=== PATIENT | female | born 1950 | race Caucasian/White ===

== ENCOUNTER 2016-05-25 15:17 | Inpatient (IN) | payer OTHER ==
[~2016-05-25] VITALS: Ht 172.7 cm; Wt 149.7 kg
[~2016-05-25 15:17] MED LIST: ACETAMINOPHEN-1 EAC3 PO; ALPRAZOLAM2 MG PO; ANTIVERT 12.512.5 MG PO; ASPIRIN81 M4 PO; ATORVASTATIN CA40 MG PO; BACTRIM DS TAB1 EACH PO; DULOXETINE HCL30 MG PO; FUROSEMIDE40 MG PO; GABAPENTIN TAB600 MG PO; GLIMEPIRIDE4 M1 PO; GLIMEPIRIDE4 MG PO; HYDROCODONE/ACE1 TA2 PO; LISINOPRIL10 MG PO; METFORMIN1000 MG PO; NORCO 5-325 TA1 EACH PO; PROAIR HFA8.5 GM INH; TRADJENTA5 MG PO; VITAMIN B-121000 MC3 PO; ZOFRAN ODT4 MG PO
--- NOTE | 2016-05-25 15:18 | NUR ---
PT'S SON FRANKIE WOULD LIKE TO BE CONTACTED WITH ANY UPDATES OR IF THERE ARE ANY QUESTIONS. FRANKIE'S PHONE # -
--- NOTE | 2016-05-25 15:48 | ED GENERAL ADULT ---
History of Present Illness General Chief Complaint: Altered Mental Status Stated Complaint: BIBA, AMS Source: patient, old records, EMS Exam Limitations: confusion, poor historian Allergies Coded Allergies: cephalexin (Severe, COULDN'T BREATHE 01/11/16) cyclobenzaprine (UNKNOWN 01/11/16) tramadol (UNKNOWN 01/11/16) Reconcile Medications Acetaminophen With Codeine (Acetaminophen-Cod #3 Tablet) 1 EACH TABLET 1 TAB PO Q6P PRN PAIN (Reported) Albuterol Sulfate (Albuterol Sulfate Hfa) 0.09 MG/Actuation SASHA 2 PUFF INH PRN SHORTNESS OF BREATH (Reported) 90 MCG PER PUFF Alprazolam 2 MG TAB 0.25-0.5 TAB PO PRN ANXIETY (Reported) Aspirin (Aspirin*) 81 MG TAB.CHEW 1 TAB PO DAILY HEART HEALTH (Reported) Atorvastatin Calcium (Lipitor) 40 MG TAB 1 TAB PO DAILY CHOLESTEROL (Reported ) Cyanocobalamin (Vitamin B-12) (Unknown Strength) TABLET (Unknown Dose) SUPPLEMENT (Reported) Duloxetine HCl 30 MG CAPSULE.DR 60 MG PO DAILY (Reported) Furosemide 40 MG TAB 1 TAB PO DAILY DIURETIC (Reported) Gabapentin (Gabapentin Tab 600MG) 600 MG TAB 1 TAB PO TID PRN NERVE PAIN ( Reported) Glimepiride 4 MG TABLET 1 TAB PO DAILY DM (Reported) HYDROCODONE/ACETAMINOPHEN (Hydrocodon-Acetaminoph 7.5-325) 1 TAB TAB 1 TAB PO Q4-6 PRN PAIN (Reported) Linagliptin (Tradjenta) 5 MG TAB 1 TAB PO DAILY DIABETES (Reported) Lisinopril 10 MG TAB 1 TAB PO DAILY BP (Reported) METFORMIN HCL (Metformin) 1,000 MG TAB 1 TAB PO BID DIABETES (Reported) Sulfamethoxazole/Trimethoprim (Bactrim Ds Tablet) 1 EACH TABLET 1 TAB PO BID uti Triage Note: 65 YO FEMALE SUBHA FROM HOME. PER EMS PT ?WAS ON THE GROUND FOR APPROX 48 HOURS PER HER SON WHO FOUND HER TODAY. PT ARRIVES ALERT AND ORIENTED AT THIS TIME. PT DOESNT RECALL WHY SHE WAS ON LISA FLOOR OR WHAT HAPPENED. PT C/O R ARM PAIN, NOT OBVSIOUS DEFORMITIES NOTED. PT INCONTINENT OF STOOL AND URINE. JAQUELIN AREA NOTED TO BE RED. PT CLEANED AND BRIEF LAYING UNDER PT. PT ALSO STATES SHE HAS BEEN HAVING BURNING WITH URINATION. Triage Nurses Notes Reviewed? yes HPI: Patient is a 65-year-old female brought in by ambulance for confusion. Patient was found on the floor by family member. Per EMS was reported that the patient was on the floor for approximately 2 days. Patient reports she takes Xanax and that she may have taken too much of her Xanax. Patient does not remember precipitating events or how she ended up on the floor. Patient is unsure how long she was on the floor for. Patient came in covered in stool. Patient with chronic knee pain and chronic right upper extremity pain, denies any new pain. (KEEGAN HERBERT) Vital Signs & Intake/Output Vital Signs & Intake/Output Vital Signs Date Time Temp Pulse Resp B/P Pulse O2 O2 Flow FiO2 Ox Delivery Rate 05/25 2017 100.4 105 18 148/88 96 Room Air 05/25 1751 100.2 98 18 135/92 100 Room Air 05/25 1635 98.2 101 20 137/97 98 Room Air 05/25 1521 98.5 117 18 187/84 98 Room Air Past History Travel History Traveled to [place] past 21 day No Medical History Any Pertinent Medical History? see below for history Neurological: vertigo, DIABETIC NEUROPATHY EENT: NONE Cardiovascular: hypertension, afib? 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 No (KEEGAN HERBERT) Review of Systems Review of Systems Constitutional: Reports: malaise, weakness. Denies: chills, fever. EENTM: Reports: no symptoms. Respiratory: Reports: cough. Denies: short of breath, sputum production, wheezing. Cardiovascular: Denies: chest pain. GI: Denies: abdominal pain. Genitourinary: Reports: dysuria. Musculoskeletal: Reports: joint pain (chronic knee pain bilaterally). Skin: Reports: no symptoms. Neurological/Psychological: Reports: see HPI. Hematologic/Endocrine: Denies: bruising, bleeding. Immunologic/Allergic: Denies: splenectomy. (KEEGAN HERBERT) Physical Exam Physical Exam General Appearance: alert, awake, obese Head: atraumatic, normal appearance Eyes: Bilateral: PERRL, EOMI, other (pupils 2mm bilaterally). Ears, Nose, Throat: dry mucous membranes Neck: normal inspection, supple, full range of motion, no midline tenderness Respiratory: normal breath sounds, no respiratory distress, lungs clear Cardiovascular: tachycardia (regular rhythm) Gastrointestinal: soft, non-tender Extremities: normal inspection, normal capillary refill, normal range of motion Neurologic/Psych: awake, alert, confused, disoriented to time Skin: warm/dry Lymphatic: no anterior cervical juliocesar Core Measures ACS in differential dx? Yes ASA ordered for poss ACS? No-ACS ruled out CVA/TIA Diagnosis: No Severe Sepsis Present: No Septic Shock Present: No (KEEGAN HERBERT) Progress Differential Diagnoses I considered the following diagnoses in my evaluation of the patient: rhabdomyolysis, ACS, overdose, electrolyte abnormality, ICH, pneumonia, UTI, sepsis Diagnostic Imaging: Viewed by Me: Radiology Read, CT Scan. Discussed w/RAD: Radiology Read, CT Scan. Radiology Impression: PATIENT: SHU FARIAS PRESENT AGE: 65 PATIENT ACCOUNT NO: [id number] : 48 LOCATION: [facility] ORDERING PHYSICIAN: KEEGAN LANDERS SERVICE DATE: 05/25/16 EXAM TYPE: CAT - CT HEAD WO IV CONTRAST EXAMINATION: CT HEAD WITHOUT CONTRAST CLINICAL INFORMATION: On the floor for 2 days. Confusion. COMPARISON: February 13, 2016 January 11, 2016 TECHNIQUE: Contiguous axial imaging was performed from the skull base to vertex without intravenous administration of contrast. DLP: 600.71 mGy-cm. FINDINGS: There is no evidence of acute intracranial hemorrhage or territorial infarction. No abnormal mass effect or midline shift is seen. Combs to white matter differentiation is well preserved. No extra-axial fluid collections are identified. The ventricles are normal in size. There is no abnormal attenuation within the brain parenchyma. The osseous structures and soft tissues are normal. The mastoid air cells and visualized portions of the paranasal sinuses are well aerated. IMPRESSION: No acute intracranial pathology. DICTATED BY: SAMEERA BUENROSTRO MD DATE/TIME DICTATED:05/25/161620 OPERATOR GROUND BASED AIR DEFENCE:DAX DATE/TIME TRANSCRIBED:05/25/161620 CONFIDENTIAL, DO NOT COPY WITHOUT APPROPRIATE AUTHORIZATION. <Electronically signed in Other Vendor System> SIGNED BY: SAMEERA BUENROSTRO MD 05/25/16 1631 CXR Impression: PATIENT: SHU FARIAS PRESENT AGE: 65 PATIENT ACCOUNT NO: [id number] : 48 LOCATION: [facility] ORDERING PHYSICIAN: KEEGAN LANDERS SERVICE DATE: 05/25/16 EXAM TYPE: RAD - XRY-PORTABLE CHEST XRAY EXAMINATION: XR PORTABLE CHEST CLINICAL INFORMATION: Assess for pneumonia. Weakness. Confusion. On the floor for 2 days. COMPARISON: Chest radiography 05/25/2016. TECHNIQUE: Portable view of the chest was obtained. FINDINGS: No new significant abnormality is noted involving the heart, lungs, mediastinum, bony thorax or soft tissues. IMPRESSION: No evidence of pneumonia. No significant interval change compared to prior radiography. DICTATED BY: BETHEL HERNANDEZ MD DATE/TIME DICTATED:05/25/161717 OPERATOR GROUND BASED [employer] DEFENCE:DAX DATE/TIME TRANSCRIBED:05/25/161717 CONFIDENTIAL, DO NOT COPY WITHOUT APPROPRIATE AUTHORIZATION. <Electronically signed in Other Vendor System> SIGNED BY: BETHEL HERNANDEZ MD 05/25/16 1723 Initial ED EKG: normal sinus rhythm at 96 bpm right bundle branch block, no acute ischemic ST/T-wave changes compared to previous EKG (PAVAN LANDERS,KEEGAN) Plan of Care: Orders Procedure Date/time Status Regular Diet 05/26 B Active Saline Lock 05/25 1931 Active Misc Message 05/25 193 Active ED Holding Orders 05/25 193 Active Vital Signs 05/25 193 Active Activity/Ambulation 05/25 193 Active Code Status 05/25 193 Active Admit to inpatient 05/25 1918 Active LACTIC ACID 05/25 1854 Complete Patient Data 05/25 1846 Active Add-on Test (ER Only) 05/25 1812 Active BLOOD CULTURE 05/25 1748 Active Intake & Output 05/25 1636 Active ACETOMINOPHEN 05/25 1622 Complete Simmons, Insertion/Removal/Asses 05/25 1606 Active CULTURE,URINE 05/25 1606 Active URINALYSIS 05/25 1605 Complete Straight Cath 05/25 1604 Complete MIXED VENOUS BLOOD GAS (GEN) 05/25 1554 Active Telemetry/Piano Mechanic 05/25 155 Active URINE DRUG SCREEN FOR ER ONLY 05/25 155 Complete TROPONIN LEVEL 05/25 155 Complete PARTIAL THROMBOPLASTIN TIME 05/25 1553 Complete PROTHROMBIN TIME 05/25 155 Complete AMMONIA 05/25 1553 Complete LACTIC ACID 05/25 155 Complete ETHANOL 05/25 155 Complete COMPREHENSIVE METABOLIC PANEL 05/25 155 Complete CREATINE PHOSPHOKINASE 05/25 155 Complete CBC WITHOUT DIFFERENTIAL 05/25 1553 Complete EKG 05/25 155 Active FingerStick- Glucose 05/25 1541 Active Laboratory Tests 05/25/16 1925: Lactic Acid 1.3 05/25/16 1626: Urine Opiates Screen 2370.00 H, Methadone Screen 48, Barbiturate Screen < 60, Ur Phencyclidine Scrn < 6.00, Amphetamines Screen < 100, U Benzodiazepines Scrn > 800 H, Urine Cocaine Screen < 50, Urine Cannabis Screen < 5.00, Urine Color YEL, Urine Clarity CLEAR, Urine pH 6.0, Ur Specific [place] 1.020, Urine Protein TRACE H, Urine Ketones NEG, Urine Nitrite NEG, Urine Bilirubin NEG, Urine Urobilinogen 0.2, Ur Leukocyte Esterase NEG, Ur Microscopic SEDIMENT EXAMINED, Urine RBC FEW H, Urine WBC RARE, Ur Epithelial Cells OCCAS, Hyaline Casts FEW H, Urine Hemoglobin TRACE-LYSED, Urine Glucose 250 H 05/25/16 1622: Bicarbonate Actual 29 H, Mixed VBG pH 7.41, Mixed VBG pCO2 47, Mixed VBG O2 Saturation 33 L, Carboxyhemoglobin 1.4 L, O2 Concentration % R/A, Anion Gap 14 , Estimated GFR 41 L, BUN/Creatinine Ratio 44.6 H, Glucose 237 H, Lactic Acid 1.7, Calcium 10.5 H, Total Bilirubin 1.2, AST 31, ALT 28, Alkaline Phosphatase 131 H, Ammonia < 9 L, Creatine Kinase 509 H, Troponin I 0.02, Total Protein 7.5, Albumin 4.3, Globulin 3.2, Albumin/Globulin Ratio 1.3, PT 11.3, INR 1.08, APTT 32, CBC w Diff NO MAN DIFF REQ, RBC 4.43, MCV 91.9, MCH 30.3, RDW 13.9, MPV 8.6, Gran % 92.6 H, Lymphocytes % 3.7 L, Monocytes % 3.4, Eosinophils % 0.1, Basophils % 0.2, Absolute Granulocytes 12.1 H, Absolute Lymphocytes 0.5 L, Absolute Monocytes 0.4, Absolute Eosinophils 0, Absolute Basophils 0, PUBS MCHC 33.0, Phlebotomy Draw Site VENOUS, Acetaminophen < 10.0 L, Serum Alcohol < 10.0 Microbiology 05/25 1800 BLOOD: Blood Culture - RECD 05/25 1745 BLOOD: Blood Culture - RECD 05/25 1626 URINE ROUT: Urine Culture - RECD Discussed with and seen by Dr. patiño. 174: Narcan 0.4 given without improvement. Patient more lethargic than initial presentation. 0.8mg of Narcan ordered. 175: 0.8mg of Narcan without change. 1809: Patient awake and answering questions. Reports she does not know how long she was on the floor. She is not sure how she ended up on the floor. (KEEGAN HERBERT) Departure Departure Time of Disposition: 1842 Disposition: STILL A PATIENT Condition: Stable Clinical Impression Primary Impression: Polysubstance overdose Qualifiers: Encounter type: initial encounter Injury intent: undetermined intent Qualified Code: T50.904A - Poisoning by unspecified drugs, medicaments and biological substances, undetermined, initial encounter Secondary Impressions: Altered mental status Qualifiers: Altered mental status type: unspecified Qualified Code: R41.82 - Altered mental status, unspecified Chronic renal insufficiency Qualifiers: Chronic kidney disease stage: unspecified stage Qualified Code: N18.9 - Chronic kidney disease, unspecified Hyperglycemia Referrals: BRENNA HORTON MD (PCP/Family) Departure Forms: Customer Survey General Discharge Information Admission Note Spoke With: NATALIIA MORTENSEN MD Documentation of Exam: Documentation of any treatments & extenuating circumstances including Concerns Regarding Discharge (functional status, medication knowledge or non-compliance, living conditions, etc.) that warrant an admission rather than observation: Serial exams, may require further doses of no oxygen. Patient's temperature also increasing given patient's history will need to continue to monitor for signs of developing infection and sepsis. Patient continues to be too lethargic to safely discharge and current condition. (KEEGAN HERBERT) PA/PULVERIZER Co-Sign Statement Statement: ED Attending supervision documentation- [X] I saw and evaluated the patient. I have also reviewed all the pertinent lab results and diagnostic results. I agree with the findings and the plan of care as documented in the PA's/PULVERIZER's documentation. [] I have reviewed the ED Record and agree with the PA's/PULVERIZER's documentation. [] Additions or exceptions (if any) to the PAs/PULVERIZER's note and plan are summarized below: [] (POLY SOLIZ,MICHELLE Kothari) Critical Care Note Critical Care Note Critical Care Time: non-applicable (PAVAN LANDERS,KEEGAN)
--- NOTE | 2016-05-25 16:05 | NUR ---
PT TO CT SCAN VIA STRETCHER AT THIS TIME
--- NOTE | 2016-05-25 16:21 | NUR ---
PT BACK FROM CT SCAN AT THIS TIME. NORMAL SALINE BOLUS INFUSING PER ORDER. BLOOD WORK DRAWN AND SENT TO LAB.
[2016-05-25 16:30] LABS: ABSOLUTE BASOPHIL COUNT 0 /CUMM (0.0-0.2); ABSOLUTE EOSINOPHIL COUNT 0 /CUMM (0.0-0.7); ABSOLUTE GRANULOCYTE CT 12.1 /CUMM (1.4-6.5); ABSOLUTE LYMPH COUNT 0.5 /CUMM (1.2-3.4); ABSOLUTE MONOCYTE COUNT 0.4 /CUMM (0.10-0.60); BASOPHIL % 0.2 % (0.0-2.0); EOSINOPHIL % 0.1 % (0-5); HEMATOCRIT 40.7 % (37-47); MEAN CORPUSCULAR HGB 30.3 PG (27.0-31.0); MEAN CORPUSCULAR VOLUME 91.9 FL (81.0-99.0); MEAN PLATELET VOLUME 8.6 FL (7.4-10.4); PLATELET COUNT 269 /CUMM (130-400); RBC DISTRIBUTION WIDTH 13.9 % (11.5-14.5); RED BLOOD CELL CT 4.43 /CUMM (4.20-5.40); WHITE BLOOD CELL COUNT 13.1 /CUMM (4.8-10.8)
--- NOTE | 2016-05-25 16:31 | CT SCAN REPORT ---
EXAMINATION: CT HEAD WITHOUT CONTRAST CLINICAL INFORMATION: On the floor for 2 days. Confusion. COMPARISON: February 13, 2016 January 11, 2016 TECHNIQUE: Contiguous axial imaging was performed from the skull base to vertex without intravenous administration of contrast. DLP: 600.71 mGy-cm. FINDINGS: There is no evidence of acute intracranial hemorrhage or territorial infarction. No abnormal mass effect or midline shift is seen. Combs to white matter differentiation is well preserved. No extra-axial fluid collections are identified. The ventricles are normal in size. There is no abnormal attenuation within the brain parenchyma. The osseous structures and soft tissues are normal. The mastoid air cells and visualized portions of the paranasal sinuses are well aerated. IMPRESSION: No acute intracranial pathology.
--- NOTE | 2016-05-25 16:36 | NUR ---
WYMAN PLACED PER ORDER AT THIS TIME. OUTPUT 1200CC DARK URINE, SPECIMEN SENT TO LAB. BP 137/97 AT THIS TIME. NORMAL SALINE REMIANS INFUSING.
[2016-05-25 16:40] LABS: GRANULOCYTE % 92.6 % (42.2-75.2)
[2016-05-25 16:41] LABS: PT 11.3 SEC (9.4-12.5); PTT 32 SEC (25-37)
--- NOTE | 2016-05-25 16:46 | NUR ---
PT STATES "I THINK I MIGHT OF TAKEN TO MANY OF MY XANAX, I NORMALLY ONLY TAKE 2 BARS BUT I THINK I ACCIDENTLY TOOK MORE THEN THAT, THAT MUST BE WHY I CANT REMEMBER" PT DENIES TAKING EXTRA MEDICATION IN ATTEMPT TO HARM SELF. PA AWARE
--- NOTE | 2016-05-25 17:07 | NUR ---
XRAY AT BEDSIDE
--- NOTE | 2016-05-25 17:23 | RADIOLOGY REPORT ---
EXAMINATION: XR PORTABLE CHEST CLINICAL INFORMATION: Assess for pneumonia. Weakness. Confusion. On the floor for 2 days. COMPARISON: Chest radiography 05/25/2016. TECHNIQUE: Portable view of the chest was obtained. FINDINGS: No new significant abnormality is noted involving the heart, lungs, mediastinum, bony thorax or soft tissues. IMPRESSION: No evidence of pneumonia. No significant interval change compared to prior radiography.
--- NOTE | 2016-05-25 17:45 | NUR ---
PT MEDICATED WITH 0.4MG IV NARCAN PER ORDER AT THIS TIME. NO RESPONSE NOTED, PT REMAINS DROWSY BUT ALERT. BP 135/92. TEMP 100.2, DR PANG AND ANSHUL RICHMOND AT BEDSIDE.
--- NOTE | 2016-05-25 17:51 | NUR ---
PT MEDICATED WITH ADDITIONAL 0.8MG IV NARCAN PER ORDER. NO RESPONSE. PT OPENS EYES IF SPOKEN TO BUT FALLS BACK TO SLEEP BEFORE SHE ANSWERES QUESTIONS. VSS. WILL CTM
--- NOTE | 2016-05-25 19:28 | NUR ---
REPEAT LACTIC DRAWN AND SENT BY THIS MST.
--- NOTE | 2016-05-25 20:07 | NUR ---
PT HAS BED ASSIGNMENT 234
--- NOTE | 2016-05-25 20:17 | History & Physical ---
JAMES AREVALO MD 05/25/16 2016: General Information and HPI MD Statement: I have seen and personally examined SHU FARIAS and documented this H&P. The patient is a 65 year old F who presented with a patient stated chief complaint of [altered mental status]. Source of Information: patient, family Exam Limitations: poor historian History of Present Illness: 65-year-old female with PMH chronic knees and right upper extremity pain, on tylenol # 3, anxiety on xanax, HTN, HLD, NIDDM, CKD, diabetic nephropathy, MRSA septic toe joint, ?atrial fibrillation, was found on the floor by her son today. She was awake but disoriented. Pt lives by herself. The last time the son spoke to her was thursday evening at 6pm, and at that time she was confused and altered. She filled her xanax on May 17, and has taken 35 pills since then and now. Pt claimed that she usually does not exceed her recommended dose of xanax but she admitted to taking more recently. She cannot quantify how many pills she took. 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 The meds are prescribed by her PCP, Dr. Leah Cordero. As per son, she was also prescribed klonipin, which is not showing on the claim history. On our examination, she was alert and oriented X 3 (s/p total 1.2 mg narcan), however she does tend to go off tangent. She said she was last normal 4 days ago , when she was laying in bed watching TV. She has had many nightmares since then. She woke up thinking she was in [place], visiting her daughter, "it didn't make sense, I was getting my things ready". She also said that she told her son she was in [place]. She does not know how she ended up on the floor, or the exact time she was on the floor, "3-4 days depending on who you ask". She does remember waking up intermittently and dozing back to sleep. She was found in her urine and stool, but pt said this is not the first time she is found in her stool. Denied hx of seizures. She is complaining of right wrist pain. She was having neck pain when she first got to the ED, but has now improved. No neck stiffness. She reports family hx of meningococcal meningitis. She spends most of her time on the bed, and usually ambulates with a walker. She reports falls and easy bruising. Her son confirmed that she lives a sedentary lifestyle, and has had mechanical fall due to knee pain. 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 She has right upper extremities tremors, which she intermittently gets. Her son said the tremors are new. She has lost 100 lbs (from 430 to 330 lbs) intentionally. She reports good PO intake prior to losing consciousness. Denies chest pain, but sometimes she feels like she is drowning. She sometimes feels dizzy and off-balance. Denies neurological deficit at this time. She was prescribed vicodin at some point for her chronic pain, but that has been discontinued. She also claimed to have seen a neurologist at [facility] for face numbness at some point. Allergies/Medications Allergies: Coded Allergies: cephalexin (Severe, COULDN'T BREATHE 01/11/16) cyclobenzaprine (UNKNOWN 01/11/16) tramadol (UNKNOWN 01/11/16) Home Med list Acetaminophen With Codeine (Acetaminophen-Cod #3 Tablet) 1 EACH TABLET 1 TAB PO Q6P PRN PAIN (Reported) Albuterol Sulfate (Albuterol Sulfate Hfa) 0.09 MG/Actuation SASHA 2 PUFF INH PRN SHORTNESS OF BREATH (Reported) 90 MCG PER PUFF Alprazolam 2 MG TAB 0.25-0.5 TAB PO PRN ANXIETY (Reported) Aspirin (Aspirin*) 81 MG TAB.CHEW 1 TAB PO DAILY HEART HEALTH (Reported) Atorvastatin Calcium (Lipitor) 40 MG TAB 1 TAB PO DAILY CHOLESTEROL (Reported ) Cyanocobalamin (Vitamin B-12) (Unknown Strength) TABLET (Unknown Dose) SUPPLEMENT (Reported) Duloxetine HCl 30 MG CAPSULE.DR 60 MG PO DAILY (Reported) Furosemide 40 MG TAB 1 TAB PO DAILY DIURETIC (Reported) Glimepiride 4 MG TABLET 1 TAB PO DAILY DM (Reported) HYDROCODONE/ACETAMINOPHEN (Hydrocodon-Acetaminoph 7.5-325) 1 TAB TAB 1 TAB PO Q4-6 PRN PAIN (Reported) Linagliptin (Tradjenta) 5 MG TAB 1 TAB PO DAILY DIABETES (Reported) Lisinopril 10 MG TAB 1 TAB PO DAILY BP (Reported) METFORMIN HCL (Metformin) 1,000 MG TAB 1 TAB PO BID DIABETES (Reported) Past History Travel History Traveled to [place] past 21 day No Medical History Neurological: vertigo, DIABETIC NEUROPATHY EENT: NONE Cardiovascular: hypertension, afib? 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 Home Who Do You Live With? self Services at Home: None Primary Language: Czech ETOH Use: occasional use Illicit Drug Use: denies illicit drug use Functional Ability Ambulation: walker Review of Systems Review of Systems Constitutional: Reports: chills, fever, weakness. Cardiovascular: Reports: palpitations, syncope. Denies: chest pain, edema. Respiratory: Reports: cough. Denies: orthopnea, short of breath, sputum production. GI: Reports: constipation, bowel incontinence. Denies: abdominal pain, bloating, diarrhea. Exam & Diagnostic Data Last 24 Hrs of Vital Signs/I&O Vital Signs Date Time Temp Pulse Resp B/P Pulse O2 O2 Flow FiO2 Ox Delivery Rate 05/256 101.7 05/257 101.7 117 20 178/77 98 Room Air 05/25 2018 100.4 105 18 148/88 96 Room Air 05/25 1751 100.2 98 18 135/92 100 Room Air 05/25 1635 98.2 101 20 137/97 98 Room Air 05/25 1521 98.5 117 18 187/84 98 Room Air Intake & Output 05/25 1600 05/25 0800 05/25 0000 Intake Total Output Total Balance Patient 163.293 kg Weight Physical Exam General Appearance Alert, Oriented X3, Cooperative, No Acute Distress Skin No Breakdown, laceration of medial right foot , bruise back of left arm HEENT Atraumatic, EOMI, dry mucous membranes, no neck stiffness Neck No JVD, +2 Carotid Pulse wo Bruit Cardiovascular Regular Rate, Normal S1, Normal S2, No Murmurs, Gallops, Rubs, tachycardic Lungs Clear to Auscultation, Normal Air Movement Abdomen Normal Bowel Sounds, Soft, No Tenderness Neurological Normal Speech, tremors both upper extremities Extremities effusion of the left knee, tender over the calves Vascular Normal Pulses Last 24 Hrs of Labs/[place]: Laboratory Tests 05/25/16 1925: Lactic Acid 1.3 05/25/16 1626: Urine Opiates Screen 2370.00 H, Methadone Screen 48, Barbiturate Screen < 60, Ur Phencyclidine Scrn < 6.00, Amphetamines Screen < 100, U Benzodiazepines Scrn > 800 H, Urine Cocaine Screen < 50, Urine Cannabis Screen < 5.00, Urine Color YEL, Urine Clarity CLEAR, Urine pH 6.0, Ur Specific Watson 1.020, Urine Protein TRACE H, Urine Ketones NEG, Urine Nitrite NEG, Urine Bilirubin NEG, Urine Urobilinogen 0.2, Ur Leukocyte Esterase NEG, Ur Microscopic SEDIMENT EXAMINED, Urine RBC FEW H, Urine WBC RARE, Ur Epithelial Cells OCCAS, Hyaline Casts FEW H, Urine Hemoglobin TRACE-LYSED, Urine Glucose 250 H 05/25/16 1622: Hemoglobin A1c Pending 05/25/16 1622: Bicarbonate Actual 29 H, Mixed VBG pH 7.41, Mixed VBG pCO2 47, Mixed VBG O2 Saturation 33 L, Carboxyhemoglobin 1.4 L, O2 Concentration % R/A, Anion Gap 14 , Estimated GFR 41 L, BUN/Creatinine Ratio 44.6 H, Glucose 237 H, Lactic Acid 1.7, Calcium 10.5 H, Total Bilirubin 1.2, AST 31, ALT 28, Alkaline Phosphatase 131 H, Ammonia < 9 L, Creatine Kinase 509 H, Troponin I 0.02, Total Protein 7.5, Albumin 4.3, Globulin 3.2, Albumin/Globulin Ratio 1.3, TSH Pending, Free T4 Pending, PT 11.3, INR 1.08, APTT 32, CBC w Diff NO MAN DIFF REQ, RBC 4.43, MCV 91.9, MCH 30.3, RDW 13.9, MPV 8.6, Gran % 92.6 H, Lymphocytes % 3.7 L, Monocytes % 3.4, Eosinophils % 0.1, Basophils % 0.2, Absolute Granulocytes 12.1 H, Absolute Lymphocytes 0.5 L, Absolute Monocytes 0.4, Absolute Eosinophils 0, Absolute Basophils 0, PUBS MCHC 33.0, Phlebotomy Draw Site VENOUS, Acetaminophen < 10.0 L, Serum Alcohol < 10.0 Microbiology 05/25 1800 BLOOD: Blood Culture - RECD 05/25 1745 BLOOD: Blood Culture - RECD 05/25 1626 URINE ROUT: Urine Culture - RECD Diagnostic Data EKG Results EKG, NSR 96 CXR Results No evidence of pneumonia. No significant interval change compared to prior radiography. Other Results Head CT IMPRESSION: No acute intracranial pathology. Assessment/Plan Assessment: 65-year-old female with PMH chronic knees and right upper extremity pain, on tylenol # 3, anxiety on xanax, HTN, HLD, NIDDM, CKD, diabetic nephropathy, MRSA septic toe joint, ?atrial fibrillation, was found unconscious on the floor by her son today. It is unknown how long she was on the floor, and how she ended up there. We are admitting her to telemetry for unintentional benzo and opiate overdose, possible benzo withdrawal seizure (urine and stool incontinence), syncope (LOC on the floor), possible atrial fibrillation. The LOC is most likely precipitated by unintentional benzodiazepine overdose from her xanax. Given her hx of MRSA septic joint, and low grade fever in ED 100.2, along with tachycardia, septic joint is considered and will do further work-up. # Benzodiazepine and opiate overdose # Possible benzo withdrawal seizure # Upper extremities tremor - Urine opiate 2370. Given 1X0.4, and 1X0.8 Narcan in ED - Urine benzo > 800 - Negative CT head findings * Neuro consult placed for in am (Dr Lim) * Follow EEG * Contact Dr. Leah Cordero to confirm meds and PMH * Neurocheck * CPK 509--> 445 * hold benzo and opiates for now. 0.25 tid xanax ordered for am to avoid benzo withdrawal. * Psych consult placed # Syncopal episode, possible atrial fibrillation * Cardio consult in am (has not seen any visual education director before) * Follow echocardiogram * Follow lipid panel, hba1c, tsh, ft4 * Serial trop and EKG , 0.02 --> 0.04 # Dehydration * Continue maintenance fluid NS 75ml/hr * Simmons placed in ED # Fever up to 101.7 in ED, tachycardia, leukocytosis, unknown origin. Possible septic arthritis of the knee (some effusion and tenderness). Other sources of fever: aspiration pna (unlikely, cxr negative, not hypoxic) vs UTI (UA negative) - left knee looks bigger than the right * Follow left knee xray * Doppler US of both LE to r/o DVT * BC X 2, UC * Consider ID consult if fever persists * Bedside swallow eval passed * Aspiration precautions # Recurrent mechanical falls * PT evaluation # Diabetes mellitus * Follow hba1c * hold home metformin, linagliptin, and glimepiride * Accucheck and novolog ss # HLD * Continue atorvastatin 40 mg daily # HTN * Continue lisinopril * Continue lasix # Other home meds * Continue albuterol, aspirin 81, vit b12, duloxetine 60 daily Diet: CC3 DVT ppx: mech and pharm FULL CODE As Ranked By This Provider Problem List: 1. Polysubstance overdose Qualifiers Encounter type: initial encounter Injury intent: undetermined intent Qualified Code: T50.904A - Poisoning by unspecified drugs, medicaments and biological substances, undetermined, initial encounter Core Measures/Miscellaneous Acute Coronary Syndrome ACS Diagnosis: No Cerebrovascular Accident CVA/TIA Diagnosis: No Congestive Heart Failure CHF Diagnosis: No Venous Thromboembolism VTE Risk Factors: Acute medical illness, Age > 40, Immobility, paresis VTE Prophylaxis Ordered Inpt: Mech & Pharm No Mech VTE prophylaxis d/t: No contraindications No VTE Pharm Prophylaxis d/t: No contraindications VTE Diagnosis: No VTE Type: NONE VTE Confirmed by (Test): NONE Severe Sepsis Severe Sepsis Present: No Septic Shock Septic Shock Present: No Miscellaneous Documentation Attending Case Discussed With: FESTUS SOLIZ,NATALIIA Primary Care Physician: SOL SOLIZ,LEAH Hanson Patient sees these Specialists None Level of Patient Care: Telemetry MELINDA KABA 05/25/16 2342: Resident Review Statement Resident Statement: examined this patient, discussed with inclusion intern, agreed with inclusion intern, discussed with family, reviewed EMR data (avail), discussed with nursing , reviewed images, amended to note Other Findings: This is 65-year-old female with past medical history of chronic knees and right upper extremity pain, on tylenol # 3, anxiety on xanax, hypertension, lipidemia, diabetes mellitus, chronic kidney disease, diabetic nephropathy, history of MRSA septic toe joint, was found on the floor by her son today. Patient did not recall what happened exactly, she stated that the last time she noted that she was in her usual status was 3-4 days ago when she was watching her DVD. We contact her son who explained that the patient was known to be in her usual status on when he was with her, he stated that he contacts over the phone on Thursday around 5 PM and at that time he stated that she was confused and altered. And since then until Thursday afternoon around 1:30 PM when he found her on the floor he did not heard from her or know anything about her. He stated that he found her on the floor covered with her thesis and she was asking for water because she stated that she feels thirsty, also he stated that she was very confused and she was slightly shaking which is new for her. He stated that the first time she had this episode of overdose and he deny any history of seizure. He reports multiple mechanical falls due to the chronic knee pain and he stated that she is most of the time bedbound due to her joint pain and difficulty ambulation. 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 Patient reports seeing a neurologist 2 years back for some facial weakness, she cannot recall exactly what happened. Physical examination, lab and imaging as above. Patient passed bedside swallow evaluation Problem list: -Unwitnessed loss of consciousness/syncope/seizure,that also could be due to medication overdose. -Benzodiazepine, opioids overdose -Altered mental status, dehydration -Fever of unknown origin, Leukocytosis, that could be septic joint versus PE versus DVT -Sinus tachycardia -Elevated creatinine kinase, alkaline phosphatase -Chronic kidney disease Plan: -Admit patient to telemetry floor -Vitas every shift, strict PAULINE's, neuro check, aspiration precaution -The patient on IV fluid hydration of normal saline at 100 mL per hour -Serial troponin and EKG to rule out ACS -Echocardiogram, cardiology consultation am -Check lipid panel, TSH, free T4, hemoglobin A1c -Recheck creatinine kinase -Get x-ray of the left knee, hold off on antibiotic for now, panculture. -Lower extremity Doppler to rule out DVT, consider VQ scan -Accu-Chek, insulin sliding scale, carbohydrate consistent diet -Repeat CBC and basic panel electrolytes in the morning. -Hold off all anti-diabetic agent home medication, hold off opioids and benzodiazepine home medication, continue lisinopril, statin and aspirin home medication. -Neurology consultation a.m. -Physical therapy consultation -Pain pathway -DVT prophylaxis subcutaneous heparin -Full code. FESTUS SOLIZ, [facility] 05/26/16 0238: Attending MD Review Statement Attending Statement Attending MD Statement: examined this patient, discuss w/resident/PA/TAR KETTLE RUNNER, agreed w/resident/PA/TAR KETTLE RUNNER Attending Assessment/Plan: 65 yo morbidly obese F with h/o T2DM, HTN, diabetic neuropathy, CKD stage 3B, bilateral severe OA, previous right foot MRSA septic arthritis, is brought in by son for evaluation of altered mental status. Per ER records, patient was found on the floor by her son. Patient lives alone, walks with a walker and tends to fall frequently. History as obtained from son, who reports that he spoke with patient on Thursday evening when she sounded confused. After that, he went in to check on her today and found her on the floor covered in feces. Unknown downtime ?probably over 24 hours. Patient is on xanax 2 mg for anxiety and Tylenol with codeine for OA pain, previously she was on Vicodin. 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 Cordero. Xanax 60 pills refilled on , tylenol #3 60 pills refilled on 04/27/16 and #4 60 pills refilled on . Son reports patient took almost 35 pills of xanax over past 1 week. In the ER, patient received 2 doses of Narcan with some improvement in mentation. On our evaluation, patient was oriented, alert and reported that the last thing she remembers is that she was watching TV 4 days ago and had a nightmare; when she woke up, she thought she was in [place] at her daughter's house. She cannot recollect if she fell, had a seizure (no prior history) or lost consciousness. Vitals: Tmax 101.7, tachycardic to 110-120's, BP 176/77, sats 97% RA. Exam: Dry mucous membranes, bruise noted to left arm and right foot. B/l LE diffuse calf tenderness, both knees are warm, tender and possible effusion in left knee joint. Labs: WBC 13.1, BUN 58, creat 1.3 (baseline), glucose 237, lactic acid 1.7, Ca 10.5, CK 509, trop neg, TSH/free T4 normal. UA neg. Utox positive for benzos and opiates. Alcohol < 10, tylenol neg. VB.41/47/29. CT head neg, CXR no pneumonia, Left knee Xray: small effusion, degenerative changes. EKG: NSR, RBBB (old). Previous EKG from 2012 reads Afib, however it appears SR. 1. Altered mental status, unwitnessed fall, unknown downtime, unclear if patient had a syncopal episode vs. Seizure. Unintentional benzo and opiate overdose with minimal response to Narcan. Monitor on Telemetry for arrhythmias. TFTs are normal. Trend EKG and troponin, obtain Echo and Cardio consult. CK mildly elevated with chronic kidney disease, gentle hydration, trend CK. Obtain EEG and Neuro consult. Restart low dose benzo (xanax) in AM to avoid withdrawal symptoms. Obtain Psych consult. 2. Fever of unclear etiology. No evidence of UTI or pneumonia. No obvious cellulitic skin changes. Left knee small effusion, b/l knee degenerative changes. Will obtain LE dopplers to rule out DVT. Panculture, monitor off abx. Consider ID consult if fever persists. 3. Frequent falls, physical deconditioning, severe OA. Pain management with tylenol, resume benzos in AM to avoid withdrawal symptoms. PT eval. 4. Hypercalcemia 2/2 dehydration. IV fluids. Passed bedside swallow, encourage PO intake. 5. T2DM. Hold Tradjenta, metformin and glimepiride. Initiate novolog SS. Check A1c. DVT ppx Hep SC. Full code.
--- NOTE | 2016-05-25 20:25 | NUR ---
ATTEMPTED TO CALL REPORT, NURSE STATED SHE WOULD CALL BACK
--- NOTE | 2016-05-25 20:48 | NUR ---
REPORT GIVEN TO ADELAIDA ROSEN, DISTRIBUTION CALLED FOR TRANSPORT
--- NOTE | 2016-05-25 21:00 | NUR ---
HOUSE STAFF AT BEDSIDE FOR PT EVAL
--- NOTE | 2016-05-25 22:47 | NUR ---
PT MEDICATED WITH 650MG OF TYLENOL AND SC HEPARIN
--- NOTE | 2016-05-25 22:48 | NUR ---
PT MEDICATED WITH NS INFUSING @125MLS/HR PER EMAR
--- NOTE | 2016-05-25 23:01 | Admission Certification ---
Admission Certification Certification Statement - As attending physician, I certify that at the time of - admission, based on clinical presentation, severity of - symptoms, need for further diagnostic testing and - therapeutic interventions, and risk of adverse outcomes - without in-hospital treatment, in my clinical assessment, - this patient requires an acute hospital stay for a minimum - of two nights or longer. I have also considered psychsocial - factors such as support system, advanced age, financial - issues, cognitive issues, and failed out-patient treatments, - past re-admission history, safety of patient, and lack of - compliance as applicable. Specific rationale supporting this admission is: Benzo overdose, unwitnessed fall, syncope vs. seizure. Fever of unclear etiology.
--- NOTE | 2016-05-25 23:19 | RADIOLOGY REPORT ---
EXAMINATION: XR KNEE, LEFT CLINICAL INFORMATION: Fever, pain COMPARISON: 02/08/2016 TECHNIQUE: 2 views of the left knee. FINDINGS: Alignment is anatomic. There is marked degenerative change with tricompartmental joint space narrowing and osteophytosis, most severe in the medial compartment. No acute fracture is seen. Possible small effusion, suboptimally assessed due to positioning. IMPRESSION: Possible small effusion, suboptimally assessed due to patient positioning. Marked degenerative changes.
--- NOTE | 2016-05-26 00:22 | NUR ---
PT INCONINENT OF STOOL, PT CLEANED, GIVEN NEW BRIEF. PT PLACED IN HOSPITAL BED.
[2016-05-26 02:00] VITALS: BP 165/72
--- NOTE | 2016-05-26 02:18 | NUR ---
PT IPOC IS UP TO DATE
--- NOTE | 2016-05-26 05:03 | NUR ---
PT SLEEPING. AROUSABLE TO VERBAL STIMULATION. RESP UNLABORED. ST ON THE MONITOR. SKIN WARM AND DRY. WILL CONTINUE TO MONITOR
[2016-05-26 06:19] LABS: ABSOLUTE BASOPHIL COUNT 0 /CUMM (0.0-0.2); ABSOLUTE EOSINOPHIL COUNT 0.1 /CUMM (0.0-0.7); ABSOLUTE GRANULOCYTE CT 8.7 /CUMM (1.4-6.5); ABSOLUTE LYMPH COUNT 0.8 /CUMM (1.2-3.4); ABSOLUTE MONOCYTE COUNT 0.5 /CUMM (0.10-0.60); BASOPHIL % 0.2 % (0.0-2.0); HEMATOCRIT 36.7 % (37-47); MEAN CORPUSCULAR HGB 30.5 PG (27.0-31.0); MEAN CORPUSCULAR HGB CONC 33.3 G/DL (33.0-37.0); MEAN CORPUSCULAR VOLUME 91.5 FL (81.0-99.0); MEAN PLATELET VOLUME 8.5 FL (7.4-10.4); PLATELET COUNT 257 /CUMM (130-400); RBC DISTRIBUTION WIDTH 14.4 % (11.5-14.5); RED BLOOD CELL CT 4.01 /CUMM (4.20-5.40); WHITE BLOOD CELL COUNT 10.1 /CUMM (4.8-10.8)
--- NOTE | 2016-05-26 06:20 | PN- Housestaff ---
Subjective Review of Systems Constitutional: Reports: see HPI. Objective Last 24 Hrs of Vital Signs/I&O Vital Signs Date Time Temp Pulse Resp B/P Pulse O2 O2 Flow FiO2 Ox Delivery Rate 05/26 0556 101.5 110 20 180/81 95 Room Air 05/26 0504 100.1 05/26 0459 100.1 05/26 0200 101.3 103 20 165/72 97 Room Air 05/26 0153 101.7 106 20 176/77 97 Room Air 05/25 2246 101.7 05/25 2217 101.7 117 20 178/77 98 Room Air 05/25 2018 100.4 105 18 148/88 96 Room Air 05/25 1751 100.2 98 18 135/92 100 Room Air 05/25 1635 98.2 101 20 137/97 98 Room Air 05/25 1521 98.5 117 18 187/84 98 Room Air Intake & Output 05/26 0800 05/26 0000 05/25 1600 Intake Total 500 Output Total 3050 1200 Balance -2550 -1200 Intake, IV 500 Output, Urine 3050 1200 Patient 163.293 kg 163.293 kg Weight Current Medications: Current Medications Sig/Gely Start time Last Medication Dose Route Stop Time Status Admin Acetaminophen 0 .STK-MED ONE 05/25 2244 DC PO Acetaminophen 650 MG Q6P PRN 05/25 2230 AC 05/25 PO 2246 Alprazolam 0.25 MG TID 05/26 1000 AC PO 06/02 0959 Aspirin 81 MG DAILY 05/26 1000 AC PO Atorvastatin Calcium 40 MG 1700 05/26 1700 AC PO Heparin Sodium 0 .STK-MED ONE 05/26 0606 DC (Porcine) .ROUTE Heparin Sodium 0 .STK-MED ONE 05/25 224 DC (Porcine) .ROUTE Heparin Sodium 5,000 UNIT Q8 05/25 2214 AC 05/26 (Porcine) SC 0611 Insulin Aspart 0 TIDAC 05/26 0800 AC SC Lisinopril 10 MG DAILY 05/26 1000 AC PO Naloxone HCl 0.8 MG ONCE ONE 05/25 1800 DC 05/25 IV 05/25 1801 1751 Naloxone HCl 0 .STK-MED ONE 05/25 1748 DC .ROUTE Naloxone HCl 0.4 MG ONCE ONE 05/25 1745 DC 05/25 IV 05/25 1746 1744 Naloxone HCl 0 .STK-MED ONE 05/25 1742 DC .ROUTE Sodium Chloride 1,000 ML .[id number] 05/25 2215 AC 05/26 IV 0604 Sodium Chloride 1,000 ML ONCE ONE 05/25 1815 DC 05/25 IV 05/26 0414 1819 Sodium Chloride 1,000 ML BOLUS ONE 05/25 1600 DC 05/25 IV 05/25 1659 1621 Last 24 Hrs of Lab/[place] Results Last 24 Hrs of Labs/Mics: Laboratory Tests 05/26/16 0606: Sodium Pending, Potassium Pending, Chloride Pending, Carbon Dioxide Pending, Anion Gap Pending, BUN Pending, Creatinine Pending, BUN/Creatinine Ratio Pending , Troponin I Pending, Triglycerides Pending, Cholesterol Pending, LDL Cholesterol, Calc Pending, HDL Cholesterol Pending, Cholesterol/HDL Ratio Pending, CBC w Diff MAN DIFF ORDERED, WBC Pending, RBC Pending, Hgb Pending, Hct Pending, MCV Pending, MCH Pending, RDW Pending, Plt Count Pending, MPV Pending, Gran % Pending, Lymphocytes % Pending, Monocytes % Pending, Eosinophils % Pending, Basophils % Pending, Absolute Granulocytes Pending, Segmented Neutrophils Pending, Absolute Lymphocytes Pending, Absolute Monocytes Pending, Absolute Eosinophils Pending, Absolute Basophils Pending, PUBS MCHC Pending 05/25/16 2319: Creatine Kinase 445 H, Troponin I 0.04 05/25/16 2251: Creatine Kinase Cancelled 05/25/16 1925: Lactic Acid 1.3 05/25/16 1626: Urine Opiates Screen 2370.00 H, Methadone Screen 48, Barbiturate Screen < 60, Ur Phencyclidine Scrn < 6.00, Amphetamines Screen < 100, U Benzodiazepines Scrn > 800 H, Urine Cocaine Screen < 50, Urine Cannabis Screen < 5.00, Urine Color YEL, Urine Clarity CLEAR, Urine pH 6.0, Ur Specific [place] 1.020, Urine Protein TRACE H, Urine Ketones NEG, Urine Nitrite NEG, Urine Bilirubin NEG, Urine Urobilinogen 0.2, Ur Leukocyte Esterase NEG, Ur Microscopic SEDIMENT EXAMINED, Urine RBC FEW H, Urine WBC RARE, Ur Epithelial Cells OCCAS, Hyaline Casts FEW H, Urine Hemoglobin TRACE-LYSED, Urine Glucose 250 H 05/25/16 1622: Hemoglobin A1c Pending 05/25/16 1622: Bicarbonate Actual 29 H, Mixed VBG pH 7.41, Mixed VBG pCO2 47, Mixed VBG O2 Saturation 33 L, Carboxyhemoglobin 1.4 L, O2 Concentration % R/A, Anion Gap 14 , Estimated GFR 41 L, BUN/Creatinine Ratio 44.6 H, Glucose 237 H, Lactic Acid 1.7, Calcium 10.5 H, Total Bilirubin 1.2, AST 31, ALT 28, Alkaline Phosphatase 131 H, Ammonia < 9 L, Creatine Kinase 509 H, Troponin I 0.02, Total Protein 7.5, Albumin 4.3, Globulin 3.2, Albumin/Globulin Ratio 1.3, TSH 0.599, Free T4 1.42, PT 11.3, INR 1.08, APTT 32, CBC w Diff NO MAN DIFF REQ, RBC 4.43, MCV 91.9 , MCH 30.3, RDW 13.9, MPV 8.6, Gran % 92.6 H, Lymphocytes % 3.7 L, Monocytes % 3.4, Eosinophils % 0.1, Basophils % 0.2, Absolute Granulocytes 12.1 H, Absolute Lymphocytes 0.5 L, Absolute Monocytes 0.4, Absolute Eosinophils 0, Absolute Basophils 0, PUBS MCHC 33.0, Phlebotomy Draw Site VENOUS, Acetaminophen < 10.0 L, Serum Alcohol < 10.0 Microbiology 05/25 1800 BLOOD: Blood Culture - RECD 05/25 1744 BLOOD: Blood Culture - RECD 05/25 1625 URINE ROUT: Urine Culture - RECD Lines/Diet/Fluids Restraints: none
--- NOTE | 2016-05-26 06:40 | NUR ---
PT CLEANED OF STOOL INCONTINENCE. GOWN CHANGED, PT REPOSITIONED ON BACK
[2016-05-26 06:51] VITALS: BP 160/70
--- NOTE | 2016-05-26 06:59 | NUR ---
PT MORE AWAKE NOW. ORIENTED X3. RESP UNLABORED. DENIES CP AND SOB. NO APPARENT DISTRESS. WILL CONTINUE TO MONITOR.
--- NOTE | 2016-05-26 07:39 | NUR ---
PT SLEEPING AT THIS TIME. RR EVEN AND UNLABORED. PAGED MD RICHMOND #[phone] TO INFORM TEMP OF 101.5
--- NOTE | 2016-05-26 08:01 | NUR ---
NO CALL BACK FROM RESIDENT PAGED 3 TIMES. CALLED MOD TO NOTIFY ABOUT TEMP OF 101.5, STROKE SCALE ORDERED BUT NO SWALLOW EVAL. PO MEDS AND DIET ORDERED. WOULD LIKE CLARIFICATION
--- NOTE | 2016-05-26 08:04 | NUR ---
MD RICHMOND CALLED BACK. STATES TO KEEP PT NPO FOR NOW
--- NOTE | 2016-05-26 08:07 | PN- Housestaff ---
DORIS MCGILL 05/26/16 0806: Subjective Follow-up For: altered Mental status Benzo overdose Stroke Arrhythmia Complaints: complains of pain( B/L knees and lower back) Tele-Events Since Last Visit: Normal sinus rhythm No ST T segment change Subjective: Patient was visited and examined AOX3 In mild distresss due to pain Patient emotionally unstable and sad. She is afraid of dying. Simmons in place.Vs showed T of 101.3. Otherwise normal. Review of Systems Constitutional: Denies: chills, diaphoresis, fever, malaise, weakness, unexplained weight loss. EENTM: Denies: blurred vision, double vision, visual changes, eye pain, eye drainage, eye tearing, icterus, ear discharge, ear pain, ear redness, hearing changes, nasal congestion, epistaxis, nasal pain, throat pain, throat swelling, mouth pain, tooth pain. Cardiovascular: Denies: chest pain, edema, orthopena, palpitations, peripheral edema, syncope. Respiratory: Denies: cough, hemoptysis, orthopnea, short of breath, sputum production, stridor, wheezing. Gastrointestinal: Denies: abdominal pain, bloating, constipation, diarrhea, distention, bowel incontinence, melena, nausea, bloody stool, changes in stool, vomiting, steatorrhea. Genitourinary: Denies: discharge, dysuria, frequency, hematuria, hesitation, nocturia, pain, urgency. Musculoskeletal: Denies: back pain, gout, joint pain, joint swelling, muscle pain, muscle stiffness, neck pain. Objective Last 24 Hrs of Vital Signs/I&O Vital Signs Date Time Temp Pulse Resp B/P Pulse O2 O2 Flow FiO2 Ox Delivery Rate 05/26 0651 101.5 110 20 160/70 95 Room Air 05/26 0647 160/70 05/26 0556 101.5 110 20 180/81 95 Room Air 05/26 0504 100.1 05/26 0459 100.1 05/26 0200 101.3 103 20 165/72 97 Room Air 05/26 0153 101.7 106 20 176/77 97 Room Air 05/25 2246 101.7 05/25 2217 101.7 117 20 178/77 98 Room Air 05/25 2018 100.4 105 18 148/88 96 Room Air 05/25 1751 100.2 98 18 135/92 100 Room Air 05/25 1635 98.2 101 20 137/97 98 Room Air 05/25 1521 98.5 117 18 187/84 98 Room Air Intake & Output 05/26 1600 05/26 0800 05/26 0000 Intake Total 500 Output Total 3050 1200 Balance -2550 -1200 Intake, IV 500 Output, Urine 3050 1200 Patient 360 lb Weight Physical Exam General Appearance: Alert, Oriented X3, Cooperative, Mild Distress Skin: No Rashes, No Breakdown, No Significant Lesion HEENT: Atraumatic, PERRLA, EOMI, MM are dry Neck: No JVD, No thryomegaly Lymphatic: Axillary nl, Cervical nl Cardiovascular: Normal S1, Normal S2, No Murmurs Lungs: Clear to Auscultation, Normal Air Movement Abdomen: Normal Bowel Sounds, Soft, No Tenderness, No Hepatospenomegaly, No Masses Neurological: Normal Speech, Sensation Intact, Cranial Nerves 3-12 NL Extremities: B/L pedal pittin edema Vascular: Normal Pulses, Pulses Symmetrical Current Medications: Current Medications Sig/Gely Start time Last Medication Dose Route Stop Time Status Admin Acetaminophen 0 .STK-MED ONE 05/25 2244 DC PO Acetaminophen 650 MG Q6P PRN 05/25 2230 AC 05/25 PO 2246 Alprazolam 0.25 MG TID 05/26 1000 AC PO 06/02 0959 Aspirin 81 MG DAILY 05/26 1000 AC PO Atorvastatin Calcium 40 MG 1700 05/26 1700 AC PO Heparin Sodium 0 .STK-MED ONE 05/26 0606 DC (Porcine) .ROUTE Heparin Sodium 0 .STK-MED ONE 05/25 2245 DC (Porcine) .ROUTE Heparin Sodium 5,000 UNIT Q8 05/25 2214 AC 05/26 (Porcine) SC 0611 Insulin Aspart 0 TIDAC 05/26 0800 AC 05/26 SC 0815 Lisinopril 10 MG DAILY 05/26 1000 AC PO Naloxone HCl 0.8 MG ONCE ONE 05/25 1800 DC 05/25 IV 05/25 1801 1751 Naloxone HCl 0 .STK-MED ONE 05/25 1748 DC .ROUTE Naloxone HCl 0.4 MG ONCE ONE 05/25 1745 DC 05/25 IV 05/25 1746 1744 Naloxone HCl 0 .STK-MED ONE 05/25 1742 DC .ROUTE Sodium Chloride 1,000 ML .[id number] 05/25 2215 AC 05/26 IV 0604 Sodium Chloride 1,000 ML ONCE ONE 05/25 1815 DC 05/25 IV 05/26 0414 1819 Sodium Chloride 1,000 ML BOLUS ONE 05/25 1600 DC 05/25 IV 05/25 1659 1621 Last 24 Hrs of Lab/[place] Results Last 24 Hrs of Labs/Mics: Laboratory Tests 05/26/16 0606: Anion Gap 10, Estimated GFR 50 L, BUN/Creatinine Ratio 46.4 H, Troponin I 0.03 , Triglycerides 153 H, Cholesterol 195, LDL Cholesterol, Calc 102, HDL Cholesterol 63 H, Cholesterol/HDL Ratio 3, CBC w Diff MAN DIFF ORDERED, RBC 4.01 L, MCV 91.5, MCH 30.5, RDW 14.4, MPV 8.5, Gran % 86.0 H, Lymphocytes % 8.2 L, Monocytes % 4.6, Eosinophils % 1.0, Basophils % 0.2, Absolute Granulocytes 8.7 H, Absolute Lymphocytes 0.8 L, Absolute Monocytes 0.5, Absolute Eosinophils 0.1, Absolute Basophils 0, Platelet Estimate ADEQUATE, Anisocytosis 1+, PUBS MCHC 33.3 05/25/16 2319: Creatine Kinase 445 H, Troponin I 0.04 05/25/16 2251: Creatine Kinase Cancelled 05/25/16 1925: Lactic Acid 1.3 05/25/16 1626: Urine Opiates Screen 2370.00 H, Methadone Screen 48, Barbiturate Screen < 60, Ur Phencyclidine Scrn < 6.00, Amphetamines Screen < 100, U Benzodiazepines Scrn > 800 H, Urine Cocaine Screen < 50, Urine Cannabis Screen < 5.00, Urine Color YEL, Urine Clarity CLEAR, Urine pH 6.0, Ur Specific [place] 1.020, Urine Protein TRACE H, Urine Ketones NEG, Urine Nitrite NEG, Urine Bilirubin NEG, Urine Urobilinogen 0.2, Ur Leukocyte Esterase NEG, Ur Microscopic SEDIMENT EXAMINED, Urine RBC FEW H, Urine WBC RARE, Ur Epithelial Cells OCCAS, Hyaline Casts FEW H, Urine Hemoglobin TRACE-LYSED, Urine Glucose 250 H 05/25/16 1622: Hemoglobin A1c Pending 05/25/16 1622: Bicarbonate Actual 29 H, Mixed VBG pH 7.41, Mixed VBG pCO2 47, Mixed VBG O2 Saturation 33 L, Carboxyhemoglobin 1.4 L, O2 Concentration % R/A, Anion Gap 14 , Estimated GFR 41 L, BUN/Creatinine Ratio 44.6 H, Glucose 237 H, Lactic Acid 1.7, Calcium 10.5 H, Total Bilirubin 1.2, AST 31, ALT 28, Alkaline Phosphatase 131 H, Ammonia < 9 L, Creatine Kinase 509 H, Troponin I 0.02, Total Protein 7.5, Albumin 4.3, Globulin 3.2, Albumin/Globulin Ratio 1.3, TSH 0.599, Free T4 1.42, PT 11.3, INR 1.08, APTT 32, CBC w Diff NO MAN DIFF REQ, RBC 4.43, MCV 91.9 , MCH 30.3, RDW 13.9, MPV 8.6, Gran % 92.6 H, Lymphocytes % 3.7 L, Monocytes % 3.4, Eosinophils % 0.1, Basophils % 0.2, Absolute Granulocytes 12.1 H, Absolute Lymphocytes 0.5 L, Absolute Monocytes 0.4, Absolute Eosinophils 0, Absolute Basophils 0, PUBS MCHC 33.0, Phlebotomy Draw Site VENOUS, Acetaminophen < 10.0 L, Serum Alcohol < 10.0 Microbiology 05/25 1800 BLOOD: Blood Culture - RECD 05/25 1745 BLOOD: Blood Culture - RECD 05/25 1626 URINE ROUT: Urine Culture - RES MYARNDA ENG 05/26/16 0848: Objective Last 24 Hrs of Vital Signs/I&O Vital Signs Date Time Temp Pulse Resp B/P Pulse O2 O2 Flow FiO2 Ox Delivery Rate 05/26 0651 101.5 110 20 160/70 95 Room Air 05/26 0647 160/70 05/26 0556 101.5 110 20 180/81 95 Room Air 05/26 0504 100.1 05/26 0459 100.1 05/26 0200 101.3 103 20 165/72 97 Room Air 05/26 0153 101.7 106 20 176/77 97 Room Air 05/25 2246 101.7 05/25 2217 101.7 117 20 178/77 98 Room Air 05/25 2018 100.4 105 18 148/88 96 Room Air 05/25 1751 100.2 98 18 135/92 100 Room Air 05/25 1635 98.2 101 20 137/97 98 Room Air 05/25 1521 98.5 117 18 187/84 98 Room Air Intake & Output 05/26 1600 05/26 0800 05/26 0000 Intake Total 500 Output Total 3050 1200 Balance -2550 -1200 Intake, IV 500 Output, Urine 3050 1200 Patient 360 lb Weight Assessment/Plan Assessment: 65 yo morbidly obese F with h/o T2DM, HTN, diabetic neuropathy, CKD stage 3B, bilateral severe OA, previous right foot MRSA septic arthritis, is brought in by son for evaluation of altered mental status. TFTs are normal. Trend EKG and troponin CK mildly elevated with chronic kidney disease List of Problems 1. Altered mental status, unwitnessed fall, unknown downtime, unclear if patient had a syncopal episode vs. Seizure. Unintentional benzo and opiate overdose with minimal response to Narcan. * Monitor on Telemetry for arrhythmias. * obtain Echo and Cardio consult, * Obtain EEG and Neuro consult. * Restart low dose benzo (xanax) in AM to avoid withdrawal symptoms. * Obtain Psych consult. 2. Fever of unclear etiology. No evidence of UTI or pneumonia. No obvious cellulitic skin changes. Left knee small effusion, b/l knee degenerative changes. * Will obtain LE dopplers to rule out DVT * Leukocytosis: possibly due to dehydration and stress; monitor off abx. * Panculture * Consider ID consult if fever persists. 3. Frequent falls, physical deconditioning, severe OA. * Pain management with tylenol, * PT eval. 4. Hypercalcemia 2/2 dehydration * IV fluids * Passed bedside swallow, encourage PO intake. 5. T2DM * hold all the OHA and starte her on Aspart SS DVT ppx Hep SC. Full code Problem List: 1. Hyperglycemia 2. Chronic renal insufficiency 3. Altered mental status 4. Polysubstance overdose 5. Fall Pain Ratin Pain Location: lower extremities Pain Goal: Pain 4 or less Pain Plan: Tylenol Tomorrow's Labs & Rationales: CBC BEP
--- NOTE | 2016-05-26 09:07 | NUR ---
RESIDENT YI SOLIZ AT BEDSIDE FOR EVALUATION
--- NOTE | 2016-05-26 09:29 | NUR ---
PER YI SOLIZ, SC FOR PT TO HAVE WATER
--- NOTE | 2016-05-26 09:38 | PN- Housestaff ---
DORIS MCGILL 05/26/16 0934: Subjective Follow-up For: altered Mental status PE Benzo overdose Tele-Events Since Last Visit: Normal sinus rhythm No ST T segment change Subjective: Patient was visited and examined AOX3 In mild distresss due to pain and tingling and numbness on both legs (DM neuropathy) Patient emotionally unstable and sad. She is afraid of dying. Simmons in place.Vs showed T of 101.3. Otherwise normal. Review of Systems Constitutional: Reports: fever, malaise, weakness. Denies: chills, diaphoresis, unexplained weight loss. EENTM: Denies: blurred vision, double vision, visual changes, eye pain, eye drainage, eye tearing, icterus, ear discharge, ear pain, ear redness, hearing changes, nasal congestion, epistaxis, nasal pain, throat pain, throat swelling, mouth pain, tooth pain. Cardiovascular: Denies: chest pain, edema, orthopena, palpitations, peripheral edema, syncope. Respiratory: Denies: cough, hemoptysis, orthopnea, short of breath, sputum production, stridor, wheezing. Gastrointestinal: Denies: abdominal pain, bloating, constipation, diarrhea, distention, bowel incontinence, melena, nausea, bloody stool, changes in stool, vomiting, steatorrhea. Genitourinary: Denies: discharge, dysuria, frequency, hematuria, hesitation, nocturia, pain, urgency. Musculoskeletal: Denies: back pain, gout, joint pain, joint swelling, muscle pain, muscle stiffness, neck pain. Skin: Denies: cysts, change in skin color, change in hair/nails, dryness, erythema, jaundice, lesions, lymphangitis, lumps, moles, rash. Neurological/Psychological: Reports: anxiety, depressed, emotional problems, weakness. Denies: headache, numbness, paresthesia. Objective Last 24 Hrs of Vital Signs/I&O Vital Signs Date Time Temp Pulse Resp B/P Pulse O2 O2 Flow FiO2 Ox Delivery Rate 05/26 0651 101.5 110 20 160/70 95 Room Air 05/26 0647 160/70 05/26 0556 101.5 110 20 180/81 95 Room Air 05/26 0504 100.1 05/26 0459 100.1 05/26 0200 101.3 103 20 165/72 97 Room Air 05/26 0153 101.7 106 20 176/77 97 Room Air 05/25 2246 101.7 05/25 2216 101.7 117 20 178/77 98 Room Air 05/25 2018 100.4 105 18 148/88 96 Room Air 05/25 1751 100.2 98 18 135/92 100 Room Air 05/25 1635 98.2 101 20 137/97 98 Room Air 05/25 1521 98.5 117 18 187/84 98 Room Air Intake & Output 05/26 1600 05/26 0800 05/26 0000 Intake Total 500 Output Total 3050 1200 Balance -2550 -1200 Intake, IV 500 Output, Urine 3050 1200 Patient 360 lb Weight Physical Exam General Appearance: Alert, Oriented X3, Cooperative, Mild Distress Skin: No Rashes, No Breakdown, No Significant Lesion HEENT: Atraumatic, PERRLA, EOMI, Mucous Membr. moist/pink Neck: Supple, No JVD, No thryomegaly, +2 Carotid Pulse wo Bruit, No LAD Lymphatic: Axillary nl, Cervical nl Cardiovascular: Normal S1, Normal S2, No Murmurs, Gallops Lungs: Clear to Auscultation, Normal Air Movement Abdomen: Normal Bowel Sounds, Soft, No Tenderness, No Hepatospenomegaly, No Masses Neurological: Normal Speech, Strength at 5/5 X4 Ext, Normal Tone, decreased sensation of the loer extremities due to neuropathy Extremities: No Clubbing, No Cyanosis, edama Vascular: Normal Pulses Current Medications: Current Medications Sig/Gely Start time Last Medication Dose Route Stop Time Status Admin Acetaminophen 0 .STK-MED ONE 05/25 2244 DC PO Acetaminophen 650 MG Q6P PRN 05/25 223 AC 05/25 PO 2246 Alprazolam 0.25 MG TID 05/26 1000 AC PO 06/02 0959 Aspirin 81 MG DAILY 05/26 1000 AC PO Atorvastatin Calcium 40 MG 1700 05/26 1700 AC PO Heparin Sodium 0 .STK-MED ONE 05/26 0606 DC (Porcine) .ROUTE Heparin Sodium 0 .STK-MED ONE 05/25 2244 DC (Porcine) .ROUTE Heparin Sodium 5,000 UNIT Q8 05/25 2214 AC 05/26 (Porcine) SC 0611 Insulin Aspart 0 TIDAC 05/26 0800 AC 05/26 SC 0815 Lisinopril 10 MG DAILY 05/26 1000 AC PO Naloxone HCl 0.8 MG ONCE ONE 05/25 1800 DC 05/25 IV 05/25 1801 1751 Naloxone HCl 0 .STK-MED ONE 05/25 1748 DC .ROUTE Naloxone HCl 0.4 MG ONCE ONE 05/25 1745 DC 05/25 IV 05/25 1746 1744 Naloxone HCl 0 .STK-MED ONE 05/25 1742 DC .ROUTE Sodium Chloride 1,000 ML .[id number] 05/25 2215 AC 05/26 IV 0604 Sodium Chloride 1,000 ML ONCE ONE 05/25 1815 DC 05/25 IV 05/26 0414 1819 Sodium Chloride 1,000 ML BOLUS ONE 05/25 1600 DC 05/25 IV 05/25 1659 1621 Last 24 Hrs of Lab/[place] Results Last 24 Hrs of Labs/Mics: Laboratory Tests 05/26/16 0606: Anion Gap 10, Estimated GFR 50 L, BUN/Creatinine Ratio 46.4 H, Troponin I 0.03 , Triglycerides 153 H, Cholesterol 195, LDL Cholesterol, Calc 102, HDL Cholesterol 63 H, Cholesterol/HDL Ratio 3, CBC w Diff MAN DIFF ORDERED, RBC 4.01 L, MCV 91.5, MCH 30.5, RDW 14.4, MPV 8.5, Gran % 86.0 H, Lymphocytes % 8.2 L, Monocytes % 4.6, Eosinophils % 1.0, Basophils % 0.2, Absolute Granulocytes 8.7 H, Absolute Lymphocytes 0.8 L, Absolute Monocytes 0.5, Absolute Eosinophils 0.1, Absolute Basophils 0, Platelet Estimate ADEQUATE, Anisocytosis 1+, PUBS MCHC 33.3 05/25/16 2319: Creatine Kinase 445 H, Troponin I 0.04 05/25/16 2251: Creatine Kinase Cancelled 05/25/16 1925: Lactic Acid 1.3 05/25/16 1626: Urine Opiates Screen 2370.00 H, Methadone Screen 48, Barbiturate Screen < 60, Ur Phencyclidine Scrn < 6.00, Amphetamines Screen < 100, U Benzodiazepines Scrn > 800 H, Urine Cocaine Screen < 50, Urine Cannabis Screen < 5.00, Urine Color YEL, Urine Clarity CLEAR, Urine pH 6.0, Ur Specific [place] 1.020, Urine Protein TRACE H, Urine Ketones NEG, Urine Nitrite NEG, Urine Bilirubin NEG, Urine Urobilinogen 0.2, Ur Leukocyte Esterase NEG, Ur Microscopic SEDIMENT EXAMINED, Urine RBC FEW H, Urine WBC RARE, Ur Epithelial Cells OCCAS, Hyaline Casts FEW H, Urine Hemoglobin TRACE-LYSED, Urine Glucose 250 H 05/25/16 1622: Hemoglobin A1c Pending 05/25/16 1622: Bicarbonate Actual 29 H, Mixed VBG pH 7.41, Mixed VBG pCO2 47, Mixed VBG O2 Saturation 33 L, Carboxyhemoglobin 1.4 L, O2 Concentration % R/A, Anion Gap 14 , Estimated GFR 41 L, BUN/Creatinine Ratio 44.6 H, Glucose 237 H, Lactic Acid 1.7, Calcium 10.5 H, Total Bilirubin 1.2, AST 31, ALT 28, Alkaline Phosphatase 131 H, Ammonia < 9 L, Creatine Kinase 509 H, Troponin I 0.02, Total Protein 7.5, Albumin 4.3, Globulin 3.2, Albumin/Globulin Ratio 1.3, TSH 0.599, Free T4 1.42, PT 11.3, INR 1.08, APTT 32, CBC w Diff NO MAN DIFF REQ, RBC 4.43, MCV 91.9 , MCH 30.3, RDW 13.9, MPV 8.6, Gran % 92.6 H, Lymphocytes % 3.7 L, Monocytes % 3.4, Eosinophils % 0.1, Basophils % 0.2, Absolute Granulocytes 12.1 H, Absolute Lymphocytes 0.5 L, Absolute Monocytes 0.4, Absolute Eosinophils 0, Absolute Basophils 0, PUBS MCHC 33.0, Phlebotomy Draw Site VENOUS, Acetaminophen < 10.0 L, Serum Alcohol < 10.0 Microbiology 05/25 1800 BLOOD: Blood Culture - RECD 05/25 1745 BLOOD: Blood Culture - RECD 05/25 1626 URINE ROUT: Urine Culture - RES Assessment/Plan Assessment: 65 yo morbidly obese F with h/o T2DM, HTN, diabetic neuropathy, CKD stage 3B, bilateral severe OA, previous right foot MRSA septic arthritis, is brought in by son for evaluation of altered mental status. TFTs are normal. Trend EKG and troponin CK mildly elevated with chronic kidney disease List of Problems 1. Altered mental status, unwitnessed fall, unknown downtime, unclear if patient had a syncopal episode vs. Seizure. Unintentional benzo and opiate overdose with minimal response to Narcan. * Monitor on Telemetry for arrhythmias. * obtain Echo and Cardio consult, * Obtain EEG and Neuro consult. * Restart low dose benzo (xanax) in AM to avoid withdrawal symptoms. * Obtain Psych consult. 2. Fever of unclear etiology. No evidence of UTI or pneumonia. No obvious cellulitic skin changes. Left knee small effusion, b/l knee degenerative changes. * Will obtain LE dopplers to rule out DVT * Leukocytosis: possibly due to dehydration and stress; monitor off abx. * Panculture * Consider ID consult if fever persists. 3. Frequent falls, physical deconditioning, severe OA. * Pain management with tylenol, * PT eval. 4. Hypercalcemia 2/2 dehydration * IV fluids * Passed bedside swallow, encourage PO intake. 5. T2DM * hold all the OHA and starte her on Aspart SS DVT ppx Hep SC. Full code Problem List: 1. Chronic renal insufficiency 2. Hyperglycemia 3. Altered mental status 4. Polysubstance overdose 5. Fall 6. Pulmonary embolism Pain Ratin Pain Location: low back and legs Pain Goal: Pain 4 or less Pain Plan: tyleonl Tomorrow's Labs & Rationales: CBC and BEP DEVEN SOLIZ,CARMEN 05/26/16 1329: Attending MD Review Statement Attending Statement Attending MD Statement: examined this patient, discuss w/resident/PA/NURSE EXAMINER, agreed w/resident/PA/NURSE EXAMINER, reviewed EMR data (avail), discussed with nursing, discussed with case mgmt Attending Assessment/Plan: 65-year-old female past medical history of hypertension, diabetes and CKD is here after being found on the floor and having spent 48 hours on the floor status post fall. She is here with lethargy and mental status change that we presume is from an unintentional benzo overdose. She has mild rhabdo with an elevated CPK and fever of unclear etiology. Physical exam, Chest x-ray ,blood cultures, and UA are unrevealing. Given the fever and the fact that she's been immobile PE is a consideration, she can get a VQ scan to rule it out. Doppler was negative. If that is not the cause of the fever need to have IDs help. We did call orthopedics who feels that the knee has DJD and is not a septic arthritis at this point. Will have PT evaluate her, gently hydrate her and follow-up.
--- NOTE | 2016-05-26 10:44 | NUR ---
PT MEDICATED DOCUMENTED IN EMAR. PT REFUSED XANAX
--- NOTE | 2016-05-26 11:01 | ULTRASOUND REPORT ---
EXAMINATION: US TRIPLEX LOWER EXTREMITY, BILATERAL CLINICAL INFORMATION: Leg tenderness. COMPARISON: None. TECHNIQUE: Color-flow triplex imaging with spectral analysis and compression Doppler were performed on the bilateral lower extremities. FINDINGS: Respiratory variation, normal compression and augmented flow are noted throughout the bilateral lower extremities. The visualized common femoral vein, femoral vein, popliteal vein show no evidence of deep venous thrombosis. The visualized mid calf veins bilaterally demonstrate normal flow. There is no Staley's cyst. IMPRESSION: No evidence of deep venous thrombosis involving the bilateral lower extremities.
--- NOTE | 2016-05-26 11:11 | NUR ---
PT INCONTINENT OF STOOL. JAQUELIN CARE PROVIDED. REDNESS NOTED TO BUTTOCKS. BARRIER CREAM PLACED
--- NOTE | 2016-05-26 11:47 | NUR ---
PHYSICAL THERAPY: Recieved consult orders, reviewed chart, spoke with RN. Patient currentyly refusing P.T. 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 Winston, prior to ambulating w/ P.T. RN made aware, P.T. will f/u as appropriate.
--- NOTE | 2016-05-26 12:19 | NUR ---
PT TO [facility]IA [facility]OSPITAL BED
--- NOTE | 2016-05-26 13:34 | NUR ---
pt has bed assignment 184-1. rn notified.
--- NOTE | 2016-05-26 13:43 | NUR ---
PT RETURNS FROM [facility]. DIETARY CALLED FOR CHOPPED CONSISTENT CARB TRAY FOR 2ND TIME
--- NOTE | 2016-05-26 13:53 | NUR ---
PSYCHIATRY AT BEDSIDE
--- NOTE | 2016-05-26 14:23 | NUCLEAR MEDICINE REPORT ---
EXAMINATION: PULMONARY VENTILATION PERFUSION STUDY CLINICAL INFORMATION: Tachycardia and desaturation. COMPARISON: No previous lung scan is available for comparison. A chest radiograph dated 05/25/2016 is available for comparison. TECHNIQUE: Serial gamma scintillation camera images were obtained over the posterior chest during the single breath, equilibrium rebreathing and washout of 22.7 mCi Xe 133 gas. The patient then received 4.4 mCi Tc-99m MAA intravenously and a 6-view perfusion study was performed. FINDINGS: Ventilation images: On the single breath and equilibrium images there is homogeneous distribution of gas bilaterally. During the washout phase there is moderate retention diffusely in the left lung and in the right lower lobe. Perfusion images: There is a segmental perfusion defect in the posterior segment of the right upper lobe. Additional small subsegmental perfusion defects are present posteriorly in the left upper lobe and in the left lung apex. An additional equivocal small subsegmental defect is suggested posteriorly in the left lower lobe, best seen on the RPO view. The chest radiograph dated 05/25/2016 does not show corresponding abnormalities 2 the perfusion defects described above, particularly in the right lung. IMPRESSION: Intermediate probability of pulmonary embolism. There is significant segmental perfusion mismatch in the right upper lobe and additional very small subsegmental defects as described above. The total mismatch perfusion deficit is not quite large enough diminutive criteria for high probability of pulmonary embolism. Significant obstructive airway disease is also noted on the ventilation images.
--- NOTE | 2016-05-26 14:43 | Cons- Orthopedic ---
General Information and HPI Consulting Request Date of Consult: 05/26/16 Requested By: CARMEN CARVALHO MD History of Present Illness: 65 yr old female with left knee pain. patient admitted for fever of unknown origin. concern for septic arthritis. patient has long standing oa/djd of left knee. no recent injections into knee or trauma. x-rays show end stage oa/djd of left knee. patient denies any increase in pain of left knee. Allergies/Medications Allergies: Coded Allergies: cephalexin (Severe, COULDN'T BREATHE 01/11/16) cyclobenzaprine (UNKNOWN 01/11/16) tramadol (UNKNOWN 01/11/16) Home Med List: Acetaminophen With Codeine (Acetaminophen-Cod #3 Tablet) 1 EACH TABLET 1 TAB PO Q6P PRN PAIN (Reported) Albuterol Sulfate (Albuterol Sulfate Hfa) 0.09 MG/Actuation SASHA 2 PUFF INH PRN SHORTNESS OF BREATH (Reported) 90 MCG PER PUFF Alprazolam 2 MG TAB 0.25-0.5 TAB PO PRN ANXIETY (Reported) Aspirin (Aspirin*) 81 MG TAB.CHEW 1 TAB PO DAILY HEART HEALTH (Reported) Atorvastatin Calcium (Lipitor) 40 MG TAB 1 TAB PO DAILY CHOLESTEROL (Reported ) Cyanocobalamin (Vitamin B-12) (Unknown Strength) TABLET (Unknown Dose) SUPPLEMENT (Reported) Duloxetine HCl 30 MG CAPSULE.DR 60 MG PO DAILY (Reported) Furosemide 40 MG TAB 1 TAB PO DAILY DIURETIC (Reported) Glimepiride 4 MG TABLET 1 TAB PO DAILY DM (Reported) HYDROCODONE/ACETAMINOPHEN (Hydrocodon-Acetaminoph 7.5-325) 1 TAB TAB 1 TAB PO Q4-6 PRN PAIN (Reported) Linagliptin (Tradjenta) 5 MG TAB 1 TAB PO DAILY DIABETES (Reported) Lisinopril 10 MG TAB 1 TAB PO DAILY BP (Reported) METFORMIN HCL (Metformin) 1,000 MG TAB 1 TAB PO BID DIABETES (Reported) Past History Medical History Neurological: vertigo, DIABETIC NEUROPATHY EENT: NONE Cardiovascular: hypertension, afib? 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 Home Who Do You Live With? self Services at Home: None Primary Language: Slovenian Smoking Status: Unknown If Ever Smoked ETOH Use: occasional use Illicit Drug Use: denies illicit drug use Functional Ability Ambulation: walker Review of Systems Review of Systems: see chart Exam & Diagnostic Data Vital Signs and I&O Vital Signs Date Time Temp Pulse Resp B/P Pulse O2 O2 Flow FiO2 Ox Delivery Rate 05/26 1043 99.5 98 20 159/68 05/26 0651 101.5 110 20 160/70 95 Room Air 05/26 0647 160/70 05/26 0556 101.5 110 20 180/81 95 Room Air 05/26 0504 100.1 05/26 0459 100.1 05/26 0200 101.3 103 20 165/72 97 Room Air 05/26 0153 101.7 106 20 176/77 97 Room Air 05/25 2246 101.7 05/25 2217 101.7 117 20 178/77 98 Room Air 05/25 2018 100.4 105 18 148/88 96 Room Air 05/25 1751 100.2 98 18 135/92 100 Room Air 05/25 1635 98.2 101 20 137/97 98 Room Air 05/25 1521 98.5 117 18 187/84 98 Room Air Intake & Output 05/26 1600 05/26 0800 05/26 0000 05/25 1600 05/25 0800 05/25 0000 Intake Total 1000 500 Output Total 500 3050 1200 Balance 500 -2550 -1200 Intake, IV 1000 500 Output, Urine 500 3050 1200 Patient 360 lb 360 lb Weight Physical Exam: morbidly obese female alert and oriented x 3. globally tender left knee. no effusion, warmth or erythema of left knee. 0-90degrees of rom of left knee. no gross instability with varus/valgus stress of left knee. x-ray show extensive djd/oa of left knee. Assessment/Plan Assessment/Plan left knee osteoarthritis/djd - given the long standing nature of djd in left knee there is a cause for her left knee pain. I do not appreciate any effusion or signs of a septic joint of her left knee during her exam. I would consider other sources of infection for her given low grade temp. I would not entertain a knee aspiration at this time d /t no evidence of effusion. Can f/u as outpatient with orthopedics. Discussed with Dr. Gordillo. Consult Acknowledgment - Thank you for your consult request.
--- NOTE | 2016-05-26 14:52 | NUR ---
[facility] CALLED REGARDING PT BEING SLEEPY. HR 94 O2 SAT 95%
--- NOTE | 2016-05-26 14:56 | NUR ---
PT GIVEN LUNCH TRAY
--- NOTE | 2016-05-26 15:01 | NUR ---
DINNER TRAY ORDERED
--- NOTE | 2016-05-26 15:16 | NUR ---
PT CARE ASSUMED BY THIS RN AT THIS TIME. PHARMACY CALLED FOR [facility].
--- NOTE | 2016-05-26 15:56 | NUR ---
PT MEDICATED PER EMAR. PT TRANSFERRED TO STRETCHER FOR TRANSFER TO NEURO FOR EEG.
--- NOTE | 2016-05-26 15:57 | Cons- Neurology ---
General Information and HPI Consulting Request Date of Consult: 05/26/16 Requested By: CARMEN CARVALHO MD Reason for Consult: Altered mental status Source of Information: patient, old records Exam Limitations: clinical condition History of Present Illness: 65-year-old woman the ER having been found on the floor where she may have been for up to 48 hours. On initial presentation to the ER she was described as alert and oriented but incontinent mental status diminished while in the ER and did not seem to respond to Narcan. At this time she weakens easily to voice and is fully oriented. She cannot give much useful history as she has little memory of events for the last day or 2. Allergies/Medications Allergies: Coded Allergies: cephalexin (Severe, COULDN'T BREATHE 01/11/16) cyclobenzaprine (UNKNOWN 01/11/16) tramadol (UNKNOWN 01/11/16) Home Med List: Acetaminophen With Codeine (Acetaminophen-Cod #3 Tablet) 1 EACH TABLET 1 TAB PO Q6P PRN PAIN (Reported) Albuterol Sulfate (Albuterol Sulfate Hfa) 0.09 MG/Actuation SASHA 2 PUFF INH PRN SHORTNESS OF BREATH (Reported) 90 MCG PER PUFF Alprazolam 2 MG TAB 0.25-0.5 TAB PO PRN ANXIETY (Reported) Aspirin (Aspirin*) 81 MG TAB.CHEW 1 TAB PO DAILY HEART HEALTH (Reported) Atorvastatin Calcium (Lipitor) 40 MG TAB 1 TAB PO DAILY CHOLESTEROL (Reported ) Cyanocobalamin (Vitamin B-12) (Unknown Strength) TABLET (Unknown Dose) SUPPLEMENT (Reported) Duloxetine HCl 30 MG CAPSULE.DR 60 MG PO DAILY (Reported) Furosemide 40 MG TAB 1 TAB PO DAILY DIURETIC (Reported) Glimepiride 4 MG TABLET 1 TAB PO DAILY DM (Reported) HYDROCODONE/ACETAMINOPHEN (Hydrocodon-Acetaminoph 7.5-325) 1 TAB TAB 1 TAB PO Q4-6 PRN PAIN (Reported) Linagliptin (Tradjenta) 5 MG TAB 1 TAB PO DAILY DIABETES (Reported) Lisinopril 10 MG TAB 1 TAB PO DAILY BP (Reported) METFORMIN HCL (Metformin) 1,000 MG TAB 1 TAB PO BID DIABETES (Reported) Current Medications: Current Medications Sig/Gely Start time Last Medication Dose Route Stop Time Status Admin Acetaminophen 0 .STK-MED ONE 05/25 2245 DC PO Acetaminophen 650 MG Q6P PRN 05/25 2230 AC 05/25 PO 2246 Alprazolam 0 .STK-MED ONE 05/26 1036 DC PO Alprazolam 0.25 MG TID 05/26 1000 AC PO 06/02 0959 Aspirin 0 .STK-MED ONE 05/26 1035 DC PO Aspirin 81 MG DAILY 05/26 1000 AC 05/26 PO 1043 Atorvastatin Calcium 40 MG 1700 05/26 1700 AC PO Enoxaparin Sodium 160 MG BID 05/26 1507 AC SC Heparin Sodium 0 .STK-MED ONE 05/26 0606 DC (Porcine) .ROUTE Heparin Sodium 0 .STK-MED ONE 05/25 2245 DC (Porcine) .ROUTE Heparin Sodium 5,000 UNIT Q8 05/25 2214 AC 05/26 (Porcine) SC 1423 Insulin Aspart 0 TIDAC 05/26 0800 AC 05/26 SC 1330 Lisinopril 0 .STK-MED ONE 05/26 1035 DC PO Lisinopril 10 MG DAILY 05/26 1000 AC 05/26 PO 1043 Naloxone HCl 0.8 MG ONCE ONE 05/25 1800 DC 05/25 IV 05/25 1801 1751 Naloxone HCl 0 .STK-MED ONE 05/25 1748 DC .ROUTE Naloxone HCl 0.4 MG ONCE ONE 05/25 1745 DC 05/25 IV 05/25 1746 1744 Naloxone HCl 0 .STK-MED ONE 05/25 1742 DC .ROUTE Sodium Chloride 1,000 ML .Q10H 05/25 2215 AC 05/26 IV 05/26 2146 1211 Sodium Chloride 1,000 ML ONCE ONE 05/25 1815 DC 05/25 IV 05/26 0414 1819 Sodium Chloride 1,000 ML BOLUS ONE 05/25 1600 DC 05/25 IV 05/25 1659 1621 Review of Systems Review of Systems: ROS: A complete medical systems review was obtained. She reports pain "all over " but is uncertain of the nature. Decker headache, visual disturbance chest pain or dyspnea. No focal neurologic complaints or other pertinent complaints were found. Past History Travel History Traveled to [place] past 21 day No Medical History Neurological: vertigo, DIABETIC NEUROPATHY EENT: NONE Cardiovascular: hypertension, afib? 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 Home Who Do You Live With? self Services at Home: None Primary Language: Chilean Smoking Status: Unknown If Ever Smoked ETOH Use: occasional use Illicit Drug Use: denies illicit drug use Functional Ability Ambulation: walker Exam & Diagnostic Data Vital Signs and I&O Vital Signs Date Time Temp Pulse Resp B/P Pulse O2 O2 Flow FiO2 Ox Delivery Rate 05/26 1043 99.5 98 20 159/68 05/26 0651 101.5 110 20 160/70 95 Room Air 05/26 0647 160/70 05/26 0556 101.5 110 20 180/81 95 Room Air 05/26 0504 100.1 05/26 0459 100.1 05/26 0200 101.3 103 20 165/72 97 Room Air 05/26 0153 101.7 106 20 176/77 97 Room Air 05/25 2246 101.7 05/25 2217 101.7 117 20 178/77 98 Room Air 05/25 2018 100.4 105 18 148/88 96 Room Air 05/25 1751 100.2 98 18 135/92 100 Room Air 05/25 1635 98.2 101 20 137/97 98 Room Air Intake & Output 05/26 1600 05/26 0800 05/26 0000 Intake Total 1400 500 Output Total 1000 3050 1200 Balance 400 -2550 -1200 Intake, IV 1400 500 Output, Urine 1000 3050 1200 Patient 360 lb Weight Physical Exam: General: Dosing on the stretcher when I entered the room, morbidly obese, various excoriations and skin lesions on the legs. no cardiac murmur. 1+ peripheral edema, pulses intact Mental status: Lethargic but stayed awake while being interviewed, fully oriented, no language errors, recall and general fund of knowledge seem intact Funduscopic unremarkable Visual benitez full , Eye movements full without nystagmus, pupils midsize equal round and reactive to light. Facial movement normal bilaterally Facial sensation normal bilaterally Hearing intact bilaterally Uvula elevates midline Tongue protrusion is midline Shoulder shrug symmetric Motor power: High Voltage Electrician equal, both arms better than antigravity, neither leg elevates from the bed but power at the ankles seems normal. Tone normal to reduced. Sensation intact to primary modes Tendon reflexes hypoactive but symmetric without pathologic signs Coordination: Mild position and kinetic tremor of the outstretched hands, symmetric, rapid. No past pointing. Gait testing deferred Last 48 Hours of Lab Results: Laboratory Tests 05/26 05/26 05/25 1105 0606 2319 Chemistry Sodium (137 - 145 mmol/L) 144 Potassium (3.5 - 5.1 mmol/L) 4.3 Chloride (98 - 107 mmol/L) 105 Carbon Dioxide (22 - 30 mmol/L) 29 Anion Gap (5 - 16) 10 BUN (7 - 17 mg/dL) 51 H Creatinine (0.5 - 1.0 mg/dL) 1.1 H Estimated GFR (>60 ml/min) 50 L BUN/Creatinine Ratio (7 - 25 %) 46.4 H Creatine Kinase (30 - 135 U/L) 445 H Troponin I (< 0.11 ng/ml) 0.03 0.04 Triglycerides (<150 mg/dL) 153 H Cholesterol (<200 MG/DL) 195 LDL Cholesterol, Calc (65 - 129 mg/dL) 102 HDL Cholesterol (40 - 60 mg/dL) 63 H Cholesterol/HDL Ratio (0.00 - 4.23 %) 3 Coagulation D-Dimer (70 - 232 ng/ml) 2148 H Hematology CBC w Diff MAN DIFF ORDERED WBC (4.8 - 10.8 /CUMM) 10.1 RBC (4.20 - 5.40 /CUMM) 4.01 L Hgb (12.0 - 16.0 G/DL) 12.2 Hct (37 - 47 %) 36.7 L MCV (81.0 - 99.0 FL) 91.5 MCH (27.0 - 31.0 PG) 30.5 RDW (11.5 - 14.5 %) 14.4 Plt Count (130 - 400 /CUMM) 257 MPV (7.4 - 10.4 FL) 8.5 Gran % (42.2 - 75.2 %) 86.0 H Lymphocytes % (20.5 - 51.1 %) 8.2 L Monocytes % (1.7 - 9.3 %) 4.6 Eosinophils % (0 - 5 %) 1.0 Basophils % (0.0 - 2.0 %) 0.2 Absolute Granulocytes (1.4 - 6.5 /CUMM) 8.7 H Absolute Lymphocytes (1.2 - 3.4 /CUMM) 0.8 L Absolute Monocytes (0.10 - 0.60 /CUMM) 0.5 Absolute Eosinophils (0.0 - 0.7 /CUMM) 0.1 Absolute Basophils (0.0 - 0.2 /CUMM) 0 Platelet Estimate (ADEQUATE) ADEQUATE Anisocytosis 1+ PUBS MCHC (33.0 - 37.0 G/DL) 33.3 05/25 05/25 05/25 2251 1925 1626 Chemistry Lactic Acid (0.7 - 2.1 mmol/L) 1.3 Creatine Kinase Cancelled Toxicology Urine Opiates Screen (>2000 NG/ML) 2370.00 H Methadone Screen (>300 NG/ML) 48 Barbiturate Screen (>200 NG/ML) < 60 Ur Phencyclidine Scrn (>25 NG/ML) < 6.00 Amphetamines Screen (>1000 NG/ML) < 100 U Benzodiazepines Scrn (>200 NG/ML) > 800 H Urine Cocaine Screen (>300 NG/ML) < 50 Urine Cannabis Screen (>50 NG/ML) < 5.00 Urines Urine Color (YEL,AMB,STR) YEL Urine Clarity (CLEAR) CLEAR Urine pH (5.0 - 8.0) 6.0 Ur Specific Webb (1.001 - 1.035) 1.020 Urine Protein (NEG,<30 MG/DL) TRACE H Urine Ketones (NEG) NEG Urine Nitrite (NEG) NEG Urine Bilirubin (NEG) NEG Urine Urobilinogen (0.1 - 1.0 EU/dl) 0.2 Ur Leukocyte Esterase (NEG) NEG Ur Microscopic SEDIMENT EXAMINED Urine RBC (0 - 5 /HPF) FEW H Urine WBC (0 - 2 /HPF) RARE Ur Epithelial Cells (NONE,FEW) OCCAS Hyaline Casts (0/LPF) FEW H Urine Hemoglobin (NEG) TRACE-LYSED Urine Glucose (N MG/DL) 250 H 05/25 05/25 1622 1622 Blood Gas Bicarbonate Actual (22 - 26 MEQ/L) 29 H Mixed VBG pH (7.31 - 7.41 PH) 7.41 Mixed VBG pCO2 (41 - 51 TORR) 47 Mixed VBG O2 Saturation (35 - 45 TORR) 33 L Carboxyhemoglobin (1.5 - 5.0 %) 1.4 L O2 Concentration % R/A Chemistry Sodium (137 - 145 mmol/L) 144 Potassium (3.5 - 5.1 mmol/L) 4.7 Chloride (98 - 107 mmol/L) 102 Carbon Dioxide (22 - 30 mmol/L) 28 Anion Gap (5 - 16) 14 BUN (7 - 17 mg/dL) 58 H Creatinine (0.5 - 1.0 mg/dL) 1.3 H Estimated GFR (>60 ml/min) 41 L BUN/Creatinine Ratio (7 - 25 %) 44.6 H Glucose (65 - 99 mg/dL) 237 H Hemoglobin A1c Pending Lactic Acid (0.7 - 2.1 mmol/L) 1.7 Calcium (8.4 - 10.2 mg/dL) 10.5 H Total Bilirubin (0.2 - 1.3 mg/dL) 1.2 AST (14 - 36 U/L) 31 ALT (9 - 52 U/L) 28 Alkaline Phosphatase (<127 U/L) 131 H Ammonia (9 - 30 umol/L) < 9 L Creatine Kinase (30 - 135 U/L) 509 H Troponin I (< 0.11 ng/ml) 0.02 Total Protein (6.3 - 8.2 g/dL) 7.5 Albumin (3.5 - 5.0 g/dL) 4.3 Globulin (1.9 - 4.2 gm/dL) 3.2 Albumin/Globulin Ratio (1.1 - 2.2 %) 1.3 TSH (0.270 - 4.200 uIU/mL) 0.599 Free T4 (0.78 - 2.44 ng/dL) 1.42 Coagulation PT (9.4 - 12.5 SEC) 11.3 INR (0.90 - 1.19) 1.08 APTT (25 - 37 SEC) 32 Hematology CBC w Diff NO MAN DIFF REQ WBC (4.8 - 10.8 /CUMM) 13.1 H RBC (4.20 - 5.40 /CUMM) 4.43 Hgb (12.0 - 16.0 G/DL) 13.4 Hct (37 - 47 %) 40.7 MCV (81.0 - 99.0 FL) 91.9 MCH (27.0 - 31.0 PG) 30.3 RDW (11.5 - 14.5 %) 13.9 Plt Count (130 - 400 /CUMM) 269 MPV (7.4 - 10.4 FL) 8.6 Gran % (42.2 - 75.2 %) 92.6 H Lymphocytes % (20.5 - 51.1 %) 3.7 L Monocytes % (1.7 - 9.3 %) 3.4 Eosinophils % (0 - 5 %) 0.1 Basophils % (0.0 - 2.0 %) 0.2 Absolute Granulocytes (1.4 - 6.5 /CUMM) 12.1 H Absolute Lymphocytes (1.2 - 3.4 /CUMM) 0.5 L Absolute Monocytes (0.10 - 0.60 /CUMM) 0.4 Absolute Eosinophils (0.0 - 0.7 /CUMM) 0 Absolute Basophils (0.0 - 0.2 /CUMM) 0 PUBS MCHC (33.0 - 37.0 G/DL) 33.0 Miscellaneous Phlebotomy Draw Site VENOUS Toxicology Acetaminophen (10.0 - 30.0 ug/mL) < 10.0 L Serum Alcohol (<10 MG/DL) < 10.0 Imaging/Other Studies: CT scan of the head: FINDINGS: There is no evidence of acute intracranial hemorrhage or territorial infarction. No abnormal mass effect or midline shift is seen. Combs to white matter differentiation is well preserved. No extra-axial fluid collections are identified. The ventricles are normal in size. There is no abnormal attenuation within the brain parenchyma. The osseous structures and soft tissues are normal. The mastoid air cells and visualized portions of the paranasal sinuses are well aerated. IMPRESSION: No acute intracranial pathology. Assessment/Plan Assessment: Toxic encephalopathy with elevated opiates, benzodiazepines on the tox screen. Nonfocal neurologic exam and negative head CT. Actually oriented and conversant although sleepy. Recommendations: No additional neurodiagnostic testing at this time it Follow medical protocol for opiate and benzodiazepine prevention. Back if can be of any further assistance. Consult Acknowledgment - Thank you for your consult request.
--- NOTE | 2016-05-26 16:39 | Cons- Pulmonary ---
General Information and HPI Consulting Request Date of Consult: 05/26/16 Requested By: Dr. Gaston Reason for Consult: desaturation, rule out PE Source of Information: patient Exam Limitations: no limitations History of Present Illness: Consultation requested for episode of desaturation in the setting of tachycardia. 65-year-old woman with a significant past medical history of DM, chronic right toe ulcer. Presented to the ED after being found laying on the floor at home for about 2 days. She was found to be incontinent at the time. The history gathering is acceptable but somewhat limited as the patient is lethargic and drowsy although arousable and appropriate. The initial presentation history she cannot recall, however per the chart, she has taken an excess dose of her Xanax. She was also found to have a fever of 101.7 and a wbc of 13. Her creatinine was 1.3 improved to 1.1. CPK was mildly elevated. CXR was without any consolidations. CT head was without any intracranial pathology. Urine toxicology was positive for opiates and benzodiazepines. She denies any dyspnea at this time. No cp, no headaches, no n/v/d/c. She is drows but oriented. Brief desaturation episode along with tachycardia prompted a d-dimer check which was elevated and a V/Q scan with an intermediate probability for PE. Allergies/Medications Allergies: Coded Allergies: cephalexin (Severe, COULDN'T BREATHE 01/11/16) cyclobenzaprine (UNKNOWN 01/11/16) tramadol (UNKNOWN 01/11/16) Home Med List: Acetaminophen With Codeine (Acetaminophen-Cod #3 Tablet) 1 EACH TABLET 1 TAB PO Q6P PRN PAIN (Reported) Albuterol Sulfate (Albuterol Sulfate Hfa) 0.09 MG/Actuation SASHA 2 PUFF INH PRN SHORTNESS OF BREATH (Reported) 90 MCG PER PUFF Alprazolam 2 MG TAB 0.25-0.5 TAB PO PRN ANXIETY (Reported) Aspirin (Aspirin*) 81 MG TAB.CHEW 1 TAB PO DAILY HEART HEALTH (Reported) Atorvastatin Calcium (Lipitor) 40 MG TAB 1 TAB PO DAILY CHOLESTEROL (Reported ) Cyanocobalamin (Vitamin B-12) (Unknown Strength) TABLET (Unknown Dose) SUPPLEMENT (Reported) Duloxetine HCl 30 MG CAPSULE.DR 60 MG PO DAILY (Reported) Furosemide 40 MG TAB 1 TAB PO DAILY DIURETIC (Reported) Glimepiride 4 MG TABLET 1 TAB PO DAILY DM (Reported) HYDROCODONE/ACETAMINOPHEN (Hydrocodon-Acetaminoph 7.5-325) 1 TAB TAB 1 TAB PO Q4-6 PRN PAIN (Reported) Linagliptin (Tradjenta) 5 MG TAB 1 TAB PO DAILY DIABETES (Reported) Lisinopril 10 MG TAB 1 TAB PO DAILY BP (Reported) METFORMIN HCL (Metformin) 1,000 MG TAB 1 TAB PO BID DIABETES (Reported) Current Medications: Current Medications Sig/Gely Start time Last Medication Dose Route Stop Time Status Admin Acetaminophen 0 .STK-MED ONE 05/25 224 DC PO Acetaminophen 650 MG Q6P PRN 05/25 2230 AC 05/25 PO 2246 Alprazolam 0 .STK-MED ONE 05/26 1036 DC PO Alprazolam 0.25 MG TID 05/26 1000 AC PO 06/02 0959 Aspirin 0 .STK-MED ONE 05/26 1035 DC PO Aspirin 81 MG DAILY 05/26 1000 AC 05/26 PO 1043 Atorvastatin Calcium 40 MG 1700 05/26 1700 AC PO Enoxaparin Sodium 160 MG BID 05/26 1507 AC 05/26 SC 1556 Heparin Sodium 0 .STK-MED ONE 05/26 0606 DC (Porcine) .ROUTE Heparin Sodium 0 .STK-MED ONE 05/25 224 DC (Porcine) .ROUTE Heparin Sodium 5,000 UNIT Q8 05/25 2214 AC 05/26 (Porcine) SC 1423 Insulin Aspart 0 TIDAC 05/26 0800 AC 05/26 SC 1330 Lisinopril 0 .STK-MED ONE 05/26 1035 DC PO Lisinopril 10 MG DAILY 05/26 1000 AC 05/26 PO 1043 Naloxone HCl 0.8 MG ONCE ONE 05/25 1800 DC 05/25 IV 05/25 1801 1751 Naloxone HCl 0 .STK-MED ONE 05/25 1748 DC .ROUTE Naloxone HCl 0.4 MG ONCE ONE 05/25 1745 DC 05/25 IV 05/25 1746 1744 Naloxone HCl 0 .STK-MED ONE 05/25 1742 DC .ROUTE Sodium Chloride 1,000 ML .Q10H 05/25 2215 AC 05/26 IV 05/26 2146 1211 Sodium Chloride 1,000 ML ONCE ONE 05/25 1815 DC 05/25 IV 05/26 0414 1819 Sodium Chloride 1,000 ML BOLUS ONE 05/25 1600 DC 05/25 IV 05/25 1659 1621 Review of Systems Comments 18 pt ROS reviewed. Positive and negative pertinent findings in the HPI, otherwise negative. Past History Travel History Traveled to [place] past 21 day No Medical History Neurological: vertigo, DIABETIC NEUROPATHY EENT: NONE Cardiovascular: hypertension, afib? 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 Home Who Do You Live With? self Services at Home: None Primary Language: Afghan Smoking Status: Unknown If Ever Smoked ETOH Use: occasional use Illicit Drug Use: denies illicit drug use Functional Ability Ambulation: walker Exam & Diagnostic Data Last 24 Hrs of Vital Signs/I&O Vital Signs Date Time Temp Pulse Resp B/P Pulse O2 O2 Flow FiO2 Ox Delivery Rate 05/26 1759 98.3 96 20 177/75 96 Room Air 05/26 1557 98.7 95 18 172/76 96 Room Air Room Air 05/26 1043 99.5 98 20 159/68 05/26 0651 101.5 110 20 160/70 95 Room Air 05/26 0647 160/70 05/26 0556 101.5 110 20 180/81 95 Room Air 05/26 0504 100.1 05/26 0459 100.1 05/26 0200 101.3 103 20 165/72 97 Room Air 05/26 0153 101.7 106 20 176/77 97 Room Air 05/25 2246 101.7 05/25 2217 101.7 117 20 178/77 98 Room Air 05/25 2018 100.4 105 18 148/88 96 Room Air Intake & Output 05/26 1600 05/26 0800 05/26 0000 Intake Total 1400 500 Output Total 1000 3050 1200 Balance 400 -2550 -1200 Intake, IV 1400 500 Output, Urine 1000 3050 1200 Patient 360 lb Weight Physical Exam Other Physical Findings: gen lethargic heent ncat, large neck cvs s1, s2 lungs anterior examination clear, slightly diminished due to body habitus abd obese, soft, bs+ ext toe ulceration chronic Last 48 Hrs of Labs/[place]: Laboratory Tests 05/26/16 1105: D-Dimer 2148 H 05/26/16 0606: Anion Gap 10, Estimated GFR 50 L, BUN/Creatinine Ratio 46.4 H, Troponin I 0.03 , Triglycerides 153 H, Cholesterol 195, LDL Cholesterol, Calc 102, HDL Cholesterol 63 H, Cholesterol/HDL Ratio 3, CBC w Diff MAN DIFF ORDERED, RBC 4.01 L, MCV 91.5, MCH 30.5, RDW 14.4, MPV 8.5, Gran % 86.0 H, Lymphocytes % 8.2 L, Monocytes % 4.6, Eosinophils % 1.0, Basophils % 0.2, Absolute Granulocytes 8.7 H, Absolute Lymphocytes 0.8 L, Absolute Monocytes 0.5, Absolute Eosinophils 0.1, Absolute Basophils 0, Platelet Estimate ADEQUATE, Anisocytosis 1+, PUBS MCHC 33.3 05/25/16 2319: Creatine Kinase 445 H, Troponin I 0.04 05/25/16 2251: Creatine Kinase Cancelled 05/25/16 1925: Lactic Acid 1.3 05/25/16 1626: Urine Opiates Screen 2370.00 H, Methadone Screen 48, Barbiturate Screen < 60, Ur Phencyclidine Scrn < 6.00, Amphetamines Screen < 100, U Benzodiazepines Scrn > 800 H, Urine Cocaine Screen < 50, Urine Cannabis Screen < 5.00, Urine Color YEL, Urine Clarity CLEAR, Urine pH 6.0, Ur Specific [place] 1.020, Urine Protein TRACE H, Urine Ketones NEG, Urine Nitrite NEG, Urine Bilirubin NEG, Urine Urobilinogen 0.2, Ur Leukocyte Esterase NEG, Ur Microscopic SEDIMENT EXAMINED, Urine RBC FEW H, Urine WBC RARE, Ur Epithelial Cells OCCAS, Hyaline Casts FEW H, Urine Hemoglobin TRACE-LYSED, Urine Glucose 250 H 05/25/16 1622: Hemoglobin A1c Pending 05/25/16 1622: Bicarbonate Actual 29 H, Mixed VBG pH 7.41, Mixed VBG pCO2 47, Mixed VBG O2 Saturation 33 L, Carboxyhemoglobin 1.4 L, O2 Concentration % R/A, Anion Gap 14 , Estimated GFR 41 L, BUN/Creatinine Ratio 44.6 H, Glucose 237 H, Lactic Acid 1.7, Calcium 10.5 H, Total Bilirubin 1.2, AST 31, ALT 28, Alkaline Phosphatase 131 H, Ammonia < 9 L, Creatine Kinase 509 H, Troponin I 0.02, Total Protein 7.5, Albumin 4.3, Globulin 3.2, Albumin/Globulin Ratio 1.3, TSH 0.599, Free T4 1.42, PT 11.3, INR 1.08, APTT 32, CBC w Diff NO MAN DIFF REQ, RBC 4.43, MCV 91.9 , MCH 30.3, RDW 13.9, MPV 8.6, Gran % 92.6 H, Lymphocytes % 3.7 L, Monocytes % 3.4, Eosinophils % 0.1, Basophils % 0.2, Absolute Granulocytes 12.1 H, Absolute Lymphocytes 0.5 L, Absolute Monocytes 0.4, Absolute Eosinophils 0, Absolute Basophils 0, PUBS MCHC 33.0, Phlebotomy Draw Site VENOUS, Acetaminophen < 10.0 L, Serum Alcohol < 10.0 Assessment/Plan Impression/Plan: Impression 65 year old woman with opiate/benzodiazepine ingestion, resolving PHOEBE, lethargy. Brief desaturation episode along with tachycardia prompted a d-dimer check which was elevated and a V/Q scan with an intermediate probability for PE. Likely underlying MICHELLE/OHS, which can be investigated on an outpatient basis. Plan - check ABG given lethargy - given findings of an intermediate V/Q scan would recommend to puruse a CTA to evaluate pulmonary vasculature and also look at lung parenchyma, the recent PHOEBE has been a concern for IV contrast, even though the creatinine is acceptable at this time, it is reasonable to hydrate the patient prior to CTA - similarly if the creatinine is a concern, can switch to heparin drip vs lovenox for creatinine clearance - Likely underlying MICHELLE/OHS, which can be investigated on an outpatient basis. Thank you for this consultation, will follow with you. Consult Acknowledgment - Thank you for your consult request.
--- NOTE | 2016-05-26 17:22 | ELECTROENCEPHALOGRAM REPORT ---
Electroencephalogram Report ELECTROENCEPHALOGRAM RESULTS Date of service: 05/26/16 Ordering Provider: Kathryn Torres MD PRIMING MIXTURE CARRIER: ELOY Swift EEG NUMBER: [id number] TEST UTILIZES: 10-20 system, 18 channel 21 lead digital recording. PERTINENT HX/PHYSICAL/NEURO FINDINGS/CLINICAL DIAG: Altered mental status. The patient was described as drowsy or asleep during the test. Hyperventilation and photic could not be performed. MEDICATIONS: Xanax INTERPRETATION: The background consists of generalized low to normal amplitude irregular alpha and slower theta frequencies in approximatley equal proportions The degree of slowing varies in degree during the test. no sleep rhythms detected, no focal, lateralized or epileptiform abnormalites seen. IMPRESSION: Moderate generalised slowing consistent with a diffuse toxic or metabolic encephalopathy.
--- NOTE | 2016-05-26 17:36 | Cons- Infect Disease ---
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 On arrival to the emergency room she was unable to provide any details, but she did think she may have taken more than her usual dose of Xanax. She was initially afebrile but after a few hours she developed a fever to 101.7. Laboratory data revealed a white blood cell count of 13,000, BUN/creatinine 58 and 1.3, alk phosphatase 131, CPK 509. Coags normal. Urine tox screen greater than 800 ng per mL of benzos and 2370 ng per mL of opiate/morphine. Chest x-ray was negative. CT of the head was negative. X-ray of the left knee revealed a possible small effusion. She was followed off antibiotics and fevers appear to have resolved today. She has remained lethargic but arousable. At present she denies any specific complaints and is able to provide most of her history. Allergies/Medications Allergies: Coded Allergies: cephalexin (Severe, COULDN'T BREATHE 01/11/16) cyclobenzaprine (UNKNOWN 01/11/16) tramadol (UNKNOWN 01/11/16) Home Med List: Acetaminophen With Codeine (Acetaminophen-Cod #3 Tablet) 1 EACH TABLET 1 TAB PO Q6P PRN PAIN (Reported) Albuterol Sulfate (Albuterol Sulfate Hfa) 0.09 MG/Actuation SASHA 2 PUFF INH PRN SHORTNESS OF BREATH (Reported) 90 MCG PER PUFF Alprazolam 2 MG TAB 0.25-0.5 TAB PO PRN ANXIETY (Reported) Aspirin (Aspirin*) 81 MG TAB.CHEW 1 TAB PO DAILY HEART HEALTH (Reported) Atorvastatin Calcium (Lipitor) 40 MG TAB 1 TAB PO DAILY CHOLESTEROL (Reported ) Cyanocobalamin (Vitamin B-12) (Unknown Strength) TABLET (Unknown Dose) SUPPLEMENT (Reported) Duloxetine HCl 30 MG CAPSULE.DR 60 MG PO DAILY (Reported) Furosemide 40 MG TAB 1 TAB PO DAILY DIURETIC (Reported) Glimepiride 4 MG TABLET 1 TAB PO DAILY DM (Reported) HYDROCODONE/ACETAMINOPHEN (Hydrocodon-Acetaminoph 7.5-325) 1 TAB TAB 1 TAB PO Q4-6 PRN PAIN (Reported) Linagliptin (Tradjenta) 5 MG TAB 1 TAB PO DAILY DIABETES (Reported) Lisinopril 10 MG TAB 1 TAB PO DAILY BP (Reported) METFORMIN HCL (Metformin) 1,000 MG TAB 1 TAB PO BID DIABETES (Reported) Past History Travel History Traveled to [place] past 21 day No Medical History Neurological: peripheral neuropathy, vertigo EENT: NONE Cardiovascular: hypertension, afib? 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 Home Who Do You Live With? self Services at Home: None Primary Language: Yi Smoking Status: Unknown If Ever Smoked ETOH Use: occasional use Illicit Drug Use: denies illicit drug use Functional Ability Ambulation: walker Review of Systems Review of Systems Cardiovascular: Denies: chest pain. Respiratory: Denies: cough, short of breath. GI: Reports: diarrhea. Denies: abdominal pain, vomiting. Genitourinary: Reports: no symptoms. Musculoskeletal: Reports: joint pain (bilateral knees). All Other Systems: Reviewed and Negative Exam & Diagnostic Data Last 24 Hrs of Vital Signs/I&O Vital Signs Date Time Temp Pulse Resp B/P Pulse O2 O2 Flow FiO2 Ox Delivery Rate 05/26 1557 98.7 95 18 172/76 96 Room Air Room Air 05/26 1043 99.5 98 20 159/68 05/26 0651 101.5 110 20 160/70 95 Room Air 05/26 0647 160/70 05/26 0556 101.5 110 20 180/81 95 Room Air 05/26 0504 100.1 05/26 0459 100.1 05/26 0200 101.3 103 20 165/72 97 Room Air 05/26 0153 101.7 106 20 176/77 97 Room Air 05/25 2246 101.7 05/25 2217 101.7 117 20 178/77 98 Room Air 05/25 2018 100.4 105 18 148/88 96 Room Air 05/25 1751 100.2 98 18 135/92 100 Room Air Intake & Output 05/26 1600 05/26 0800 05/26 0000 Intake Total 1400 500 Output Total 1000 3050 1200 Balance 400 -2550 -1200 Intake, IV 1400 500 Output, Urine 1000 3050 1200 Patient 360 lb Weight Physical Exam Other Physical Findings: She is lethargic but arousable, oriented and in no acute distress. MAXIMUM TEMPERATURE 101.7. Skin reveals no rash. HEENT exam is negative. Neck is supple with no adenopathy. Lungs are clear. Heart regular rhythm with no murmur. Abdomen is obese, soft, nontender with positive bowel sounds. Back no CVA tenderness. Extremities chronic plantar ulcer on the right great toe, with no erythema or drainage; scattered hemorrhagic lesions over the dorsum of the right great toe and left foot. Neuro neuropathy both feet. Simmons catheter is in place. Last 24 Hours of Lab Results: Laboratory Tests 05/26 05/26 05/25 1105 0606 2319 Chemistry Sodium (137 - 145 mmol/L) 144 Potassium (3.5 - 5.1 mmol/L) 4.3 Chloride (98 - 107 mmol/L) 105 Carbon Dioxide (22 - 30 mmol/L) 29 Anion Gap (5 - 16) 10 BUN (7 - 17 mg/dL) 51 H Creatinine (0.5 - 1.0 mg/dL) 1.1 H Estimated GFR (>60 ml/min) 50 L BUN/Creatinine Ratio (7 - 25 %) 46.4 H Creatine Kinase (30 - 135 U/L) 445 H Troponin I (< 0.11 ng/ml) 0.03 0.04 Triglycerides (<150 mg/dL) 153 H Cholesterol (<200 MG/DL) 195 LDL Cholesterol, Calc (65 - 129 mg/dL) 102 HDL Cholesterol (40 - 60 mg/dL) 63 H Cholesterol/HDL Ratio (0.00 - 4.23 %) 3 Coagulation D-Dimer (70 - 232 ng/ml) 2148 H Hematology CBC w Diff MAN DIFF ORDERED WBC (4.8 - 10.8 /CUMM) 10.1 RBC (4.20 - 5.40 /CUMM) 4.01 L Hgb (12.0 - 16.0 G/DL) 12.2 Hct (37 - 47 %) 36.7 L MCV (81.0 - 99.0 FL) 91.5 MCH (27.0 - 31.0 PG) 30.5 RDW (11.5 - 14.5 %) 14.4 Plt Count (130 - 400 /CUMM) 257 MPV (7.4 - 10.4 FL) 8.5 Gran % (42.2 - 75.2 %) 86.0 H Lymphocytes % (20.5 - 51.1 %) 8.2 L Monocytes % (1.7 - 9.3 %) 4.6 Eosinophils % (0 - 5 %) 1.0 Basophils % (0.0 - 2.0 %) 0.2 Absolute Granulocytes (1.4 - 6.5 /CUMM) 8.7 H Absolute Lymphocytes (1.2 - 3.4 /CUMM) 0.8 L Absolute Monocytes (0.10 - 0.60 /CUMM) 0.5 Absolute Eosinophils (0.0 - 0.7 /CUMM) 0.1 Absolute Basophils (0.0 - 0.2 /CUMM) 0 Platelet Estimate (ADEQUATE) ADEQUATE Anisocytosis 1+ PUBS MCHC (33.0 - 37.0 G/DL) 33.3 05/25 05/25 5161 1925 Chemistry Lactic Acid (0.7 - 2.1 mmol/L) 1.3 Creatine Kinase Cancelled Last 24 Hours of [place] Results: Blood cultures 2 May 25 negative Urine culture May 25 negative Diagnostic Data Recent Imaging Findings: CT of the head negative Chest x-ray, personally reviewed, negative X-ray of the left knee possible small effusion with marked degenerative change Dopplers of both lower extremities May 26 negative VQ scan May 26 intermediate probability of pulmonary embolism Assessment/Plan Assessment/Plan Impression: This is a 65-year-old woman with diabetes, with a chronic plantar ulcer on the right great toe, admitted on May 25 after she was found on the floor at home , where she had apparently been lying for at least 48 hours, found to be febrile with a mild leukocytosis, which has resolved with hydration, with no obvious focus of infection. Possible sources include her right great toe, with an apparently nonhealing plantar ulcer, though there is no overlying inflammation at this time, and the lungs, for example aspiration, as she was lying on the floor at home, though her respiratory status appears to be stable and chest x- ray on admission was negative. The significance of the findings on the VQ scan is unclear, particularly with her stable respiratory status, but, if she proves to have a pulmonary embolus, this could certainly explain her fever. As she appears relatively stable feel that she can be followed off antibiotics pending further evaluation. Suggestion: 1. X-ray of the right foot, followed by MRI, if negative 2. Further evaluation for possible pulmonary emboli per Pulmonary 3. Would remove Simmons catheter as soon as possible 4. Follow-up recent cultures 5. Continue to follow off antibiotics pending above Consult Acknowledgment - Thank you for your consult request.
--- NOTE | 2016-05-26 17:40 | Event Note ---
Event Note Event Note: I trued mauryy to contact Mrs. Son to give update regarding her mother's status. The number was in patient's contact info. His cell phone was not accepting call. Ill try tomorrow.
[2016-05-26 17:59] VITALS: BP 177/75
--- NOTE | 2016-05-26 18:17 | Cons- Psychiatry ---
Psychiatric Consult Date of Consult: 05/26/16 Reason for Consult: "Pain meds, unintentional benzo and opiate overdose" History of Present Illness: This is a 65-year-old female brought in by ambulance from home on 05/25/2016 at 1547, after her son, Juan Luis, found her on the ground, estimated to have been there for 48 hours. The patient was alert and oriented upon arrival, per the triage note, but cannot recall what happened. She noted that she was having burning with urination. CT of the head on 05/25/2016, shows no acute intracranial pathology. Nuclear lung, V/Q scan on 05/26/2016: Intermediate probability of pulmonary embolism; significant obstructive airway disease noted. Ultrasound triplex lower extremity bilateral on 05/26/2016: No evidence of deep venous thrombosis involving bilateral lower extremities. Electroencephalogram on 05/26/2016: Moderate generalized slowing consistent with a diffuse toxic or metabolic encephalopathy. Urine and blood cultures pending. Medication claim history includes: APAP/codeine #4 300/60 mg #60 tabs for one 5 days dispensed on 05/20/2016 per order of Leah Cordero Alprazolam 2 mg #60 tabs for 30 days dispensed on 05/17/2016 per order of Leah oCrdero Tradjenta the 5 mg daily for diabetes management Duloxetine 30 mg #180 tabs for 90 days dispensed on 04/02/2016, per order of Leah Cordero [Note: Leah Cordero MD is the patient's primary care provider] Allergies: Coded Allergies: cephalexin (Severe, COULDN'T BREATHE 01/11/16) cyclobenzaprine (UNKNOWN 01/11/16) tramadol (UNKNOWN 01/11/16) Current Medications: Current Medications Sig/Gely Start time Last Medication Dose Route Stop Time Status Admin Acetaminophen 0 .STK-MED ONE 05/25 2245 DC PO Acetaminophen 650 MG Q6P PRN 05/25 2230 AC 05/25 PO 2246 Alprazolam 0 .STK-MED ONE 05/26 1036 DC PO Alprazolam 0.25 MG TID 05/26 1000 AC PO 06/02 0959 Aspirin 0 .STK-MED ONE 05/26 1035 DC PO Aspirin 81 MG DAILY 05/26 1000 AC 05/26 PO 1043 Atorvastatin Calcium 40 MG 1700 05/26 1700 AC PO Enoxaparin Sodium 160 MG BID 05/26 1507 AC 05/26 SC 1556 Heparin Sodium 0 .STK-MED ONE 05/26 0606 DC (Porcine) .ROUTE Heparin Sodium 0 .STK-MED ONE 05/25 2245 DC (Porcine) .ROUTE Heparin Sodium 5,000 UNIT Q8 05/25 2214 AC 05/26 (Porcine) SC 1423 Insulin Aspart 0 TIDAC 05/26 0800 AC 05/26 SC 1330 Lisinopril 0 .STK-MED ONE 05/26 1035 DC PO Lisinopril 10 MG DAILY 05/26 1000 AC 05/26 PO 1043 Naloxone HCl 0.8 MG ONCE ONE 05/25 1800 DC 05/25 IV 05/25 1801 1751 Sodium Chloride 1,000 ML .Q10H 05/25 2215 AC 05/26 IV 05/26 2146 1211 Sodium Chloride 1,000 ML ONCE ONE 05/25 1815 DC 05/25 IV 05/26 0414 1819 Past History Past Medical History Neurological: peripheral neuropathy, vertigo, chronic pain EENT: NONE Cardiovascular: hypertension, afib? 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 Physical Limitations (Interventions): The patient has difficulty moving due to diabetic neuropathy, osteoarthritis in both knees, and chronic leg pain. Psychiatric Treatment History Psych Treatment Psychiatric Treatment No (the patient has refused in the) Substance Use/Abuse History Drug Use/Abuse Substances Used/Abused Yes Substance Used/Abused Benzodiazepines (Hx: abuses Rx benzos/opiates.) Substance Abuse Treatment Substance Abuse Treatment Past Substance Abuse [place] No Assessment/Plan Mental Status Mental Status Exam: I visited the patient in ED room 5 today, 05/26/2016, on several occasions. We were unable to have an interview with the patient today, she was very somnolent, and arousable for only a few seconds at a time. She was not able to respond to questions regarding orientation. Lab Results: Laboratory Tests 05/26 05/26 05/25 1105 0606 2319 Chemistry Sodium (137 - 145 mmol/L) 144 Potassium (3.5 - 5.1 mmol/L) 4.3 Chloride (98 - 107 mmol/L) 105 Carbon Dioxide (22 - 30 mmol/L) 29 Anion Gap (5 - 16) 10 BUN (7 - 17 mg/dL) 51 H Creatinine (0.5 - 1.0 mg/dL) 1.1 H Estimated GFR (>60 ml/min) 50 L BUN/Creatinine Ratio (7 - 25 %) 46.4 H Creatine Kinase (30 - 135 U/L) 445 H Troponin I (< 0.11 ng/ml) 0.03 0.04 Triglycerides (<150 mg/dL) 153 H Cholesterol (<200 MG/DL) 195 LDL Cholesterol, Calc (65 - 129 mg/dL) 102 HDL Cholesterol (40 - 60 mg/dL) 63 H Cholesterol/HDL Ratio (0.00 - 4.23 %) 3 Coagulation D-Dimer (70 - 232 ng/ml) 2148 H Hematology CBC w Diff MAN DIFF ORDERED WBC (4.8 - 10.8 /CUMM) 10.1 RBC (4.20 - 5.40 /CUMM) 4.01 L Hgb (12.0 - 16.0 G/DL) 12.2 Hct (37 - 47 %) 36.7 L MCV (81.0 - 99.0 FL) 91.5 MCH (27.0 - 31.0 PG) 30.5 RDW (11.5 - 14.5 %) 14.4 Plt Count (130 - 400 /CUMM) 257 MPV (7.4 - 10.4 FL) 8.5 Gran % (42.2 - 75.2 %) 86.0 H Lymphocytes % (20.5 - 51.1 %) 8.2 L Monocytes % (1.7 - 9.3 %) 4.6 Eosinophils % (0 - 5 %) 1.0 Basophils % (0.0 - 2.0 %) 0.2 Absolute Granulocytes (1.4 - 6.5 /CUMM) 8.7 H Absolute Lymphocytes (1.2 - 3.4 /CUMM) 0.8 L Absolute Monocytes (0.10 - 0.60 /CUMM) 0.5 Absolute Eosinophils (0.0 - 0.7 /CUMM) 0.1 Absolute Basophils (0.0 - 0.2 /CUMM) 0 Platelet Estimate (ADEQUATE) ADEQUATE Anisocytosis 1+ PUBS MCHC (33.0 - 37.0 G/DL) 33.3 05/251 1925 Chemistry Lactic Acid (0.7 - 2.1 mmol/L) 1.3 Creatine Kinase Cancelled 05/25/2016: Creatine kinase 445 Opiates 2370, benzodiazepines greater than 800, EtOH serum less than 10.0. Diffential Diagnosis: Benzodiazepine abuse disorder History of depressive disorder, history of suicidal ideation with plan, history of alcohol abuse Impression: The patient has a history of suicidal ideation with plan, usually involving taking all of her pills, but no attempts as far as we know. We have suggested at an earlier consultation in 2012, that the patient would benefit from outpatient psychiatry, but she has not been willing to engage. We are uncertain of her current home status. We know from before that she had been estranged from her two daughters, but had been living with her son, Juan Luis. Her moved away and some time ago. We hope to have a more complete interview with the patient on the next day or so. Until we can determine otherwise, we will assume that the patient's being found on the floor by her son, was the result of an overdose, possibly intentional. Per the H&P, her son reported that #35 of alprazolam 2 mg were consumed within the last week. She should not be allowed to leave the hospital AMA, or otherwise, until cleared by psychiatry. Provisional Treatment Plan: 1. 1:1 safety monitor, as the patient has presented with suicidal ideation in the past. 2. She is not to leave the hospital AMA, or otherwise, until cleared by psychiatry. 3. As the patient becomes arousable, please restart her alprazolam, to prevent withdrawal seizure. She was most recently prescribed alprazolam 2 mg PO 2 times per day. 4. Please consider restarting the patient's opiate pain medication as she becomes clearer, in order to prevent opiate withdrawal. We will continue to follow along with you. Thank you for asking us to participate in Stephanie's care. Garrett Mahan APRN, pager [phone].
--- NOTE | 2016-05-26 19:22 | Cons- Cardiology ---
General Information and HPI Consulting Request Date of Consult: 05/26/16 Requested By: CARMEN CARVALHO MD Reason for Consult: Syncope History of Present Illness: The patient is a 65-year-old female with history of hypertension, diabetes mellitus, and chronic kidney disease who was brought to the emergency department by her son for altered mental status. The patient was found on the floor by her son, and she was apparently on the floor for one to 2 days. The patient takes Xanax for anxiety and Tylenol with Codeine for her osteoarthritis. The patient recalls watching TV 4 days ago. She had a nightmare when she woke up. She cannot recall falling or whether she lost consciousness. She has a history of frequent falls. She lives alone and walks with a walker. She was noted to have a fever and evidence of rhabdomyolysis with elevated CPK. She denies any chest pain or shortness of breath. No palpitations. No diaphoresis. She is unsure whether she had syncope. Allergies/Medications Allergies: Coded Allergies: cephalexin (Severe, COULDN'T BREATHE 01/11/16) cyclobenzaprine (UNKNOWN 01/11/16) tramadol (UNKNOWN 01/11/16) Home Med List: Acetaminophen With Codeine (Acetaminophen-Cod #3 Tablet) 1 EACH TABLET 1 TAB PO Q6P PRN PAIN (Reported) Albuterol Sulfate (Albuterol Sulfate Hfa) 0.09 MG/Actuation SASHA 2 PUFF INH PRN SHORTNESS OF BREATH (Reported) 90 MCG PER PUFF Alprazolam 2 MG TAB 0.25-0.5 TAB PO PRN ANXIETY (Reported) Aspirin (Aspirin*) 81 MG TAB.CHEW 1 TAB PO DAILY HEART HEALTH (Reported) Atorvastatin Calcium (Lipitor) 40 MG TAB 1 TAB PO DAILY CHOLESTEROL (Reported ) Cyanocobalamin (Vitamin B-12) (Unknown Strength) TABLET (Unknown Dose) SUPPLEMENT (Reported) Duloxetine HCl 30 MG CAPSULE.DR 60 MG PO DAILY (Reported) Furosemide 40 MG TAB 1 TAB PO DAILY DIURETIC (Reported) Glimepiride 4 MG TABLET 1 TAB PO DAILY DM (Reported) HYDROCODONE/ACETAMINOPHEN (Hydrocodon-Acetaminoph 7.5-325) 1 TAB TAB 1 TAB PO Q4-6 PRN PAIN (Reported) Linagliptin (Tradjenta) 5 MG TAB 1 TAB PO DAILY DIABETES (Reported) Lisinopril 10 MG TAB 1 TAB PO DAILY BP (Reported) METFORMIN HCL (Metformin) 1,000 MG TAB 1 TAB PO BID DIABETES (Reported) Current Medications: Current Medications Sig/Gely Start time Last Medication Dose Route Stop Time Status Admin Acetaminophen 0 .STK-MED ONE 05/25 2245 DC PO Acetaminophen 650 MG Q6P PRN 05/25 2230 AC 05/25 PO 2246 Alprazolam 0 .STK-MED ONE 05/26 1036 DC PO Alprazolam 0.25 MG TID 05/26 1000 AC PO 06/02 0959 Aspirin 0 .STK-MED ONE 05/26 1035 DC PO Aspirin 81 MG DAILY 05/26 1000 AC 05/26 PO 1043 Atorvastatin Calcium 40 MG 1700 05/26 1700 AC PO Enoxaparin Sodium 160 MG BID 05/26 1507 AC 05/26 SC 1556 Heparin Sodium 0 .STK-MED ONE 05/26 0606 DC (Porcine) .ROUTE Heparin Sodium 0 .STK-MED ONE 05/25 2245 DC (Porcine) .ROUTE Heparin Sodium 5,000 UNIT Q8 05/25 2214 AC 05/26 (Porcine) SC 1423 Insulin Aspart 0 TIDAC 05/26 0800 AC 05/26 SC 1330 Lisinopril 0 .STK-MED ONE 05/26 1035 DC PO Lisinopril 10 MG DAILY 05/26 1000 AC 05/26 PO 1043 Sodium Chloride 1,000 ML .Q10H 05/25 2215 AC 05/26 IV 05/26 2146 1211 Sodium Chloride 1,000 ML ONCE ONE 05/25 1815 DC 05/25 IV 05/26 0414 1819 Review of Systems Review of Systems: No rash. No tremor. No melena. No hemoptysis. All other systems were reviewed, and were noted to be negative. Past History Travel History Traveled to [place] past 21 day No (`) Medical History Neurological: peripheral neuropathy, vertigo, chronic pain EENT: NONE Cardiovascular: hypertension, afib? 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 Home Who Do You Live With? self Services at Home: None Primary Language: Telugu Smoking Status: Unknown If Ever Smoked ETOH Use: occasional use Illicit Drug Use: denies illicit drug use Functional Ability Ambulation: walker Exam & Diagnostic Data Vital Signs and I&O Vital Signs Date Time Temp Pulse Resp B/P Pulse O2 O2 Flow FiO2 Ox Delivery Rate 05/26 1759 98.3 96 20 177/75 96 Room Air 05/26 1557 98.7 95 18 172/76 96 Room Air Room Air 05/26 1043 99.5 98 20 159/68 05/26 0651 101.5 110 20 160/70 95 Room Air 05/26 0647 160/70 05/26 0556 101.5 110 20 180/81 95 Room Air 05/26 0504 100.1 05/26 0459 100.1 05/26 0200 101.3 103 20 165/72 97 Room Air 05/26 0153 101.7 106 20 176/77 97 Room Air 05/25 2246 101.7 05/25 2217 101.7 117 20 178/77 98 Room Air 05/25 2018 100.4 105 18 148/88 96 Room Air Intake & Output 05/26 1600 05/26 0800 05/26 0000 05/25 1600 05/25 0800 05/25 0000 Intake Total 1400 500 Output Total 1000 3050 1200 Balance 400 -2550 -1200 Intake, IV 1400 500 Output, Urine 1000 3050 1200 Patient 360 lb 360 lb Weight Physical Exam: Gen: The patient is in no acute distress HEENT: Normal nose, ears, and oropharynx. Pupils equal bilaterally. Conjunctiva normal. Neck: Supple with no JVD, no masses, and no thyromegaly Lungs: Clear to auscultation with normal respiratory effort Heart: RRR, S1, S2, no murmurs. No peripheral edema, 2+ pulses in the lower extremities bilaterally Abdomen: Soft, nontender, no masses. No hepatomegaly. No splenomegaly Extremities: No clubbing or cyanosis. Normal muscle strength in the upper and lower extremities Skin: Normal skin turgor with no skin ulcers or lesions noted. Neuro: Cranial nerves intact. Sensation intact Psych: Alert and oriented 3 with appropriate affect Labs/[place] Results: Laboratory Tests 05/26 05/26 05/25 1105 0606 2319 Chemistry Sodium (137 - 145 mmol/L) 144 Potassium (3.5 - 5.1 mmol/L) 4.3 Chloride (98 - 107 mmol/L) 105 Carbon Dioxide (22 - 30 mmol/L) 29 Anion Gap (5 - 16) 10 BUN (7 - 17 mg/dL) 51 H Creatinine (0.5 - 1.0 mg/dL) 1.1 H Estimated GFR (>60 ml/min) 50 L BUN/Creatinine Ratio (7 - 25 %) 46.4 H Creatine Kinase (30 - 135 U/L) 445 H Troponin I (< 0.11 ng/ml) 0.03 0.04 Triglycerides (<150 mg/dL) 153 H Cholesterol (<200 MG/DL) 195 LDL Cholesterol, Calc (65 - 129 mg/dL) 102 HDL Cholesterol (40 - 60 mg/dL) 63 H Cholesterol/HDL Ratio (0.00 - 4.23 %) 3 Coagulation D-Dimer (70 - 232 ng/ml) 2148 H Hematology CBC w Diff MAN DIFF ORDERED WBC (4.8 - 10.8 /CUMM) 10.1 RBC (4.20 - 5.40 /CUMM) 4.01 L Hgb (12.0 - 16.0 G/DL) 12.2 Hct (37 - 47 %) 36.7 L MCV (81.0 - 99.0 FL) 91.5 MCH (27.0 - 31.0 PG) 30.5 RDW (11.5 - 14.5 %) 14.4 Plt Count (130 - 400 /CUMM) 257 MPV (7.4 - 10.4 FL) 8.5 Gran % (42.2 - 75.2 %) 86.0 H Lymphocytes % (20.5 - 51.1 %) 8.2 L Monocytes % (1.7 - 9.3 %) 4.6 Eosinophils % (0 - 5 %) 1.0 Basophils % (0.0 - 2.0 %) 0.2 Absolute Granulocytes (1.4 - 6.5 /CUMM) 8.7 H Absolute Lymphocytes (1.2 - 3.4 /CUMM) 0.8 L Absolute Monocytes (0.10 - 0.60 /CUMM) 0.5 Absolute Eosinophils (0.0 - 0.7 /CUMM) 0.1 Absolute Basophils (0.0 - 0.2 /CUMM) 0 Platelet Estimate (ADEQUATE) ADEQUATE Anisocytosis 1+ PUBS MCHC (33.0 - 37.0 G/DL) 33.3 05/25 05/25 05/25 2251 1925 1626 Chemistry Lactic Acid (0.7 - 2.1 mmol/L) 1.3 Creatine Kinase Cancelled Toxicology Urine Opiates Screen (>2000 NG/ML) 2370.00 H Methadone Screen (>300 NG/ML) 48 Barbiturate Screen (>200 NG/ML) < 60 Ur Phencyclidine Scrn (>25 NG/ML) < 6.00 Amphetamines Screen (>1000 NG/ML) < 100 U Benzodiazepines Scrn (>200 NG/ML) > 800 H Urine Cocaine Screen (>300 NG/ML) < 50 Urine Cannabis Screen (>50 NG/ML) < 5.00 Urines Urine Color (YEL,AMB,STR) YEL Urine Clarity (CLEAR) CLEAR Urine pH (5.0 - 8.0) 6.0 Ur Specific [place] (1.001 - 1.035) 1.020 Urine Protein (NEG,<30 MG/DL) TRACE H Urine Ketones (NEG) NEG Urine Nitrite (NEG) NEG Urine Bilirubin (NEG) NEG Urine Urobilinogen (0.1 - 1.0 EU/dl) 0.2 Ur Leukocyte Esterase (NEG) NEG Ur Microscopic SEDIMENT EXAMINED Urine RBC (0 - 5 /HPF) FEW H Urine WBC (0 - 2 /HPF) RARE Ur Epithelial Cells (NONE,FEW) OCCAS Hyaline Casts (0/LPF) FEW H Urine Hemoglobin (NEG) TRACE-LYSED Urine Glucose (N MG/DL) 250 H 05/25 05/25 1622 1622 Blood Gas Bicarbonate Actual (22 - 26 MEQ/L) 29 H Mixed VBG pH (7.31 - 7.41 PH) 7.41 Mixed VBG pCO2 (41 - 51 TORR) 47 Mixed VBG O2 Saturation (35 - 45 TORR) 33 L Carboxyhemoglobin (1.5 - 5.0 %) 1.4 L O2 Concentration % R/A Chemistry Sodium (137 - 145 mmol/L) 144 Potassium (3.5 - 5.1 mmol/L) 4.7 Chloride (98 - 107 mmol/L) 102 Carbon Dioxide (22 - 30 mmol/L) 28 Anion Gap (5 - 16) 14 BUN (7 - 17 mg/dL) 58 H Creatinine (0.5 - 1.0 mg/dL) 1.3 H Estimated GFR (>60 ml/min) 41 L BUN/Creatinine Ratio (7 - 25 %) 44.6 H Glucose (65 - 99 mg/dL) 237 H Hemoglobin A1c Pending Lactic Acid (0.7 - 2.1 mmol/L) 1.7 Calcium (8.4 - 10.2 mg/dL) 10.5 H Total Bilirubin (0.2 - 1.3 mg/dL) 1.2 AST (14 - 36 U/L) 31 ALT (9 - 52 U/L) 28 Alkaline Phosphatase (<127 U/L) 131 H Ammonia (9 - 30 umol/L) < 9 L Creatine Kinase (30 - 135 U/L) 509 H Troponin I (< 0.11 ng/ml) 0.02 Total Protein (6.3 - 8.2 g/dL) 7.5 Albumin (3.5 - 5.0 g/dL) 4.3 Globulin (1.9 - 4.2 gm/dL) 3.2 Albumin/Globulin Ratio (1.1 - 2.2 %) 1.3 TSH (0.270 - 4.200 uIU/mL) 0.599 Free T4 (0.78 - 2.44 ng/dL) 1.42 Coagulation PT (9.4 - 12.5 SEC) 11.3 INR (0.90 - 1.19) 1.08 APTT (25 - 37 SEC) 32 Hematology CBC w Diff NO MAN DIFF REQ WBC (4.8 - 10.8 /CUMM) 13.1 H RBC (4.20 - 5.40 /CUMM) 4.43 Hgb (12.0 - 16.0 G/DL) 13.4 Hct (37 - 47 %) 40.7 MCV (81.0 - 99.0 FL) 91.9 MCH (27.0 - 31.0 PG) 30.3 RDW (11.5 - 14.5 %) 13.9 Plt Count (130 - 400 /CUMM) 269 MPV (7.4 - 10.4 FL) 8.6 Gran % (42.2 - 75.2 %) 92.6 H Lymphocytes % (20.5 - 51.1 %) 3.7 L Monocytes % (1.7 - 9.3 %) 3.4 Eosinophils % (0 - 5 %) 0.1 Basophils % (0.0 - 2.0 %) 0.2 Absolute Granulocytes (1.4 - 6.5 /CUMM) 12.1 H Absolute Lymphocytes (1.2 - 3.4 /CUMM) 0.5 L Absolute Monocytes (0.10 - 0.60 /CUMM) 0.4 Absolute Eosinophils (0.0 - 0.7 /CUMM) 0 Absolute Basophils (0.0 - 0.2 /CUMM) 0 PUBS MCHC (33.0 - 37.0 G/DL) 33.0 Miscellaneous Phlebotomy Draw Site VENOUS Toxicology Acetaminophen (10.0 - 30.0 ug/mL) < 10.0 L Serum Alcohol (<10 MG/DL) < 10.0 Diagnostic Data EKG Results EKG tracing from May 25 is independently reviewed, and reveals normal sinus rhythm at 96 with right bundle-branch block CXR Results Chest x-ray: No evidence of pneumonia. No significant interval change compared to prior radiography. Other Results Lower extremity Doppler study: No evidence of deep venous thrombosis involving the bilateral lower extremities. VQ scan: Intermediate probability of pulmonary embolism. There is significant segmental perfusion mismatch in the right upper lobe and additional very small subsegmental defects as described above. The total mismatch perfusion deficit is not quite large enough diminutive criteria for high probability of pulmonary embolism. Significant obstructive airway disease is also noted on the ventilation images. Assessment/Plan Assessment/Plan The patient is a 65-year-old female found after prolonged down time and possible syncope. The episode was apparently caused by unintentional benzodiazepine overdose. She is found to have elevated CPK fever. VQ scan is interpreted as intermediate probability for pulmonary embolism. She has chronic renal insufficiency. Troponin is negative, however CPK is noted to be elevated secondary to rhabdomyolysis. Blood pressure is noted to be severely elevated. Recommendations: * Monitor on telemetry for arrhythmias * Echocardiogram * Continue Lovenox until CT angiogram can be performed to rule out pulmonary embolism * If blood pressure continues to be elevated, would consider adding amlodipine 5 mg daily for additional blood pressure control Consult Acknowledgment - Thank you for your consult request.
--- NOTE | 2016-05-26 20:47 | NUR ---
TRANSFER NOTE: PT ARRIVED ON STRETCHER FROM ED ACCOMPANIED BY DISTRIBUTION. PLACED ON TELE MONITOR & BED ALARM IN HOSPITAL BED. ORIENTED TO CALL LIGHT & ROOM. DROWSY/AROUSABLE AT THIS TIME. DOCUMENTED ON PT ASSESSMENT. NO S/S DISTRESS. BRUIDE NOTED TO L SHOULDER. SCABS TO R FOOT. EXCORIATION TO R POSTERIOR THIGH. RASH TO GROIN & UNDER BREASTS. HYPERTENSIVE 177/[address] CONTRERAS. WILL CONTINUE TO MONITOR.
[2016-05-26 23:01] VITALS: BP 130/80
[2016-05-27 06:53] LABS: ABSOLUTE BASOPHIL COUNT 0.1 /CUMM (0.0-0.2); ABSOLUTE EOSINOPHIL COUNT 0.4 /CUMM (0.0-0.7); ABSOLUTE GRANULOCYTE CT 5.6 /CUMM (1.4-6.5); ABSOLUTE LYMPH COUNT 1.7 /CUMM (1.2-3.4); ABSOLUTE MONOCYTE COUNT 0.7 /CUMM (0.10-0.60); BASOPHIL % 1.2 % (0.0-2.0); EOSINOPHIL % 4.2 % (0-5); GRANULOCYTE % 66.3 % (42.2-75.2); HEMATOCRIT 33.3 % (37-47); MEAN CORPUSCULAR HGB 30.6 PG (27.0-31.0); MEAN CORPUSCULAR HGB CONC 33.3 G/DL (33.0-37.0); MEAN PLATELET VOLUME 8.6 FL (7.4-10.4); PLATELET COUNT 213 /CUMM (130-400); RBC DISTRIBUTION WIDTH 14.3 % (11.5-14.5); RED BLOOD CELL CT 3.62 /CUMM (4.20-5.40); WHITE BLOOD CELL COUNT 8.4 /CUMM (4.8-10.8)
--- NOTE | 2016-05-27 07:17 | PN- Housestaff ---
See Addendum Subjective Follow-up For: altered Mental status Pulmonary embolism Benzo overdose Complaints: mild anxiety Tele-Events Since Last Visit: Normal sinus rate and rhythm sinus tachycardia 90-203 overnight several runs of V. tach 150 260 beats per minutes Subjective: Patient was visited and interviewed this morning. She seems alert and oriented, and in acute distress sitting comfortably in her bed and communicating in full and coherent sentences. She was complaining about Xanax order and wants to stop taking Xanax. The necessity of Xanax was explained to the patient and she is agreeable with the plan. She denies any chest pain, palpitation, short of breath, lightheadedness dizziness, nausea, vomiting, diarrhea. She also has a sitter place due to psych recommendation. Simmons is in place. Review of Systems Constitutional: Reports: see HPI. Denies: chills, diaphoresis, fever, malaise, weakness, unexplained weight loss. EENTM: Denies: blurred vision, double vision, visual changes, eye pain, eye drainage, eye tearing, icterus, ear discharge, ear pain, ear redness, hearing changes, nasal congestion, epistaxis, nasal pain, throat pain, throat swelling, mouth pain, tooth pain. Cardiovascular: Reports: see HPI. Denies: chest pain, edema, orthopena, palpitations, peripheral edema, syncope. Respiratory: Denies: cough, hemoptysis, orthopnea, short of breath, sputum production, stridor, wheezing. Gastrointestinal: Denies: abdominal pain, bloating, constipation, diarrhea, distention, bowel incontinence, melena, nausea, bloody stool, changes in stool, vomiting, steatorrhea. Genitourinary: Denies: discharge, dysuria, frequency, hematuria, hesitation, nocturia, pain, urgency. Musculoskeletal: Denies: back pain, gout, joint pain, joint swelling, muscle pain, muscle stiffness, neck pain. Skin: Reports: see HPI. Neurological/Psychological: Reports: anxiety, emotional problems, paresthesia, tingling. Hematologic/Endocrine: Reports: see HPI. Objective Last 24 Hrs of Vital Signs/I&O Vital Signs Date Time Temp Pulse Resp B/P Pulse O2 O2 Flow FiO2 Ox Delivery Rate 05/27 0958 86 161/76 05/27 0819 98.2 86 16 94 Room Air 05/26 2301 98.9 96 20 130/80 94 Room Air 05/26 1759 98.3 96 20 177/75 96 Room Air 05/26 1557 98.7 95 18 172/76 96 Room Air Room Air 05/26 1043 99.5 98 20 159/68 Intake & Output 05/27 1600 05/27 0800 05/27 0000 Intake Total 1200 800 Output Total 625 550 Balance 575 250 Intake, Oral 1200 800 Output, Urine 625 550 Physical Exam General Appearance: Alert, Oriented X3, Cooperative, No Acute Distress Skin: No Significant Lesion HEENT: Atraumatic, PERRLA, Mucous Membr. moist/pink Neck: Supple Cardiovascular: Normal S1, Normal S2, No Murmurs Lungs: decreased air movement Abdomen: Soft Neurological: Normal Speech Extremities: No Cyanosis, b/l lower extremity edema , tenderness of lower extremities due to neuropathy Vascular: Normal Pulses Current Medications: Current Medications Sig/Gely Start time Last Medication Dose Route Stop Time Status Admin Acetaminophen 650 MG .STK-MED ONE 05/26 2312 DC PO 05/26 2313 Acetaminophen 650 MG Q6P PRN 05/25 2230 AC 05/26 PO 2324 Alprazolam 0 .STK-MED ONE 05/26 1036 DC PO Alprazolam 0.25 MG TID 05/26 1000 AC 05/27 PO 06/02 0959 0958 Aspirin 0 .STK-MED ONE 05/26 1035 DC PO Aspirin 81 MG DAILY 05/26 1000 AC 05/27 PO 0958 Atorvastatin Calcium 40 MG 1700 05/26 1700 AC 05/26 PO 1908 Enoxaparin Sodium 160 MG BID 05/26 1507 AC 05/27 SC 0959 Heparin Sodium 5,000 UNIT Q8 05/25 2214 DC 05/26 (Porcine) SC 1423 Insulin Aspart 0 TIDAC 05/26 0800 AC 05/26 SC 1330 Lisinopril 0 .STK-MED ONE 05/26 1035 DC PO Lisinopril 10 MG DAILY 05/26 1000 AC 05/27 PO 0958 Nystatin 1 MONICA BID PRN 05/27 0815 TOP Potassium Chloride 40 MEQ ONCE ONE 05/27 0745 DC 05/27 PO 05/27 0746 0957 Sodium Chloride 1,000 ML .Q10H 05/25 2215 DC 05/26 IV 05/26 2146 1211 Last 24 Hrs of Lab/[place] Results Last 24 Hrs of Labs/Mics: Laboratory Tests 05/27/16 0628: Anion Gap 7, Estimated GFR 55 L, BUN/Creatinine Ratio 37.0 H, CBC w Diff NO MAN DIFF REQ, RBC 3.62 L, MCV 92.0, MCH 30.6, RDW 14.3, MPV 8.6, Gran % 66.3, Lymphocytes % 20.0 L, Monocytes % 8.3, Eosinophils % 4.2, Basophils % 1.2, Absolute Granulocytes 5.6, Absolute Lymphocytes 1.7, Absolute Monocytes 0.7 H, Absolute Eosinophils 0.4, Absolute Basophils 0.1, PUBS MCHC 33.3 05/26/16 1105: D-Dimer 2148 H Assessment/Plan Assessment: 65 yo morbidly obese F with h/o T2DM, HTN, diabetic neuropathy, CKD stage 3B, bilateral severe OA, previous right foot MRSA septic arthritis, is brought in by son for evaluation of altered mental status. Pertinent data: WBC 8.4 improved from 10.1 hemoglobin 11.1, hematocrit is 33.3 platelet count 213 Sodium 140 T potassium 3.7 BUN 37 creatinine 1 improved from 51 and 1.1 respectively CK 445 EEG: Moderate generalized slowing consistent with a diffuse toxic or metabolic encephalopathy Right foot x-ray: No evidence of osteomyelitis List of Problems 1. Altered mental status, unwitnessed fall, unknown downtime, unclear if patient had a syncopal episode vs. Seizure. Unintentional benzo and opiate overdose with minimal response to Narcan. * Monitor on Telemetry for arrhythmias. * Follow EKG this morning * Follicle results * EEG was done. Neurologist commended medical management of benzo and opiates abuse. * Continue low-dose Xanax to prevent benzo withdrawals * Follow psychiatric recommendations- patient has one-on-one sitter for somnolence and agitation 2. Fever with unclear source of infection; possibly due to pulmonary embolism if we could establish the diagnosis. ID consult was requested and pulmonology consult was requested yesterday. * Doppler ultrasound of lower extremity was negative * Considering elevated d-dimer high Vasas score an abnormal VQ scan patient wasn 't started on Lovenox 160 mg subcutaneous twice a day * Obtain CTA of the chest to confirm the positive VQ scan * Leukocytosis: Improved; delusional ( drop in all ranks of CBC platelets hematocrits and WBC) * Follow pulmonology commendation; patient remained asymptomatic and afebrile * Follow ID recommendation 3. Frequent falls, physical deconditioning, severe OA. * Pain management with tylenol, * PT eval. 4. Hypercalcemia 2/2 dehydration * Continue IV hydration * Patient passed exercise swallow eval; on diabetes diets * Official swallow eval is still pending 5. T2DM * hold all the OHA and starte her on Aspart SS DVT ppx Hep SC. Full code Problem List: 1. Pulmonary embolism 2. Polysubstance overdose 3. Fall 4. Depression Pain Ratin Pain Location: Lower extremities Pain Goal: Pain 4 or less Pain Plan: Tylenol Tomorrow's Labs & Rationales: BEP Elevated CK and low potassium
[2016-05-27 08:19] VITALS: BP 161/76
--- NOTE | 2016-05-27 09:59 | RADIOLOGY REPORT ---
EXAMINATION: XR FOOT, RIGHT CLINICAL INFORMATION: 65-year-old female with suspected osteomyelitis. COMPARISON: None TECHNIQUE: 2 views of the right foot. FINDINGS: The bony alignment is intact. The cortices are intact. Mild to moderate diffuse osteopenia is present involving all the visualized bones. Moderate-sized posterior plantar calcaneal spur is noted. Mild osteoarthrosis is noted at the ankle joint. Sub-5 mm subtle calcification is noted along the posterior plantar surface of the soft tissues, consistent with ligamentous or tendinous calcification. There is no radiographic evidence of any osseous destruction, periosteal reaction, soft tissue abscess formation or soft tissue gas identified. IMPRESSION: No definite radiographic evidence of osteomyelitis. Alternative imaging modality including MRI with intravenous contrast may be considered for further clarification, if clinically appropriate.
--- NOTE | 2016-05-27 10:36 | PN- Infect Dx ---
Subjective Subjective: Afebrile. She feels improved though she has several complaints including nausea and diarrhea. She does not report shortness of breath or chest pain. She denies dysuria. Objective Last 24 Hrs of Vital Signs/I&O Vital Signs Date Time Temp Pulse Resp B/P Pulse O2 O2 Flow FiO2 Ox Delivery Rate 05/27 0958 86 161/76 05/27 0819 98.2 86 16 161/76 94 Room Air 05/26 2301 98.9 96 20 130/80 94 Room Air 05/26 1759 98.3 96 20 177/75 96 Room Air 05/26 1557 98.7 95 18 172/76 96 Room Air Room Air 05/26 1043 99.5 98 20 159/68 Intake & Output 05/27 1600 05/27 0800 05/27 0000 Intake Total 1200 800 Output Total 625 550 Balance 575 250 Intake, Oral 1200 800 Output, Urine 625 550 Physical Exam Other Physical Findings: She is much more awake and alert in no acute distress Lungs are clear Heart regular rhythm with no murmur Abdomen is obese, soft, nontender with positive bowel sounds Extremities plantar ulcer on the right great toe with no surrounding inflammation Simmons catheter remains in place Results Last 24 Hours of Lab Results: Laboratory Tests 05/27 05/26 0628 1105 Chemistry Sodium (137 - 145 mmol/L) 140 Potassium (3.5 - 5.1 mmol/L) 3.7 Chloride (98 - 107 mmol/L) 103 Carbon Dioxide (22 - 30 mmol/L) 29 Anion Gap (5 - 16) 7 BUN (7 - 17 mg/dL) 37 H Creatinine (0.5 - 1.0 mg/dL) 1.0 Estimated GFR (>60 ml/min) 55 L BUN/Creatinine Ratio (7 - 25 %) 37.0 H Coagulation D-Dimer (70 - 232 ng/ml) 2148 H Hematology CBC w Diff NO MAN DIFF REQ WBC (4.8 - 10.8 /CUMM) 8.4 RBC (4.20 - 5.40 /CUMM) 3.62 L Hgb (12.0 - 16.0 G/DL) 11.1 L Hct (37 - 47 %) 33.3 L MCV (81.0 - 99.0 FL) 92.0 MCH (27.0 - 31.0 PG) 30.6 RDW (11.5 - 14.5 %) 14.3 Plt Count (130 - 400 /CUMM) 213 MPV (7.4 - 10.4 FL) 8.6 Gran % (42.2 - 75.2 %) 66.3 Lymphocytes % (20.5 - 51.1 %) 20.0 L Monocytes % (1.7 - 9.3 %) 8.3 Eosinophils % (0 - 5 %) 4.2 Basophils % (0.0 - 2.0 %) 1.2 Absolute Granulocytes (1.4 - 6.5 /CUMM) 5.6 Absolute Lymphocytes (1.2 - 3.4 /CUMM) 1.7 Absolute Monocytes (0.10 - 0.60 /CUMM) 0.7 H Absolute Eosinophils (0.0 - 0.7 /CUMM) 0.4 Absolute Basophils (0.0 - 0.2 /CUMM) 0.1 PUBS MCHC (33.0 - 37.0 G/DL) 33.3 Last 24 Hours of [place] Results: Blood cultures 2 May 25 remain negative Urine culture May 25 negative Recent Imaging Studies: X-ray of the right foot May 27 no evidence of osteomyelitis EEG May 26 moderate generalized slowing consistent with a diffuse toxic metabolic encephalopathy Assessment/Plan Impression: Improved with temperatures and white blood cell count normal off antibiotics with no obvious focus of infection. She could have underlying osteomyelitis of the right great toe given the history of a chronic nonhealing ulcer, though there is no surrounding inflammation and her x-ray is negative. She has been followed by Podiatry and would discuss further evaluation with them. The significance of the abnormal VQ scan is unclear and a CTA was recommended by Pulmonary. Suggestion: 1. Remove Simmons catheter 2. Consider MRI of the right foot though would discuss first with Podiatry 3. Further evaluation for possible pulmonary emboli per Pulmonary 4. Continue to follow off antibiotics pending above
--- NOTE | 2016-05-27 11:29 | PN- Pulmonary ---
Subjective HPI/Critical Care Issues: Patient seen and examined. No chest pain, some reported wheezing this morning. More arousable. No nausea, vomiting, diarrhea or constipation. Afebrile and hemodynamically stable. Objective Current Medications: Current Medications Sig/Gely Start time Last Medication Dose Route Stop Time Status Admin Acetaminophen 650 MG .STK-MED ONE 05/26 2312 DC PO 05/26 2313 Acetaminophen 650 MG Q6P PRN 05/25 2230 AC 05/26 PO 2324 Alprazolam 0.25 MG TID 05/26 1000 AC 05/27 PO 06/02 0959 0958 Aspirin 81 MG DAILY 05/26 1000 AC 05/27 PO 0958 Atorvastatin Calcium 40 MG 1700 05/26 1700 AC 05/26 PO 1908 Enoxaparin Sodium 160 MG BID 05/26 1507 AC 05/27 SC 0959 Heparin Sodium 5,000 UNIT Q8 05/25 2214 DC 05/26 (Porcine) SC 1423 Insulin Aspart 0 TIDAC 05/26 0800 AC 05/26 SC 1330 Lisinopril 10 MG DAILY 05/26 1000 AC 05/27 PO 0958 Nystatin 1 MONICA BID PRN 05/27 0815 TOP Potassium Chloride 40 MEQ ONCE ONE 05/27 0745 DC 05/27 PO 05/27 0746 0957 Sodium Chloride 1,000 ML .Q10H 05/25 2215 DC 05/26 IV 05/26 2146 1211 Vital Signs & I&O Last 24 Hrs of Vitals and I&O: Vital Signs Date Time Temp Pulse Resp B/P Pulse O2 O2 Flow FiO2 Ox Delivery Rate 05/27 0958 86 161/76 05/27 0819 98.2 86 16 161/76 94 Room Air 05/26 2301 98.9 96 20 130/80 94 Room Air 05/26 1759 98.3 96 20 177/75 96 Room Air 05/26 1557 98.7 95 18 172/76 96 Room Air Room Air Intake & Output 05/27 1600 05/27 0800 05/27 0000 Intake Total 1200 800 Output Total 625 550 Balance 575 250 Intake, Oral 1200 800 Output, Urine 625 550 Exam Other Physical Findings: gen awake and alert heent ncat, large neck cvs s1, s2 lungs anterior examination clear, slightly diminished due to body habitus abd obese, soft, bs+ ext toe ulceration chronic Results Last 24 Hrs of Lab Results: Laboratory Tests 05/27/16 0628: Anion Gap 7, Estimated GFR 55 L, BUN/Creatinine Ratio 37.0 H, CBC w Diff NO MAN DIFF REQ, RBC 3.62 L, MCV 92.0, MCH 30.6, RDW 14.3, MPV 8.6, Gran % 66.3, Lymphocytes % 20.0 L, Monocytes % 8.3, Eosinophils % 4.2, Basophils % 1.2, Absolute Granulocytes 5.6, Absolute Lymphocytes 1.7, Absolute Monocytes 0.7 H, Absolute Eosinophils 0.4, Absolute Basophils 0.1, PUBS MCHC 33.3 Impression/Plan Impression/Plan Impression/Plan: Impression 65 year old woman with opiate/benzodiazepine ingestion, resolving PHOEBE, lethargy. Brief desaturation episode along with tachycardia prompted a d-dimer check which was elevated and a V/Q scan with an intermediate probability for PE. Likely underlying MICHELLE/OHS, which can be investigated on an outpatient basis. Plan - given findings of an intermediate V/Q scan would recommend to puruse a CTA to evaluate pulmonary vasculature and also look at lung parenchyma, a care resolved and should be safe for contrast - Likely underlying MICHELLE/OHS, which can be investigated on an outpatient basis.
--- NOTE | 2016-05-27 11:35 | NUR ---
PHYSICAL THERAPY. PT ORDER RECIEVED & CHART REVIEWED. PT EVAL DEFERRED PENDING MRI & CHEST CTA TO RULE OUT OSTEOMYELITIS & PE RESPECTIVELY. PT WILL F/U APPROPRIATE.
--- NOTE | 2016-05-27 12:19 | CT SCAN REPORT ---
EXAMINATION: CT ANGIOGRAM OF THE CHEST WITH CONTRAST (CT PULMONARY ANGIOGRAM FOR PE) CLINICAL INFORMATION: Tachycardia and shortness of breath. COMPARISON: CXR from 05/25/2016 and lung scintigraphy, 05/26/2016. TECHNIQUE: Prior to contrast administration, noncontrast localization images were obtained. Subsequently, multidetector volumetric imaging was performed from the thoracic inlet to below the diaphragms following the administration of 75 mL of Optiray 350 intravenous contrast. No contrast reaction reported. Sagittal, coronal, and MIP oblique sagittal reformatted images were obtained on the CT workstation, uploaded to PACS, and reviewed. Total exam dose-length product 610 mGy-cm FINDINGS: QUALITY OF STUDY/CONTRAST BOLUS: Satisfactory. PULMONARY ARTERIES: Pulmonary arteries are large; the pulmonary arterial trunk measures 3.5 cm transverse diameter. This suggests possibility of chronic pulmonary arterial hypertension. There are no embolic filling defects within the main, lobar or segmental vessels. THORACIC AORTA: There is atherosclerotic calcification of the thoracic aorta without aneurysm or dissection. LUNGS AND PLEURA: Trachea and central airways are widely patent and normal in caliber. There is discoid atelectasis or focal scar within the anterior segment of the right upper lobe. Small, calcified granulomas are present within the posterior segment of the right upper lobe. The 0.2 cm noncalcified nodular opacities along the distal right major fissure could represent small lymph nodes or noncalcified granulomas. There is a 1 mm noncalcified nodule in the anterolateral aspect of the left lower lobe (image 247, series 2) and there is a 2 mm calcified granuloma of the lateral segment of the left lower lobe, as well (image 291, series 2). No acute pulmonary consolidation, edema, pneumothorax or pleural effusion. There are a few scattered peripheral linear opacities of atelectasis or scarring in the lower lobes and inferior lingula. MEDIASTINUM: The wall of the left ventricle is hypertrophied. There is three-vessel coronary artery atherosclerotic disease. No pericardial effusion. No evidence of septal bowing or right heart strain. The esophagus is unremarkable. There is a small amount of herniating fat (less likely a 1.6 x 2.4 cm lipoma) at the esophageal hiatus. The visualized portion of the thyroid gland is normal. LYMPHATICS: No axillary, hilar, mediastinal or internal mammary lymphadenopathy. UPPER ABDOMEN: The patient has a large body habitus and the visualized portions of the incompletely evaluated abdomen are unremarkable. The adrenal glands are normal. No reflux of contrast into the hepatic veins to suggest elevated right heart pressures. OSSEOUS STRUCTURES: There is skeletal hyperostosis with extensive flowing anterior ligament ossification of the degenerated thoracic spine. No aggressive or acute osseous lesions. IMPRESSION: 1. No pulmonary embolism. 2. Coronary artery atherosclerotic disease. The wall the left ventricle is hypertrophied. There is no acute pulmonary edema or pleural effusion. 3. Pulmonary arteries are enlarged, as may be seen in chronic pulmonary arterial hypertension. 4. Old granulomatous disease.
--- NOTE | 2016-05-27 14:39 | PN- Cardiology ---
Subjective Subjective: The patient seems to have intermittent shortness of breath. No recent chest pain. No nausea vomiting. No palpitations. No diaphoresis. She completed her CT angiogram of the chest. Short runs of supraventricular tachycardia and ventricular tachycardia were seen on telemetry. Objective Vital Signs and I&Os Vital Signs Date Time Temp Pulse Resp B/P Pulse O2 O2 Flow FiO2 Ox Delivery Rate 05/27 0958 86 161/76 05/27 0819 98.2 86 16 161/76 94 Room Air 05/26 2301 98.9 96 20 130/80 94 Room Air 05/26 1759 98.3 96 20 177/75 96 Room Air 05/26 1557 98.7 95 18 172/76 96 Room Air Room Air Intake & Output 05/27 1600 05/27 0800 05/27 0000 05/26 1600 05/26 0800 05/26 0000 Intake Total 0639 327 9435 500 Output Total 896 714 4981 3050 1200 Balance 575 250 400 -2550 -1200 Intake, IV 1400 500 Intake, Oral 1200 800 Output, Urine 286 656 4584 3050 1200 Patient 360 lb Weight Physical Exam: Gen: The patient is in no acute distress HEENT: Normal nose, ears, and oropharynx. Pupils equal bilaterally. Conjunctiva normal. Neck: Supple with no JVD, no masses, and no thyromegaly Lungs: Clear to auscultation with normal respiratory effort Heart: RRR, S1, S2, no murmurs. No peripheral edema, 2+ pulses in the lower extremities bilaterally Abdomen: Soft, nontender, no masses. No hepatomegaly. No splenomegaly Extremities: No clubbing or cyanosis. Normal muscle strength in the upper and lower extremities Skin: Normal skin turgor with no skin ulcers or lesions noted. Current Medications: Current Medications Sig/Gely Start time Last Medication Dose Route Stop Time Status Admin Acetaminophen 650 MG .STK-MED ONE 05/26 2312 DC PO 05/26 2313 Acetaminophen 650 MG Q6P PRN 05/25 2230 AC 05/26 PO 2324 Alprazolam 0.25 MG TID 05/26 1000 AC 05/27 PO 06/02 0959 0958 Aspirin 81 MG DAILY 05/26 1000 AC 05/27 PO 0958 Atorvastatin Calcium 40 MG 1700 05/26 1700 AC 05/26 PO 1908 Enoxaparin Sodium 40 MG ONCE A WEEK 05/27 1405 UNVr SC Enoxaparin Sodium 160 MG BID 05/26 1507 DC 05/27 SC 0959 Heparin Sodium 5,000 UNIT Q8 05/25 2214 DC 05/26 (Porcine) SC 1423 Insulin Aspart 0 TIDAC 05/26 0800 AC 05/26 SC 1330 Lisinopril 10 MG DAILY 05/26 1000 AC 05/27 PO 0958 Nystatin 1 MONICA BID PRN 05/27 0815 AC TOP Potassium Chloride 40 MEQ ONCE ONE 05/27 0745 DC 05/27 PO 05/27 0746 0957 Sodium Chloride 1,000 ML .Q10H 05/25 2215 DC 05/26 IV 05/26 2146 1211 Results Last 48 Hrs of Labs/Mics: Laboratory Tests 05/27/16 0628: Anion Gap 7, Estimated GFR 55 L, BUN/Creatinine Ratio 37.0 H, CBC w Diff NO MAN DIFF REQ, RBC 3.62 L, MCV 92.0, MCH 30.6, RDW 14.3, MPV 8.6, Gran % 66.3, Lymphocytes % 20.0 L, Monocytes % 8.3, Eosinophils % 4.2, Basophils % 1.2, Absolute Granulocytes 5.6, Absolute Lymphocytes 1.7, Absolute Monocytes 0.7 H, Absolute Eosinophils 0.4, Absolute Basophils 0.1, PUBS MCHC 33.3 05/26/16 1105: D-Dimer 2148 H 05/26/16 0606: Anion Gap 10, Estimated GFR 50 L, BUN/Creatinine Ratio 46.4 H, Troponin I 0.03 , Triglycerides 153 H, Cholesterol 195, LDL Cholesterol, Calc 102, HDL Cholesterol 63 H, Cholesterol/HDL Ratio 3, CBC w Diff MAN DIFF ORDERED, RBC 4.01 L, MCV 91.5, MCH 30.5, RDW 14.4, MPV 8.5, Gran % 86.0 H, Lymphocytes % 8.2 L, Monocytes % 4.6, Eosinophils % 1.0, Basophils % 0.2, Absolute Granulocytes 8.7 H, Absolute Lymphocytes 0.8 L, Absolute Monocytes 0.5, Absolute Eosinophils 0.1, Absolute Basophils 0, Platelet Estimate ADEQUATE, Anisocytosis 1+, PUBS MCHC 33.3 05/25/16 2319: Creatine Kinase 445 H, Troponin I 0.04 05/25/16 2251: Creatine Kinase Cancelled 05/25/16 1925: Lactic Acid 1.3 05/25/16 162: Urine Opiates Screen 2370.00 H, Methadone Screen 48, Barbiturate Screen < 60, Ur Phencyclidine Scrn < 6.00, Amphetamines Screen < 100, U Benzodiazepines Scrn > 800 H, Urine Cocaine Screen < 50, Urine Cannabis Screen < 5.00, Urine Color YEL, Urine Clarity CLEAR, Urine pH 6.0, Ur Specific Burdick 1.020, Urine Protein TRACE H, Urine Ketones NEG, Urine Nitrite NEG, Urine Bilirubin NEG, Urine Urobilinogen 0.2, Ur Leukocyte Esterase NEG, Ur Microscopic SEDIMENT EXAMINED, Urine RBC FEW H, Urine WBC RARE, Ur Epithelial Cells OCCAS, Hyaline Casts FEW H, Urine Hemoglobin TRACE-LYSED, Urine Glucose 250 H 05/25/16 162: Hemoglobin A1c 7.0 H 05/25/16 162: Bicarbonate Actual 29 H, Mixed VBG pH 7.41, Mixed VBG pCO2 47, Mixed VBG O2 Saturation 33 L, Carboxyhemoglobin 1.4 L, O2 Concentration % R/A, Anion Gap 14 , Estimated GFR 41 L, BUN/Creatinine Ratio 44.6 H, Glucose 237 H, Lactic Acid 1.7, Calcium 10.5 H, Total Bilirubin 1.2, AST 31, ALT 28, Alkaline Phosphatase 131 H, Ammonia < 9 L, Creatine Kinase 509 H, Troponin I 0.02, Total Protein 7.5, Albumin 4.3, Globulin 3.2, Albumin/Globulin Ratio 1.3, TSH 0.599, Free T4 1.42, PT 11.3, INR 1.08, APTT 32, CBC w Diff NO MAN DIFF REQ, RBC 4.43, MCV 91.9 , MCH 30.3, RDW 13.9, MPV 8.6, Gran % 92.6 H, Lymphocytes % 3.7 L, Monocytes % 3.4, Eosinophils % 0.1, Basophils % 0.2, Absolute Granulocytes 12.1 H, Absolute Lymphocytes 0.5 L, Absolute Monocytes 0.4, Absolute Eosinophils 0, Absolute Basophils 0, PUBS MCHC 33.0, Phlebotomy Draw Site VENOUS, Acetaminophen < 10.0 L, Serum Alcohol < 10.0 Microbiology 05/25 1625 URINE ROUT: Urine Culture - COMP Recent Imaging Studies: CTA Chest: 1. No pulmonary embolism. 2. Coronary artery atherosclerotic disease. The wall the left ventricle is hypertrophied. There is no acute pulmonary edema or pleural effusion. 3. Pulmonary arteries are enlarged, as may be seen in chronic pulmonary arterial hypertension. 4. Old granulomatous disease. Assessment/Plan Assessment/Plan Assessment: * Benzodiazepine and opiate overdose * Obstructive sleep apnea * No pulmonary embolism seen on CT * Syncope, uncertain etiology * Short runs of ventricular tachycardia, and ventricular tachycardia seen on telemetry. Plan: * Echocardiogram pending. * Increase lisinopril to 20 mg daily for additional blood pressure control. Continue telemetry? Yes
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
--- NOTE | 2016-05-27 16:27 | Event Note ---
Event Note Event Note: I spoke to Camera Tuning Engineer. He recommended MRI and I ordered MRI of the foot.
[2016-05-27 16:56] VITALS: BP 159/60
[2016-05-27 23:36] VITALS: BP 140/72
--- NOTE | 2016-05-28 07:28 | PN- Housestaff ---
FLACO WILDE 05/28/16 0727: Subjective Follow-up For: 1.Altered mental status due to possible unintentional benzos overdose. 2. Possible osteomyelitis involving the right foot 3. History of hypertension hyperlipidemia 4. History of anxiety and depression Tele-Events Since Last Visit: Sinus rhythm heart rate in the range of 78-89 with PACs Subjective: Patient is seen and examined today, seems better slept well overnight. He remained afebrile overnight denies any chest discomfort trouble breathing. No urinary bowel habit complaints. Patient denies any visual or auditory hallucinations at this time. Denies any suicidal or homicidal ideation. We talked to psychiatry over the phone, will DC sitter now. Patient is going for MRI to rule out any possible underlying osteo-myelitis of the right foot. As patient is very weak at baseline requiring Baltazar lift, will plan the patient will be discharged to the [facility] Review of Systems Constitutional: Denies: chills, diaphoresis, fever, malaise. EENTM: Denies: blurred vision, double vision, visual changes. Cardiovascular: Denies: chest pain, edema, orthopena. Respiratory: Denies: cough, hemoptysis, orthopnea. Gastrointestinal: Denies: abdominal pain, bloating, constipation, diarrhea. Genitourinary: Denies: discharge, frequency, hematuria. Objective Last 24 Hrs of Vital Signs/I&O Vital Signs Date Time Temp Pulse Resp B/P Pulse O2 O2 Flow FiO2 Ox Delivery Rate 05/28 0953 98.4 74 20 158/72 05/28 0837 98.4 74 20 158/72 94 Room Air 05/27 2336 98.1 84 20 140/72 95 Room Air 05/27 1656 98.6 80 16 159/60 96 Trach Mask 05/27 1519 Room Air Room Air 05/27 1512 Room Air Room Air Intake & Output 05/28 1600 05/28 0800 05/28 0000 Intake Total 250 250 Output Total Balance 250 250 Intake, IV 10 10 Intake, Oral 240 240 Number 1 2 Bowel Movements Physical Exam General Appearance: Alert, Oriented X3 Skin: No Rashes, No Breakdown HEENT: Atraumatic, PERRLA Neck: Supple, No JVD Cardiovascular: Regular Rate, Normal S1, Normal S2 Lungs: Clear to Auscultation Abdomen: Normal Bowel Sounds, Soft, No Tenderness Neurological: Normal Speech Current Medications: Current Medications Sig/Gely Start time Last Medication Dose Route Stop Time Status Admin Acetaminophen 650 MG Q6P PRN 05/25 2230 AC 05/26 PO 2324 Alprazolam 0.25 MG TID 05/26 1000 AC 05/28 PO 06/02 0959 0953 Aspirin 81 MG DAILY 05/26 1000 AC 05/28 PO 0953 Atorvastatin Calcium 40 MG 1700 05/26 1700 AC 05/27 PO 1755 Duloxetine HCl 60 MG DAILY 05/28 1034 AC PO Enoxaparin Sodium 40 MG DAILY 05/28 1000 AC 05/28 SC 0956 Enoxaparin Sodium 160 MG BID 05/26 1507 DC 05/27 SC 0959 Furosemide 40 MG DAILY 05/28 1033 AC PO Insulin Aspart 0 TIDAC 05/26 0800 DC 05/28 SC 0830 Lisinopril 20 MG DAILY 05/29 1000 CAN PO Lisinopril 10 MG DAILY 05/29 1000 AC PO Lisinopril 10 MG ONCE ONE 05/28 1045 CAN PO 05/28 1046 Lisinopril 10 MG DAILY 05/26 1000 DC 05/28 PO 0953 Metformin HCl 1,000 MG BID 05/28 2200 AC PO Non-Formulary 0 SEE ADMIN CRITERIA.. 05/28 1045 UNVr Medication ANY Nystatin 1 MONICA BID PRN 05/27 0815 AC TOP Last 24 Hrs of Lab/[place] Results Last 24 Hrs of Labs/Mics: Laboratory Tests 05/28/16 0605: Anion Gap 6, Estimated GFR > 60, BUN/Creatinine Ratio 28.9 H Assessment/Plan Assessment: 65 yo morbidly obese F with h/o T2DM, HTN, diabetic neuropathy, CKD stage 3B, bilateral severe OA, previous right foot MRSA septic arthritis, is brought in by son for evaluation of altered mental status. Pertinent data: WBC 8.4 improved from 10.1 hemoglobin 11.1, hematocrit is 33.3 platelet count 213 Sodium 140 T potassium 3.7 BUN 37 creatinine 1 improved from 51 and 1.1 respectively CK 445 EEG: Moderate generalized slowing consistent with a diffuse toxic or metabolic encephalopathy Right foot x-ray: No evidence of osteomyelitis\ List of Problems 1. Altered mental status, unwitnessed fall, unknown downtime, unclear if patient had a syncopal episode vs. Seizure. Unintentional /intentional benzo and opiate overdose with minimal response to Narcan. * No overnight events on the tombstone polisher, will DC the telemetry monitoring and transferred the patient to the [facility] floor. * Currently patient has been stable denies any evidence of any visual or auditory hallucinations at this time. Denies any suicidal or homicidal ideation. * We talked to psychiatry over the phone, will DC sitter now. * Restart her home medications including Cymbalta * Continue Xanax 0. 25 mg as needed for anxiety 2. Fever with unclear source of infection: Pulmonary embolism ruled out, possible source of infection foot ( osteo-myelitis) * CTA chest to rule out any underlying pulmonary embolism * Leukocytosis: Resolved * ID consult has been obtained as per recommendations patient will go for MRI of the right foot to rule out any underlying osteomyelitis 3. Frequent falls, physical deconditioning, severe OA. * Pain management with tylenol, * As patient is very weak at baseline requiring Baltazar lift, will plan the patient will be discharged to the [facility]. 4. Hypercalcemia 2/2 dehydration * Continue IV hydration * Patient passed exercise swallow eval; on diabetes diets * Formal swallow evaluation, continue with regular and liquid diet. 5.history of type 2 diabetes mellitus * Will discontinue insulin and start the patient on home dose of metformin thousand grams twice a day and TRIGENTA 5 mg daily. 6. History of hypertension and hyperlipidemia with evidence Short runs of ventricular tachycardia, and ventricular tachycardia seen on telemetry-resolved now * Restart home dose of Lasix 40 mg daily * continue Lipitor 40 minutes daily * Continue lisinopril 10 mg daily. 7.DVT ppx Hep SC. Full code Problem List: 1. Altered mental status Pain Ratin Pain Location: No pain at this time Pain Goal: Remain pain free Pain Plan: Tylenol Tomorrow's Labs & Rationales: CMP Hyponatremia DEVEN SOLIZ,CARMEN 05/28/16 1042: Attending MD Review Statement Attending Statement Attending MD Statement: examined this patient, discuss w/resident/PA/ROOF SERVICE TECHNICIAN, agreed w/resident/PA/ROOF SERVICE TECHNICIAN, reviewed EMR data (avail), discussed with nursing, discussed with case mgmt, reviewed images Attending Assessment/Plan: Pt is going to have the MRI today to rule out osteomyelitis. She had this 48 hours of fever of unclear etiology and has been afebrile since. Her pressure is on the high side but we haven't restarted all of her home medications which include Lasix, her antidepressant and antidiabetic medications. Will restart all of that. I don't think this was an intentional overdose and I certainly don 't think she has active suicidality, she denies it right now. She is a Baltazar lift at baseline and the plan is to place her. I believe we can safely stop the sitter and follow-up.
[2016-05-28 08:37] VITALS: BP 158/72
--- NOTE | 2016-05-28 09:55 | PN- Pulmonary ---
Subjective HPI/Critical Care Issues: Patient seen and examined. No chest pain, at respiratory baseline. No nausea, vomiting, diarrhea or constipation. Afebrile and hemodynamically stable. Objective Current Medications: Current Medications Sig/Gely Start time Last Medication Dose Route Stop Time Status Admin Acetaminophen 650 MG Q6P PRN 05/25 2230 AC 05/26 PO 2324 Alprazolam 0.25 MG TID 05/26 1000 AC 05/27 PO 06/02 0959 2125 Aspirin 81 MG DAILY 05/26 1000 AC 05/27 PO 0958 Atorvastatin Calcium 40 MG 1700 05/26 1700 AC 05/27 PO 1755 Enoxaparin Sodium 40 MG DAILY 05/28 1000 AC SC Enoxaparin Sodium 160 MG BID 05/26 1507 DC 05/27 SC 0959 Insulin Aspart 0 TIDAC 05/26 0800 AC 05/28 SC 0830 Lisinopril 10 MG DAILY 05/26 1000 AC 05/27 PO 0958 Nystatin 1 MONICA BID PRN 05/27 0815 AC TOP Vital Signs & I&O Last 24 Hrs of Vitals and I&O: Vital Signs Date Time Temp Pulse Resp B/P Pulse O2 O2 Flow FiO2 Ox Delivery Rate 05/28 0837 98.4 74 20 158/72 94 Room Air 05/27 2336 98.1 84 20 140/72 95 Room Air 05/27 1656 98.6 80 16 159/60 96 Trach Mask 05/27 1519 Room Air Room Air 05/27 1512 Room Air Room Air 05/27 0958 86 161/76 Intake & Output 05/28 1600 05/28 0800 05/28 0000 Intake Total 250 250 Output Total Balance 250 250 Intake, IV 10 10 Intake, Oral 240 240 Number 1 2 Bowel Movements Exam Other Physical Findings: gen awake and alert heent ncat, large neck cvs s1, s2 lungs anterior examination clear, slightly diminished due to body habitus abd obese, soft, bs+ ext toe ulceration chronic Results Last 24 Hrs of Lab Results: Laboratory Tests 05/28/16 0605: Anion Gap 6, Estimated GFR > 60, BUN/Creatinine Ratio 28.9 H Impression/Plan Impression/Plan Impression/Plan: Impression 65 year old woman with opiate/benzodiazepine ingestion, likely underlying MICHELLE/ OHS, which can be investigated on an outpatient basis. Plan - No evidence of pulmonary embolism - Likely underlying MICHELLE/OHS, which can be investigated on an outpatient basis - please arrange f/u for this if pt amenable
[2016-05-28] MEDS ORDERED: LISINOPRIL10 M1 PO (10:27)
--- NOTE | 2016-05-28 13:55 | PN- Cardiology ---
Subjective Subjective: No major changes. Dyspnea seems improved. No other new CV symptoms. Objective Vital Signs and I&Os Vital Signs Date Time Temp Pulse Resp B/P Pulse O2 O2 Flow FiO2 Ox Delivery Rate 05/28 1336 Room Air Room Air 05/28 0953 98.4 74 20 158/72 05/28 0837 98.4 74 20 158/72 94 Room Air 05/27 2336 98.1 84 20 140/72 95 Room Air 05/27 1656 98.6 80 16 159/60 96 Trach Mask 05/27 1519 Room Air Room Air 05/27 1512 Room Air Room Air Intake & Output 05/28 1600 05/28 0800 05/28 0000 05/27 1600 05/27 0800 05/27 0000 Intake Total 250 625 628 8020 800 Output Total 600 625 550 Balance 250 250 -200 575 250 Intake, IV 10 10 Intake, Oral 240 838 199 6644 800 Number 1 2 2 Bowel Movements Output, Urine 600 625 550 Patient 330 lb Weight Physical Exam: General Appearance: Alert, Oriented X3 Skin: No Rashes, No Breakdown HEENT: Atraumatic, PERRLA Neck: Supple, No JVD Cardiovascular: Regular Rate, Normal S1, Normal S2 Lungs: Clear to Auscultation Abdomen: Normal Bowel Sounds, Soft, No Tenderness Neurological: Normal Speech Current Medications: Current Medications: Current Medications Sig/Gely Start time Last Medication Dose Route Stop Time Status Admin Acetaminophen 650 MG Q6P PRN 05/25 2230 AC 05/26 PO 2324 Alprazolam 0.25 MG TID 05/26 1000 AC 05/28 PO 06/02 0959 0953 Aspirin 81 MG DAILY 05/26 1000 AC 05/28 PO 0953 Atorvastatin Calcium 40 MG 1700 05/26 1700 AC 05/27 PO 1755 Duloxetine HCl 60 MG DAILY 05/28 1034 AC 05/28 PO 1233 Enoxaparin Sodium 40 MG DAILY 05/28 1000 AC 05/28 SC 0956 Enoxaparin Sodium 160 MG BID 05/26 1507 DC 05/27 SC 0959 Furosemide 40 MG DAILY 05/28 1033 AC 05/28 PO 1233 Insulin Aspart 0 TIDAC 05/26 0800 DC 05/28 SC 0830 Lisinopril 20 MG DAILY 05/29 1000 CAN PO Lisinopril 10 MG DAILY 05/29 1000 AC PO Lisinopril 10 MG ONCE ONE 05/28 1045 CAN PO 05/28 1046 Lisinopril 10 MG DAILY 05/26 1000 DC 05/28 PO 0953 Metformin HCl 1,000 MG BID 05/28 2200 AC PO Nystatin 1 MONICA BID PRN 05/27 0815 AC TOP Results Last 48 Hrs of Labs/Mics: Laboratory Tests 05/28/16 0605: Anion Gap 6, Estimated GFR > 60, BUN/Creatinine Ratio 28.9 H 05/27/16 0628: Anion Gap 7, Estimated GFR 55 L, BUN/Creatinine Ratio 37.0 H, CBC w Diff NO MAN DIFF REQ, RBC 3.62 L, MCV 92.0, MCH 30.6, RDW 14.3, MPV 8.6, Gran % 66.3, Lymphocytes % 20.0 L, Monocytes % 8.3, Eosinophils % 4.2, Basophils % 1.2, Absolute Granulocytes 5.6, Absolute Lymphocytes 1.7, Absolute Monocytes 0.7 H, Absolute Eosinophils 0.4, Absolute Basophils 0.1, PUBS MCHC 33.3 Assessment/Plan Assessment/Plan Assessment: * Benzodiazepine and opiate overdose * Obstructive sleep apnea * No pulmonary embolism seen on CT * Syncope, uncertain etiology * Short runs of ventricular tachycardia, and ventricular tachycardia seen on telemetry. Recommendations: -Overall doing somewhat better. -Rhythm more stable -BP improved today. -MRI pending -Echocardiogram pending Continue telemetry? Yes
--- NOTE | 2016-05-28 13:55 | MRI REPORT ---
EXAMINATION: MR FOOT WITHOUT CONTRAST, RIGHT CLINICAL INFORMATION: Right foot tenderness. Presumptive diagnosis: Osteomyelitis. Patient reports right great toe ulcer. COMPARISON: X-rays of the right foot 05/27/2016. MRI of the right foot 03/28/2013. TECHNIQUE: MRI of the tibia/fibula without contrast was obtained using routine sequences. FINDINGS: MUSCLES/TENDONS: There is diffuse severe fatty atrophy and some patchy areas of minor edema involving the foot muscles, most likely representing denervation injury. LIGAMENTS: Intact. ARTICULAR CARTILAGE/BONE: There is somewhat diffuse patchy bone marrow edema in the tibial hallux sesamoid. This is more extensive than identified on the prior MRI scan. This is deep to the plantar-medial subcutaneous edema. This may be reactive, but osteomyelitis cannot be excluded. JOINT FLUID/BURSA/SOFT TISSUES: There is skin irregularity posterior-medial to the 1st MTP joint region with underlying subcutaneous edema. There are no localized fluid collections. IMPRESSION: Bone marrow edema in the tibial hallux sesamoid deep to subcutaneous edema. The bone marrow edema may be reactive, but osteomyelitis cannot be excluded.
--- NOTE | 2016-05-28 14:00 | NUR ---
PATIENT REMAINS STABLE. VSS. NEUROS WNL. SAFETY MAINTAINED. TO MRI OF RIGHT FOOT TO R/O OSTEO AND BACK. TOLORATING DIET. PT EVAL. PLAN OF CARE CONTINUE.
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
[2016-05-28 15:47] VITALS: BP 140/70
[2016-05-28] MEDS ORDERED: XANAX0.25 M1 PO (15:51)
--- NOTE | 2016-05-28 15:55 | Patient Discharge Instructions ---
Discharge Instructions General Discharge Information You were seen/treated for: 1. Altered mental status due to benzos overdose. Special Instructions: 1. Please follow-up with your PCP within 1-2 weeks after discharge. 2. Please call Lead outpatient psychiatry department for a follow-up appointment. 3. Consider increasing the dose of lisinopril to 20 mg daily if blood pressure continues to remain elevated. Diet Recommended Diet: carbohydrate consistent diet Activity Activity Self Limited: Yes Acute Coronary Syndrome Inclusion Criteria At DC or during hospital stay patient has or had the following: ACS DIAGNOSIS No Discharge Core Measures Meds if any: Prescribed or Continued at Discharge Meds if any: NOT Prescribed or Continued at Discharge Congestive Heart Failure Inclusion Criteria At DC or during hospital stay patient has or had the following: CHF DIAGNOSIS No Discharge Core Measures Meds if any: Prescribed or Continued at Discharge Meds if any: NOT Prescribed or Continued at Discharge Cerebrovascular accident Inclusion Criteria At DC or during hospital stay patient has or had the following: CVA/TIA Diagnosis No Discharge Core Measures Meds if any: Prescribed or Continued at Discharge Meds if any: NOT Prescribed or Continued at Discharge Venous thromboembolism Inclusion Criteria VTE Diagnosis No VTE Type NONE VTE Confirmed by (Test) NONE Discharge Core Measures - Per Current guidelines, there needs to be overlap - treatment for the first 5 days of Warfarin therapy. - If discharged on Warfarin prior to 5 days of - overlap therapy, the patient will need to be - assessed for post discharge needs including - *Post discharge parental anticoagulation - *Warfarin and/or parental anticoagulation education - *Follow up date to check INR post discharge At least 5 days overlap therapy as Inpatient No Meds if any: Prescribed or Continued at Discharge Note: Overlap Therapy is Warfarin and Anticoagulant Meds if any: NOT Prescribed or Continued at Discharge
[2016-05-28] MEDS ORDERED: MELATONIN5 M7 PO (15:56)
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
[2016-05-28 22:30] VITALS: BP 152/80
--- NOTE | 2016-05-29 07:21 | PN- Housestaff ---
FLACO WILDE 05/29/16 0720: Subjective Follow-up For: 1.Altered mental status due to possible unintentional benzos overdose. 2. Possible osteomyelitis involving the right foot 3. History of hypertension hyperlipidemia 4. History of anxiety and depression Tele-Events Since Last Visit: Patient is a [employer] hold Subjective: Patient is seen and examined today, seems a little better than yesterday slept well overnight. Remains afebrile vitals are stable. Still reports dull abdominal discomfort associated with nausea. Appetite remains poor, no more episodes of diarrhea, will do abdominal x-ray to rule out any underlying abdominal pathology or obstruction. Patient is currently refusing to take metformin, she mentioned that her primary care physician Dr. Cordero stopped the medication because of her worsening kidney functions, I counseled the patient that there is no harm of restarting metformin has the kidney numbers are currently stable and told her that I'll talk to her PCP. The patient told me that she never overdose herself with benzodiazepines(Xanax) and opioids(hydrocodone/codeine) intentionally, she was never suicidal. Review of Systems Constitutional: Denies: chills, diaphoresis, fever. EENTM: Denies: blurred vision, double vision, visual changes, eye pain. Cardiovascular: Denies: chest pain, edema, orthopena. Respiratory: Denies: cough, hemoptysis, orthopnea. Gastrointestinal: Reports: abdominal pain. Denies: bloating, constipation. Genitourinary: Denies: discharge, dysuria. Musculoskeletal: Denies: back pain, gout, joint pain. Skin: Denies: cysts. Neurological/Psychological: Denies: anxiety, ataxia, cognitive dysfunction. Objective Last 24 Hrs of Vital Signs/I&O Vital Signs Date Time Temp Pulse Resp B/P Pulse O2 O2 Flow FiO2 Ox Delivery Rate 05/29 0839 97.8 66 141/69 95 Room Air 05/28 2241 98.9 73 18 96 Room Air 05/28 2230 152/80 05/28 1547 98.7 84 20 140/70 96 Room Air 05/28 1336 Room Air Room Air 05/28 0953 98.4 74 20 158/72 Intake & Output 05/29 1600 05/29 0800 05/29 0000 Intake Total 240 480 Output Total Balance 240 480 Intake, Oral 240 480 Number 0 Bowel Movements Physical Exam General Appearance: Alert, Oriented X3 Skin: No Rashes, No Breakdown HEENT: Atraumatic, PERRLA Neck: Supple, No JVD Cardiovascular: Regular Rate, Normal S1, Normal S2 Lungs: Clear to Auscultation, Normal Air Movement Abdomen: Normal Bowel Sounds, Soft, GENERALIZED ABDOMINAL TENDERNESS Neurological: Normal Speech Extremities: No Clubbing Vascular: Normal Pulses Current Medications: Current Medications Sig/Gely Start time Last Medication Dose Route Stop Time Status Admin Acetaminophen 650 MG Q6P PRN 05/25 2230 AC 05/26 PO 2324 Alprazolam 0.25 MG TID 05/26 1000 AC 05/28 PO 06/02 0959 2119 Aspirin 81 MG DAILY 05/26 1000 AC 05/28 PO 0953 Atorvastatin Calcium 40 MG 1700 05/26 1700 AC 05/28 PO 1721 Duloxetine HCl 60 MG DAILY 05/28 1034 AC 05/28 PO 1233 Enoxaparin Sodium 40 MG DAILY 05/28 1000 AC 05/28 SC 0956 Furosemide 40 MG DAILY 05/28 1033 AC 05/28 PO 1233 Insulin Aspart 0 TIDAC 05/26 0800 DC 05/28 SC 0830 Lisinopril 20 MG DAILY 05/29 1000 CAN PO Lisinopril 10 MG DAILY 05/29 1000 AC PO Lisinopril 10 MG ONCE ONE 05/28 1045 CAN PO 05/28 1046 Lisinopril 10 MG DAILY 05/26 1000 DC 05/28 PO 0953 Melatonin 5 MG AT BEDTIME PRN 05/28 1500 AC 05/28 PO 2339 Metformin HCl 1,000 MG BID 05/28 2200 AC PO Nystatin 1 MONICA BID PRN 05/27 0815 TOP Last 24 Hrs of Lab/[place] Results Last 24 Hrs of Labs/Mics: Laboratory Tests 05/29/16 0743: Anion Gap 6, Estimated GFR > 60, BUN/Creatinine Ratio 23.8 Assessment/Plan Assessment: 65 yo morbidly obese F with h/o T2DM, HTN, diabetic neuropathy, CKD stage 3B, bilateral severe OA, previous right foot MRSA septic arthritis, is brought in by son for evaluation of altered mental status. Pertinent data: WBC 8.4 improved from 10.1 hemoglobin 11.1, hematocrit is 33.3 platelet count 213 Sodium 140 T potassium 3.7 BUN 37 creatinine 1 improved from 51 and 1.1 respectively CK 445 EEG: Moderate generalized slowing consistent with a diffuse toxic or metabolic encephalopathy Right foot x-ray: No evidence of osteomyelitis\ List of Problems 1. Altered mental status, unwitnessed fall, unknown downtime, unclear if patient had a syncopal episode vs. Seizure. Unintentional /intentional benzo and opiate overdose with minimal response to Narcan. * No overnight events on the order dispatcher, the telemetry monitoring has been discontinued . * Currently patient has been stable denies any evidence of any visual or auditory hallucinations at this time. Denies any suicidal or homicidal ideation. * Psych is on board, recommended to continue with 0.25 of Xanax 3 times a day for anxiety and depression. * Home dose of Cymbalta has been restarted. * Patient has also been started on melatonin 5 mg at bedtime for insomnia, * If this is ineffective, we will consider Rozerem 8 mg PO at bedtime. If Rozerem failure, we suggest trazodone 50 mg PO at bedtime for insomnia. 2. Fever with unclear source of infection: Pulmonary embolism and ostium mellitus has been ruled out: * Patient remained afebrile overnight. * CTA chest to rule out any underlying pulmonary embolism * MRI of the right foot did not show any evidence of osteo-myelitis. * Continue to monitor patient off antibiotics for now 3. Frequent falls, physical deconditioning, severe OA. * Pain management with tylenol, * As patient is very weak at baseline requiring Baltazar lift, will plan the patient will be discharged to the STR. 4. Hypercalcemia 2/2 dehydration * Continue IV hydration * Patient passed exercise swallow eval; on diabetes diets * Formal swallow evaluation, continue with regular and liquid diet. 5.history of type 2 diabetes mellitus : * I talked to Dr. Cordero over the phone (her primary care physician), she told me that she took her off the metformin because of her deranged kidney functions, creatinine was persistently 1.4. She started the patient on glyburide 4 mg daily for better blood sugar levels control. * Patient's hemoglobin A1C: 7, her blood sugar levels are currently in a reasonable range, will hold off glimipride for now. * If blood sugar levels consistently remained higher(150-200) will consider restarting the patient on glipizide. 6. History of hypertension and hyperlipidemia with evidence Short runs of ventricular tachycardia, and ventricular tachycardia seen on telemetry-resolved now * Restart home dose of Lasix 40 mg daily * continue Lipitor 40 minutes daily * Continue lisinopril 10 mg daily. 7.DVT ppx Hep SC. Full code Problem List: 1. Nausea 2. Altered mental status Pain Ratin Pain Location: dull abdominal discomfort Pain Goal: Remain pain free Pain Plan: When necessary Tylenol Tomorrow's Labs & Rationales: No need of labs tomorrow CARMEN CARVALHO MD 05/29/16 0953: Attending MD Review Statement Attending Statement Attending MD Statement: examined this patient, discuss w/resident/PA/[employer], agreed w/resident/PA/[employer], reviewed EMR data (avail), discussed with nursing, discussed with case mgmt Attending Assessment/Plan: Patient is complaining of some dull abdominal discomfort. On exam there is no significant findings. We'll get an abdominal x-ray just to make sure she's not obstructed. At this point I think we should plan for STR. She has chronic opiate and benzo dependence and is a baltazar lift with minimal mobility. Her MRI is negative for osteo, CT negative for PE and she will need close outpatient follow-up.
[2016-05-29 08:39] VITALS: BP 141/69
--- NOTE | 2016-05-29 09:03 | RADIOLOGY REPORT ---
EXAMINATION: XR PORTABLE ABDOMEN CLINICAL INFORMATION: Abdominal pain with nausea COMPARISON: CT abdomen and pelvis February 2016 TECHNIQUE: Portable supine view of the abdomen FINDINGS: There is a nonobstructive gas pattern. Air noted within a mildly distended stomach probably without clinical significance. No concerning abdominal calcifications. Multilevel spondylosis of the lumbar sacral spine unchanged. IMPRESSION: No definite abnormality to explain the presenting symptoms. Chronic changes as above
--- NOTE | 2016-05-29 10:08 | ECHOCARDIOGRAM REPORT ---
SHU FARIAS Age: 65 : 1950 Gender: F Exam Date: 05/28/2016 16:28 Exam Location: [facility] Ht (in): 63 Wt (lb): 160 BSA: 1.82 BP: 161 / 76 Ordering Physician: MELINDA KABA MD Referring Physician: Garrett Bennett MD Technologist: Liliana Harding MIQUEL Room Number: [id number] Indications: PRESYNCOPE/SYNCOPE Rhythm: Sinus Technical Quality: Very technically difficult study FINDINGS Left Ventricle Normal size left ventricle. Normal left ventricular ejection fraction visually estimated at >60%. No obvious regional wall motion abnormalities. Right Ventricle Normal right ventricular size and function. Right Atrium Normal right atrial size. Left Atrium Normal left atrial size. Mitral Valve Mitral valve thickened. Trace mitral regurgitation. Aortic Valve Diffuse thickening of the aortic valve cusps with reduced excursion. Mild aortic stenosis. No aortic regurgitation. Tricuspid Valve Tricuspid valve not well visualized, grossly normal. Trace tricuspid regurgitation. No evidence of pulmonary hypertension. Pulmonic Valve Pulmonic valve not well visualized, grossly normal. Pericardium No pericardial effusion. Great Vessels Normal size aortic root. CONCLUSIONS No obvious regional wall motion abnormalities. Normal left ventricular ejection fraction visually estimated at > 60%. Mild aortic stenosis. Trace tricuspid regurgitation. Mitral valve thickened. Garrett Bennett M.D. (Electronically Signed) Final Date: 29 May 2016 10:08 MEASUREMENTS (Male / Female) Normal Values 2D ECHO LV Diastolic Diameter PLAX 4.5 cm 4.2 - 5.9 / 3.9 - 5.3 cm LV Systolic Diameter PLAX 2.7 cm 2.1 - 4.0 cm LV Fractional Shortening PLAX 40.0 % 25 - 46 % LV Ejection Fraction 2D Teich 70.8 % IVS Diastolic Thickness 0.9 cm LVPW Diastolic Thickness 1.1 cm LV Relative Wall Thickness 0.4 RV Internal Dim ED PLAX 3.1 cm 1.9 - 3.8 cm LVOT Diameter 2.0 cm Aortic Root Diameter 2.6 cm LA Systolic Diameter LX 2.5 cm 3.0 - 4.0 / 2.7 - 3.8 cm LA Volume 41.0 cm 18 - 58 / 22 - 52 cm Ascending Aorta Diameter 3.2 cm DOPPLER AV Peak Velocity 256.0 cm/s AV Peak Gradient 26.2 mmHg AV Mean Velocity 171.0 cm/s AV Mean Gradient 14.0 mmHg AV Velocity Time Integral 54.9 cm LVOT Peak Velocity 134.0 cm/s LVOT Peak Gradient 7.2 mmHg LVOT Mean Velocity 92.7 cm/s LVOT Mean Gradient 4.0 mmHg LVOT Velocity Time Integral 27.7 cm LVOT Stroke Volume 87.0 cm AV Area Cont Eq vti 1.6 cm AV Area Cont Eq pk 1.6 cm MV Peak Velocity 122.0 cm/s MV Peak Gradient 6.0 mmHg MV Mean Velocity 72.3 cm/s MV Mean Gradient 2.0 mmHg Mitral E Point Velocity 103.0 cm/s Mitral A Point Velocity 116.0 cm/s Mitral E to A Ratio 0.9 MV PHT Velocity 93.1 cm/s MV Deceleration [place] 374.0 cm/s MV Pressure Half Time 74.7 ms MV Area PHT 2.9 cm MV Deceleration Time 174.0 ms TR Peak Velocity 219.0 cm/s TR Peak Gradient 19.2 mmHg Right Atrial Pressure 5.0 mmHg Pulmonary Artery Systolic Pressu 24.2 mmHg Right Ventricular Systolic Press 24.2 mmHg PV Peak Velocity 148.0 cm/s PV Peak Gradient 8.8 mmHg PV Mean Velocity 96.5 cm/s PV Mean Gradient 4.0 mmHg PV Velocity Time Integral 24.4 cm LV E' Lateral Velocity 11.0 cm/s Mitral E to LV E' Lateral Ratio 9.4 LV E' Septal Velocity 4.9 cm/s Mitral E to LV E' Septal Ratio 21.1
--- NOTE | 2016-05-29 10:52 | PN- Cardiology ---
Subjective Subjective: The patient is sitting in a chair. She reports that she is comfortable. She had some heartburn symptoms which have resolved. No other chest pain. No current shortness of breath. No lightheadedness or dizziness. No palpitations. Objective Vital Signs and I&Os Vital Signs Date Time Temp Pulse Resp B/P Pulse O2 O2 Flow FiO2 Ox Delivery Rate 05/29 0950 66 141/69 05/29 0839 97.8 66 141/69 95 Room Air 05/28 2241 98.9 73 18 96 Room Air 05/28 2230 152/80 05/28 1547 98.7 84 20 140/70 96 Room Air 05/28 1336 Room Air Room Air Intake & Output 05/29 1600 05/29 0800 05/29 0000 05/28 1600 05/28 0800 05/28 0000 Intake Total 240 480 480 250 250 Output Total Balance 240 480 480 250 250 Intake, IV 10 10 Intake, Oral 240 480 480 240 240 Number 0 2 1 2 Bowel Movements Physical Exam: Gen: The patient is in no acute distress HEENT: Normal nose, ears, and oropharynx. Pupils equal bilaterally. Conjunctiva normal. Neck: Supple with no JVD, no masses, and no thyromegaly Lungs: Clear to auscultation with normal respiratory effort Heart: RRR, S1, S2, no murmurs. No peripheral edema, 2+ pulses in the lower extremities bilaterally Abdomen: Soft, nontender, no masses. No hepatomegaly. No splenomegaly Extremities: No clubbing or cyanosis. Normal muscle strength in the upper and lower extremities Skin: Normal skin turgor with no skin ulcers or lesions noted. Current Medications: Current Medications Sig/Gely Start time Last Medication Dose Route Stop Time Status Admin Acetaminophen 650 MG Q6P PRN 05/25 2230 AC 05/26 PO 2324 Alprazolam 0.25 MG TID 05/26 1000 AC 05/29 PO 06/02 0959 0950 Aspirin 81 MG DAILY 05/26 1000 AC 05/29 PO 0947 Atorvastatin Calcium 40 MG 1700 05/26 1700 AC 05/28 PO 1721 Duloxetine HCl 60 MG DAILY 05/28 1034 AC 05/29 PO 0948 Enoxaparin Sodium 40 MG DAILY 05/28 1000 AC 05/29 SC 0950 Furosemide 40 MG DAILY 05/28 1033 AC 05/29 PO 0948 Lisinopril 10 MG DAILY 05/29 1000 AC 05/29 PO 0950 Melatonin 5 MG AT BEDTIME PRN 05/28 1500 AC 05/28 PO 2339 Metformin HCl 1,000 MG BID 05/28 2200 DC PO Nystatin 1 MONICA BID PRN 05/27 0815 AC TOP Results Last 48 Hrs of Labs/Mics: Laboratory Tests 05/29/16 0743: Anion Gap 6, Estimated GFR > 60, BUN/Creatinine Ratio 23.8 05/28/16 0605: Anion Gap 6, Estimated GFR > 60, BUN/Creatinine Ratio 28.9 H Recent Imaging Studies: Echocardiogram: No obvious regional wall motion abnormalities. Normal left ventricular ejection fraction visually estimated at > 60%. Mild aortic stenosis. Trace tricuspid regurgitation. Mitral valve thickened. Assessment/Plan Assessment/Plan Assessment: * Benzodiazepine and opiate overdose * Obstructive sleep apnea * No pulmonary embolism seen on CT * Syncope, uncertain etiology * Short runs of ventricular tachycardia, and ventricular tachycardia seen on telemetry. * Normal left ventricular function on echocardiogram Plan: * Continue oral Lasix * Would increase lisinopril to 20 mg daily for additional blood pressure control. * No further cardiac workup is needed. Continue telemetry? Not applicable
--- NOTE | 2016-05-29 11:01 | PN- Infect Dx ---
Subjective Subjective: Afebrile. She reports indigestion with no abdominal pain or diarrhea. Objective Last 24 Hrs of Vital Signs/I&O Vital Signs Date Time Temp Pulse Resp B/P Pulse O2 O2 Flow FiO2 Ox Delivery Rate 05/29 0950 66 141/69 05/29 0839 97.8 66 141/69 95 Room Air 05/28 2241 98.9 73 18 96 Room Air 05/28 2230 152/80 05/28 1547 98.7 84 20 140/70 96 Room Air 05/28 1336 Room Air Room Air Intake & Output 05/29 1600 05/29 0800 05/29 0000 Intake Total 240 480 Output Total Balance 240 480 Intake, Oral 240 480 Number 0 Bowel Movements Physical Exam Other Physical Findings: She appears comfortable in no acute distress Lungs are clear Heart regular rhythm with no murmur Abdomen is obese, soft, nontender with positive bowel sounds Extremities plantar ulcer on the right great toe with no surrounding inflammation Results Last 24 Hours of Lab Results: Laboratory Tests 05/29 0743 Chemistry Sodium (137 - 145 mmol/L) 134 L Potassium (3.5 - 5.1 mmol/L) 3.9 Chloride (98 - 107 mmol/L) 99 Carbon Dioxide (22 - 30 mmol/L) 29 Anion Gap (5 - 16) 6 BUN (7 - 17 mg/dL) 19 H Creatinine (0.5 - 1.0 mg/dL) 0.8 Estimated GFR (>60 ml/min) > 60 BUN/Creatinine Ratio (7 - 25 %) 23.8 Last 24 Hours of [place] Results: Blood cultures May 25 remain negative Recent Imaging Studies: MRI of the right foot May 28 bone marrow edema in the tibial hallux sesamoid deep to the subcutaneous tissue Assessment/Plan Impression: Overall stable with temperatures and white blood cell count remaining normal off antibiotics with no obvious focus of infection. The MRI of her right foot is equivocal for osteomyelitis. Have discussed with Podiatry, who will follow-up as an outpatient. Suggestion: 1. Further evaluation of her right great toe per Podiatry as an outpatient 2. Continue to follow off antibiotics
[2016-05-29 16:38] VITALS: BP 138/58
[2016-05-29 23:40] VITALS: BP 143/69
--- NOTE | 2016-05-29 23:44 | NUR ---
NURSE NOTE: PT ARRIVED TO FLOOR AROUND 1999 VIA TRANSPORT FROM TELEMETRY. PT AAOX3. VITALS ARE STABLE. ORIENTED TO FLOOR, CALL PANG IN REACH, BED ALARM PLUGGED IN, BED LOWESTEST POSITION. ASSESSMENT COMPLETED.
--- NOTE | 2016-05-30 07:25 | PN- Housestaff ---
FLACO WILDE 05/30/16 0725: Subjective Follow-up For: 1.Altered mental status due to possible unintentional benzos overdose. 2. Possible osteomyelitis involving the right foot 3. History of hypertension hyperlipidemia 4. History of anxiety and depression Subjective: Patient seen and examined today, still cannot able to sleep well overnight getting 5 mg of melatonin at bedtime, reports fatigue due to lack of sleep we'll start the patient on Rozerem today. Blood sugar levels in the morning 185, blood sugar levels continues to remain elevated above 150 will restart the patient on glipizide 4 mg daily. New 2 pressure ulcers are present on the buttocks, we will get the work consult today. Review of Systems Constitutional: Denies: chills, diaphoresis, fever. EENTM: Denies: blurred vision, visual changes, eye pain. Objective Last 24 Hrs of Vital Signs/I&O Vital Signs Date Time Temp Pulse Resp B/P Pulse O2 O2 Flow FiO2 Ox Delivery Rate 05/30 0945 68 158/79 05/30 0823 98.1 68 20 158/79 96 Room Air 05/29 2340 98.5 70 20 143/69 95 Room Air 05/29 1638 98.1 74 16 138/58 94 Room Air Intake & Output 05/30 1600 05/30 0800 05/30 0000 Intake Total 800 240 480 Output Total 100 Balance 800 240 380 Intake, Oral 800 240 480 Number 2 Bowel Movements Output, Urine 100 Physical Exam General Appearance: Alert, Oriented X3, Cooperative, No Acute Distress Skin: No Rashes, No Breakdown HEENT: Atraumatic, PERRLA Cardiovascular: Regular Rate, Normal S1, Normal S2 Lungs: Clear to Auscultation, Normal Air Movement Neurological: Normal Speech Assessment/Plan Assessment: 65 yo morbidly obese F with h/o T2DM, HTN, diabetic neuropathy, CKD stage 3B, bilateral severe OA, previous right foot MRSA septic arthritis, is brought in by son for evaluation of altered mental status. Pertinent data: WBC 8.4 improved from 10.1 hemoglobin 11.1, hematocrit is 33.3 platelet count 213 Sodium 140 T potassium 3.7 BUN 37 creatinine 1 improved from 51 and 1.1 respectively CK 445 EEG: Moderate generalized slowing consistent with a diffuse toxic or metabolic encephalopathy Right foot x-ray: No evidence of osteomyelitis\ List of Problems 1. Altered mental status, unwitnessed fall, unknown downtime, unclear if patient had a syncopal episode vs. Seizure. Unintentional /intentional benzo and opiate overdose with minimal response to Narcan. * No overnight events on the cardiac monitor, the telemetry monitoring has been discontinued . * Currently patient has been stable denies any evidence of any visual or auditory hallucinations at this time. Denies any suicidal or homicidal ideation. * Psych is on board, recommended to continue with 0.25 of Xanax 3 times a day for anxiety and depression. * Home dose of Cymbalta has been restarted. * Patient has also been started on melatonin 5 mg at bedtime for insomnia, * If this is ineffective, we will consider Rozerem 8 mg PO at bedtime. If Rozerem failure, we suggest trazodone 50 mg PO at bedtime for insomnia. 2. Fever with unclear source of infection: Pulmonary embolism and ostium mellitus has been ruled out: * Patient remained afebrile overnight. * CTA chest to rule out any underlying pulmonary embolism * MRI of the right foot did not show any evidence of osteo-myelitis. * Continue to monitor patient off antibiotics for now 3. Frequent falls, physical deconditioning, severe OA. * Pain management with tylenol, * As patient is very weak at baseline requiring Baltazar lift, will plan the patient will be discharged to the STR. 4. Hypercalcemia 2/2 dehydration * Continue IV hydration * Patient passed exercise swallow eval; on diabetes diets * Formal swallow evaluation, continue with regular and liquid diet. 5.history of type 2 diabetes mellitus : * I talked to Dr. Cordero over the phone (her primary care physician), she told me that she took her off the metformin because of her deranged kidney functions, creatinine was persistently 1.4. She started the patient on glyburide 4 mg daily for better blood sugar levels control. * Patient's hemoglobin A1C: 7. * blood sugar levels consistently remained higher(150-200), will start the patient on low-dose of glimpiride2 mg daily. 6. History of hypertension and hyperlipidemia with evidence Short runs of ventricular tachycardia, and ventricular tachycardia seen on telemetry-resolved now * Restart home dose of Lasix 40 mg daily * continue Lipitor 40 minutes daily * Continue lisinopril 10 mg daily. 7.DVT ppx Hep SC. Full code Problem List: 1. Altered mental status Pain Ratin Pain Location: no pain at this time Pain Goal: Remain pain free Pain Plan: tylenol Tomorrow's Labs & Rationales: no need of labs tomorrow Consulting Request: Consulting Specialty: Infectious Disease CARMEN CARVALHO MD 05/30/16 1116: Attending MD Review Statement Attending Statement Attending MD Statement: examined this patient, discuss w/resident/PA/COLD WORKING SUPERVISOR, agreed w/resident/PA/COLD WORKING SUPERVISOR, reviewed EMR data (avail), discussed with nursing, discussed with case mgmt Attending Assessment/Plan: Sugars reviewed and she is consistently above 150s we are going to start glimepiride as was her plan with her PCP. She is a 65-year-old female multiple medical problems including diabetes, hypertension, questionable equivocal MRI of the right foot for osteo-. Right now we are awaiting placement in an STR bed. Begin aggressive physical therapy ,she's a Baltazar lift at baseline.
[2016-05-30 08:23] VITALS: BP 158/79
[2016-05-30] MEDS ORDERED: ROZEREM8 M1 PO (08:51)
--- NOTE | 2016-05-30 09:47 | Cons- Wound Care ---
General Information and HPI Consulting Request Date of Consult: 05/30/16 Requested By: CARMEN CARVALHO MD Reason for Consult: Left lateral ankle ulcer and left posterior thigh ulcer History of Present Illness: Patient is morbidly obese 65-year-old with multiple medical problems including hypertension diabetes and chronic right great toe ulcer was admitted with altered mental status. Consultation was requested for ulcers of the left lateral malleolus and left posterior thigh. Nursing reports she does not believe these were present on admission as they were not documented. Patient has not been on a low air loss mattress Allergies/Medications Allergies: Coded Allergies: cephalexin (Severe, COULDN'T BREATHE 01/11/16) cyclobenzaprine (UNKNOWN 01/11/16) tramadol (UNKNOWN 01/11/16) Home Med List: Acetaminophen With Codeine (Acetaminophen-Cod #3 Tablet) 1 EACH TABLET 1 TAB PO Q6P PRN PAIN (Reported) Albuterol Sulfate (Proair Hfa) 90 MCG HFA.AER.AD 2 PUF INH Q4-6 PRN PRN SOB ( Reported) Alprazolam 2 MG TAB 0.25-0.5 TAB PO PRN ANXIETY (Reported) Alprazolam (Xanax) 0.25 MG TABLET 1 MG PO TID anxiety /depression Aspirin (Aspirin*) 81 MG TAB.CHEW 1 TAB PO DAILY HEART HEALTH (Reported) Atorvastatin Calcium (Lipitor) 40 MG TAB 1 TAB PO DAILY CHOLESTEROL (Reported ) Cyanocobalamin (Vitamin B-12) (Unknown Strength) TABLET 1,000 MCG PO DAILY supplement (Reported) Duloxetine HCl 30 MG CAPSULE.DR 60 MG PO DAILY anxiety /depression (Reported ) Furosemide 40 MG TAB 1 TAB PO DAILY DIURETIC (Reported) HYDROCODONE/ACETAMINOPHEN (Hydrocodon-Acetaminoph 7.5-325) 1 TAB TAB 1 TAB PO Q4-6 PRN PAIN (Reported) Linagliptin (Tradjenta) 5 MG TAB 1 TAB PO DAILY DIABETES (Reported) Lisinopril 10 MG TAB 1 TAB PO DAILY BP (Reported) Melatonin 5 MG TABLET 1 TAB PO QPM PRN INSOMNIA METFORMIN HCL (Metformin) 1,000 MG TAB 1 TAB PO BID DIABETES (Reported) Ramelteon (Rozerem) 8 MG TABLET 1 TAB PO QPM PRN INSOMNIA Review of Systems Review of Systems: Patient has difficulty mobilizing because of her obesity Past History Travel History Traveled to [place] past 21 day No (`) Medical History Neurological: peripheral neuropathy, vertigo, chronic pain EENT: NONE Cardiovascular: hypertension, afib? Respiratory: NONE Gastrointestinal: NONE Hepatic: NONE Renal: NONE Musculoskeletal: OBESITY "NO CARTILAGE IN KNEES" R GREAT TOE ULCER Psychiatric: anxiety, depression Endocrine: diabetes Blood Disorders: NONE Cancer(s): NONE MODEL MAKER PLASTER/Reproductive: NONE Surgical History Surgical History: status post I&D of a right great toe abscess/septic arthritis Family History Relations & Conditions If Any: FATHER Coronary artery disease Relation not specified for: Meningococcal meningitis Psychosocial History Where Do You Live? Home Who Do You Live With? self Services at Home: None Primary Language: Mohawk Smoking Status: Unknown If Ever Smoked ETOH Use: occasional use Illicit Drug Use: denies illicit drug use Functional Ability Ambulation: walker Exam & Diagnostic Data Vital Signs and I&O Vital Signs Result Date Time Pulse Ox 96 05/30 08 B/P 158/79 05/30 0823 O2 Delivery Room Air 05/30 08 Temp 98.1 05/30 0823 Pulse 68 05/30 0823 Resp 20 05/30 0823 O2 Flow Rate Room Air 05/28 1336 Intake & Output 05/30 0000 05/29 1600 05/29 0800 Intake Total 480 140 240 Output Total 100 Balance 380 140 240 Intake, Oral 480 140 240 Number 2 Bowel Movements Output, Urine 100 Physical Exam: Exam of the left lateral malleolus shows there to be a 3 x 3.5 cm partial thickness ulcer. Over the left lateral heel is an area of deep tissue injury measuring approximately 3 x 2 cm. Over the posterior left thigh is a partial thickness ulcer measuring approximately 6.5 x 2.5 cm. These ulcers have red fill there is no undermining sinus tracking. Exam for right great toe shows there to be a healed callus without drainage distal pulses are unable to palpated Assessment/Plan Impression/Plan: 65-year-old woman with morbid obesity multiple medical problems as to partial- thickness ulcers due to pressure injury along the left lateral malleolus and heel and left posterior thigh. Recommendation is made for offloading and use of a lower loss mattress. Patient should be moved carefully to avoid friction and shear. Wound Care can be barrier cream applied as necessary. Portal the patient is to be discharged today and she can be followed up in the wound care center as an outpatient Consult Acknowledgment - Thank you for your consult request.
[2016-05-30] MEDS ORDERED: GLIMEPIRIDE2 MG PO (10:17)
[2016-05-30 16:09] VITALS: BP 142/86
[2016-05-31 00:13] VITALS: BP 160/72
--- NOTE | 2016-05-31 01:02 | NUR ---
PT C/O PAIN AT IV SITE. SITE INTACT UPON ASSESSMENT. PT REQUESTED IV TO BE PULLED AND REFUSED ANY IV PLACEMENT. # [phone] NOTIFIED.
--- NOTE | 2016-05-31 08:00 | NUR ---
NOTIFIED HEALTH CARE ATTORNEY DR OVIEDO #[id number] OF PATIENT REPORTS ABDOMEN PAIN, PASSING FLATUS WITH SOME BURPING. WILL CONTINUE TO MONITOR.
[2016-05-31 08:07] VITALS: BP 127/56
--- NOTE | 2016-05-31 08:27 | PN- Housestaff ---
ARON OVIEDO 05/31/16 0826: Subjective Follow-up For: 1. benzo overdose Subjective: The patient was comfortable this morning. Alert oriented 3. Did not have any headache or altered mentation. Stated that she worked with the physical therapy this morning, and was confident that she would be able to walk. No suicidal or homicidal ideation. Still complains of abdominal discomfort, occasional. No nausea or vomiting. Review of Systems Constitutional: Reports: see HPI. Objective Last 24 Hrs of Vital Signs/I&O Vital Signs Date Time Temp Pulse Resp B/P Pulse O2 O2 Flow FiO2 Ox Delivery Rate 05/31 0807 98.3 75 20 127/56 94 Room Air 05/31 0013 98.8 70 20 160/72 94 05/30 1609 97.2 74 21 142/86 96 Room Air 05/30 0945 68 158/79 Intake & Output 05/31 1600 05/31 0800 05/31 0000 Intake Total 240 1080 Output Total Balance 240 1080 Intake, Oral 240 1080 Physical Exam General Appearance: No Acute Distress Other Physical Findings: General Exam: AAOx3, No acute distress, Skin: No rashes, no breakdown HEENT: PERRLA, EOMI Neck: Supple, No JVD No cervical lymphadenopathy CVS: Reg Rate, Normal S1,S2, No MGR Resp: Normal air entry, no ronchi/rales Abdomen: Soft, No tenderness, Normal Bowel Sounds Neuro: Normal Speech, Strength 5/5 b/l x 4 extremities, Sensation intact, CN III -XII NL, Reflexes 2+ Extremities: No cyanosis, pedal edema, ulcer on the maleolus Current Medications: Current Medications Sig/Gely Start time Last Medication Dose Route Stop Time Status Admin Acetaminophen 650 MG Q6P PRN 05/25 2230 AC 05/26 PO 2324 Alprazolam 0.25 MG TID 05/26 1000 AC 05/30 PO 06/02 0959 2120 Aspirin 81 MG DAILY 05/26 1000 AC 05/30 PO 0945 Atorvastatin Calcium 40 MG 1700 05/26 1700 AC 05/30 PO 1641 Duloxetine HCl 60 MG DAILY 05/28 1034 AC 05/30 PO 0945 Enoxaparin Sodium 40 MG DAILY 05/28 1000 AC 05/30 SC 0946 Furosemide 40 MG DAILY 05/28 1033 AC 05/30 PO 0945 Glimepiride 2 MG DAILY AC 05/31 0700 AC 05/31 PO 0622 Glimepiride 4 MG DAILY AC 05/30 0807 DC PO Lisinopril 10 MG DAILY 05/29 1000 AC 05/30 PO 0945 Melatonin 5 MG AT BEDTIME PRN 05/28 1500 DC 05/29 PO 2155 Nystatin 1 MONICA BID PRN 05/27 0815 DC TOP Patient Medication 1 ED .STK-MED ONE 05/30 1300 DC Teaching ED 05/30 1301 Ramelteon 8 MG QSAT 05/31 0700 DC PO Ramelteon 8 MG QPM 05/30 2200 AC 05/30 PO 2120 Ramelteon 8 MG QPM 05/30 1500 DC PO Vitamin A/Vitamin D 1 MONICA BID 05/30 1000 AC 05/30 TOP 2119 Zinc Oxide 1 MONICA BID 05/30 1000 AC 05/30 TOP 2119 Assessment/Plan Assessment: 65 yo morbidly obese F with h/o T2DM, HTN, diabetic neuropathy, CKD stage 3B, bilateral severe OA, previous right foot MRSA septic arthritis, is brought in by son for evaluation of altered mental status. Pertinent data: WBC 8.4 improved from 10.1 hemoglobin 11.1, hematocrit is 33.3 platelet count 213 Sodium 140 T potassium 3.7 BUN 37 creatinine 1 improved from 51 and 1.1 respectively CK 445 EEG: Moderate generalized slowing consistent with a diffuse toxic or metabolic encephalopathy Right foot x-ray: No evidence of osteomyelitis\ List of Problems 1. Altered mental status, unwitnessed fall, unknown downtime, unclear if patient had a syncopal episode vs. Seizure. Unintentional /intentional benzo and opiate overdose with minimal response to Narcan. * Currently patient has been stable denies any evidence of any visual or auditory hallucinations at this time. Denies any suicidal or homicidal ideation. * Psych is on board, recommended to continue with 0.25 of Xanax 3 times a day for anxiety and depression. * Home dose of Cymbalta has been restarted. * Patient has also been started on melatonin 5 mg at bedtime for insomnia, * If this is ineffective, we will consider Rozerem 8 mg PO at bedtime. If Rozerem failure, we suggest trazodone 50 mg PO at bedtime for insomnia. 2. Fever with unclear source of infection: Pulmonary embolism and ostium mellitus has been ruled out: * Patient remained afebrile overnight. * CTA chest to rule out any underlying pulmonary embolism * MRI of the right foot did not show any evidence of osteo-myelitis. * Continue to monitor patient off antibiotics for now 3. Frequent falls, physical deconditioning, severe OA. * Pain management with tylenol, * As patient is very weak at baseline requiring Baltazar lift, will plan the patient will be discharged to the [facility]. 4. Hypercalcemia 2/2 dehydration * Continue IV hydration * Patient passed exercise swallow eval; on diabetes diets * Formal swallow evaluation, continue with regular and liquid diet. 5.history of type 2 diabetes mellitus : * Not on metformin which was confirmed by here PCP. She started the patient on glyburide 4 mg daily for better blood sugar levels control. * Patient's hemoglobin A1C: 7. * blood sugar levels consistently remained higher(150-200), will continue the patient on low-dose of glimpiride2 mg. 6. History of hypertension and hyperlipidemia with evidence Short runs of ventricular tachycardia, and ventricular tachycardia seen on telemetry-resolved now * Restart home dose of Lasix 40 mg daily * continue Lipitor 40 minutes daily * Continue lisinopril 10 mg daily. 7.DVT ppx Hep SC. Full code Problem List: 1. Depression 2. Hyperglycemia 3. Altered mental status Pain Ratin Pain Location: none Pain Goal: Pain 4 or less Pain Plan: tylenol prn Tomorrow's Labs & Rationales: cbc bep Consulting Request: Consulting Specialty: Infectious Disease [facility] 05/31[facility]16 1147: Attending MD Review Statement Attending Statement Attending MD Statement: examined this patient, discuss w/resident/PA/EMPLOYEE RELATIONS REPRESENTATIVE, agreed w/resident/PA/EMPLOYEE RELATIONS REPRESENTATIVE, reviewed EMR data (avail) Attending Assessment/Plan: Agree with resident assessment and plan. Extensive fever workup negative. Awaiting outpatient bed. Will continue current management.
[2016-05-31 16:01] VITALS: BP 124/72
[2016-06-01 00:18] VITALS: BP 124/66
[2016-06-01 08:09] VITALS: BP 135/58
--- NOTE | 2016-06-01 08:55 | PN- Housestaff ---
ERIN SOLIZ,SUKHJINDER 06/01/16 0854: Subjective Follow-up For: 1. Altered mental status due to possible unintentional benzos overdose. 2. Possible osteomyelitis involving the right foot 3. History of hypertension hyperlipidemia 4. History of anxiety and depression Subjective: Patient seen and examined at bedside. She is alert awake and oriented 3. She reports feeling frustrated about the whole situation in which she has to be hospitalized. She had a good night of sleep without interruptions. Patient is wondering if she can have regular diet without any chopped food. Patient also endorses some new onset of neck soreness for which she refuses to take analgesics for now. She is otherwise resting comfortably with no chest pain dyspnea repetition abdominal pain nausea vomiting. She endorses constipation since Thursday and agrees to increase her bowel regimen. Review of Systems Constitutional: Reports: see HPI. Objective Last 24 Hrs of Vital Signs/I&O Vital Signs Date Time Temp Pulse Resp B/P Pulse O2 O2 Flow FiO2 Ox Delivery Rate 06/01 0925 76 135/58 06/01 0809 98.5 76 20 135/58 97 Room Air 06/01 0018 98.5 62 20 124/66 93 05/31 1601 97.5 64 18 124/72 96 Room Air Intake & Output 06/01 1600 06/01 0800 06/01 0000 Intake Total 550 Output Total Balance 550 Intake, Oral 550 Physical Exam General Appearance: Alert, Oriented X3, Cooperative, No Acute Distress Other Physical Findings: Skin: No Rashes, No Breakdown HEENT: Atraumatic, PERRLA Cardiovascular: Regular Rate, Normal S1, Normal S2 Lungs: Clear to Auscultation, Normal Air Movement Neurological: Normal Speech Current Medications: Current Medications Sig/Gely Start time Last Medication Dose Route Stop Time Status Admin Acetaminophen 650 MG Q6P PRN 05/25 2230 AC 05/26 PO 2324 Alprazolam 0.25 MG TID 05/26 1000 AC 06/01 PO 06/09 0958 0932 Aspirin 81 MG DAILY 05/26 1000 AC 06/01 PO 0924 Atorvastatin Calcium 40 MG 1700 05/26 1700 AC 05/31 PO 1603 Duloxetine HCl 60 MG DAILY 05/28 1034 AC 06/01 PO 0925 Enoxaparin Sodium 40 MG DAILY 05/28 1000 AC 06/01 SC 0925 Furosemide 40 MG DAILY 05/28 1033 AC 06/01 PO 0925 Glimepiride 2 MG DAILY AC 05/31 0700 AC 06/01 PO 0547 Lisinopril 10 MG DAILY 05/29 1000 AC 06/01 PO 0925 Ramelteon 8 MG QPM 05/30 2200 AC 05/31 PO 2101 Senna/Docusate Sodium 2 TAB DAILY PRN 05/31 1530 AC 06/01 PO 0925 Vitamin A/Vitamin D 1 MONICA BID 05/30 1000 AC 06/01 TOP 0932 Zinc Oxide 1 MONICA BID 05/30 1000 AC 06/01 TOP 0932 Last 24 Hrs of Lab/[place] Results Last 24 Hrs of Labs/Mics: Laboratory Tests 06/01/16 0755: Anion Gap 7, Estimated GFR > 60, BUN/Creatinine Ratio 22.2 Assessment/Plan Assessment: 65 yo morbidly obese F with h/o T2DM, HTN, diabetic neuropathy, CKD stage 3B, bilateral severe OA, previous right foot MRSA septic arthritis, is brought in by son for evaluation of altered mental status. 1. Altered mental status, unwitnessed fall, unknown downtime, unclear if patient had a syncopal episode vs. Seizure. Unintentional /intentional benzo and opiate overdose with minimal response to Narcan. * Currently patient has been stable denies any evidence of any visual or auditory hallucinations at this time. Denies any suicidal or homicidal ideation. * Cont to appreciate psych recs * Continue with 0.25mg of Xanax TID for anxiety and depression. * Cont home dose of Cymbalta * Cont melatonin 5 mg at bedtime for insomnia, may consider Rozerem 8 mg PO at bedtime. If Rozerem fails, we suggest trazodone 50 mg PO at bedtime for insomnia. 2. Hyponatremia Patient has a sodium level of 133 this morning. Sodium level has been trending down since the admission. Dehydration this less likely given that she has eating and drinking adequately. Nor does she appear hypovolemic clinically. * Check serum osmolality * Give her a couple of sodium tablets today * Recheck BEP tomorrow, trend sodium 3. Frequent falls, physical deconditioning, severe OA. * Pain management with tylenol, * As patient is very weak at baseline requiring Baltazar lift, will plan the patient will be discharged to the [facility]. 4. Hypercalcemia 2/2 dehydration * Continue IV hydration * Patient passed exercise swallow eval; on diabetes diets * Formal swallow evaluation, continue with regular and liquid diet. 5.history of type 2 diabetes mellitus : Not on metformin which was confirmed by here PCP. Patient's hemoglobin A1C: 7. Blood sugar levels consistently remains higher(150-200). * Continue low-dose of glimpiride2 mg * Cont to monitor for now as glimpride was recently started on this admission 6. History of hypertension and hyperlipidemia with evidence Short runs of ventricular tachycardia, and ventricular tachycardia seen on telemetry-resolved now * Restart home dose of Lasix 40 mg daily * continue Lipitor 40 minutes daily * Continue lisinopril 10 mg daily. 7.DVT ppx Hep SC. Full code Problem List: 1. Altered mental status Pain Ratin Pain Location: Neck muscle Pain Goal: Remain pain free Pain Plan: Mild pain Tomorrow's Labs & Rationales: CBC BEP Consulting Request: Consulting Specialty: Infectious Disease ANA SOLIZ,[facility] 06/01/16 1609: Attending MD Review Statement Attending Statement Attending MD Statement: examined this patient, discuss w/resident/PA/BARREL LINE OPERATOR, agreed w/resident/PA/BARREL LINE OPERATOR, reviewed EMR data (avail) Attending Assessment/Plan: Agree with resident assessment and plan. Extensive fever workup negative. Awaiting outpatient bed. Will continue current management.
[2016-06-01 15:49] VITALS: BP 130/60
[2016-06-01 23:54] VITALS: BP 136/72
--- NOTE | 2016-06-02 07:44 | PN- Housestaff ---
FLACO WILDE 06/02/16 0744: Subjective Follow-up For: 1.Altered mental status due to possible unintentional benzos overdose. 2. Possible osteomyelitis involving the right foot 3. History of hypertension hyperlipidemia 4. History of anxiety and depression Subjective: Patient is seen and examined today, lying comfortably in the bed. Denies any chest discomfort or breathing. Wants to be evaluated by speech therapist has she does not like her Review of Systems Constitutional: Denies: chills, diaphoresis, fever, malaise. EENTM: Denies: blurred vision, double vision, visual changes, eye pain, eye drainage. Cardiovascular: Denies: chest pain, edema, orthopena. Respiratory: Denies: cough, hemoptysis, orthopnea. Gastrointestinal: Denies: abdominal pain, bloating, constipation, diarrhea, distention. Genitourinary: Denies: discharge, dysuria, frequency. Musculoskeletal: Denies: back pain, gout, joint pain. Skin: Denies: cysts, change in skin color, dryness. Objective Last 24 Hrs of Vital Signs/I&O Vital Signs Date Time Temp Pulse Resp B/P Pulse O2 O2 Flow FiO2 Ox Delivery Rate 06/02 0913 Room Air Room Air 06/02 0810 98.0 80 20 132/70 94 Room Air 06/01 2354 97.9 81 19 136/72 94 Room Air 06/01 1549 97.4 78 21 130/60 93 06/01 0925 76 135/58 Intake & Output 06/02 1600 06/02 0800 06/02 0000 Intake Total 240 1090 Output Total Balance 240 1090 Intake, IV 10 Intake, Oral 240 1080 Physical Exam General Appearance: Alert, Oriented X3 Skin: No Rashes, No Breakdown HEENT: Atraumatic, PERRLA Cardiovascular: Regular Rate, Normal S1, Normal S2 Lungs: Clear to Auscultation Abdomen: Normal Bowel Sounds, Soft Neurological: Normal Gait, Normal Speech, Strength at 5/5 X4 Ext Current Medications: Current Medications Sig/Gely Start time Last Medication Dose Route Stop Time Status Admin Acetaminophen 650 MG Q6P PRN 05/25 2230 AC 05/26 PO 2324 Alprazolam 0.25 MG TID 05/26 1000 AC 06/01 PO 06/09 0958 2210 Aspirin 81 MG DAILY 05/26 1000 AC 06/01 PO 0924 Atorvastatin Calcium 40 MG 1700 05/26 1700 AC 06/01 PO 1640 Duloxetine HCl 60 MG DAILY 05/28 1034 AC 06/01 PO 0925 Enoxaparin Sodium 40 MG DAILY 05/28 1000 AC 06/01 SC 0925 Furosemide 40 MG DAILY 05/28 1033 AC 06/01 PO 0925 Glimepiride 2 MG DAILY AC 05/31 0700 AC 06/02 PO 0621 Lisinopril 10 MG DAILY 05/29 1000 AC 06/01 PO 0925 Ramelteon 8 MG QPM 05/30 2200 AC 06/01 PO 2210 Senna/Docusate Sodium 2 TAB DAILY PRN 05/31 1530 AC 06/01 PO 0925 Sodium Chloride 1,000 MG BID 06/01 1232 DC 06/01 PO 1640 Vitamin A/Vitamin D 1 MONICA BID 05/30 1000 AC 06/01 TOP 2210 Zinc Oxide 1 MONICA BID 05/30 1000 AC 06/01 TOP 2210 Assessment/Plan Assessment: 65 yo morbidly obese F with h/o T2DM, HTN, diabetic neuropathy, CKD stage 3B, bilateral severe OA, previous right foot MRSA septic arthritis, is brought in by son for evaluation of altered mental status. 1. Altered mental status, unwitnessed fall, unknown downtime, unclear if patient had a syncopal episode vs. Seizure. Unintentional /intentional benzo and opiate overdose with minimal response to Narcan. * Currently patient has been stable denies any evidence of any visual or auditory hallucinations at this time. Denies any suicidal or homicidal ideation. * Cont to appreciate psych recs * Continue with 0.25mg of Xanax TID for anxiety and depression. * Cont home dose of Cymbalta * Cont melatonin 5 mg at bedtime for insomnia, may consider Rozerem 8 mg PO at bedtime. If Rozerem fails, we suggest trazodone 50 mg PO at bedtime for insomnia. 2. Euvolemic Hyponatremia:( history of hypothyroidism) * serum osmolality:285 * Sodium 133 yesterday, will repeat labs tomorrow * Recheck BEP tomorrow, trend sodium 3. Frequent falls, physical deconditioning, severe OA. * Pain management with tylenol, * As patient is very weak at baseline requiring Baltazar lift, will plan the patient will be discharged to the [facility]. 4. Difficulty swallowing * Patient is evaluated by speech therapist started the patient on chopped diet * Patient wants to be reevaluated by speech therapist, does not like her current diet 5.history of type 2 diabetes mellitus : Not on metformin which was confirmed by here PCP. Patient's hemoglobin A1C: 7. Blood sugar levels consistently remains higher(150-200). * Continue low-dose of glimpiride2 mg * Cont to monitor for now as glimpride was recently started on this admission 6. History of hypertension and hyperlipidemia with evidence Short runs of ventricular tachycardia, and ventricular tachycardia seen on telemetry-resolved now * Restart home dose of Lasix 40 mg daily * continue Lipitor 40 minutes daily * Continue lisinopril 10 mg daily. 7. New pressure ulcers on the back(non-stage able) * Wound consult with Dr. Hayes has been obtained will follow the recommendations. 8.DVT ppx Hep SC. Full code Problem List: 1. Altered mental status Pain Ratin Pain Location: back pain Pain Goal: Remain pain free Pain Plan: prn tylenol Tomorrow's Labs & Rationales: bep HYPONA Consulting Request: Consulting Specialty: Infectious Disease JAY SOLIZ,[facility] 06/02/16 1123: Attending MD Review Statement Attending Statement Attending MD Statement: examined this patient, discuss w/resident/PA/EMPLOYMENT ATTORNEY, agreed w/resident/PA/EMPLOYMENT ATTORNEY, reviewed EMR data (avail), discussed with nursing, discussed with case mgmt, reviewed images, amended to note Attending Assessment/Plan: Patient seen and examined, claims that she's feeling tired and exhausted. She denies currently any pain. Said that she did not have a good night sleep last night. Vital Signs Date Time Temp Pulse Resp B/P Pulse O2 O2 Flow FiO2 Ox Delivery Rate 06/02 1046 80 132/70 06/02 0924 Room Air Room Air 06/02 0913 Room Air Room Air 06/02 0810 98.0 80 20 132/70 94 Room Air 06/01 2354 97.9 81 19 136/72 94 Room Air 06/01 1549 97.4 78 21 130/60 93 on exam; aox3, nad. cv; s1,s2, rrr. resp; clear abd; soft, nt, bs+ ext; trace edema. no labs. A/P; 65 yo morbidly obese F with h/o T2DM, HTN, diabetic neuropathy, CKD stage 3B, bilateral severe OA, previous right foot MRSA septic arthritis, admitted with altered mental state likely related to toxic encephalopathy from a drug overdose. U tox was positive for opiates as well as benzos. It was unclear if this was an intentional or unintentional overdose. Patient has been seen by psychiatry and cleared to have no current suicidal ideation or delirium. Continue current dose of benzodiazepines, it seems to be helping. Continue other current medications. Patient is awaiting placement to [facility]. DVT Px; Lovenox.
[2016-06-02 08:10] VITALS: BP 132/70
--- NOTE | 2016-06-02 13:38 | NUR ---
NURSING NOTE: PT CONTINUES TO REFUSE TO GET OOB W/NURSING OR PT. PT ON SIZE WIZE BED. TURN AND REPOSITIONED Q2 AND PRN. WILL CONTINUE ATTEMPTS TO GET PT OOB.
--- NOTE | 2016-06-02 15:59 | PN- Psychiatry ---
Assessment/Plan Impression: The patient cannot account for her altered mental status when found by her son at home, but believes that it may be due to several factors, including the recent change to Tylenol #4 from a lower strength codeine compound. Also, she reports that she has been having some problems with memory, and agrees that she could have forgotten she had taken a dose, and repeated it accidently. She reports that her mother had dementia. She is not sleeping as well as she did at home, but was taking alprazolam, including an extra tab at home. The patient denies anxiety, and reports that she took alprazolam as a sleep aid. She states that she overdoes everything, "When I ate a ate a lot. When I drank [ alcohol], I drank a lot," carrying that analogy to her use of cannabis in her early adulthood. She is in agreement to come to Outpatient psychiatry when ready for discharge from the [facility]. Suggestion: 1. Continue Rozerem 8 mg PO at bedtime. 2. Start trazodone 50 mg PO at bedtime, as needed for insomnia. May repeat 1X one hour later, if insomnia persists. 3. Continue duloxetine 60 mg PO daily. 4. Consider stopping alprazolam 0.25 mg PO TID and starting alprazolam 0.5 mg PO at bedtime, as needed for insomnia. This should not be done on the same evening that trazodone is initiated. 5. Request that the recieving facility call OPS to make an admission appointment when her D/C date is known: [phone]. The patient is in agreement to come to [place] outpatient psychiatry. We will continue to follow. Complete note to follow. Kathryn Mahan APRN, Pager [phone] Subjective Subjective: A+OX3. Denies AVH; presents no kostas delusions. Denies SI/HI. Insight and judgment intact.
[2016-06-02 16:05] VITALS: BP 136/70
[2016-06-02] MEDS ORDERED: XANAX0.5 M1 PO (16:09)
[2016-06-02] MEDS ORDERED: TRAZODONE HCL50 M1 PO (16:09)
[2016-06-02] MEDS ORDERED: ROZEREM8 M1 PO (16:10)
--- NOTE | 2016-06-02 19:06 | NUR ---
Met with patient along with payroll manager today to discuss bed offers for short term rehabilitation. Additonally, call received from patients daughter Slade, who resides on the [facility]. Slade was requesting that I speak with patient about possibly giving her Power of Cigarette Machine Operator. Discussed POA with patient in the presence of case management rn. Patient verbalized understanding and in agreement with naming Slade her POA, for all things other than medical. POA executed with 2 witnesses and notary. Anticipate discharge to [facility] tomorrow. Please call if other social work needs arise.
[2016-06-02 22:31] VITALS: BP 130/70
[2016-06-03 06:54] VITALS: BP 122/62
--- NOTE | 2016-06-03 07:31 | PN- Housestaff ---
FLACO WILDE 06/03/16 0731: Subjective Follow-up For: 1.Altered mental status due to possible unintentional benzos overdose. 2. Possible osteomyelitis involving the right foot 3. History of hypertension hyperlipidemia 4. History of anxiety and depression Subjective: Patient seen and examined today, lying completely in the bed. Slept for about 4 -5 hours after getting trazodone at bedtime. She has been switched to regular food. Remained afebrile overnight denies any chest discomfort or double breathing. Patient has been reevaluated by psychiatry we'll continue with 50 mg of trazodone at bedtime, and change Xanax to 0.5 mg as needed for anxiety and depression at bedtime Review of Systems Constitutional: Denies: chills, diaphoresis, fever, malaise. EENTM: Denies: blurred vision, double vision, visual changes, eye pain. Cardiovascular: Denies: chest pain, edema. Respiratory: Denies: cough, hemoptysis, orthopnea, short of breath. Gastrointestinal: Denies: abdominal pain, bloating, constipation, diarrhea, distention. Genitourinary: Denies: discharge, dysuria, frequency, hematuria. Musculoskeletal: Denies: gout, joint pain, joint swelling. Objective Last 24 Hrs of Vital Signs/I&O Vital Signs Date Time Temp Pulse Resp B/P Pulse O2 O2 Flow FiO2 Ox Delivery Rate 06/03 0654 98.2 98 22 122/62 95 06/02 2231 97.4 94 20 130/70 95 Room Air 06/02 1605 97.5 95 20 136/70 95 06/02 1046 80 132/70 06/02 0924 Room Air Room Air 06/02 0913 Room Air Room Air Intake & Output 06/03 1600 06/03 0800 06/03 0000 Intake Total 120 600 Output Total Balance 120 600 Intake, Oral 120 600 Physical Exam General Appearance: Alert, Oriented X3 Skin: No Rashes, No Breakdown HEENT: Atraumatic Cardiovascular: Regular Rate, Normal S1 Lungs: Clear to Auscultation, Normal Air Movement Abdomen: Normal Bowel Sounds, Soft, No Tenderness Neurological: Normal Speech, Strength at 5/5 X4 Ext Extremities: No Clubbing, No Cyanosis, No Edema Current Medications: Current Medications Sig/Gely Start time Last Medication Dose Route Stop Time Status Admin Acetaminophen 650 MG Q6P PRN 05/25 2230 AC 05/26 PO 2324 Alprazolam 0.25 MG TID 05/26 1000 AC 06/02 PO 06/09 0958 2143 Aspirin 81 MG DAILY 05/26 1000 AC 06/02 PO 1045 Atorvastatin Calcium 40 MG 1700 05/26 1700 AC 06/02 PO 1609 Bisacodyl 10 MG ONCE PRN 06/03 0745 AC UT Bisacodyl 5 MG DAILY 06/02 1330 AC 06/02 PO 1605 Duloxetine HCl 60 MG DAILY 05/28 1034 AC 06/02 PO 1045 Enoxaparin Sodium 40 MG DAILY 05/28 1000 AC 06/02 SC 1046 Furosemide 40 MG DAILY 05/28 1033 AC 06/02 PO 1045 Glimepiride 2 MG DAILY AC 05/31 0700 AC 06/03 PO 0649 Lisinopril 10 MG DAILY 05/29 1000 AC 06/02 PO 1046 Magnesium Hydroxide 30 ML ONE PRN 06/02 1330 AC PO Polyethylene Glycol 17 GM DAILY 06/02 1326 AC 06/02 PO 1605 Ramelteon 8 MG QPM 05/30 2200 AC 06/02 PO 2143 Senna/Docusate Sodium 2 TAB DAILY 06/02 1330 AC PO Senna/Docusate Sodium 2 TAB DAILY PRN 05/31 1530 AC 06/02 PO 1047 Trazodone HCl 50 MG AT BEDTIME 06/02 2200 AC 06/02 PO 2143 Vitamin A/Vitamin D 1 MONICA BID 05/30 1000 AC 06/02 TOP 2146 Zinc Oxide 1 MONICA BID 05/30 1000 AC 06/02 TOP 2152 Assessment/Plan Assessment: 65 yo morbidly obese F with h/o T2DM, HTN, diabetic neuropathy, CKD stage 3B, bilateral severe OA, previous right foot MRSA septic arthritis, is brought in by son for evaluation of altered mental status. 1. Altered mental status, unwitnessed fall, unknown downtime, unclear if patient had a syncopal episode vs. Seizure. Unintentional /intentional benzo and opiate overdose with minimal response to Narcan. * Currently patient has been stable denies any evidence of any visual or auditory hallucinations at this time. Denies any suicidal or homicidal ideation. * Cont to appreciate psych recs * Patient has been reevaluated by psychiatry we'll continue with 50 mg of trazodone at bedtime, and change Xanax to 0.5 mg as needed for anxiety and depression at bedtime * Cont home dose of Cymbalta * Continue Rozerem at bedtime 2. Euvolemic Hyponatremia:( history of hypothyroidism) * serum osmolality:285 * Sodium 133 yesterday, will repeat labs tomorrow * Recheck BEP tomorrow, trend sodium 3. Frequent falls, physical deconditioning, severe OA. * Pain management with tylenol, * As patient is very weak at baseline requiring Baltazar lift, will plan the patient will be discharged to the STR. 4. Difficulty swallowing * Patient has been evaluated by speech therapist and started on regular diet 5.history of type 2 diabetes mellitus : Not on metformin which was confirmed by here PCP. Patient's hemoglobin A1C: 7. Blood sugar levels consistently remains higher(150-200). * Continue low-dose of glimpiride2 mg * Cont to monitor for now as glimpride was recently started on this admission 6. History of hypertension and hyperlipidemia with evidence Short runs of ventricular tachycardia, and ventricular tachycardia seen on telemetry-resolved now * Restart home dose of Lasix 40 mg daily * continue Lipitor 40 minutes daily * Continue lisinopril 10 mg daily. 7. New pressure ulcers on the back(non-stage able) * Wound consult with Dr. Hayes has been obtained will follow the recommendations. 8.DVT ppx Hep SC. Full code Problem List: 1. Altered mental status Pain Ratin Pain Location: No pain at this time Pain Goal: Remain pain free Pain Plan: When necessary Tylenol Tomorrow's Labs & Rationales: No need of labs tomorrow as patient will be discharged today Consulting Request: Consulting Specialty: Infectious Disease JAY SOLIZABELARDO 06/03/16 1417: Attending MD Review Statement Attending Statement Attending MD Statement: examined this patient, discuss w/resident/PA/CLERICAL ORDER FILLER, agreed w/resident/PA/CLERICAL ORDER FILLER, reviewed EMR data (avail), discussed with case mgmt, amended to note Attending Assessment/Plan: Patient seen and examined, Doing well. Much more awake today and talking. She had a BM today. She has a bed avaialble today at rehab and is medically stable for discharge. Medication changes made as per psych recommendations.
--- NOTE | 2016-06-03 09:13 | PN- Wound Care ---
Subjective Subjective: Patient remains in the low air loss mattress but is minimally mobile Objective Vital Signs and I&Os Vital Signs Result Date Time Pulse Ox 95 06/03 0654 B/P 122/62 06/03 0654 Temp 98.2 06/03 0654 Pulse 98 06/03 0654 Resp 22 06/03 0654 O2 Delivery Room Air 06/02 2231 O2 Flow Rate Room Air 06/02 0924 Intake & Output 06/03 0000 06/02 1600 06/02 0800 Intake Total 600 800 240 Output Total Balance 600 800 240 Intake, Oral 600 800 240 Exam of the left lateral malleolus ulcer and left posterior thigh ulcer show clean bases wounds are essentially unchanged there is no periwound erythema Impression/Plan Impression/Plan Impression/Plan: 65-year-old woman with morbid obesity multiple medical problems as to partial- thickness ulcers due to pressure injury along the left lateral malleolus and heel and left posterior thigh. Recommendation is made for offloading and use of a lower loss mattress. Patient should be moved carefully to avoid friction and shear. Wound Care can be barrier cream applied as necessary or if moisture from incontinence is an issue Aquacel silver can be used on the posterior thigh wound. Xeroform can be used to the left ankle wound changed daily
[2016-06-03 10:48] VITALS: BP 122/62
[2016-06-03] MEDS ORDERED: SENNA8.6 M3 PO (11:11)
[2016-06-03] MEDS ORDERED: MIRALAX17 G1 PO (11:11)
[2016-06-03 12:15] VITALS: BP 122/62
[2016-06-03 15:45] VITALS: BP 126/70
== END 2016-06-03 16:15 | DRG 917 ==
LOC: CANRESERV → ENRESERVTM → ENRESERVDT → ERH 15:17 → ENPENDDIS 19:18 → ERHI 19:18 → 2NB 19:18 → 1NO 19:18 → EDBEDREQ 21:29 → ERHI 05-26 09:21 → 1NO 05-26 15:56 → 2NB 05-29 20:27
PROVIDERS: Internal Medicine Hematology & Oncology; Physician Assistant; Student in an Organized Health Care Education/Training Program; ADMIT Student in an Organized Health Care Education/Training Program
DX: T40.601A Poisoning by unspecified narcotics, accidental (unintentional), initial encounter (principal); G92 Toxic encephalopathy; I47.2 Ventricular tachycardia; N17.9 Acute kidney failure, unspecified; Z68.44 Body mass index [BMI] 60.0-69.9, adult; M62.82 Rhabdomyolysis; E11.21 Type 2 diabetes mellitus with diabetic nephropathy; N18.3 Chronic kidney disease, stage 3 (moderate); E87.1 Hypo-osmolality and hyponatremia; E11.40 Type 2 diabetes mellitus with diabetic neuropathy, unspecified; E11.65 Type 2 diabetes mellitus with hyperglycemia; E83.52 Hypercalcemia; E66.01 Morbid (severe) obesity due to excess calories; L97.511 Non-pressure chronic ulcer of other part of right foot limited to breakdown of skin; L89.522 Pressure ulcer of left ankle, stage 2; L89.622 Pressure ulcer of left heel, stage 2; L89.892 Pressure ulcer of other site, stage 2; E78.5 Hyperlipidemia, unspecified; F41.8 Other specified anxiety disorders; I12.9 Hypertensive chronic kidney disease with stage 1 through stage 4 chronic kidney disease, or unspecified chronic kidney disease; E11.22 Type 2 diabetes mellitus with diabetic chronic kidney disease; M17.12 Unilateral primary osteoarthritis, left knee; Z79.84 Long term (current) use of oral hypoglycemic drugs
CPT/HCPCS: 1NP; 2NBP; 75657; ERO; 36415; 73560-LT; 73620-RT; 74000; 78582; 80307; 81001; 82436; 87040; 87086; 93005; 93010; 93306; 93970; 95816; 96361; 96374; 97110-GO; 97112-GO; 97116-GO; 97163-GP; 97530-GO; 99232; 99291; A9540; A9558; G0480; J1644; J1650; J2310; J3490

== ENCOUNTER 2016-06-06 23:24 | Emergency (ER) | payer OTHER ==
[~2016-06-06] VITALS: Ht 167.6 cm; Wt 142.9 kg
[~2016-06-06 23:24] MED LIST changes: +GLIMEPIRIDE2 MG PO; +LISINOPRIL10 M1 PO; +MELATONIN5 M7 PO; +MIRALAX17 G1 PO; +ROZEREM8 M1 PO; +SENNA8.6 M3 PO; +TRAZODONE HCL50 M1 PO; +XANAX0.25 M1 PO; +XANAX0.5 M1 PO
--- NOTE | 2016-06-06 23:29 | ED PSYCHIATRIC COMPLAINT ---
History of Present Illness General Chief Complaint: Psychiatric Related Complaint Stated Complaint: "BIBA PER EMS +SI" Source: patient, EMS, W10 Exam Limitations: no limitations Vital Signs & Intake/Output Vital Signs & Intake/Output Vital Signs Date Time Temp Pulse Resp B/P Pulse O2 O2 Flow FiO2 Ox Delivery Rate 06/07 1112 99.0 88 19 133/58 99 Room Air 06/07 0043 97.9 84 18 124/78 94 Room Air 06/06 2335 97 Room Air Allergies Coded Allergies: cephalexin (Severe, COULDN'T BREATHE 01/11/16) cyclobenzaprine (UNKNOWN 01/11/16) tramadol (UNKNOWN 01/11/16) Reconcile Medications Acetaminophen With Codeine (Acetaminophen-Cod #3 Tablet) 1 EACH TABLET 1 TAB PO Q6P PRN PAIN (Reported) Albuterol Sulfate (Proair Hfa) 90 MCG HFA.AER.AD 2 PUF INH Q4-6 PRN PRN SOB ( Reported) Alprazolam (Xanax) 0.5 MG TABLET 1 TAB PO QPM PRN anxiety/depression Aspirin (Aspirin*) 81 MG TAB.CHEW 1 TAB PO DAILY HEART HEALTH (Reported) Atorvastatin Calcium (Lipitor) 40 MG TAB 1 TAB PO DAILY CHOLESTEROL (Reported ) Cyanocobalamin (Vitamin B-12) (Unknown Strength) TABLET 1,000 MCG PO DAILY supplement (Reported) Duloxetine HCl 30 MG CAPSULE.DR 60 MG PO DAILY anxiety /depression (Reported ) Furosemide 40 MG TAB 1 TAB PO DAILY DIURETIC (Reported) Glimepiride 2 MG TABLET 1 TAB PO DAILY DM (Reported) Linagliptin (Tradjenta) 5 MG TAB 1 TAB PO DAILY DIABETES (Reported) Lisinopril 10 MG TAB 1 TAB PO DAILY BP (Reported) Polyethylene Glycol 3350 (Miralax) 17 GRAM POWD.PACK 1 PAC PO DAILY constipation dissolve in water Ramelteon (Rozerem) 8 MG TABLET 1 TAB PO QPM PRN INSOMNIA Sennosides (Senna) 8.6 MG TABLET 2 TAB PO BID constipation Trazodone HCl 50 MG TABLET 1 TAB PO QPM PRN insomnia Triage Nurses Notes Reviewed? yes Onset: Gradual Duration: week(s):, waxing and waning Timing: recent history Severity: moderate Associated Symptoms: anxiety, suicidal ideation HPI: 65 yo woman from [facility], presents with increased depression. "My son said I wanted to kill myself... I am really depressed... but I don't think I'd do that... I do need some help though." (HUMBERTO ANDREW MD) Past History Travel History Traveled to [place] past 21 day No Medical History Any Pertinent Medical History? see below for history Neurological: peripheral neuropathy, vertigo, chronic pain EENT: NONE Cardiovascular: hypertension, afib? Respiratory: NONE Gastrointestinal: NONE Hepatic: NONE Renal: NONE Musculoskeletal: OBESITY "NO CARTILAGE IN KNEES" R GREAT TOE ULCER Psychiatric: anxiety, depression Endocrine: diabetes Blood Disorders: NONE Cancer(s): NONE PHOTOTYPESETTER OPERATOR/Reproductive: NONE History of MRSA: Yes History of VRE: No History of CDIFF: No Surgical History Surgical History: status post I&D of a right great toe abscess/septic arthritis Psychosocial History Who do you live with Family Services at Home None What is your primary language Ecuadorean Family History Family History, If Any: FATHER Coronary artery disease Relation not specified for: Meningococcal meningitis Hx Contributory? No (HUMBERTO ANDREW MD) Review of Systems Review of Systems Constitutional: Reports: no symptoms. EENTM: Reports: no symptoms. Respiratory: Reports: no symptoms. Cardiovascular: Reports: no symptoms. GI: Reports: no symptoms. Genitourinary: Reports: no symptoms. Musculoskeletal: Reports: no symptoms. Skin: Reports: no symptoms. Neurological/Psychological: Reports: no symptoms. Hematologic/Endocrine: Reports: no symptoms. Immunologic/Allergic: Reports: no symptoms. All Other Systems: Reviewed and Negative (HUMBERTO ANDREW MD) Physical Exam Physical Exam General Appearance: well developed/nourished, mild distress Head: atraumatic Eyes: Bilateral: normal appearance. Ears, Nose, Throat: normal ENT inspection Neck: normal inspection, supple Respiratory: normal breath sounds Cardiovascular: regular rate/rhythm Gastrointestinal: soft, non-tender Extremities: normal range of motion Neurological/Psychiatric: no motor/sensory deficits, awake, anxious, oriented x 3 Appearance/Memory/Insight: appropriate appearance Behavoir/Eye Contact/Speech: cooperative Thoughts/Hallucinations: normal thought pattern Skin: intact, normal color, warm/dry SAD PERSONS SAD PERSONS Response Value Age <19 or >45 years? yes 1 Depression/Hopelessness? yes 2 Single//? yes 1 Social Support? has support 0 Total 4 SAD PERSONS Done? yes (LORRIE SOLIZ,HUMBERTO Jarrett) Progress Differential Diagnosis: depression, suicidality vs other. Plan of Care: Orders Procedure Date/time Status Regular Diet 06/07 B Active Continuous Observation Monitor 06/07 1900 Active Continuous Observation Monitor 06/07 1500 Active Continuous Observation Monitor 06/07 1100 Active Continuous Observation Monitor 06/07 0700 Active Continuous Observation Monitor 06/06 2328 Active URINE DRUG SCREEN FOR ER ONLY 06/06 2328 Active ETHANOL 06/06 2328 Complete COMPREHENSIVE METABOLIC PANEL 06/06 2328 Complete CBC WITHOUT DIFFERENTIAL 06/06 2328 Complete ED CRISIS PSYCH CONSULT 06/06 2328 Active Current Medications Sig/Gely Start time Last Medication Dose Stop Time Status Admin Sodium Chloride 1,000 ML BOLUS ONE 06/07 0545 CAN (Normal Saline 0.9%) 06/07 0644 Laboratory Tests 06/07/16 0033: Anion Gap 7, Estimated GFR 55 L, BUN/Creatinine Ratio 25.0, Glucose 93, Calcium 8.6, Total Bilirubin 0.4, AST 23, ALT 32, Alkaline Phosphatase 89, Total Protein 5.6 L, Albumin 3.0 L, Globulin 2.6, Albumin/Globulin Ratio 1.2, CBC w Diff NO MAN DIFF REQ, RBC 3.70 L, MCV 89.0, MCH 30.2, RDW 13.6, MPV 7.9, Gran % 65.4, Lymphocytes % 23.3, Monocytes % 9.6 H, Eosinophils % 1.3, Basophils % 0.4, Absolute Granulocytes 3.1, Absolute Lymphocytes 1.1 L, Absolute Monocytes 0.4, Absolute Eosinophils 0.1, Absolute Basophils 0, PUBS MCHC 33.9, Serum Alcohol < 10.0 Hand-Off Endorsed To: ANA LUISA SILVA MD Endorsed Time: 0700 Pending: consult, labs (HUMBERTO ANDREW MD) Comments: Cleared by psychiatry for discharge (ANA LUISA SILVA MD) Departure Departure Disposition: HOME OR SELF CARE Condition: Stable Clinical Impression Primary Impression: Depression Referrals: JORDY GOODMAN MD (PCP/Family) Departure Forms: Customer Survey General Discharge Information (HUMBERTO ANDREW MD) Departure Time of Disposition: 1151 Additional Instructions: The patient is not a danger to herself or others. She is appropriate and stable for return to assisted living. (SHIRA SOLIZ,ANA LUISA)
[2016-06-07 00:42] LABS: ABSOLUTE BASOPHIL COUNT 0 /CUMM (0.0-0.2); ABSOLUTE EOSINOPHIL COUNT 0.1 /CUMM (0.0-0.7); ABSOLUTE GRANULOCYTE CT 3.1 /CUMM (1.4-6.5); ABSOLUTE LYMPH COUNT 1.1 /CUMM (1.2-3.4); ABSOLUTE MONOCYTE COUNT 0.4 /CUMM (0.10-0.60); BASOPHIL % 0.4 % (0.0-2.0); EOSINOPHIL % 1.3 % (0-5); GRANULOCYTE % 65.4 % (42.2-75.2); MEAN CORPUSCULAR HGB 30.2 PG (27.0-31.0); MEAN CORPUSCULAR HGB CONC 33.9 G/DL (33.0-37.0); MEAN PLATELET VOLUME 7.9 FL (7.4-10.4); PLATELET COUNT 215 /CUMM (130-400); RBC DISTRIBUTION WIDTH 13.6 % (11.5-14.5); WHITE BLOOD CELL COUNT 4.7 /CUMM (4.8-10.8)
[2016-06-07 11:12] VITALS: BP 133/58
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
== END 2016-06-07 12:17 ==
LOC: ERH 23:24
PROVIDERS: Pediatrics
DX: F32.9 Major depressive disorder, single episode, unspecified (principal)
CPT/HCPCS: 80307; G0463; G0480

== ENCOUNTER 2018-01-17 08:33 | Inpatient (IN) | payer OTHER ==
[~2018-01-17] VITALS: Ht 172.7 cm; Wt 179.2 kg
[~2018-01-17 08:33] MED LIST changes: +ACETAMINOPHEN-1 EAC2 PO; +ATORVASTATIN CA40 M1 PO; +BUPROPION XL150 MG PO; +CHLORPROMAZINE50 M2 PO; +DIAZEPAM5 M1 PO; +DOXYCYCLINE HY100 M4 PO; +FUROSEMIDE40 M1 PO; +GABAPENTIN300 M2 PO; +HYDROCODON-ACE1 EAC1 PO; +METFORMIN HCL500 M3 PO; +NYSTATIN15 G1 TOP; +TRADJENTA5 M1 PO; -TRADJENTA5 MG PO
--- NOTE | 2018-01-17 09:11 | ED GI/GU/ABDOMINAL COMPLAINT ---
History of Present Illness General Chief Complaint: Abdominal Pain/Flank Pain Stated Complaint: ABD PAIN Source: patient, old records, EMS Exam Limitations: no limitations Vital Signs & Intake/Output Vital Signs & Intake/Output Vital Signs Date Time Temp Pulse Resp B/P B/P Pulse O2 O2 Flow FiO2 Mean Ox Delivery Rate 01/17 1324 99.3 112 18 156/69 95 Room Air 01/17 1053 99.0 100 18 148/63 95 Room Air 01/17 0844 99.0 120 20 141/92 96 Room Air Allergies Coded Allergies: cephalexin (Severe, COULDN'T BREATHE 01/11/16) cyclobenzaprine (UNKNOWN PER PT CANT REMEMBER 01/08/17) tramadol (UNKNOWN PER PT CANT REMEMBER 01/08/17) trazodone (NIGHTMARES 01/08/17) Reconcile Medications Acetaminophen With Codeine (Acetaminophen-Cod #4 Tablet) 300 MG-60 MG TABLET 1 TAB PO Q4H PRN PAIN (Reported) Albuterol Sulfate (Proair Hfa) 90 MCG HFA.AER.AD 2 PUF INH Q4-6 PRN PRN SOB ( Reported) Aspirin (Aspirin*) 81 MG TAB.CHEW 1 TAB PO DAILY HEART HEALTH (Reported) Atorvastatin Calcium 40 MG TABLET 1 TAB PO DAILY CHOLESTEROL (Reported) Bupropion HCl (Bupropion XL) 150 MG TAB.ER.24H 1 TAB PO DAILY MENTAL HEALTH ( Reported) Chlorpromazine HCl (Unknown Strength) TABLET (Unknown Dose) PO AD MENTAL HEALTH (Reported) Cyanocobalamin (Vitamin B-12) (Unknown Strength) TABLET 1,000 MCG PO DAILY supplement (Reported) Diazepam 5 MG TABLET 1 TAB PO AD PRN UNKNOWN (Reported) Doxycycline Hyclate 100 MG TABLET 1 TAB PO BID laceration Duloxetine HCl 30 MG CAPSULE.DR 60 MG PO DAILY anxiety /depression (Reported ) Furosemide (Unknown Strength) TABLET (Unknown Dose) PO DAILY DIURETIC ( Reported) Gabapentin (Unknown Strength) CAPSULE (Unknown Dose) PO AD UNKNOWN (Reported) Glimepiride 4 MG TABLET 1 TAB PO DAILY DM (Reported) Hydrocodone/Acetaminophen (Hydrocodon-Acetaminophn 10-325) 10 MG-325 MG TABLET 1 TAB PO TIDPRN PRN PAIN (Reported) Linagliptin (Tradjenta) 5 MG TABLET 1 TAB PO DAILY DM (Reported) Lisinopril 10 MG TABLET 1 TAB PO DAILY BP (Reported) Metformin HCl (Unknown Strength) TABLET (Unknown Dose) PO BID DM (Reported) Nystatin 100,000 UNIT/GRAM CREAM..G. 1 MONICA TOP AD PRN UNDER BREASTS AND ARMS (Reported) apply to affected area(s) Ramelteon (Rozerem) 8 MG TABLET 1 TAB PO QPM PRN INSOMNIA Sennosides (Senna) 8.6 MG TABLET 2 TAB PO PRN CONSTIPATION (Reported) Triage Note: PT C/O CONSTANT 12/18 RUQ AND LLQ PAIN SINCE 01/16/18. PT UNABLE TO DESCRIBE PAIN. +N/V. PT LNBM YESTERDAY. HARD "ROCKS" PER NORMAL R/T OPIATE RX. PT VOMITED X2. Triage Nurses Notes Reviewed? yes LMP (ages 10-50): post menopausal ? n Is pt currently ? No Onset: Evening Duration: hour(s):, constant, continues in ED Timing: recent history Quality/Severity: aching, sharpness, severe, vomiting Location: right upper quadrant Radiation: epigastric Activities at Onset: eating Prior Abdominal Problems: similar symptoms Past Sexual History: Unobtainable at this time Modifying Factors: Worsens With: palpation. Associated Symptoms: abdominal pain, fever/chills, loss of appetite, nausea/ vomiting HPI: 1 day prior to admission after eating grilled cheese sandwich patient complains of nausea vomiting anorexia right upper quadrant pain described as sharp pain to epigastric similar to previous gallstone pain with chills. She denies fever diarrhea chest pain cough shortness of breath headache dysuria rash bleeding. Past History Travel History Traveled to [place] past 21 day No Medical History Any Pertinent Medical History? see below for history Neurological: peripheral neuropathy, vertigo, chronic pain EENT: NONE Cardiovascular: hypertension, afib? 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 No Review of Systems Review of Systems Constitutional: Reports: see HPI, chills. EENTM: Reports: no symptoms. Respiratory: Reports: no symptoms. Cardiovascular: Reports: no symptoms. GI: Reports: see HPI, abdominal pain, bloody stool, vomiting. Genitourinary: Reports: no symptoms. Musculoskeletal: Reports: no symptoms. Skin: Reports: no symptoms. Neurological/Psychological: Reports: no symptoms. Hematologic/Endocrine: Reports: no symptoms. Immunologic/Allergic: Reports: no symptoms. All Other Systems: Reviewed and Negative Physical Exam Physical Exam General Appearance: well developed/nourished, alert, awake, anxious, severe distress, obese Head: atraumatic, normal appearance Eyes: Bilateral: normal appearance, PERRL, EOMI, normal inspection. Ears, Nose, Throat, Mouth: hearing grossly normal, dry mucous membranes Neck: normal inspection, supple, full range of motion, normal alignment Respiratory: normal breath sounds, chest non-tender, no respiratory distress, quiet respiration, lungs clear Cardiovascular: regular rate/rhythm, normal peripheral pulses, norml femoral pulses equa Peripheral Pulses: 4+ carotid (R), 4+ carotid (L) Gastrointestinal: normal bowel sounds, soft, guarding, tenderness (Pyle's) Back: normal inspection, normal range of motion, no vertebral tenderness Extremities: normal range of motion, pedal edema, no ligament instability Neurologic/Psych: no motor/sensory deficits, awake, alert, oriented x 3, normal mood/affect, sliver lap tender II-XII nml as tested Skin: normal color Core Measures ACS in differential dx? No Sepsis Present: No Sepsis Focused Exam Completed? No Progress Differential Diagnosis: biliary colic, gastritis, pancreatitis, PUD/GERD Plan of Care: Orders Procedure Date/time Status Nothing by Mouth 01/18 B Active PROTHROMBIN TIME 01/18 600 Active HEPATIC FUNCTION PANEL 01/18 600 Active CBC WITHOUT DIFFERENTIAL 01/18 600 Active BASIC ELECTROLYTES PLUS BUN&CR 01/18 600 Active EKG 01/18 600 Active TYPE & SCREEN (NOT X-MATCH) 01/18 600 Active Clear Liquid Diet 01/17 D Active Admit to inpatient 01/17 1547 Active Patient Data 01/17 1542 Active Lab Add-on Test 01/17 1501 Active TROPONIN LEVEL 01/18 912 Complete LIPASE 01/18 908 Complete COMPREHENSIVE METABOLIC PANEL 01/18 908 Complete CBC WITHOUT DIFFERENTIAL 01/18 908 Complete EKG 01/17 837 Active Admit to inpatient 01/17 UNK Active VTE Mechanical Prophylaxis 01/17 UNK Active Vital Signs 01/17 UNK Active Intake & Output 01/17 UNK Active FingerStick- Glucose 01/17 UNK Active Current Medications Sig/Gely Start time Last Medication Dose Stop Time Status Admin Ampicillin Sodium/ 3,000 MG ONCE ONE 01/17 1545 CANr Sulbactam Sodium 01/17 1614 (Unasyn) Sodium Chloride 100 ML (Normal Saline 0.9%) Sodium Chloride 1,000 ML Q13H 01/17 1545 UNVr (Normal Saline 0.9%) Laboratory Tests 01/17/18911: Anion Gap 13, Estimated GFR > 60, BUN/Creatinine Ratio 37.8 H, Glucose 265 H, Calcium 10.0, Total Bilirubin 0.8, AST 17, ALT 30, Alkaline Phosphatase 112, Troponin I < 0.01, Total Protein 7.3, Albumin 4.2, Globulin 3.1, Albumin/ Globulin Ratio 1.4, Lipase 53, CBC w Diff MAN DIFF ORDERED, RBC 4.12 L, MCV 93.4, MCH 30.6, MCHC 32.7 L, RDW 14.1, MPV 8.5, Gran % 91.9 H, Lymphocytes % 3.7 L, Monocytes % 4.3, Eosinophils % 0, Basophils % 0.1, Absolute Granulocytes 15.6 H, Segmented Neutrophils 88 H, Band Neutrophils 5, Absolute Lymphocytes 0.6 L, Lymphocytes 2 L, Monocytes 5, Absolute Monocytes 0.7 H, Absolute Eosinophils 0, Absolute Basophils 0, Platelet Estimate ADEQUATE, Normocytic RBCs VERIFIED, Normochromic RBCs VERIFIED Initial ED EKG: none Departure Departure Disposition: STILL A PATIENT Condition: Stable Clinical Impression Primary Impression: Cholelithiasis and cholecystitis without obstruction Secondary Impressions: Leukocytosis Referrals: Consuelo SOLIZ,Leah Hanson (PCP/Family) Departure Forms: Customer Survey General Discharge Information Admission Note Spoke With: Chris SOLIZ,Jett Aldana Documentation of Exam: Documentation of any treatments & extenuating circumstances including Concerns Regarding Discharge (functional status, medication knowledge or non-compliance, living conditions, etc.) that warrant an admission rather than observation: IV fluids IV analgesia and nothing by mouth cardiology clearance surgery management advance diet physical therapy continuing care discharge planning
[2018-01-17 09:29] LABS: ABSOLUTE BASOPHIL COUNT 0 /CUMM (0.0-0.2); ABSOLUTE EOSINOPHIL COUNT 0 /CUMM (0.0-0.7); ABSOLUTE GRANULOCYTE CT 15.6 /CUMM (1.4-6.5); ABSOLUTE LYMPH COUNT 0.6 /CUMM (1.2-3.4); ABSOLUTE MONOCYTE COUNT 0.7 /CUMM (0.10-0.60); BASOPHIL % 0.1 % (0.0-2.0); EOSINOPHIL % 0 % (0-5); GRANULOCYTE % 91.9 % (42.2-75.2); HEMATOCRIT 38.5 % (37-47); MEAN CORPUSCULAR HGB 30.6 PG (27.0-31.0); MEAN CORPUSCULAR HGB CONC 32.7 G/DL (33.0-37.0); MEAN CORPUSCULAR VOLUME 93.4 FL (81.0-99.0); MEAN PLATELET VOLUME 8.5 FL (7.4-10.4); PLATELET COUNT 267 /CUMM (130-400); RBC DISTRIBUTION WIDTH 14.1 % (11.5-14.5); RED BLOOD CELL CT 4.12 /CUMM (4.20-5.40)
--- NOTE | 2018-01-17 12:12 | ULTRASOUND REPORT ---
EXAMINATION: US ABDOMEN LIMITED CLINICAL INFORMATION: 67-year-old female with right upper quadrant tenderness, nausea and vomiting and positive Pyle's sign. Suspected cholelithiasis/cholecystitis. COMPARISON: Right upper quadrant abdominal ultrasound done on 09/24/2017. TECHNIQUE: Real-time imaging of the right upper quadrant abdominal viscera. FINDINGS: Technically limited due to patient's body habitus. PANCREAS: Normal. LIVER: Suboptimal visualization of the right lobe. Grossly appear unremarkable. GALLBLADDER: The gallbladder is distended with evidence of multiple tiny calculi in the region of the neck of the gallbladder. The degree of gallbladder distention appears similar to prior study dated 09/24/2017. There is no gallbladder wall thickening or pericholecystic fluid present. No sonographic Pyle's sign was present at the time of the examination. COMMON BILE DUCT: Mildly dilated measures 1.1 cm, previously measured 1.9 cm. No definite choledocholithiasis. RIGHT KIDNEY: No hydronephrosis. No renal calculi or focal parenchymal lesions. The kidney measures 10.8 cm in maximum dimension. FREE FLUID: None. IMPRESSION: 1. Technically limited study due to patient's body habitus. 2. The gallbladder remains distended without evidence of any wall thickening or pericholecystic fluid, similar to prior study dated 09/24/2017. Note is made of presence of gallstones and dilated common bile duct. The degree of common bile duct dilatation however, has decreased from prior measurement of 1.9 to currently 1.1 cm. The etiology for CBD dilatation is not evident. Follow-up nonemergent MRCP/MRI may be considered for further clarification, if clinically appropriate. 3. No sonographic evidence of any pancreatic mass. 4. Suboptimal visualization of the liver, and right kidney, grossly appear unremarkable.
--- NOTE | 2018-01-17 15:04 | History & Physical Pre-Op ---
Herve LANDERSYvette 01/17/18 1503: General Information and HPI MD Statement: I have seen and personally examined SHU FARIAS and documented this H&P. The patient is a 67 year old F who presented with a patient stated chief complaint of [abdominal pain]. History of Present Illness: This 67 year old female with past medical history significant for morbid obesity , hypertension, sleep apnea, insomnia, diabetes, peripheral neuropathy, anxiety and depression, history of mrsa, who was brought in by ambulance from home with abdominal pain that started last night. She reports history of gallbladder related issues. Associated symptoms include nausea and vomiting, headache, and recent sudden increase in her hemoglobin A1C over the last month. She is known to , who apparently wanted to increase her metformin, which she is reluctant to do. She reports chronic issues related to requiring 2-3 pillows at night due to shortness of breath, with occasional paroxysmal nocturnal dyspnea. No acute changes currently such shortness of breath or chest pain reported. Currently she states her abdominal pain is isolated to her right upper quadrant. She also reports chronic constipation. No dysuria. No hematuria. No back pain. Chronic knee pain and chronic lower leg neuropathy. She reports having a "bad memory", which she associates with chronic use of benzodiazepines, which she is currently not taking. Allergies/Medications Allergies: Coded Allergies: cephalexin (Severe, COULDN'T BREATHE 01/11/16) cyclobenzaprine (UNKNOWN PER PT CANT REMEMBER 01/08/17) tramadol (UNKNOWN PER PT CANT REMEMBER 01/08/17) trazodone (NIGHTMARES 01/08/17) Home Med list Acetaminophen With Codeine (Acetaminophen-Cod #4 Tablet) 300 MG-60 MG TABLET 1 TAB PO Q4H PRN PAIN (Reported) Albuterol Sulfate (Proair Hfa) 90 MCG HFA.AER.AD 2 PUF INH Q4-6 PRN PRN SOB ( Reported) Aspirin (Aspirin*) 81 MG TAB.CHEW 1 TAB PO DAILY HEART HEALTH (Reported) Atorvastatin Calcium 40 MG TABLET 1 TAB PO DAILY CHOLESTEROL (Reported) Bupropion HCl (Bupropion XL) 150 MG TAB.ER.24H 1 TAB PO DAILY MENTAL HEALTH ( Reported) Chlorpromazine HCl (Unknown Strength) TABLET (Unknown Dose) PO AD MENTAL HEALTH (Reported) Cyanocobalamin (Vitamin B-12) (Unknown Strength) TABLET 1,000 MCG PO DAILY supplement (Reported) Diazepam 5 MG TABLET 1 TAB PO AD PRN UNKNOWN (Reported) Doxycycline Hyclate 100 MG TABLET 1 TAB PO BID laceration Duloxetine HCl 30 MG CAPSULE.DR 60 MG PO DAILY anxiety /depression (Reported ) Furosemide (Unknown Strength) TABLET (Unknown Dose) PO DAILY DIURETIC ( Reported) Gabapentin (Unknown Strength) CAPSULE (Unknown Dose) PO AD UNKNOWN (Reported) Glimepiride 4 MG TABLET 1 TAB PO DAILY DM (Reported) Hydrocodone/Acetaminophen (Hydrocodon-Acetaminophn 10-325) 10 MG-325 MG TABLET 1 TAB PO TIDPRN PRN PAIN (Reported) Linagliptin (Tradjenta) 5 MG TABLET 1 TAB PO DAILY DM (Reported) Lisinopril 10 MG TABLET 1 TAB PO DAILY BP (Reported) Metformin HCl (Unknown Strength) TABLET (Unknown Dose) PO BID DM (Reported) Nystatin 100,000 UNIT/GRAM CREAM..G. 1 MONICA TOP AD PRN UNDER BREASTS AND ARMS (Reported) apply to affected area(s) Ramelteon (Rozerem) 8 MG TABLET 1 TAB PO QPM PRN INSOMNIA Sennosides (Senna) 8.6 MG TABLET 2 TAB PO PRN CONSTIPATION (Reported) Past History Medical History Neurological: peripheral neuropathy, vertigo, chronic pain EENT: NONE Cardiovascular: hypertension Respiratory: NONE Gastrointestinal: NONE Hepatic: NONE Renal: RENAL DISEASE Musculoskeletal: OBESITY "NO CARTILAGE IN KNEES" R GREAT TOE ULCER Psychiatric: anxiety, depression Endocrine: diabetes Blood Disorders: NONE Cancer(s): NONE KNIFE CUTTER/Reproductive: NONE History of MRSA: Yes History of VRE: No History of CDIFF: No Tetanus Vaccine: 03/19/17 Surgical History Pertinent Surgical History: status post I&D of a right great toe abscess/septic arthritis Past Family/Social History Family History Relations & Conditions if any FATHER Coronary artery disease MOTHER, . FH: diabetes mellitus FHx: gallbladder disease FHx: pneumonia Relation not specified for: Meningococcal meningitis Psychosocial History Where Do You Live? Home Who Do You Live With? self Services at Home None Primary Language: Kuwaiti Smoking Status: Never Smoked ETOH Use: occasional use (previous "heavy" use) Illicit Drug Use: marijuana, benzodiazepines, "edibles" (2017), lsd Other Social History: , with 3 children (her son a year ago d/t drug overdose) Functional Ability Ambulation: walker, wheelchair Employment History Employment: Disability Review of Systems Review of Systems: admits: abdominal pain, nausea/vomiting (resolved), headaches, chronic neuropathy, chronic constipation, 2-3 pillow orthopnea, PND, chronic leg swelling, chronic knee pain denies: acute shortness of breath, acute chest pains, dizziness, dysuria, back pain Exam & Diagnostic Data Last 24 Hrs of Vital Signs/I&O Vital Signs Date Time Temp Pulse Resp B/P B/P Pulse O2 O2 Flow FiO2 Mean Ox Delivery Rate 01/17 1324 99.3 112 18 156/69 95 Room Air 01/17 1053 99.0 100 18 148/63 95 Room Air 01/17 0844 99.0 120 20 141/92 96 Room Air Intake & Output 01/17 1600 01/17 0800 01/17 0000 Intake Total 750 Output Total Balance 750 Intake, IV 750 Patient 365 lb Weight Weight Reported by Patient Measurement Method Physical Exam: General - alert & oriented x 3. comfortable appearing. no acute distress. Skin - warm, dry, and smooth. no rashes observed. Lungs - clear. decreased breath sounds b/l bases. Cardiac - s1s2. reg. Abdomen - morbidly obese. protuberant. rectus diastasis with questionable hernia. tenderness in right upper quadrant and positive murphys sign. not diffusely tender. no peritonitis. Extremities - warm bilaterally. palpable pulses distally, 1+ b/l DPs. Neuro - speech smooth and coordinated. no gross deficits appreciated. Psych - depressed. no active SI Last 24 Hrs of Labs/[place]: Laboratory Tests 01/17/18 0912: Anion Gap 13, Estimated GFR > 60, BUN/Creatinine Ratio 37.8 H, Glucose 265 H, Calcium 10.0, Total Bilirubin 0.8, AST 17, ALT 30, Alkaline Phosphatase 112, Troponin I Pending, Total Protein 7.3, Albumin 4.2, Globulin 3.1, Albumin/ Globulin Ratio 1.4, Lipase 53, CBC w Diff MAN DIFF ORDERED, RBC 4.12 L, MCV 93.4, MCH 30.6, MCHC 32.7 L, RDW 14.1, MPV 8.5, Gran % 91.9 H, Lymphocytes % 3.7 L, Monocytes % 4.3, Eosinophils % 0, Basophils % 0.1, Absolute Granulocytes 15.6 H, Segmented Neutrophils 88 H, Band Neutrophils 5, Absolute Lymphocytes 0.6 L, Lymphocytes 2 L, Monocytes 5, Absolute Monocytes 0.7 H, Absolute Eosinophils 0, Absolute Basophils 0, Platelet Estimate ADEQUATE, Normocytic RBCs VERIFIED, Normochromic RBCs VERIFIED Diagnostic Data Other Results EXAM TYPE: US - US-LIMITED ABDOMEN EXAMINATION: US ABDOMEN LIMITED CLINICAL INFORMATION: 67-year-old female with right upper quadrant tenderness, nausea and vomiting and positive Pyle's sign. Suspected cholelithiasis/cholecystitis. COMPARISON: Right upper quadrant abdominal ultrasound done on 09/24/2017. TECHNIQUE: Real-time imaging of the right upper quadrant abdominal viscera. FINDINGS: Technically limited due to patient's body habitus. PANCREAS: Normal. LIVER: Suboptimal visualization of the right lobe. Grossly appear unremarkable. GALLBLADDER: The gallbladder is distended with evidence of multiple tiny calculi in the region of the neck of the gallbladder. The degree of gallbladder distention appears similar to prior study dated 09/24/2017. There is no gallbladder wall thickening or pericholecystic fluid present. No sonographic Pyle's sign was present at the time of the examination. COMMON BILE DUCT: Mildly dilated measures 1.1 cm, previously measured 1.9 cm. No definite choledocholithiasis. RIGHT KIDNEY: No hydronephrosis. No renal calculi or focal parenchymal lesions. The kidney measures 10.8 cm in maximum dimension. FREE FLUID: None. IMPRESSION: 1. Technically limited study due to patient's body habitus. 2. The gallbladder remains distended without evidence of any wall thickening or pericholecystic fluid, similar to prior study dated 09/24/2017. Note is made of presence of gallstones and dilated common bile duct. The degree of common bile duct dilatation however, has decreased from prior measurement of 1.9 to currently 1.1 cm. The etiology for CBD dilatation is not evident. Follow-up nonemergent MRCP/MRI may be considered for further clarification, if clinically appropriate. 3. No sonographic evidence of any pancreatic mass. 4. Suboptimal visualization of the liver, and right kidney, grossly appear unremarkable. DICTATED BY: Bharti Rae MD DATE/TIME DICTATED:01/17/181136 OIL RIG DRILLER:DAX DATE/TIME TRANSCRIBED:01/17/181136 Assessment/Plan Assessment/Plan: This 67 year old female with past medical history significant for morbid obesity , hypertension, sleep apnea, insomnia, diabetes, peripheral neuropathy, anxiety and depression, history of mrsa, who presents with acute calculous cholecystitis ok to take clears until midnight npo after midnight cardiology called for pre-operative risk assessment start iv unasyn accuchecks / ss coverage repeat ekg and add troponin home meds reviewed, some to be held intentionally hep sc - dvt ppx to be admitted d/w As Ranked By This Provider Problem List: 1. Acute calculous cholecystitis 2. Morbid obesity 3. Hypertension 4. Peripheral neuropathy 5. Diabetes 6. History of orthopnea 7. Sleep apnea Copies To: Consuelo SOLIZ,Leah Perez MD,Jett J 01/18/18 3922: Attending MD Review Statement Attending Statement Attending MD Statement: examined this patient, discuss w/resident/PA/CENTERLESS GRINDER SET UP OPERATOR, reviewed images Attending Assessment/Plan: as above. Patient with multiple comorbidities including morbid obesity and DM. Apparent h/o CHF, although last echo appeared to have good cardiac function. patient has severe acute cholecystitis. will need laparoscopic cholecystectomy unless there is cardiac contraindication. presuming she does not, plan lap fariba today.
[2018-01-17 17:41] VITALS: BP 151/70
--- NOTE | 2018-01-17 20:08 | RADIOLOGY REPORT ---
EXAMINATION: XR CHEST PORTABLE CLINICAL INFORMATION: Preop evaluation, shortness of breath. COMPARISON: 11/17/2016 and multiple prior chest x-rays. TECHNIQUE: Portable AP view of the chest was obtained. FINDINGS: Evaluation is limited due to lordotic projection and patient's body habitus. The lower lung benitez cannot be fully evaluated. The cardiomediastinal silhouette is within normal limits. The pulmonary vascularity is unremarkable. The visualized lung benitez are clear. The lung bases and left costophrenic angles cannot be evaluated. IMPRESSION: No acute pulmonary findings considering limitations of the exam.
[2018-01-17 22:09] VITALS: BP 111/48
[2018-01-18 06:29] VITALS: BP 120/70
[2018-01-18 08:12] LABS: PT 14.2 SEC (9.4-12.5)
[2018-01-18 08:22] LABS: ABSOLUTE BASOPHIL COUNT 0 /CUMM (0.0-0.2); ABSOLUTE EOSINOPHIL COUNT 0 /CUMM (0.0-0.7); ABSOLUTE GRANULOCYTE CT 16.6 /CUMM (1.4-6.5); ABSOLUTE LYMPH COUNT 0.5 /CUMM (1.2-3.4); ABSOLUTE MONOCYTE COUNT 0.6 /CUMM (0.10-0.60); BASOPHIL % 0 % (0.0-2.0); EOSINOPHIL % 0 % (0-5); GRANULOCYTE % 93.7 % (42.2-75.2); MEAN CORPUSCULAR HGB 31.3 PG (27.0-31.0); MEAN CORPUSCULAR HGB CONC 33.7 G/DL (33.0-37.0); MEAN CORPUSCULAR VOLUME 92.8 FL (81.0-99.0); MEAN PLATELET VOLUME 8.7 FL (7.4-10.4); PLATELET COUNT 222 /CUMM (130-400); RBC DISTRIBUTION WIDTH 14.5 % (11.5-14.5); RED BLOOD CELL CT 3.58 /CUMM (4.20-5.40); WHITE BLOOD CELL COUNT 17.8 /CUMM (4.8-10.8)
[2018-01-18 08:38] LABS: HEMATOCRIT 33.3 % (37-47)
--- NOTE | 2018-01-18 08:38 | PN- General Surgery ---
See Addendum Subjective Subjective: Pt in bed, complains of pain in her abdomen and knees. Pt is NPO today for possible surgery later today if cleared by cardiology. Has nausea this morning but no vomiting. Deneis CP/SOB. No fevers. Objective Vital Signs and I&Os Vital Signs Date Time Temp Pulse Resp B/P B/P Pulse O2 O2 Flow FiO2 Mean Ox Delivery Rate 01/18 818 98.4 98 01/18 0810 98.4 01/18 0810 95 120/70 01/18 0629 100.0 116 20 120/70 92 Room Air 01/18 0607 100.0 01/17 2209 98.8 77 18 111/48 97 Room Air 01/17 2025 Room Air 01/17 1741 98.9 104 18 151/70 99 Room Air 01/17 1621 98.3 114 20 129/59 93 Room Air 01/17 1324 99.3 112 18 156/69 95 Room Air 01/17 1053 99.0 100 18 148/63 95 Room Air 01/17 0844 99.0 120 20 141/92 96 Room Air Intake & Output 01/18 1600 01/18 0801/18 0000 01/17 1600 01/17 0801/17 0000 Intake Total 600 300 750 Output Total 350 200 400 Balance -350 400 -100 750 Intake, IV 600 300 750 Output, Urine 350 200 400 Patient 373 lb 372 lb 365 lb Weight Weight Bed scale Bed scale Reported by Patient Measurement Method Physical Exam: gen-NAD resp- very distant breath sounds cardiac- distal heart sounds, RRR abd- obese, +BS, mildly tender throughout, tender in RUQ with + Pyle sign. No rebound tenderness Current Medications: Current Medications Sig/Gely Start time Last Medication Dose Route Stop Time Status Admin Acetaminophen 0 .STK-MED ONE 01/17 1702 DC IV Acetaminophen 1,000 MG Q6P PRN 01/17 1700 AC 01/18 N/A 1 UNIT IV 0607 Albuterol Sulfate 2 PUF Q4-6 PRN PRN 01/18 0815 AC INH Albuterol Sulfate 2 PUF Q4 PRN 01/17 1600 DC INH Ampicillin Sodium/ 3,000 MG Q6 01/17 1800 AC 01/18 Sulbactam Sodium IV 0612 Sodium Chloride 100 ML Ampicillin Sodium/ 3,000 MG ONCE ONE 01/17 1545 CAN Sulbactam Sodium IV 01/17 1614 Sodium Chloride 100 ML Bupropion HCl 150 MG DAILY 01/18 900 AC PO Diphenhydramine HCl 25 MG AT BEDTIME PRN 01/17 2000 AC 01/17 PO 2122 Diphenhydramine HCl 50 MG Q4-6 PRN PRN 01/17 1645 AC IV Duloxetine HCl 60 MG DAILY 01/18 900 AC PO Gabapentin 300 MG BID 01/17 2100 AC 01/18 PO 0810 Heparin Sodium 5,000 UNIT Q8 01/17 2200 AC 01/18 (Porcine) SC 0602 Hydrocodone Bitart/ 2 TAB Q6P PRN 01/18 0845 AC Acetaminophen PO Hydrocodone Bitart/ 2 TAB Q4P PRN 01/19 0815 DC Acetaminophen PO Influenza Virus 0.5 ML ONCE ONE 01/17 1915 DC Vaccine IM 01/18 1916 Insulin Human Regular 0 Q6 01/17 1800 AC 01/18 SC 0609 Ketorolac 15 MG Q8H PRN 01/18 2000 AC 01/18 Tromethamine IV 0313 Ketorolac 0 .STK-MED ONE 01/18 916 DC Tromethamine .ROUTE Ketorolac 30 MG ONCE ONE 01/17 915 DC 01/17 Tromethamine IV 01/17 Lisinopril 10 MG DAILY 01/18 900 AC 01/18 PO 0810 Melatonin 5 MG AT BEDTIME 01/17 2100 AC 01/17 PO 212 Morphine Sulfate 2 MG Q4P PRN 01/17 1700 AC 01/18 IV 0602 Nystatin 1 MONICA TID 01/17 2100 AC 01/18 TOP 0811 Ondansetron HCl 0 .STK-MED ONE 01/17 1703 DC .ROUTE Ondansetron HCl 4 MG Q6P PRN 01/17 1700 AC 01/18 IV 0313 Ondansetron HCl 0 .STK-MED ONE 01/18 916 DC .ROUTE Ondansetron HCl 4 MG ONCE ONE 01/17 915 DC 01/17 IV 01/17 Pantoprazole Sodium 40 MG DAILY 01/18 900 AC IV Ramelteon 8 MG AT BEDTIME NEED.. 01/17 1600 AC 01/17 PO 2122 Senna/Docusate Sodium 2 TAB DAILY 01/18 900 AC 01/18 PO 0804 Sodium Chloride 1,000 ML Q13H 01/17 1545 AC 01/18 IV 0012 Sodium Chloride 1,000 ML BOLUS ONE 01/17 0915 DC 01/17 IV 01/17 1014 0917 Results Last 48 Hours of Labs: Laboratory Tests 01/18 01/17 0726 0912 Chemistry Sodium (137 - 145 mmol/L) Pending 137 Potassium (3.5 - 5.1 mmol/L) Pending 4.5 Chloride (98 - 107 mmol/L) Pending 98 Carbon Dioxide (22 - 30 mmol/L) Pending 26 Anion Gap (5 - 16) Pending 13 BUN (7 - 17 mg/dL) Pending 34 H Creatinine (0.5 - 1.0 mg/dL) Pending 0.9 Estimated GFR (>60 ml/min) > 60 BUN/Creatinine Ratio (7 - 25 %) Pending 37.8 H Glucose (65 - 99 mg/dL) 265 H Calcium (8.4 - 10.2 mg/dL) 10.0 Total Bilirubin (0.2 - 1.3 mg/dL) Pending 0.8 Direct Bilirubin Pending AST (14 - 36 U/L) Pending 17 ALT (9 - 52 U/L) Pending 30 Alkaline Phosphatase (<127 U/L) Pending 112 Troponin I (< 0.11 ng/ml) < 0.01 Total Protein (6.3 - 8.2 g/dL) Pending 7.3 Albumin (3.5 - 5.0 g/dL) Pending 4.2 Globulin (1.9 - 4.2 gm/dL) 3.1 Albumin/Globulin Ratio (1.1 - 2.2 %) 1.4 Lipase (23 - 300 U/L) 53 Coagulation PT (9.4 - 12.5 SEC) 14.2 H INR (0.90 - 1.19) 1.30 H Hematology CBC w Diff Pending MAN DIFF ORDERED WBC (4.8 - 10.8 /CUMM) Pending 17.0 H RBC (4.20 - 5.40 /CUMM) Pending 4.12 L Hgb (12.0 - 16.0 G/DL) Pending 12.6 Hct (37 - 47 %) Pending 38.5 MCV (81.0 - 99.0 FL) Pending 93.4 MCH (27.0 - 31.0 PG) Pending 30.6 MCHC (33.0 - 37.0 G/DL) Pending 32.7 L RDW (11.5 - 14.5 %) Pending 14.1 Plt Count (130 - 400 /CUMM) Pending 267 MPV (7.4 - 10.4 FL) Pending 8.5 Gran % (42.2 - 75.2 %) 91.9 H Lymphocytes % (20.5 - 51.1 %) 3.7 L Monocytes % (1.7 - 9.3 %) 4.3 Eosinophils % (0 - 5 %) 0 Basophils % (0.0 - 2.0 %) 0.1 Absolute Granulocytes (1.4 - 6.5 /CUMM) 15.6 H Segmented Neutrophils (42.2 - 75.2 %) 88 H Band Neutrophils (0.0 - 5.0 %) 5 Absolute Lymphocytes (1.2 - 3.4 /CUMM) 0.6 L Lymphocytes (20.5 - 51.1 %) 2 L Monocytes (1.7 - 9.3 %) 5 Absolute Monocytes (0.10 - 0.60 /CUMM) 0.7 H Absolute Eosinophils (0.0 - 0.7 /CUMM) 0 Absolute Basophils (0.0 - 0.2 /CUMM) 0 Platelet Estimate (ADEQUATE) ADEQUATE Normocytic RBCs VERIFIED Normochromic RBCs VERIFIED Assessment/Plan Assessment/Plan This 67 year old female with past medical history significant for morbid obesity , hypertension, sleep apnea, insomnia, diabetes, peripheral neuropathy, anxiety and depression, history of mrsa, who is now here with acute calculous cholecystitis. NPO for possibly lap fariba later today Awaiting cardiology pre-operative risk assessment Cont iv unasyn accuchecks / ss coverage FU AM labs home meds - restarted home Vicodin dose 10mg 4xdaily for chronic knee pain hep sc and ALPS- dvt ppx Encourage IS and ambulation, walks with a walker at home d/w Core Measures Venous Thromboembolism VTE Risk Factors Acute Medical Illness No Mechanical VTE Prophylaxis d/t N/A MechProphylax Ordered No VTE Pharm Prophylaxis d/t NA PharmProphylax ordered
--- NOTE | 2018-01-18 09:32 | Cons- Cardiology ---
General Information and HPI Consulting Request Date of Consult: 01/18/18 Requested By: Chris SOLIZ,Jett Aldana Reason for Consult: Preop History of Present Illness: The patient is a 67-year-old female with history of hypertension, diabetes mellitus, chronic kidney disease, likely diastolic heart failure, and likely obstructive sleep apnea who is admitted with acute cholecystitis. She is planned for laparoscopic cholecystectomy, and preoperative evaluation is recommended. She was previously evaluated in the hospital in 2017, and at that time an echocardiogram was performed which revealed normal left ventricular ejection fraction. She has had no chest pain. She describes the pain which limits her activity level. She is able to walk 200 feet without significant cardiac symptoms. She has a history of likely obstructive sleep apnea which has not been fully evaluated. She takes Lasix for possible diastolic heart failure. She notes that she suddenly awakens suddenly during the night which she attributes to her sleep apnea. She sleeps on 2 pillows at night. No nausea or vomiting. No palpitations. No diaphoresis. No lightheadedness or dizziness. Allergies/Medications Allergies: Coded Allergies: cephalexin (Severe, COULDN'T BREATHE 01/11/16) cyclobenzaprine (UNKNOWN PER PT CANT REMEMBER 01/08/17) tramadol (UNKNOWN PER PT CANT REMEMBER 01/08/17) trazodone (NIGHTMARES 01/08/17) Home Med List: Acetaminophen With Codeine (Acetaminophen-Cod #4 Tablet) 300 MG-60 MG TABLET 1 TAB PO Q4H PRN PAIN (Reported) Albuterol Sulfate (Proair Hfa) 90 MCG HFA.AER.AD 2 PUF INH Q4-6 PRN PRN SOB ( Reported) Aspirin (Aspirin*) 81 MG TAB.CHEW 1 TAB PO DAILY HEART HEALTH (Reported) Atorvastatin Calcium 40 MG TABLET 1 TAB PO DAILY CHOLESTEROL (Reported) Bupropion HCl (Bupropion XL) 150 MG TAB.ER.24H 1 TAB PO DAILY MENTAL HEALTH ( Reported) Chlorpromazine HCl (Unknown Strength) TABLET (Unknown Dose) PO AD MENTAL HEALTH (Reported) Cyanocobalamin (Vitamin B-12) (Unknown Strength) TABLET 1,000 MCG PO DAILY supplement (Reported) Diazepam 5 MG TABLET 1 TAB PO AD PRN UNKNOWN (Reported) Doxycycline Hyclate 100 MG TABLET 1 TAB PO BID laceration Duloxetine HCl 30 MG CAPSULE.DR 60 MG PO DAILY anxiety /depression (Reported ) Furosemide (Unknown Strength) TABLET (Unknown Dose) PO DAILY DIURETIC ( Reported) Gabapentin (Unknown Strength) CAPSULE (Unknown Dose) PO AD UNKNOWN (Reported) Glimepiride 4 MG TABLET 1 TAB PO DAILY DM (Reported) Hydrocodone/Acetaminophen (Hydrocodon-Acetaminophn 10-325) 10 MG-325 MG TABLET 1 TAB PO TIDPRN PRN PAIN (Reported) Linagliptin (Tradjenta) 5 MG TABLET 1 TAB PO DAILY DM (Reported) Lisinopril 10 MG TABLET 1 TAB PO DAILY BP (Reported) Metformin HCl (Unknown Strength) TABLET (Unknown Dose) PO BID DM (Reported) Nystatin 100,000 UNIT/GRAM CREAM..G. 1 MONICA TOP AD PRN UNDER BREASTS AND ARMS (Reported) apply to affected area(s) Ramelteon (Rozerem) 8 MG TABLET 1 TAB PO QPM PRN INSOMNIA Sennosides (Senna) 8.6 MG TABLET 2 TAB PO PRN CONSTIPATION (Reported) Current Medications: Current Medications Sig/Gely Start time Last Medication Dose Route Stop Time Status Admin Acetaminophen 0 .STK-MED ONE 01/17 1702 DC IV Acetaminophen 1,000 MG Q6P PRN 01/17 1700 AC 01/18 N/A 1 UNIT IV 0607 Albuterol Sulfate 2 PUF Q4-6 PRN PRN 01/18 0815 AC 01/18 INH 0905 Albuterol Sulfate 2 PUF Q4 PRN 01/17 1600 DC INH Ampicillin Sodium/ 3,000 MG Q6 01/17 1800 AC 01/18 Sulbactam Sodium IV 0612 Sodium Chloride 100 ML Ampicillin Sodium/ 3,000 MG ONCE ONE 01/17 1545 CAN Sulbactam Sodium IV 01/17 1614 Sodium Chloride 100 ML Bupropion HCl 150 MG DAILY 01/18 900 AC PO Diphenhydramine HCl 25 MG AT BEDTIME PRN 01/17 2000 AC 01/17 PO 2122 Diphenhydramine HCl 50 MG Q4-6 PRN PRN 01/17 1645 AC IV Duloxetine HCl 60 MG DAILY 01/18 900 AC PO Gabapentin 300 MG BID 01/17 2100 AC 01/18 PO 0810 Heparin Sodium 5,000 UNIT Q8 01/17 2200 AC 01/18 (Porcine) SC 0602 Hydrocodone Bitart/ 2 TAB Q6P PRN 01/18 0845 AC 01/18 Acetaminophen PO 0848 Hydrocodone Bitart/ 2 TAB Q4P PRN 01/18 0815 DC Acetaminophen PO Influenza Virus 0.5 ML ONCE ONE 01/17 1915 DC Vaccine IM 01/18 1916 Insulin Human Regular 0 Q6 01/17 1800 AC 01/18 SC 0609 Ketorolac 15 MG Q8H PRN 01/17 2000 AC 01/18 Tromethamine IV 0313 Lisinopril 10 MG DAILY 01/18 0900 AC 01/18 PO 0810 Melatonin 5 MG AT BEDTIME 01/17 2100 AC 01/17 PO 2122 Morphine Sulfate 2 MG Q4P PRN 01/17 1700 AC 01/18 IV 0602 Nystatin 1 MONICA TID 01/17 2100 AC 01/18 TOP 0811 Ondansetron HCl 0 .STK-MED ONE 01/17 1703 DC .ROUTE Ondansetron HCl 4 MG Q6P PRN 01/17 1700 AC 01/18 IV 0849 Pantoprazole Sodium 40 MG DAILY 01/18 0900 AC 01/18 IV 0849 Ramelteon 8 MG AT BEDTIME NEED.. 01/17 1600 AC 01/17 PO 2122 Senna/Docusate Sodium 2 TAB DAILY 01/18 0900 AC 01/18 PO 0804 Sodium Chloride 500 ML BOLUS ONE 01/18 0930 AC 01/18 IV 01/18 1029 0930 Sodium Chloride 1,000 ML Q13H 01/17 1545 AC 01/18 IV 0012 Sodium Chloride 1,000 ML BOLUS ONE 01/17 0915 DC 01/17 IV 01/17 1014 0917 Review of Systems Review of Systems: No rash. No tremor. No melena. All other systems were reviewed, and were noted to be negative. Past History Travel History Traveled to [place] past 21 day No Medical History Blood Transfusion Hx: No Neurological: peripheral neuropathy, vertigo, chronic pain EENT: NONE Cardiovascular: hypertension Respiratory: NONE Gastrointestinal: NONE Hepatic: NONE Renal: RENAL DISEASE Musculoskeletal: OBESITY "NO CARTILAGE IN KNEES" R GREAT TOE ULCER Psychiatric: anxiety, depression Endocrine: diabetes Blood Disorders: NONE Cancer(s): NONE SHIP FITTER/Reproductive: NONE Surgical History Surgical History: status post I&D of a right great toe abscess/septic arthritis Family History Relations & Conditions If Any: FATHER Coronary artery disease MOTHER, . FH: diabetes mellitus FHx: gallbladder disease FHx: pneumonia Relation not specified for: Meningococcal meningitis Psychosocial History Where Do You Live? Home Who Do You Live With? self Services at Home: Home Health Aide Primary Language: Gambian Smoking Status: Never Smoked ETOH Use: occasional use (previous "heavy" use) Illicit Drug Use: marijuana, benzodiazepines, "edibles" (2017), lsd Other Social History: , with 3 children (her son a year ago d/t drug overdose) Functional Ability Ambulation: walker, wheelchair Employment History Employment: Disability Exam & Diagnostic Data Vital Signs and I&O Vital Signs Date Time Temp Pulse Resp B/P B/P Pulse O2 O2 Flow FiO2 Mean Ox Delivery Rate 01/18 818 98.4 98 01/18 08 98.4 01/18 08 95 120/70 01/18 0800 92 Room Air 01/18 0629 100.0 116 20 120/70 92 Room Air 01/18 0607 100.0 01/17 2209 98.8 77 18 111/48 97 Room Air 01/17 2025 Room Air 01/17 1741 98.9 104 18 151/70 99 Room Air 01/17 1621 98.3 114 20 129/59 93 Room Air 01/17 1324 99.3 112 18 156/69 95 Room Air 01/17 1053 99.0 100 18 148/63 95 Room Air Intake & Output 01/18 1600 01/18 0800 01/18 0000 01/17 1600 01/17 0800 01/17 0000 Intake Total 600 300 750 Output Total 350 200 400 Balance -350 400 -100 750 Intake, IV 600 300 750 Output, Urine 350 200 400 Patient 373 lb 372 lb 365 lb Weight Weight Bed scale Bed scale Reported by Patient Measurement Method Physical Exam: Gen: The patient is in no acute distress HEENT: Normal nose, ears, and oropharynx. Pupils equal bilaterally. Conjunctiva normal. Neck: Supple with no JVD, no masses, and no thyromegaly Lungs: Clear to auscultation with normal respiratory effort Heart: RRR, S1, S2, no murmurs. No peripheral edema, 2+ pulses in the lower extremities bilaterally Abdomen: Soft, nontender, no masses. No hepatomegaly. No splenomegaly Extremities: No clubbing or cyanosis. Normal muscle strength in the upper and lower extremities Skin: Normal skin turgor with no skin ulcers or lesions noted. Neuro: Cranial nerves intact. Sensation intact Psych: Alert and oriented x 3 with appropriate affect Labs/[place] Results: Laboratory Tests 01/18 01/17 0726 0912 Chemistry Sodium (137 - 145 mmol/L) 138 137 Potassium (3.5 - 5.1 mmol/L) 4.4 4.5 Chloride (98 - 107 mmol/L) 101 98 Carbon Dioxide (22 - 30 mmol/L) 27 26 Anion Gap (5 - 16) 9 13 BUN (7 - 17 mg/dL) 43 H 34 H Creatinine (0.5 - 1.0 mg/dL) 1.4 H 0.9 Estimated GFR (>60 ml/min) 37 L > 60 BUN/Creatinine Ratio (7 - 25 %) 30.7 H 37.8 H Glucose (65 - 99 mg/dL) 265 H Calcium (8.4 - 10.2 mg/dL) 10.0 Total Bilirubin (0.2 - 1.3 mg/dL) 0.7 0.8 Direct Bilirubin (< 0.4 mg/dL) 0.3 AST (14 - 36 U/L) 26 17 ALT (9 - 52 U/L) 32 30 Alkaline Phosphatase (<127 U/L) 70 112 Troponin I (< 0.11 ng/ml) < 0.01 Total Protein (6.3 - 8.2 g/dL) 5.4 L 7.3 Albumin (3.5 - 5.0 g/dL) 3.0 L 4.2 Globulin (1.9 - 4.2 gm/dL) 3.1 Albumin/Globulin Ratio (1.1 - 2.2 %) 1.4 Lipase (23 - 300 U/L) 53 Coagulation PT (9.4 - 12.5 SEC) 14.2 H INR (0.90 - 1.19) 1.30 H Hematology CBC w Diff MAN DIFF ORDERED MAN DIFF ORDERED WBC (4.8 - 10.8 /CUMM) 17.8 H 17.0 H RBC (4.20 - 5.40 /CUMM) 3.58 L 4.12 L Hgb (12.0 - 16.0 G/DL) 11.2 L 12.6 Hct (37 - 47 %) 33.3 L 38.5 MCV (81.0 - 99.0 FL) 92.8 93.4 MCH (27.0 - 31.0 PG) 31.3 H 30.6 MCHC (33.0 - 37.0 G/DL) 33.7 32.7 L RDW (11.5 - 14.5 %) 14.5 14.1 Plt Count (130 - 400 /CUMM) 222 267 MPV (7.4 - 10.4 FL) 8.7 8.5 Gran % (42.2 - 75.2 %) 93.7 H 91.9 H Lymphocytes % (20.5 - 51.1 %) 2.7 L 3.7 L Monocytes % (1.7 - 9.3 %) 3.6 4.3 Eosinophils % (0 - 5 %) 0 0 Basophils % (0.0 - 2.0 %) 0 0.1 Absolute Granulocytes (1.4 - 6.5 /CUMM) 16.6 H 15.6 H Segmented Neutrophils (42.2 - 75.2 %) 81 H 88 H Band Neutrophils (0.0 - 5.0 %) 12 H 5 Absolute Lymphocytes (1.2 - 3.4 /CUMM) 0.5 L 0.6 L Lymphocytes (20.5 - 51.1 %) 4 L 2 L Monocytes (1.7 - 9.3 %) 3 5 Absolute Monocytes (0.10 - 0.60 /CUMM) 0.6 0.7 H Absolute Eosinophils (0.0 - 0.7 /CUMM) 0 0 Absolute Basophils (0.0 - 0.2 /CUMM) 0 0 Platelet Estimate (ADEQUATE) VERIFIED BY SMEAR ADEQUATE Normocytic RBCs VERIFIED VERIFIED Normochromic RBCs VERIFIED VERIFIED Diagnostic Data EKG Results EKG tracing is independently reviewed, and reveals sinus tachycardia at 121 with right bundle branch block and possible septal infarct age undetermined CXR Results No acute pulmonary findings considering limitations of the exam. Other Results Echocardiogram 05/29/16: No obvious regional wall motion abnormalities. Normal left ventricular ejection fraction visually estimated at > 60%. Mild aortic stenosis. Trace tricuspid regurgitation. Mitral valve thickened. Abdominal ultrasound 01/17/18: 1. Technically limited study due to patient's body habitus. 2. The gallbladder remains distended without evidence of any wall thickening or pericholecystic fluid, similar to prior study dated 09/24/2017. Note is made of presence of gallstones and dilated common bile duct. The degree of common bile duct dilatation however, has decreased from prior measurement of 1.9 to currently 1.1 cm. The etiology for CBD dilatation is not evident. Follow-up nonemergent MRCP/MRI may be considered for further clarification, if clinically appropriate. 3. No sonographic evidence of any pancreatic mass. 4. Suboptimal visualization of the liver, and right kidney, grossly appear unremarkable. Assessment/Plan Assessment/Plan The patient is a 67-year-old female with history of hypertension, diabetes mellitus, likely obstructive sleep apnea, and possible diastolic heart failure who was admitted with acute cholecystitis and is planned for surgery. She has had no chest pain or other definite cardiac symptoms. Her functional status is limited secondary to knee pain, however she is able to walk 200 feet EKG reveals sinus tachycardia with possible old septal infarct but no acute ischemic changes. Echocardiogram last year revealed normal ejection fraction. Recommendations: * Cardiac risk for surgery is mildly elevated given the significant obstructive sleep apnea and likely diastolic heart failure, however given the stable cardiac status with no recent acute symptoms, and reasonably good functional status the cardiac risk for surgery is acceptable. * The patient is cleared from a cardiac standpoint to proceed with planned laparoscopic cholecystectomy. * Continue current cardiac medications Consult Acknowledgment - Thank you for your consult request.
[2018-01-18 14:42] VITALS: BP 128/74
--- NOTE | 2018-01-18 18:56 | Operative Report ---
Operative/Inv Procedure Report Surgery Date: 01/18/18 Name of Procedure: Laparoscopic cholecystectomy Pre-Operative Diagnosis: Acute cholecystitis Post-Operative Diagnosis: Same Estimated Blood Loss: less than 50ml Surgeon/Chemical Handler: Chris SOLIZ,Jett Aldana/Lorena LANDERS Anesthesia: general endotracheal tube Drains: 15 [place] Citizen LATHA Specimens: Gallbladder Operative Indication: 67-year-old woman with morbid obesity and severe acute cholecystitis presents for emergent resection Operative/Procedure Note Note: After informed consent patient is brought to the operating room and laid supine. General anesthesia was obtained and her abdomen was prepped and draped. The skin above the umbilicus infiltrated with local anesthesia and a curvilinear incision made sharply. We came down through the subcutaneous tissues bluntly and grasped the fascia with [place]'s. A fasciotomy was created sharply and stay sutures placed. The peritoneum was entered sharply and a blunt Cooper port was placed. Pneumoperitoneum was achieved. 3, 5 mm ports were placed in the epigastrium and right upper quadrant after local anesthesia was instilled and under direct vision the camera. She's placed in reverse Trendelenburg and rotated towards the left. The gallbladder is identified. It was encased in omentum and there was a lot of purulent material and fibrin on the medial aspect of it. The gallbladder was unroofed and exposed. The wall was severely edematous, thickened and erythematous. It was grasped at the dome and retracted towards the head. Infundibulum was then grasped. Adhesions to the undersurface were taken down with blunt and cautery dissection. We dissected both sides the triangle Calot peritoneal tissue with cautery. The dissection was quite difficult due to the severe inflammatory reaction around it. There was a callosum node and the triangle which helped identification of the artery. The node was dissected free with cautery and reflected inferiorly. The artery was medial and its normal anatomic position. It was cauterized medially to allow it to be mobilized away from the duct. [place] was cleared of areolar tissue with cautery. The arteries and duct were doubly ligated with clips. The duct was thickened and one of the clips fell off during our transection. The remaining was intact and was felt to be adequate. Grasping it would cause the other clip to fall off I didn't want to mess with it. Gallbladder is removed from the fossa electrocautery. It was severely inflamed and purulent on the medial aspect of it. It was placed in Endo Catch bag and cinched up. Right upper quadrant was and suction irrigated normal saline. Hemostasis achieved with cautery. There was bleeding from crossing vein in the liver bed. Hemostasis controlled with FloSeal and Surgicel. A 15 [place] Citizen Hay-Garcia drain was then placed into the liver bed through the lateral port. It was anchored to the skin with 3-0 nylon suture. The ports were then removed and the gallbladder delivered and passed off the field. The fascia was closed with 0 Vicryl suture. Skin incisions closed with 4-0 Vicryl. Steri-Strips and sterile dressing applied. Sponge and needle counts are correct. CC: Consuelo SOLIZ,Leah Hanson; Sabrina SOLIZ,Garrett
[2018-01-18 20:30] VITALS: BP 120/60
--- NOTE | 2018-01-18 21:33 | PN- General Surgery ---
Subjective Subjective: POC feeling much better, some pain at incisions. no nausea. mckenna sips of water. no oob. no postop void Objective Vital Signs and I&Os Vital Signs Date Time Temp Pulse Resp B/P B/P Pulse O2 O2 Flow FiO2 Mean Ox Delivery Rate 01/18 1544 92 Room Air 01/18 1442 98.6 72 18 128/74 92 Room Air 01/18 0818 98.4 98 01/18 0810 98.4 01/18 0810 95 120/70 01/18 0800 92 Room Air 01/18 0629 100.0 116 20 120/70 92 Room Air 01/18 0607 100.0 01/17 2209 98.8 77 18 111/48 97 Room Air Intake & Output 01/18 1600 01/18 0800 01/18 0000 01/17 1600 01/17 0800 01/17 0000 Intake Total 1120 600 300 750 Output Total 410 200 400 Balance 710 400 -100 750 Intake, IV 1060 600 300 750 Intake, Oral 60 Output, 60 Emesis Output, Urine 350 200 400 Patient 373 lb 372 lb 365 lb Weight Weight Bed scale Bed scale Reported by Patient Measurement Method Physical Exam: gen- nad, morbidly obese card-rrr pulm- no audible wheeze abd- incisions cdi, aditi w serosang, nt, soft ext- calves soft nt alps on Assessment/Plan Assessment/Plan A- POD0 sp lap fariba for acute purulent cholecystitis, with multiple medical problems, currently stable with elevated fs postop. P- i&os ist clear liquids, aat watch fs, riss cont iv unasyn prn pain meds home meds appreciate cards input Core Measures Venous Thromboembolism VTE Risk Factors Acute Medical Illness No Mechanical VTE Prophylaxis d/t N/A MechProphylax Ordered No VTE Pharm Prophylaxis d/t NA PharmProphylax ordered
[2018-01-19 03:07] VITALS: BP 110/60
[2018-01-19 06:43] VITALS: BP 100/60
--- NOTE | 2018-01-19 07:05 | PN- Student ---
See Addendum Laquita Tello 01/19/18 0650: Subjective Subjective: Pt is feeling less nauseous and in less pain than yesterday. Only feels discomfort in her abdomen but denies localized pain. Has been tolerating clear diet without n/v. Has voided pos-operatively without issue and has passed gas. Has yet to have a bowel movement. Has only been out of bed to walk to the commode and reports being dizzy when walking. Has not walked farther than that. Reports being mildly short of breath at rest but this is not far off from her baseline. Also reports seeing dark almost black drainage in her drain this morning. Denies any CP or LOTT. Objective Objective: Vitals: Temp: 98.9 F P: 100 bpm RR: 20 breaths/min BP: 100/60 O2: 97% on room air Drain output: 40 cc 01/18/18 50 cc 01/19/18 General: Eld[place], obese woman, lying in bed, NC in place, NAD. Exam limited due to body habitus. Cardio: Regular rate and rhythm. S1 and S2. No murmurs, rubs or gallops. Pulm: Audible breath sounds in anterior lung benitez with no wheezes, rhonchi or rales that were appreciated. Abdomen: Soft, obese, non-distended. All dressings were clean dry and intact. Drain secured in place in LUQ. Small amount of blood noted in the drain with no evidence of bile in the drain. Faint bowel founds auscultated. Mildly tender to deep palpation throughout with increased tenderness around the incisions. Ext: ALPs in place. Calves are soft. Tender to palpation but this is reported as the patients baseline. Gross sensation and motor function intact and equal bilaterally in upper and lower extremities. Results Results: Laboratory Tests 01/18/18 0726: Anion Gap 9, Estimated GFR 37 L, BUN/Creatinine Ratio 30.7 H, Total Bilirubin 0.7, Direct Bilirubin 0.3, AST 26, ALT 32, Alkaline Phosphatase 70, Total Protein 5.4 L, Albumin 3.0 L, PT 14.2 H, INR 1.30 H, CBC w Diff MAN DIFF ORDERED, RBC 3.58 L, MCV 92.8, MCH 31.3 H, MCHC 33.7, RDW 14.5, MPV 8.7, Gran % 93.7 H, Lymphocytes % 2.7 L, Monocytes % 3.6, Eosinophils % 0, Basophils % 0 , Absolute Granulocytes 16.6 H, Segmented Neutrophils 81 H, Band Neutrophils 12 H, Absolute Lymphocytes 0.5 L, Lymphocytes 4 L, Monocytes 3, Absolute Monocytes 0.6, Absolute Eosinophils 0, Absolute Basophils 0, Platelet Estimate VERIFIED BY SMEAR, Normocytic RBCs VERIFIED, Normochromic RBCs VERIFIED 01/17/18 0912: Anion Gap 13, Estimated GFR > 60, BUN/Creatinine Ratio 37.8 H, Glucose 265 H, Calcium 10.0, Total Bilirubin 0.8, AST 17, ALT 30, Alkaline Phosphatase 112, Troponin I < 0.01, Total Protein 7.3, Albumin 4.2, Globulin 3.1, Albumin/ Globulin Ratio 1.4, Lipase 53, CBC w Diff MAN DIFF ORDERED, RBC 4.12 L, MCV 93.4, MCH 30.6, MCHC 32.7 L, RDW 14.1, MPV 8.5, Gran % 91.9 H, Lymphocytes % 3.7 L, Monocytes % 4.3, Eosinophils % 0, Basophils % 0.1, Absolute Granulocytes 15.6 H, Segmented Neutrophils 88 H, Band Neutrophils 5, Absolute Lymphocytes 0.6 L, Lymphocytes 2 L, Monocytes 5, Absolute Monocytes 0.7 H, Absolute Eosinophils 0, Absolute Basophils 0, Platelet Estimate ADEQUATE, Normocytic RBCs VERIFIED, Normochromic RBCs VERIFIED Assessment/Plan Assessment: Pt is a 67 year old F POD#1 s/p acute cholecystectomy with aditi drain in place. Pt tolerated the procedure well and post-operative pain is well controlled. Plan: Continue with clear liquid diet and advance as tolerated. Continue with IV Unasyn. Continue with IVF. Zofran as needed for nausea. Pain control as needed. Measure and monitor drain output. Encourage ambulation and incentive spirometry use. Monitor for bowel movement. Continue with home medications. Alps and ambulation for DVT ppx. Will discuss with Dr Perez and surgical PAs. Yvette Smith 01/19/18 1291: Assessment/Plan Plan: agree with above PA-S note advance to diabetic diet. d/c iv fluids continue IV unasyn f/u labs and cxr PT eval / case management eval anticipate discharge tomorrow d/w
[2018-01-19 08:28] LABS: ABSOLUTE BASOPHIL COUNT 0 /CUMM (0.0-0.2); ABSOLUTE EOSINOPHIL COUNT 0.1 /CUMM (0.0-0.7); ABSOLUTE GRANULOCYTE CT 10.8 /CUMM (1.4-6.5); ABSOLUTE LYMPH COUNT 0.5 /CUMM (1.2-3.4); ABSOLUTE MONOCYTE COUNT 0.4 /CUMM (0.10-0.60); BASOPHIL % 0.1 % (0.0-2.0); EOSINOPHIL % 0.7 % (0-5); GRANULOCYTE % 91.2 % (42.2-75.2); HEMATOCRIT 29.6 % (37-47); MEAN CORPUSCULAR HGB 31.2 PG (27.0-31.0); MEAN CORPUSCULAR HGB CONC 33.2 G/DL (33.0-37.0); MEAN PLATELET VOLUME 8.6 FL (7.4-10.4); PLATELET COUNT 219 /CUMM (130-400); RBC DISTRIBUTION WIDTH 14.8 % (11.5-14.5); RED BLOOD CELL CT 3.15 /CUMM (4.20-5.40); WHITE BLOOD CELL COUNT 11.8 /CUMM (4.8-10.8)
--- NOTE | 2018-01-19 08:30 | PN- General Surgery ---
See Addendum Subjective Subjective: Reports some shortness of breath. Tolerating clears. Not yet out of bed. Ambulates with rolling walker at baseline. Denies chest pains. Objective Vital Signs and I&Os Vital Signs Date Time Temp Pulse Resp B/P B/P Pulse O2 O2 Flow FiO2 Mean Ox Delivery Rate 01/19 0805 20 95 Room Air 01/19 0800 22 97 Nasal 2.0L Cannula 01/19 0643 98.9 100 20 100/60 97 Room Air 01/19 0307 98.7 90 20 110/60 96 Nasal 2.0L Cannula 01/19 0000 95 Nasal 2.0L Cannula 01/18 2030 98.2 77 20 120/60 95 Nasal 2.0L Cannula 01/18 1544 92 Room Air 01/18 1442 98.6 72 18 128/74 92 Room Air Intake & Output 01/19 1600 01/19 0800 01/19 0000 01/18 1600 01/18 0800 01/18 0000 Intake Total 2950 788 3442 600 300 Output Total 700 240 410 200 400 Balance 340 300 710 400 -100 Intake, IV 810 532 7519 600 300 Intake, Oral 240 240 60 Output, 50 40 Drainage Output, 60 Emesis Output, Urine 650 200 350 200 400 Patient 373 lb 372 lb Weight Weight Bed scale Bed scale Measurement Method Physical Exam: see PA-S note, addended by myself Assessment/Plan Assessment/Plan see PA-S note, addended by myself Core Measures Venous Thromboembolism VTE Risk Factors Acute Medical Illness No Mechanical VTE Prophylaxis d/t N/A MechProphylax Ordered No VTE Pharm Prophylaxis d/t NA PharmProphylax ordered
[2018-01-19 09:35] VITALS: BP 118/78
--- NOTE | 2018-01-19 12:53 | PN- Cardiology ---
Subjective Subjective: Doing well status post surgery. No chest pain. No palpitations. No shortness of breath. Objective Vital Signs and I&Os Vital Signs Date Time Temp Pulse Resp B/P B/P Pulse O2 O2 Flow FiO2 Mean Ox Delivery Rate 01/19 0935 90 20 118/78 96 Room Air 01/19 0925 90 118/78 01/19 0805 95 Room Air 01/19 0805 20 95 Room Air 01/19 0800 22 97 Nasal 2.0L Cannula 01/19 0643 98.9 100 20 100/60 97 Room Air 01/19 0307 98.7 90 20 110/60 96 Nasal 2.0L Cannula 01/19 0000 95 Nasal 2.0L Cannula 01/18 2030 98.2 77 20 120/60 95 Nasal 2.0L Cannula 01/18 1544 92 Room Air 01/18 1442 98.6 72 18 128/74 92 Room Air Intake & Output 01/19 1600 01/19 0800 / 0000 01/18 1600 01/18 0800 01/18 0000 Intake Total 3415 877 3351 600 300 Output Total 700 240 410 200 400 Balance 340 300 710 400 -100 Intake, IV 569 923 6816 600 300 Intake, Oral 240 240 60 Output, 50 40 Drainage Output, 60 Emesis Output, Urine 650 200 350 200 400 Patient 373 lb 372 lb Weight Weight Bed scale Bed scale Measurement Method Physical Exam: Gen: The patient is in no acute distress HEENT: Normal nose, ears, and oropharynx. Pupils equal bilaterally. Conjunctiva normal. Neck: Supple with no JVD, no masses, and no thyromegaly Lungs: Clear to auscultation with normal respiratory effort Heart: RRR, S1, S2, no murmurs. No peripheral edema, 2+ pulses in the lower extremities bilaterally Abdomen: Soft, nontender, no masses. No hepatomegaly. No splenomegaly Extremities: No clubbing or cyanosis. Normal muscle strength in the upper and lower extremities Skin: Normal skin turgor with no skin ulcers or les Current Medications: Current Medications Sig/Gely Start time Last Medication Dose Route Stop Time Status Admin Acetaminophen 1,000 MG Q6P PRN 01/17 1700 DC 01/18 N/A 1 UNIT IV 0607 Albuterol Sulfate 2 PUF Q4-6 PRN PRN 01/18 0815 AC 01/18 INH 0905 Ampicillin Sodium/ 3,000 MG Q6 01/17 1800 AC 01/19 Sulbactam Sodium IV 1242 Sodium Chloride 100 ML Bupropion HCl 150 MG DAILY 01/18 900 DC PO Dextrose/Sodium 1,000 ML Q10H 01/18 1930 DC 01/19 Chloride IV 0523 Diphenhydramine HCl 25 MG AT BEDTIME PRN 01/18 2000 AC 01/18 PO 2145 Diphenhydramine HCl 50 MG Q4-6 PRN PRN 01/17 164 DC IV Duloxetine HCl 60 MG DAILY 01/18 900 DC PO Fentanyl Citrate 0 .STK-MED ONE 01/18 1642 DC .ROUTE Furosemide 40 MG DAILY 01/20 900 CAN PO Furosemide 40 MG ONCE ONE 01/19 945 CAN IV 01/19 946 Gabapentin 300 MG BID 01/17 2100 AC 01/19 PO 0925 Heparin Sodium 5,000 UNIT Q8 01/170 AC 01/19 (Porcine) SC 0523 Hydrocodone Bitart/ 15 ML Q4-6 PRN PRN 01/19 1115 AC Acetaminophen PO Hydrocodone Bitart/ 30 ML Q4-6 PRN PRN 01/19 1115 AC Acetaminophen PO Hydrocodone Bitart/ 1 TAB Q4-6 PRN PRN 01/19 1100 DC Acetaminophen PO Hydrocodone Bitart/ 2 TAB Q4-6 PRN PRN 01/19 1100 DC Acetaminophen PO Hydrocodone Bitart/ 2 TAB Q6P PRN 01/18 08 DC 01/18 [place]amin[place] PO 0848 Hydromorphone HCl 0 .STK-MED ONE 01/18 1641 DC .ROUTE Insulin Aspart 0 TIDAC 01/19 08 AC 01/19 SC 1243 Insulin Aspart 0 AT BEDTIME 01/18 2100 AC SC Insulin Human Regular 0 .STK-MED ONE 01/19 1928 DC .ROUTE Insulin Human Regular 0 Q6 01/17 1800 DC 01/18 SC 1234 Ketorolac 15 MG Q8H PRN 01/18 2000 DC 01/18 Tromethamine IV 1237 Lisinopril 10 MG DAILY 01/18 900 DC 01/19 PO 0925 Melatonin 5 MG AT BEDTIME PRN 01/18 1921 AC PO Melatonin 5 MG AT BEDTIME 01/17 2100 DC 01/17 PO 2122 Midazolam HCl 0 .STK-MED ONE 01/18 164 DC .ROUTE Morphine Sulfate 2 MG Q3P PRN 01/18 1921 AC 01/18 IV 2232 Morphine Sulfate 2 MG Q4P PRN 01/17 1700 DC 01/18 IV 0602 Nystatin 1 MONICA TID 01/17 2100 DC 01/18 TOP 2203 Ondansetron HCl 4 MG Q6P PRN 01/17 1700 AC 01/18 IV 0849 Oxycodone HCl 5 MG Q4 HRS NEEDED PRN 01/18 1930 DC PO Oxycodone HCl 10 MG Q4P PRN 01/18 1930 DC 01/19 PO 1024 Pantoprazole Sodium 40 MG DAILY 01/18 900 DC 01/18 IV 0849 Ramelteon 8 MG AT BEDTIME NEED.. 01/17 1600 AC 01/18 PO 2203 Senna/Docusate Sodium 2 TAB DAILY 01/18 900 AC 01/19 PO 0925 Sodium Chloride 1,000 ML Q20H 01/19 1000 AC 01/19 IV 1024 Sodium Chloride 1,000 ML Q13H 01/17 1545 DC 01/18 IV 1140 Results Last 48 Hrs of Labs/Mics: Laboratory Tests 01/19/18 0752: Anion Gap 5, Estimated GFR 26 L, BUN/Creatinine Ratio 31.1 H, Serum Osmolality 308 H, Total Bilirubin 0.2, Direct Bilirubin 0.1, AST 34, ALT 45, Alkaline Phosphatase 66, Total Protein 4.7 L, Albumin 2.6 L, CBC w Diff MAN DIFF ORDERED, RBC 3.15 L, MCV 94.0, MCH 31.2 H, MCHC 33.2, RDW 14.8 H, MPV 8.6, Gran % 91.2 H, Lymphocytes % 4.3 L, Monocytes % 3.7, Eosinophils % 0.7, Basophils % 0.1, Absolute Granulocytes 10.8 H, Segmented Neutrophils 75, Band Neutrophils 15 H, Absolute Lymphocytes 0.5 L, Lymphocytes 3 L, Monocytes 6, Absolute Monocytes 0.4, Absolute Eosinophils 0.1, Basophils 1, Absolute Basophils 0, Platelet Estimate VERIFIED BY SMEAR, Polychromasia 1+, Basophilic Stippling 1+, Anisocytosis 1+ 01/18/18 0726: Anion Gap 9, Estimated GFR 37 L, BUN/Creatinine Ratio 30.7 H, Total Bilirubin 0.7, Direct Bilirubin 0.3, AST 26, ALT 32, Alkaline Phosphatase 70, Total Protein 5.4 L, Albumin 3.0 L, PT 14.2 H, INR 1.30 H, CBC w Diff MAN DIFF ORDERED, RBC 3.58 L, MCV 92.8, MCH 31.3 H, MCHC 33.7, RDW 14.5, MPV 8.7, Gran % 93.7 H, Lymphocytes % 2.7 L, Monocytes % 3.6, Eosinophils % 0, Basophils % 0 , Absolute Granulocytes 16.6 H, Segmented Neutrophils 81 H, Band Neutrophils 12 H, Absolute Lymphocytes 0.5 L, Lymphocytes 4 L, Monocytes 3, Absolute Monocytes 0.6, Absolute Eosinophils 0, Absolute Basophils 0, Platelet Estimate VERIFIED BY SMEAR, Normocytic RBCs VERIFIED, Normochromic RBCs VERIFIED Assessment/Plan Assessment/Plan Assessment: 1. Hypertension 2. Likely obstructive sleep apnea 3. Possible diastolic heart failure 4. Acute kidney injury 5. Acute cholecystitis, status post cholecystectomy Plan: * Stable postoperative cardiac status * Given evidence of acute kidney injury, would hold Lasix for now * Repeat basic metabolic profile in the morning Continue telemetry? Not applicable
[2018-01-19 14:11] VITALS: BP 95/54
[2018-01-19 14:19] VITALS: BP 106/80
--- NOTE | 2018-01-19 14:57 | RADIOLOGY REPORT ---
EXAMINATION: XR PORTABLE CHEST CLINICAL INFORMATION: Shortness of breath. Presumptive diagnosis of atelectasis. Rule out CHF. COMPARISON: Chest x-ray dated 01/17/2018. TECHNIQUE: Portable AP semierect view of the chest was obtained. FINDINGS: The cardiomediastinal silhouette is within normal limits in size. Calcification of the aortic arch is seen. Low lung volumes are seen with bibasilar patchy parenchymal opacities, unchanged compared to the prior exam. Central vascular congestion is seen without overt pulmonary edema. No significant pleural effusion is seen. Evaluation is limited by patient's body habitus. Multilevel degenerative changes are seen in the spine. IMPRESSION: 1. Limited exam. No significant change in bibasilar opacities, possibly due to atelectasis or pneumonia. Clinical correlation requested. 2. Central vascular congestion. No overt pulmonary edema.
--- NOTE | 2018-01-19 17:58 | Cons- Nephrology ---
General Information and HPI Consulting Request Date of Consult: 01/19/18 Requested By: Chris SOLIZ,Jett Aldana Reason for Consult: PHOEBE Source of Information: patient, old records Exam Limitations: no limitations History of Present Illness: The patient is a 67-year-old woman with a background of diabetes mellitus, hypertension, morbid obesity and sleep apnea with a baseline creatinine of 0.9- 1.2 over the past year and a half, admitted 01/17/18 with acute cholecystitis for which she underwent a laparoscopic cholecystectomy on 01/18. Serum creatinine at time of admission was 0.9, rising to 1.4 on 01/18 and then 1.9 today prompting this consultation request. She has had only episodic vomiting but admits to poor intake for at least several days prior to admission. Maximum temperature was 100.0 yesterday, 98.7 today. Systolic blood pressure was initially in the 130s-150s range but over the past 24 hours has generally range 100-128 with her most recent blood pressure recorded as 106/80 earlier this afternoon. There are no cultures from this admission on record. She has had a toe infection in the past (2012) with MRSA. WBC was 17.0 on admission, diogo to 17.8 and is down to 11.8 today. Her medication regimen includes hydrocodone for pain (she is on chronic pain management with opioids for arthritis), insulin, Unasyn, gabapentin , and Zofran. She had previously been on lisinopril, Lasix and metformin all of which were discontinued. She is currently receiving IV isotonic saline at 50 cc /h. There is been no exposure to parenteral contrast or NSAIDs. Abdominal ultrasound showed a 10.8 cm right kidney with no hydronephrosis. The left kidney was not imaged. Past medical history is positive for diabetes mellitus, hypertension, morbid obesity, sleep apnea, peripheral neuropathy, chronic pain primarily in her knees , anxiety and depression, MRSA toe infection. Outpatient medications: See below Allergies: Multiple including cephalosporins (respiratory) tramadol, trazodone ( nightmares), cyclobenzaprine. Family history: Strongly positive for diabetes mellitus, negative for any known kidney disease Social history: , has been living alone for many years, had one son who from a drug overdose, has 2 other children, non-smoker, no alcohol abuse, no IV drug abuse. Allergies/Medications Allergies: Coded Allergies: cephalexin (Severe, COULDN'T BREATHE 01/11/16) cyclobenzaprine (UNKNOWN PER PT CANT REMEMBER 01/08/17) tramadol (UNKNOWN PER PT CANT REMEMBER 01/08/17) trazodone (NIGHTMARES 01/08/17) Home Med List: Acetaminophen With Codeine (Acetaminophen-Cod #4 Tablet) 300 MG-60 MG TABLET 1 TAB PO Q4H PRN PAIN (Reported) Albuterol Sulfate (Proair Hfa) 90 MCG HFA.AER.AD 2 PUF INH Q4-6 PRN PRN SOB ( Reported) Aspirin (Aspirin*) 81 MG TAB.CHEW 1 TAB PO DAILY HEART HEALTH (Reported) Atorvastatin Calcium 40 MG TABLET 1 TAB PO DAILY CHOLESTEROL (Reported) Chlorpromazine HCl (Unknown Strength) TABLET (Unknown Dose) PO AD MENTAL HEALTH (Reported) Cyanocobalamin (Vitamin B-12) (Unknown Strength) TABLET 1,000 MCG PO DAILY supplement (Reported) Diazepam 5 MG TABLET 1 TAB PO AD PRN UNKNOWN (Reported) Doxycycline Hyclate 100 MG TABLET 1 TAB PO BID laceration Furosemide (Unknown Strength) TABLET (Unknown Dose) PO DAILY DIURETIC ( Reported) Gabapentin (Unknown Strength) CAPSULE (Unknown Dose) PO AD UNKNOWN (Reported) Glimepiride 4 MG TABLET 1 TAB PO DAILY DM (Reported) Hydrocodone/Acetaminophen (Hydrocodon-Acetaminophn 10-325) 10 MG-325 MG TABLET 1 TAB PO TIDPRN PRN PAIN (Reported) Linagliptin (Tradjenta) 5 MG TABLET 1 TAB PO DAILY DM (Reported) Lisinopril 10 MG TABLET 1 TAB PO DAILY BP (Reported) Metformin HCl (Unknown Strength) TABLET (Unknown Dose) PO BID DM (Reported) Nystatin 100,000 UNIT/GRAM CREAM..G. 1 MONICA TOP AD PRN UNDER BREASTS AND ARMS (Reported) apply to affected area(s) Ramelteon (Rozerem) 8 MG TABLET 1 TAB PO QPM PRN INSOMNIA Sennosides (Senna) 8.6 MG TABLET 2 TAB PO PRN CONSTIPATION (Reported) Review of Systems Review of Systems: Gen.: Appetite getting better, no unexplained weight loss or weight gain Skin: No rash or jaundice HEENT: No visual or hearing disturbances, no discharge Cardiopulmonary: No shortness of breath, cough, chest pain, orthopnea GI: See HPI, no diarrhea : No dysuria, hematuria or other symptoms referable to the urinary tract Musculoskeletal: Positive for arthralgias, arthritis, myalgias, weakness Neuro: No altered mental status, speech impairment, focal weakness, paresthesias Past History Travel History Traveled to [place] past 21 day No Medical History Blood Transfusion Hx: No Neurological: peripheral neuropathy, vertigo, chronic pain EENT: NONE Cardiovascular: hypertension Respiratory: NONE Gastrointestinal: NONE Hepatic: NONE Renal: RENAL DISEASE Musculoskeletal: OBESITY "NO CARTILAGE IN KNEES" R GREAT TOE ULCER Psychiatric: anxiety, depression Endocrine: diabetes Blood Disorders: NONE Cancer(s): NONE PUTTY MAKER/Reproductive: NONE Surgical History Surgical History: status post I&D of a right great toe abscess/septic arthritis Family History Relations & Conditions If Any: FATHER Coronary artery disease MOTHER, . FH: diabetes mellitus FHx: gallbladder disease FHx: pneumonia Relation not specified for: Meningococcal meningitis Psychosocial History Where Do You Live? Home Who Do You Live With? self Services at Home: Home Health Aide Primary Language: Romanian Smoking Status: Never Smoked ETOH Use: occasional use (previous "heavy" use) Illicit Drug Use: marijuana, benzodiazepines, "edibles" (2017), lsd Other Social History: , with 3 children (her son a year ago d/t drug overdose) Functional Ability Ambulation: walker, wheelchair Employment History Employment: Disability Exam & Diagnostic Data Vital Signs and I&O Vital Signs Date Time Temp Pulse Resp B/P B/P Pulse O2 O2 Flow FiO2 Mean Ox Delivery Rate 01/19 1735 117 94 Nasal 2.0L Cannula 01/19 1733 120 90 Room Air 01/19 1419 98.1 96 22 106/80 96 Room Air 01/19 0935 90 20 118/78 96 Room Air 01/19 0925 90 118/78 01/19 0805 95 Room Air 01/19 0805 20 95 Room Air 01/19 0800 22 97 Nasal 2.0L Cannula 01/19 0643 98.9 100 20 100/60 97 Room Air 01/19 0307 98.7 90 20 110/60 96 Nasal 2.0L Cannula 01/19 0000 95 Nasal 2.0L Cannula 01/18 2030 98.2 77 20 120/60 95 Nasal 2.0L Cannula Intake & Output 01/19 1600 01/19 0400 01/18 1600 01/18 0400 01/17 1600 01/17 0400 Intake Total 2140 540 1720 300 750 Output Total 1200 240 610 400 Balance 201 516 3429 -100 750 Intake, IV 3042 033 5108 300 750 Intake, Oral 1040 240 60 Number 0 Bowel Movements Output, 100 40 Drainage Output, 60 Emesis Output, Urine 1100 200 550 400 Patient 373 lb 372 lb 365 lb Weight Weight Bed scale Bed scale Reported by Patient Measurement Method Physical Exam: General: Well-developed, morbidly obese white female in NAD Skin: No rash or jaundice HEENT: Conjunctivae pink, sclerae anicteric, mucous membranes dry Neck: Without masses or thyromegaly, no supraclavicular or cervical adenopathy Chest: Clear to P&A Heart: Regular rate and rhythm without S3 or rub Abdomen: Markedly obese, soft and nontender without palpable masses or organomegaly, dressing intact, drain in place. Extremities: Without cyanosis or edema Neuro: Cognitively intact, no focal findings, no asterixis or myoclonus Assessment/Plan Assessment/Recommendations Assessment: 67-year-old woman with multiple comorbidities including diabetes mellitus, hypertension, morbid obesity and sleep apnea now admitted with acute cholecystitis for which she underwent a successful laparoscopic cholecystectomy yesterday. Her baseline renal function was not particularly remarkable with a creatinine level that was generally under 1.2. In fact, on admission her creatinine was 0.9 but has risen to 1.9 today. I do not believe that there was any exposure to potential nephrotoxins but her blood pressures have been relatively low for her. My suspicion is that this is primarily prerenal in nature with diminished renal perfusion in the postoperative state. I cannot as yet rule out a bout of acute tubular necrosis secondary to either hypotension or sepsis for which there is no clinical evidence at this time. Recommendations: 1. Urinalysis and spot urine for FENa and protein to creatinine ratio 2. Check CK level, phosphorus, magnesium 3. Increase IV fluids 125 cc/h and reassess tomorrow 4. Continue to monitor intake and output, chemistries, CBC daily Thank you. We will follow along with you.
--- NOTE | 2018-01-19 19:23 | Event Note ---
Event Note Event Note: Patient evaluated due to shortness of breath and tachycardia. She was placed on nasal cannula 2 L and her symptoms have improved. EKG shows atrial tachycardia, no significant change from preop EKG or from the EKG that was performed in the ER upon initial presentation, Approximately [address] or T-wave changes. Patient denies any chest pain. She does feel that she is coughing and wheezing a bit. On exam her heart rate is tachycardic, regular, lung sounds are diminished, slight crackles throughout most notably on the right base and expiratory wheezing is noted. Chest x-ray from earlier today shows possible atelectasis versus consolidation right lower lung as well as mild central vascular congestion. Nephrology recommendation is that patient is dry and increase her IV fluids to 125 mL an hour. Clinically, patient does appear dry and we will increase her fluids, do not feel as though she is in overt CHF. Stat labs were drawn, urine lytes including FENa, total respiratory care was ordered. Patient likely dehydrated and there is possible early right lower lobe pneumonia/pneumonitis from aspiration as she was vomiting. We will continue her on Unasyn. Patient clinically appears comfortable and not in any distress. We will continue to monitor her.
[2018-01-19 19:47] LABS: ABSOLUTE BASOPHIL COUNT 0 /CUMM (0.0-0.2); ABSOLUTE EOSINOPHIL COUNT 0.2 /CUMM (0.0-0.7); ABSOLUTE GRANULOCYTE CT 9.8 /CUMM (1.4-6.5); ABSOLUTE MONOCYTE COUNT 0.6 /CUMM (0.10-0.60); BASOPHIL % 0 % (0.0-2.0); EOSINOPHIL % 2.2 % (0-5); GRANULOCYTE % 84.5 % (42.2-75.2); HEMATOCRIT 29.3 % (37-47); MEAN CORPUSCULAR HGB 31.1 PG (27.0-31.0); MEAN CORPUSCULAR HGB CONC 33.5 G/DL (33.0-37.0); MEAN CORPUSCULAR VOLUME 93.1 FL (81.0-99.0); MEAN PLATELET VOLUME 8.8 FL (7.4-10.4); PLATELET COUNT 225 /CUMM (130-400); RBC DISTRIBUTION WIDTH 14.5 % (11.5-14.5); RED BLOOD CELL CT 3.15 /CUMM (4.20-5.40); WHITE BLOOD CELL COUNT 11.5 /CUMM (4.8-10.8)
[2018-01-19 21:06] VITALS: BP 110/80
[2018-01-20 06:13] VITALS: BP 121/62
--- NOTE | 2018-01-20 07:18 | Patient Discharge Instructions ---
Discharge Instructions General Discharge Information You were seen/treated for: Acute cholecystitis You had these procedures: Surgery Date: 01/18/18 Name of Procedure: Laparoscopic cholecystectomy Watch for these problems: FEVER>101.3, INCREASED PAIN, REDNESS/SWELLING/DRAINAGE, INCREASED SHORTNESS OF BREATH, CHEST PAINS, DIZZINESS No bath, but you may shower: Yes Other wound care: OK TO REMOVE OUTER DRESSINGS. LEAVE WHITE STERI STRIPS IN PLACE. KEEP INCISIONS CLEAN & DRY. Diet Continue normal diet: Yes Recommended Diet: Diabetic, Low Fat Activity Full Activity/No Limits: No Activity Self Limited: Yes Pounds, do NOT lift more than: 10 Other activity limits: NO HEAVY LIFTING. NO STRENUOUS ACTIVITY. Acute Coronary Syndrome Inclusion Criteria At DC or during hospital stay patient has or had the following: ACS DIAGNOSIS No Discharge Core Measures Meds if any: Prescribed or Continued at Discharge Meds if any: NOT Prescribed or Continued at Discharge Congestive Heart Failure Inclusion Criteria At DC or during hospital stay patient has or had the following: CHF DIAGNOSIS No Discharge Core Measures Meds if any: Prescribed or Continued at Discharge Meds if any: NOT Prescribed or Continued at Discharge Cerebrovascular accident Inclusion Criteria At DC or during hospital stay patient has or had the following: CVA/TIA Diagnosis No Discharge Core Measures Meds if any: Prescribed or Continued at Discharge Meds if any: NOT Prescribed or Continued at Discharge Venous thromboembolism Inclusion Criteria VTE Diagnosis No VTE Type NONE VTE Confirmed by (Test) NONE Discharge Core Measures - Per Current guidelines, there needs to be overlap - treatment for the first 5 days of Warfarin therapy. - If discharged on Warfarin prior to 5 days of - overlap therapy, the patient will need to be - assessed for post discharge needs including - *Post discharge parental anticoagulation - *Warfarin and/or parental anticoagulation education - *Follow up date to check INR post discharge At least 5 days overlap therapy as Inpatient No Meds if any: Prescribed or Continued at Discharge Note: Overlap Therapy is Warfarin and Anticoagulant Meds if any: NOT Prescribed or Continued at Discharge
[2018-01-20 07:26] VITALS: BP 124/70
--- NOTE | 2018-01-20 07:28 | PN- General Surgery ---
See Addendum Subjective Subjective: Patient doing fair this am. Reports nausea, dry heaves and eructations overnight and this am. She has not been oob or ambulating since surgery. She is able to ambulate at home. Continues with a productive cough. Denies any f/c, c/d, leg swelling, rashes, difficulty urinating, or chest pain. Objective Vital Signs and I&Os Vital Signs Date Time Temp Pulse Resp B/P B/P Pulse O2 O2 Flow FiO2 Mean Ox Delivery Rate 01/20 613 98.2 118 20 121/62 98 01/20 0000 94 Nasal 2.0L Cannula 01/19 2106 98.1 106 20 110/80 98 Nasal Cannula 01/19 2102 98 Nasal 2.0L Cannula 01/19 1735 117 94 Nasal 2.0L Cannula 01/19 1733 120 90 Room Air 01/19 1419 98.1 96 22 106/80 96 Room Air 01/19 0935 90 20 118/78 96 Room Air 01/19 0925 90 118/78 01/19 0805 95 Room Air 01/19 0805 20 95 Room Air 01/19 0800 22 97 Nasal 2.0L Cannula Intake & Output 01/20 0800 01/20 0000 01/19 1600 01/19 0800 01/19 0000 01/18 1600 Intake Total 6042 960 2684 2892 118 9063 Output Total 280 380 500 700 240 410 Balance 840 -140 600 340 300 710 Intake, IV 1000 300 074 615 0855 Intake, Oral 120 240 800 240 240 60 Number 0 Bowel Movements Output, 30 30 50 50 40 Drainage Output, 60 Emesis Output, Urine 250 350 450 650 200 350 Physical Exam: General: A, A, NAD Abdomen: Obese, soft, appropriately ttp, dressings taken down, steri strips in place with some old dried blood, aditi in place with scant ss output, no noted edema, erythema, or ecchymosis noted over any of the sites Extremities: No clubbing, cyanosis or edema Current Medications: Current Medications Sig/Gely Start time Last Medication Dose Route Stop Time Status Admin Acetaminophen 1,000 MG Q6P PRN 01/17 1700 DC 01/18 N/A 1 UNIT IV 0607 Albuterol Sulfate 3 ML BIDPRN 01/19 2045 AC 01/19 INH 2044 Albuterol Sulfate 2 PUF Q4-6 PRN PRN 01/18 0815 AC 01/18 INH 0905 Ampicillin Sodium/ 3,000 MG Q6 01/17 1800 AC 01/20 Sulbactam Sodium IV 0527 Sodium Chloride 100 ML Bupropion HCl 150 MG DAILY 01/18 900 DC PO Dextrose/Sodium 1,000 ML Q10H 01/18 193 DC 01/19 Chloride IV 0523 Diphenhydramine HCl 25 MG AT BEDTIME PRN 01/18 2000 AC 01/19 PO 2157 Duloxetine HCl 60 MG DAILY 01/18 900 DC PO Furosemide 40 MG DAILY 01/20 900 CAN PO Furosemide 40 MG ONCE ONE 01/19 945 CAN IV 01/19 946 Gabapentin 300 MG BID 01/17 2100 AC 01/19 PO 211 Heparin Sodium 5,000 UNIT Q8 01/17 2200 AC 01/20 (Porcine) SC 0530 Hydrocodone Bitart/ 15 ML Q4-6 PRN PRN 01/19 111 AC 01/19 Acetaminophen PO 2115 Hydrocodone Bitart/ 30 ML Q4-6 PRN PRN 01/19 111 AC 01/20 Acetaminophen PO 0102 Hydrocodone Bitart/ 1 TAB Q4-6 PRN PRN 01/19 1100 DC Acetaminophen PO Hydrocodone Bitart/ 2 TAB Q4-6 PRN PRN 01/19 1100 DC Acetaminophen PO Insulin Aspart 0 TIDAC 01/20 800 AC 01/19 SC 1727 Insulin Aspart 0 AT BEDTIME 01/18 2100 AC SC Lisinopril 10 MG DAILY 01/18 900 DC 01/19 PO 0925 Melatonin 5 MG AT BEDTIME PRN 01/18 1921 AC PO Morphine Sulfate 2 MG Q3P PRN 01/18 1921 AC 01/18 IV 2232 Nystatin 1 MONICA TID 01/17 2100 DC 01/18 TOP 2203 Ondansetron HCl 4 MG Q6P PRN 01/17 1700 AC 01/18 IV 0849 Oxycodone HCl 5 MG Q4 HRS NEEDED PRN 01/18 1930 DC PO Oxycodone HCl 10 MG Q4P PRN 01/18 1930 DC 01/19 PO 1024 Patient Medication 1 ED ONE ONE 01/19 1930 DC 01/19 Teaching ED 01/19 1931 2115 Ramelteon 8 MG AT BEDTIME NEED.. 01/17 1600 AC 01/19 PO 2231 Senna/Docusate Sodium 2 TAB DAILY 01/18 0900 AC 01/19 PO 0925 Sodium Chloride 1,000 ML Q8H 01/19 1915 AC 01/20 IV 0109 Sodium Chloride 1,000 ML Q20H 01/19 1000 DC 01/19 IV 1024 Results Last 48 Hours of Labs: Laboratory Tests 01/20 01/19 01/19 0606 2030 2030 Chemistry Sodium Pending Potassium Pending Chloride Pending Carbon Dioxide Pending Anion Gap Pending BUN Pending Creatinine Pending BUN/Creatinine Ratio Pending Hematology CBC w Diff Pending WBC Pending RBC Pending Hgb Pending Hct Pending MCV Pending MCH Pending MCHC Pending RDW Pending Plt Count Pending MPV Pending Urines Urine Color (YEL,AMB,STR) YEL Urine Clarity (CLEAR) CLEAR Urine pH (5.0 - 8.0) 5.5 Ur Specific [place] (1.001 - 1.035) 1.025 Urine Protein (NEG,<30 MG/DL) NEG Urine Ketones (NEG) TRACE H Urine Nitrite (NEG) NEG Urine Bilirubin (NEG) NEG Urine Urobilinogen (0.1 - 1.0 EU/dl) 0.2 Ur Leukocyte Esterase (NEG) NEG Ur Microscopic SEDIMENT EXAMINED Urine RBC (0 - 5 /HPF) RARE Urine WBC (0 - 2 /HPF) RARE Ur Epithelial Cells (NONE,FEW) FEW Urine Bacteria (NEG/NONE) RARE H Urine Hemoglobin (NEG) NEG Ur Random Creatinine (mg/dL) 159.6 Ur Random Sodium (30 - 90 mmol/L) < 5 L Ur Random Potassium (mmol/L) 58.5 Fraction Sodium Excret (<1% %) Urine Glucose (N MG/DL) NEG 01/19 01/19 1841 1825 Chemistry Sodium (137 - 145 mmol/L) 135 L Potassium (3.5 - 5.1 mmol/L) 4.8 Chloride (98 - 107 mmol/L) 99 Carbon Dioxide (22 - 30 mmol/L) 27 Anion Gap (5 - 16) 10 BUN (7 - 17 mg/dL) 62 H Creatinine (0.5 - 1.0 mg/dL) 2.5 H Estimated GFR (>60 ml/min) 19 L BUN/Creatinine Ratio (7 - 25 %) 24.8 Phosphorus (2.5 - 4.5 mg/dL) 3.5 Magnesium (1.6 - 2.3 mg/dL) 1.6 Creatine Kinase (30 - 135 U/L) Cancelled 138 H [id number]-Ebywwovfxeq Pept (<125 pg/mL) 6820 H Hematology CBC w Diff NO MAN DIFF REQ WBC (4.8 - 10.8 /CUMM) 11.5 H RBC (4.20 - 5.40 /CUMM) 3.15 L Hgb (12.0 - 16.0 G/DL) 9.8 L Hct (37 - 47 %) 29.3 L MCV (81.0 - 99.0 FL) 93.1 MCH (27.0 - 31.0 PG) 31.1 H MCHC (33.0 - 37.0 G/DL) 33.5 RDW (11.5 - 14.5 %) 14.5 Plt Count (130 - 400 /CUMM) 225 MPV (7.4 - 10.4 FL) 8.8 Gran % (42.2 - 75.2 %) 84.5 H Lymphocytes % (20.5 - 51.1 %) 8.5 L Monocytes % (1.7 - 9.3 %) 4.8 Eosinophils % (0 - 5 %) 2.2 Basophils % (0.0 - 2.0 %) 0 Absolute Granulocytes (1.4 - 6.5 /CUMM) 9.8 H Absolute Lymphocytes (1.2 - 3.4 /CUMM) 1.0 L Absolute Monocytes (0.10 - 0.60 /CUMM) 0.6 Absolute Eosinophils (0.0 - 0.7 /CUMM) 0.2 Absolute Basophils (0.0 - 0.2 /CUMM) 0 01/19 0752 Chemistry Sodium (137 - 145 mmol/L) 136 L Potassium (3.5 - 5.1 mmol/L) 4.7 Chloride (98 - 107 mmol/L) 105 Carbon Dioxide (22 - 30 mmol/L) 26 Anion Gap (5 - 16) 5 BUN (7 - 17 mg/dL) 59 H Creatinine (0.5 - 1.0 mg/dL) 1.9 H Estimated GFR (>60 ml/min) 26 L BUN/Creatinine Ratio (7 - 25 %) 31.1 H Serum Osmolality (285 - 295 MOSM/KG) 308 H Total Bilirubin (0.2 - 1.3 mg/dL) 0.2 Direct Bilirubin (< 0.4 mg/dL) 0.1 AST (14 - 36 U/L) 34 ALT (9 - 52 U/L) 45 Alkaline Phosphatase (<127 U/L) 66 Total Protein (6.3 - 8.2 g/dL) 4.7 L Albumin (3.5 - 5.0 g/dL) 2.6 L Hematology CBC w Diff MAN DIFF ORDERED WBC (4.8 - 10.8 /CUMM) 11.8 H RBC (4.20 - 5.40 /CUMM) 3.15 L Hgb (12.0 - 16.0 G/DL) 9.8 L Hct (37 - 47 %) 29.6 L MCV (81.0 - 99.0 FL) 94.0 MCH (27.0 - 31.0 PG) 31.2 H MCHC (33.0 - 37.0 G/DL) 33.2 RDW (11.5 - 14.5 %) 14.8 H Plt Count (130 - 400 /CUMM) 219 MPV (7.4 - 10.4 FL) 8.6 Gran % (42.2 - 75.2 %) 91.2 H Lymphocytes % (20.5 - 51.1 %) 4.3 L Monocytes % (1.7 - 9.3 %) 3.7 Eosinophils % (0 - 5 %) 0.7 Basophils % (0.0 - 2.0 %) 0.1 Absolute Granulocytes (1.4 - 6.5 /CUMM) 10.8 H Segmented Neutrophils (42.2 - 75.2 %) 75 Band Neutrophils (0.0 - 5.0 %) 15 H Absolute Lymphocytes (1.2 - 3.4 /CUMM) 0.5 L Lymphocytes (20.5 - 51.1 %) 3 L Monocytes (1.7 - 9.3 %) 6 Absolute Monocytes (0.10 - 0.60 /CUMM) 0.4 Absolute Eosinophils (0.0 - 0.7 /CUMM) 0.1 Basophils (0.0 - 2.0 %) 1 Absolute Basophils (0.0 - 0.2 /CUMM) 0 Platelet Estimate (ADEQUATE) VERIFIED BY SMEAR Polychromasia 1+ Basophilic Stippling 1+ Anisocytosis 1+ 01/18 0726 Chemistry Sodium (137 - 145 mmol/L) 138 Potassium (3.5 - 5.1 mmol/L) 4.4 Chloride (98 - 107 mmol/L) 101 Carbon Dioxide (22 - 30 mmol/L) 27 Anion Gap (5 - 16) 9 BUN (7 - 17 mg/dL) 43 H Creatinine (0.5 - 1.0 mg/dL) 1.4 H Estimated GFR (>60 ml/min) 37 L BUN/Creatinine Ratio (7 - 25 %) 30.7 H Total Bilirubin (0.2 - 1.3 mg/dL) 0.7 Direct Bilirubin (< 0.4 mg/dL) 0.3 AST (14 - 36 U/L) 26 ALT (9 - 52 U/L) 32 Alkaline Phosphatase (<127 U/L) 70 Total Protein (6.3 - 8.2 g/dL) 5.4 L Albumin (3.5 - 5.0 g/dL) 3.0 L Coagulation PT (9.4 - 12.5 SEC) 14.2 H INR (0.90 - 1.19) 1.30 H Hematology CBC w Diff MAN DIFF ORDERED WBC (4.8 - 10.8 /CUMM) 17.8 H RBC (4.20 - 5.40 /CUMM) 3.58 L Hgb (12.0 - 16.0 G/DL) 11.2 L Hct (37 - 47 %) 33.3 L MCV (81.0 - 99.0 FL) 92.8 MCH (27.0 - 31.0 PG) 31.3 H MCHC (33.0 - 37.0 G/DL) 33.7 RDW (11.5 - 14.5 %) 14.5 Plt Count (130 - 400 /CUMM) 222 MPV (7.4 - 10.4 FL) 8.7 Gran % (42.2 - 75.2 %) 93.7 H Lymphocytes % (20.5 - 51.1 %) 2.7 L Monocytes % (1.7 - 9.3 %) 3.6 Eosinophils % (0 - 5 %) 0 Basophils % (0.0 - 2.0 %) 0 Absolute Granulocytes (1.4 - 6.5 /CUMM) 16.6 H Segmented Neutrophils (42.2 - 75.2 %) 81 H Band Neutrophils (0.0 - 5.0 %) 12 H Absolute Lymphocytes (1.2 - 3.4 /CUMM) 0.5 L Lymphocytes (20.5 - 51.1 %) 4 L Monocytes (1.7 - 9.3 %) 3 Absolute Monocytes (0.10 - 0.60 /CUMM) 0.6 Absolute Eosinophils (0.0 - 0.7 /CUMM) 0 Absolute Basophils (0.0 - 0.2 /CUMM) 0 Platelet Estimate (ADEQUATE) VERIFIED BY SMEAR Normocytic RBCs VERIFIED Normochromic RBCs VERIFIED Assessment/Plan Assessment/Plan A- POD#2 s/p lap fariba for acute purulent cholecystitis, with multiple medical problems postoperative course complicated by phoebe and likely aspiration pna P- I&O Back down to clear liquids IVF for PHOEBE POC, ISS Cont IV unasyn Will start mucinex PRN pain meds/antiemetics Follow up labs Home meds Appreciate cards and renal input Will d/w attending Core Measures Venous Thromboembolism VTE Risk Factors Acute Medical Illness No Mechanical VTE Prophylaxis d/t N/A MechProphylax Ordered No VTE Pharm Prophylaxis d/t NA PharmProphylax ordered
[2018-01-20 07:49] LABS: ABSOLUTE BASOPHIL COUNT 0 /CUMM (0.0-0.2); ABSOLUTE EOSINOPHIL COUNT 0.3 /CUMM (0.0-0.7); ABSOLUTE GRANULOCYTE CT 8.9 /CUMM (1.4-6.5); ABSOLUTE MONOCYTE COUNT 0.6 /CUMM (0.10-0.60); BASOPHIL % 0.1 % (0.0-2.0); EOSINOPHIL % 3.2 % (0-5); GRANULOCYTE % 82.1 % (42.2-75.2); HEMATOCRIT 28.2 % (37-47); MEAN CORPUSCULAR HGB CONC 32.9 G/DL (33.0-37.0); MEAN CORPUSCULAR VOLUME 94.3 FL (81.0-99.0); MEAN PLATELET VOLUME 8.9 FL (7.4-10.4); PLATELET COUNT 202 /CUMM (130-400); RBC DISTRIBUTION WIDTH 14.8 % (11.5-14.5); RED BLOOD CELL CT 2.99 /CUMM (4.20-5.40); WHITE BLOOD CELL COUNT 10.8 /CUMM (4.8-10.8)
--- NOTE | 2018-01-20 11:14 | PN- Cardiology ---
Subjective Subjective: Patient sitting in the bedside chair. She denies any cardiac symptoms. She has not eaten anything significant since yesterday. Hungry at the moment. Diet pending. Objective Vital Signs and I&Os Vital Signs Date Time Temp Pulse Resp B/P B/P Pulse O2 O2 Flow FiO2 Mean Ox Delivery Rate 01/20 0832 96 Nasal 2.0L Cannula 01/20 0733 96 Nasal 2.0L Cannula 01/20 0726 98.7 96 20 124/70 96 Nasal 2.0L Cannula 01/20 0613 98.2 118 20 121/62 98 01/20 0000 94 Nasal 2.0L Cannula 01/19 2106 98.1 106 20 110/80 98 Nasal Cannula 01/19 2102 98 Nasal 2.0L Cannula 01/19 1735 117 94 Nasal 2.0L Cannula 01/19 1733 120 90 Room Air 01/19 1419 98.1 96 22 106/80 96 Room Air Intake & Output 01/20 1600 01/20 0800 01/20 0000 01/19 1600 01/19 0800 01/19 0000 Intake Total 6757 106 1553 1040 540 Output Total 280 380 500 700 240 Balance 840 -140 600 340 300 Intake, IV 1000 300 800 300 Intake, Oral 120 240 800 240 240 Number 0 Bowel Movements Output, 30 30 50 50 40 Drainage Output, Urine 250 350 450 650 200 Patient 381 lb Weight Weight Bed scale Measurement Method Physical Exam: Gen: The patient is in no acute distress HEENT: Normal Neck: Supple with no JVD, no masses, and no thyromegaly Lungs: Clear to auscultation with normal respiratory effort Heart: RRR, S1, S2, no murmurs. Abdomen: Soft, nontender, no masses. No hepatomegaly. No splenomegaly Extremities: No clubbing or cyanosis. Trace to 1+ lower extremity edema. Skin: Normal Current Medications: Current Medications Sig/Gely Start time Last Medication Dose Route Stop Time Status Admin Albuterol Sulfate 3 ML BIDPRN 01/19 2045 AC 01/20 INH 0832 Albuterol Sulfate 2 PUF Q4-6 PRN PRN 01/18 0815 AC 01/18 INH 0905 Ampicillin Sodium/ 3,000 MG Q6 01/17 1800 AC 01/20 Sulbactam Sodium IV 0527 Sodium Chloride 100 ML Diphenhydramine HCl 25 MG AT BEDTIME PRN 01/18 2000 AC 01/19 PO 2157 Furosemide 40 MG DAILY 01/20 900 CAN PO Gabapentin 300 MG BID 01/17 2100 AC 01/20 PO 927 Guaifenesin 1,200 MG BID 01/20 900 AC 01/20 PO 28 Heparin Sodium 5,000 UNIT Q8 01/17 2200 AC 01/20 (Porcine) SC 0530 Hydrocodone Bitart/ 15 ML Q4-6 PRN PRN 01/19 111 AC 01/19 Acetaminophen PO 211 Hydrocodone Bitart/ 30 ML Q4-6 PRN PRN 01/19 1115 AC 01/20 Acetaminophen PO 0731 Insulin Aspart 0 TIDAC 01/19 08 AC 01/19 SC 1727 Insulin Aspart 0 AT BEDTIME 01/18 2100 AC SC Melatonin 5 MG AT BEDTIME PRN 01/18 1921 AC PO Morphine Sulfate 2 MG Q3P PRN 01/18 1921 AC 01/18 IV 2232 Ondansetron HCl 4 MG Q6P PRN 01/17 1700 AC 01/20 IV 0728 Patient Medication 1 ED ONE ONE 01/19 1930 WI 01/19 Teaching ED 01/19 Polyethylene Glycol 17 GM DAILY 01/20 900 AC 01/20 PO 28 Ramelteon 8 MG AT BEDTIME NEED.. 01/17 1600 AC 01/19 PO 2231 Senna/Docusate Sodium 2 TAB DAILY 01/18 09 AC 01/20 PO 0928 Simethicone 40 MG Q6P PRN 01/20 0945 AC 01/20 PO 1013 Sodium Chloride 1,000 ML Q8H 01/19 1915 AC 01/20 IV 1013 Sodium Chloride 1,000 ML Q20H 01/19 1000 DC 01/19 IV 1024 Results Last 48 Hrs of Labs/Mics: Laboratory Tests 01/20/18 0606: Anion Gap 9, Estimated GFR 22 L, BUN/Creatinine Ratio 30.0 H, CBC w Diff NO MAN DIFF REQ, RBC 2.99 L, MCV 94.3, MCH 31.0, MCHC 32.9 L, RDW 14.8 H, MPV 8.9, Gran % 82.1 H, Lymphocytes % 9.0 L, Monocytes % 5.6, Eosinophils % 3.2, Basophils % 0.1, Absolute Granulocytes 8.9 H, Absolute Lymphocytes 1.0 L, Absolute Monocytes 0.6, Absolute Eosinophils 0.3, Absolute Basophils 0 01/19/182029: Urine Color YEL, Urine Clarity CLEAR, Urine pH 5.5, Ur Specific [place] 1.025, Urine Protein NEG, Urine Ketones TRACE H, Urine Nitrite NEG, Urine Bilirubin NEG, Urine Urobilinogen 0.2, Ur Leukocyte Esterase NEG, Ur Microscopic SEDIMENT EXAMINED, Urine RBC RARE, Urine WBC RARE, Ur Epithelial Cells FEW, Urine Bacteria RARE H, Urine Hemoglobin NEG, Urine Glucose NEG 01/19/182029: Ur Random Creatinine 159.6, Ur Random Sodium < 5 L, Ur Random Potassium 58.5, Fraction Sodium Excret 01/19/18 184: Creatine Kinase Cancelled 01/19/18 1825: Anion Gap 10, Estimated GFR 19 L, BUN/Creatinine Ratio 24.8, Phosphorus 3.5, Magnesium 1.6, Creatine Kinase 138 H, Zge-L-Pebqopslbhu Pept 6820 H, CBC w Diff NO MAN DIFF REQ, RBC 3.15 L, MCV 93.1, MCH 31.1 H, MCHC 33.5, RDW 14.5, MPV 8.8, Gran % 84.5 H, Lymphocytes % 8.5 L, Monocytes % 4.8, Eosinophils % 2.2, Basophils % 0, Absolute Granulocytes 9.8 H, Absolute Lymphocytes 1.0 L, Absolute Monocytes 0.6, Absolute Eosinophils 0.2, Absolute Basophils 0 01/19/18 0752: Anion Gap 5, Estimated GFR 26 L, BUN/Creatinine Ratio 31.1 H, Serum Osmolality 308 H, Total Bilirubin 0.2, Direct Bilirubin 0.1, AST 34, ALT 45, Alkaline Phosphatase 66, Total Protein 4.7 L, Albumin 2.6 L, CBC w Diff MAN DIFF ORDERED, RBC 3.15 L, MCV 94.0, MCH 31.2 H, MCHC 33.2, RDW 14.8 H, MPV 8.6, Gran % 91.2 H, Lymphocytes % 4.3 L, Monocytes % 3.7, Eosinophils % 0.7, Basophils % 0.1, Absolute Granulocytes 10.8 H, Segmented Neutrophils 75, Band Neutrophils 15 H, Absolute Lymphocytes 0.5 L, Lymphocytes 3 L, Monocytes 6, Absolute Monocytes 0.4, Absolute Eosinophils 0.1, Basophils 1, Absolute Basophils 0, Platelet Estimate VERIFIED BY SMEAR, Polychromasia 1+, Basophilic Stippling 1+, Anisocytosis 1+ Assessment/Plan Assessment/Plan Assessment: 1. Hypertension 2. Likely obstructive sleep apnea 3. Possible diastolic heart failure 4. Acute kidney injury 5. Acute cholecystitis, status post cholecystectomy Plan: -The patient appears stable from a cardiac standpoint at the present time. -Lasix on hold, follow-up labs pending -Reassess in 24 hours. Continue telemetry? Not applicable
--- NOTE | 2018-01-20 11:34 | PN- Nephrology ---
Assessment/Plan Nephrology Assessment: 1. Acute kidney injury secondary to volume contraction -improving with IV fluids 2. Status post laparoscopic cholecystectomy 01/18/18 3. Diabetes mellitus, hypertension, morbid obesity, obstructive sleep apnea Suggestion: 1. Continue IV isotonic saline at 125 cc/h 2. Continue to hold Lasix and MICHAEL inhibitor 3. Monitor intake and output, chemistries daily Subjective Subjective: Patient had a difficult night. She apparently had some episodic abdominal pain with nausea. She is better this morning. Vital signs stable and she is afebrile. WBC down to 10.8. Urine output 1450cc yesterday. Urinalysis showed no dipstick proteinuria and fractional excretion of sodium less than 1% consistent with prerenal azotemia. Objective Vital Signs and I&Os Vital Signs Date Time Temp Pulse Resp B/P B/P Pulse O2 O2 Flow FiO2 Mean Ox Delivery Rate 01/20 0832 96 Nasal 2.0L Cannula 01/20 0733 96 Nasal 2.0L Cannula 01/20 0726 98.7 96 20 124/70 96 Nasal 2.0L Cannula 01/20 0613 98.2 118 20 121/62 98 01/20 0000 94 Nasal 2.0L Cannula 01/19 2106 98.1 106 20 110/80 98 Nasal Cannula 01/19 2102 98 Nasal 2.0L Cannula 01/19 1735 117 94 Nasal 2.0L Cannula 01/19 1733 120 90 Room Air 01/19 1419 98.1 96 22 106/80 96 Room Air Intake & Output 01/20 1600 01/20 0400 01/19 1600 01/19 0400 01/18 1600 01/18 0400 Intake Total 1732 778 2818 540 1720 300 Output Total 30 630 1200 240 610 400 Balance 1090 -390 185 154 7272 -100 Intake, IV 1000 8251 981 5226 300 Intake, Oral 804 814 5953 240 60 Number 0 Bowel Movements Output, 30 30 100 40 Drainage Output, 60 Emesis Output, Urine 600 1100 200 550 400 Patient 381 lb 373 lb 372 lb Weight Weight Bed scale Bed scale Bed scale Measurement Method Physical Exam: General: Well-developed, morbidly obese white female in NAD Skin: No rash or jaundice HEENT: Conjunctivae pink, sclerae anicteric, mucous membranes dry Neck: Without masses or thyromegaly, no supraclavicular or cervical adenopathy Chest: Clear to P&A Heart: Regular rate and rhythm without S3 or rub Abdomen: Markedly obese, soft and nontender without palpable masses or organomegaly, dressing intact, drain in place. Extremities: Without cyanosis or edema Neuro: Cognitively intact, no focal findings, no asterixis or myoclonus Current Medications: Current Medications Sig/Gely Start time Last Medication Dose Route Stop Time Status Admin Albuterol Sulfate 3 ML BIDPRN 01/19 2045 AC 01/20 INH 0832 Albuterol Sulfate 2 PUF Q4-6 PRN PRN 01/18 0815 AC 01/18 INH 0905 Ampicillin Sodium/ 3,000 MG Q6 01/17 1800 AC 01/20 Sulbactam Sodium IV 0527 Sodium Chloride 100 ML Diphenhydramine HCl 25 MG AT BEDTIME PRN 01/18 2000 AC 01/19 PO 2157 Gabapentin 300 MG BID 01/17 2100 AC 01/20 PO 0928 Guaifenesin 1,200 MG BID 01/20 09 AC 01/20 PO 0928 Heparin Sodium 5,000 UNIT Q8 01/17 2200 AC 01/20 (Porcine) SC 0530 Hydrocodone Bitart/ 15 ML Q4-6 PRN PRN 01/19 111 AC 01/19 Acetaminophen PO 2115 Hydrocodone Bitart/ 30 ML Q4-6 PRN PRN 01/19 1115 AC 01/20 Acetaminophen PO 0731 Insulin Aspart 0 TIDAC 01/19 08 AC 01/19 SC 1727 Insulin Aspart 0 AT BEDTIME 01/18 2100 AC SC Melatonin 5 MG AT BEDTIME PRN 01/18 1921 AC PO Morphine Sulfate 2 MG Q3P PRN 01/18 192 AC 01/18 IV 2232 Ondansetron HCl 4 MG Q6P PRN 01/17 1700 AC 01/20 IV 0728 Patient Medication 1 ED ONE ONE 01/19 1930 DC 01/19 Teaching ED 01/19 Polyethylene Glycol 17 GM DAILY 01/20 900 AC 01/20 PO 0928 Ramelteon 8 MG AT BEDTIME NEED.. 01/17 1600 AC 01/19 PO 2231 Senna/Docusate Sodium 2 TAB DAILY 01/18 900 AC 01/20 PO 0928 Simethicone 40 MG Q6P PRN 01/20 0945 AC 01/20 PO 1013 Sodium Chloride 1,000 ML Q8H 01/19 1915 AC 01/20 IV 1013 Sodium Chloride 1,000 ML Q20H 01/19 1000 DC 01/19 IV 1024 Results Pertinent Lab Results: Laboratory Tests 01/20 01/19 06 2030 Chemistry Sodium (137 - 145 mmol/L) 133 L Potassium (3.5 - 5.1 mmol/L) 4.6 Chloride (98 - 107 mmol/L) 100 Carbon Dioxide (22 - 30 mmol/L) 24 Anion Gap (5 - 16) 9 BUN (7 - 17 mg/dL) 66 H Creatinine (0.5 - 1.0 mg/dL) 2.2 H Estimated GFR (>60 ml/min) 22 L BUN/Creatinine Ratio (7 - 25 %) 30.0 H Hematology CBC w Diff NO MAN DIFF REQ WBC (4.8 - 10.8 /CUMM) 10.8 RBC (4.20 - 5.40 /CUMM) 2.99 L Hgb (12.0 - 16.0 G/DL) 9.3 L Hct (37 - 47 %) 28.2 L MCV (81.0 - 99.0 FL) 94.3 MCH (27.0 - 31.0 PG) 31.0 MCHC (33.0 - 37.0 G/DL) 32.9 L RDW (11.5 - 14.5 %) 14.8 H Plt Count (130 - 400 /CUMM) 202 MPV (7.4 - 10.4 FL) 8.9 Gran % (42.2 - 75.2 %) 82.1 H Lymphocytes % (20.5 - 51.1 %) 9.0 L Monocytes % (1.7 - 9.3 %) 5.6 Eosinophils % (0 - 5 %) 3.2 Basophils % (0.0 - 2.0 %) 0.1 Absolute Granulocytes (1.4 - 6.5 /CUMM) 8.9 H Absolute Lymphocytes (1.2 - 3.4 /CUMM) 1.0 L Absolute Monocytes (0.10 - 0.60 /CUMM) 0.6 Absolute Eosinophils (0.0 - 0.7 /CUMM) 0.3 Absolute Basophils (0.0 - 0.2 /CUMM) 0 Urines Urine Color (YEL,AMB,STR) YEL Urine Clarity (CLEAR) CLEAR Urine pH (5.0 - 8.0) 5.5 Ur Specific [place] (1.001 - 1.035) 1.025 Urine Protein (NEG,<30 MG/DL) NEG Urine Ketones (NEG) TRACE H Urine Nitrite (NEG) NEG Urine Bilirubin (NEG) NEG Urine Urobilinogen (0.1 - 1.0 EU/dl) 0.2 Ur Leukocyte Esterase (NEG) NEG Ur Microscopic SEDIMENT EXAMINED Urine RBC (0 - 5 /HPF) RARE Urine WBC (0 - 2 /HPF) RARE Ur Epithelial Cells (NONE,FEW) FEW Urine Bacteria (NEG/NONE) RARE H Urine Hemoglobin (NEG) NEG Urine Glucose (N MG/DL) NEG 01/19 01/19 01/19 2030 1841 1825 Chemistry Sodium (137 - 145 mmol/L) 135 L Potassium (3.5 - 5.1 mmol/L) 4.8 Chloride (98 - 107 mmol/L) 99 Carbon Dioxide (22 - 30 mmol/L) 27 Anion Gap (5 - 16) 10 BUN (7 - 17 mg/dL) 62 H Creatinine (0.5 - 1.0 mg/dL) 2.5 H Estimated GFR (>60 ml/min) 19 L BUN/Creatinine Ratio (7 - 25 %) 24.8 Phosphorus (2.5 - 4.5 mg/dL) 3.5 Magnesium (1.6 - 2.3 mg/dL) 1.6 Creatine Kinase (30 - 135 U/L) Cancelled 138 H Ezx-L-Suntqinjjyi Pept (<125 pg/mL) 6820 H Hematology CBC w Diff NO MAN DIFF REQ WBC (4.8 - 10.8 /CUMM) 11.5 H RBC (4.20 - 5.40 /CUMM) 3.15 L Hgb (12.0 - 16.0 G/DL) 9.8 L Hct (37 - 47 %) 29.3 L MCV (81.0 - 99.0 FL) 93.1 MCH (27.0 - 31.0 PG) 31.1 H MCHC (33.0 - 37.0 G/DL) 33.5 RDW (11.5 - 14.5 %) 14.5 Plt Count (130 - 400 /CUMM) 225 MPV (7.4 - 10.4 FL) 8.8 Gran % (42.2 - 75.2 %) 84.5 H Lymphocytes % (20.5 - 51.1 %) 8.5 L Monocytes % (1.7 - 9.3 %) 4.8 Eosinophils % (0 - 5 %) 2.2 Basophils % (0.0 - 2.0 %) 0 Absolute Granulocytes (1.4 - 6.5 /CUMM) 9.8 H Absolute Lymphocytes (1.2 - 3.4 /CUMM) 1.0 L Absolute Monocytes (0.10 - 0.60 /CUMM) 0.6 Absolute Eosinophils (0.0 - 0.7 /CUMM) 0.2 Absolute Basophils (0.0 - 0.2 /CUMM) 0 Urines Ur Random Creatinine (mg/dL) 159.6 Ur Random Sodium (30 - 90 mmol/L) < 5 L Ur Random Potassium (mmol/L) 58.5 Fraction Sodium Excret (<1% %) 01/19 0752 Chemistry Sodium (137 - 145 mmol/L) 136 L Potassium (3.5 - 5.1 mmol/L) 4.7 Chloride (98 - 107 mmol/L) 105 Carbon Dioxide (22 - 30 mmol/L) 26 Anion Gap (5 - 16) 5 BUN (7 - 17 mg/dL) 59 H Creatinine (0.5 - 1.0 mg/dL) 1.9 H Estimated GFR (>60 ml/min) 26 L BUN/Creatinine Ratio (7 - 25 %) 31.1 H Serum Osmolality (285 - 295 MOSM/KG) 308 H Total Bilirubin (0.2 - 1.3 mg/dL) 0.2 Direct Bilirubin (< 0.4 mg/dL) 0.1 AST (14 - 36 U/L) 34 ALT (9 - 52 U/L) 45 Alkaline Phosphatase (<127 U/L) 66 Total Protein (6.3 - 8.2 g/dL) 4.7 L Albumin (3.5 - 5.0 g/dL) 2.6 L Hematology CBC w Diff MAN DIFF ORDERED WBC (4.8 - 10.8 /CUMM) 11.8 H RBC (4.20 - 5.40 /CUMM) 3.15 L Hgb (12.0 - 16.0 G/DL) 9.8 L Hct (37 - 47 %) 29.6 L MCV (81.0 - 99.0 FL) 94.0 MCH (27.0 - 31.0 PG) 31.2 H MCHC (33.0 - 37.0 G/DL) 33.2 RDW (11.5 - 14.5 %) 14.8 H Plt Count (130 - 400 /CUMM) 219 MPV (7.4 - 10.4 FL) 8.6 Gran % (42.2 - 75.2 %) 91.2 H Lymphocytes % (20.5 - 51.1 %) 4.3 L Monocytes % (1.7 - 9.3 %) 3.7 Eosinophils % (0 - 5 %) 0.7 Basophils % (0.0 - 2.0 %) 0.1 Absolute Granulocytes (1.4 - 6.5 /CUMM) 10.8 H Segmented Neutrophils (42.2 - 75.2 %) 75 Band Neutrophils (0.0 - 5.0 %) 15 H Absolute Lymphocytes (1.2 - 3.4 /CUMM) 0.5 L Lymphocytes (20.5 - 51.1 %) 3 L Monocytes (1.7 - 9.3 %) 6 Absolute Monocytes (0.10 - 0.60 /CUMM) 0.4 Absolute Eosinophils (0.0 - 0.7 /CUMM) 0.1 Basophils (0.0 - 2.0 %) 1 Absolute Basophils (0.0 - 0.2 /CUMM) 0 Platelet Estimate (ADEQUATE) VERIFIED BY SMEAR Polychromasia 1+ Basophilic Stippling 1+ Anisocytosis 1+ 01/18 0726 Chemistry Sodium (137 - 145 mmol/L) 138 Potassium (3.5 - 5.1 mmol/L) 4.4 Chloride (98 - 107 mmol/L) 101 Carbon Dioxide (22 - 30 mmol/L) 27 Anion Gap (5 - 16) 9 BUN (7 - 17 mg/dL) 43 H Creatinine (0.5 - 1.0 mg/dL) 1.4 H Estimated GFR (>60 ml/min) 37 L BUN/Creatinine Ratio (7 - 25 %) 30.7 H Total Bilirubin (0.2 - 1.3 mg/dL) 0.7 Direct Bilirubin (< 0.4 mg/dL) 0.3 AST (14 - 36 U/L) 26 ALT (9 - 52 U/L) 32 Alkaline Phosphatase (<127 U/L) 70 Total Protein (6.3 - 8.2 g/dL) 5.4 L Albumin (3.5 - 5.0 g/dL) 3.0 L Coagulation PT (9.4 - 12.5 SEC) 14.2 H INR (0.90 - 1.19) 1.30 H Hematology CBC w Diff MAN DIFF ORDERED WBC (4.8 - 10.8 /CUMM) 17.8 H RBC (4.20 - 5.40 /CUMM) 3.58 L Hgb (12.0 - 16.0 G/DL) 11.2 L Hct (37 - 47 %) 33.3 L MCV (81.0 - 99.0 FL) 92.8 MCH (27.0 - 31.0 PG) 31.3 H MCHC (33.0 - 37.0 G/DL) 33.7 RDW (11.5 - 14.5 %) 14.5 Plt Count (130 - 400 /CUMM) 222 MPV (7.4 - 10.4 FL) 8.7 Gran % (42.2 - 75.2 %) 93.7 H Lymphocytes % (20.5 - 51.1 %) 2.7 L Monocytes % (1.7 - 9.3 %) 3.6 Eosinophils % (0 - 5 %) 0 Basophils % (0.0 - 2.0 %) 0 Absolute Granulocytes (1.4 - 6.5 /CUMM) 16.6 H Segmented Neutrophils (42.2 - 75.2 %) 81 H Band Neutrophils (0.0 - 5.0 %) 12 H Absolute Lymphocytes (1.2 - 3.4 /CUMM) 0.5 L Lymphocytes (20.5 - 51.1 %) 4 L Monocytes (1.7 - 9.3 %) 3 Absolute Monocytes (0.10 - 0.60 /CUMM) 0.6 Absolute Eosinophils (0.0 - 0.7 /CUMM) 0 Absolute Basophils (0.0 - 0.2 /CUMM) 0 Platelet Estimate (ADEQUATE) VERIFIED BY SMEAR Normocytic RBCs VERIFIED Normochromic RBCs VERIFIED
[2018-01-20 14:06] VITALS: BP 107/51
[2018-01-20 21:04] VITALS: BP 110/50
[2018-01-21 06:24] VITALS: BP 100/52
--- NOTE | 2018-01-21 08:07 | PN- General Surgery ---
See Addendum Subjective Subjective: Pt wants to sleep.She has not ambulated in hills, only to bathroom. She c/o everybody is waking her up. Objective Vital Signs and I&Os Vital Signs Date Time Temp Pulse Resp B/P B/P Pulse O2 O2 Flow FiO2 Mean Ox Delivery Rate 01/21 0624 98.3 88 20 100/52 95 01/21 0000 Nasal 2.0L Cannula 01/20 2104 98.3 88 20 110/50 99 Nasal 2.0L Cannula 01/20 1700 99 Nasal 2.0L Cannula 01/20 1632 Nasal 2.0L Cannula 01/20 1617 Nasal 2.0L Cannula 01/20 1600 Nasal 2.0L Cannula 01/20 1406 98.4 68 18 107/51 96 Nasal 2.0L Cannula 01/20 0832 96 Nasal 2.0L Cannula Intake & Output 01/21 1600 01/21 0800 01/21 0000 01/20 1600 01/20 0800 01/20 0000 Intake Total 1355 1550 1120 240 Output Total 300 1400 280 380 Balance -300 1355 150 840 -140 Intake, IV 875 1000 1000 Intake, Oral 480 550 120 240 Number 0 Bowel Movements Output, 30 30 Drainage Output, Urine 300 1400 250 350 Patient 381 lb 381 lb Weight Weight Bed scale Measurement Method Alert when awake, answers appropriately Abdomen is obese. There is no significant tenderness to palpation or percussion. Port sites are clean, dry, intact without erythrema. Assessment/Plan Assessment/Plan 67 y o female , morbidly obese who underwent lap. fariba 01/18 for acalcoulus choleystitis. She has multiple medical issues and post op PHOEBE, ? aspiration PNA Cardiology note appreciated. Electrolytes/ creatinine pending for this morning. Still has cough.No leukocytosis. Abdominal exam as expected. No active surgical issues. Tolerating diet. Will need rehab once medical issues stabilized Core Measures Venous Thromboembolism VTE Risk Factors Acute Medical Illness No Mechanical VTE Prophylaxis d/t N/A MechProphylax Ordered No VTE Pharm Prophylaxis d/t NA PharmProphylax ordered
--- NOTE | 2018-01-21 11:18 | PN- Cardiology ---
Subjective Subjective: Feeling well. No shortness of breath. No palpitations. No chest pain. No diaphoresis. No nausea or vomiting. Objective Vital Signs and I&Os Vital Signs Date Time Temp Pulse Resp B/P B/P Pulse O2 O2 Flow FiO2 Mean Ox Delivery Rate 01/21 0800 95 Nasal 2.0L Cannula 01/21 0624 98.3 88 20 100/52 95 01/21 0000 Nasal 2.0L Cannula 01/20 2104 98.3 88 20 110/50 99 Nasal 2.0L Cannula 01/20 1700 99 Nasal 2.0L Cannula 01/20 1632 Nasal 2.0L Cannula 01/20 1617 Nasal 2.0L Cannula 01/20 1600 Nasal 2.0L Cannula 01/20 1406 98.4 68 18 107/51 96 Nasal 2.0L Cannula Intake & Output 01/21 1600 01/21 0800 01/21 0000 01/20 1600 01/20 0800 01/20 0000 Intake Total 1100 1355 1550 1120 240 Output Total 722 489 1896 280 380 Balance -804 336 0456 150 840 -140 Intake, IV 7168 186 4045 1000 Intake, Oral 100 480 550 120 240 Number 0 Bowel Movements Output, 30 30 Drainage Output, Urine 471 649 7362 250 350 Patient 400 lb 381 lb 381 lb Weight Weight Bed scale Measurement Method Physical Exam: Gen: The patient is in no acute distress HEENT: Normal nose, ears, and oropharynx. Pupils equal bilaterally. Conjunctiva normal. Neck: Supple with no JVD, no masses, and no thyromegaly Lungs: Clear to auscultation with normal respiratory effort Heart: RRR, S1, S2, no murmurs. No peripheral edema, 2+ pulses in the lower extremities bilaterally Abdomen: Soft, nontender, no masses. No hepatomegaly. No splenomegaly Extremities: No clubbing or cyanosis. Normal muscle strength in the upper and lower extremities Skin: Normal skin turgor with no skin ulcers or les Current Medications: Current Medications Sig/Gely Start time Last Medication Dose Route Stop Time Status Admin Albuterol Sulfate 3 ML BIDPRN 01/19 2045 AC 01/20 INH 0832 Albuterol Sulfate 2 PUF Q4-6 PRN PRN 01/18 0815 AC 01/18 INH 0905 Ampicillin Sodium/ 3,000 MG Q6 01/17 1800 AC 01/21 Sulbactam Sodium IV 0511 Sodium Chloride 100 ML Diphenhydramine HCl 25 MG AT BEDTIME PRN 01/17 2000 AC 01/20 PO 2114 Gabapentin 300 MG BID 01/17 2100 AC 01/21 PO 912 Guaifenesin 1,200 MG BID 01/20 09 AC 01/21 PO 912 Heparin Sodium 5,000 UNIT Q8 01/17 2200 AC 01/21 (Porcine) SC 0512 Hydrocodone Bitart/ 15 ML Q4-6 PRN PRN 01/19 111 AC 01/20 Acetaminophen PO 2113 Hydrocodone Bitart/ 30 ML Q4-6 PRN PRN 01/19 1115 AC 01/21 Acetaminophen PO 0628 Insulin Aspart 0 TIDAC 01/19 08 AC 01/20 SC 1749 Insulin Aspart 0 AT BEDTIME 01/18 2100 AC SC Melatonin 5 MG AT BEDTIME PRN 01/18 192 AC 01/21 PO 0037 Morphine Sulfate 2 MG Q3P PRN 01/18 192 AC 01/21 IV 0041 Ondansetron HCl 4 MG Q6P PRN 01/17 1700 AC 01/20 IV 0728 Polyethylene Glycol 17 GM DAILY 01/20 900 AC 01/21 PO 14 Ramelteon 8 MG AT BEDTIME NEED.. 01/17 1600 AC 01/20 PO 2114 Senna/Docusate Sodium 2 TAB DAILY 01/18 900 AC 01/21 PO 912 Simethicone 40 MG Q6P PRN 01/20 0945 AC 01/21 PO 0918 Sodium Chloride 1,000 ML Q8H 01/19 191 AC 01/21 IV 0511 Results Last 48 Hrs of Labs/Mics: Laboratory Tests 01/21/18 0620: Anion Gap 8, Estimated GFR 23 L, BUN/Creatinine Ratio 31.0 H 01/20/18 0606: Anion Gap 9, Estimated GFR 22 L, BUN/Creatinine Ratio 30.0 H, CBC w Diff NO MAN DIFF REQ, RBC 2.99 L, MCV 94.3, MCH 31.0, MCHC 32.9 L, RDW 14.8 H, MPV 8.9, Gran % 82.1 H, Lymphocytes % 9.0 L, Monocytes % 5.6, Eosinophils % 3.2, Basophils % 0.1, Absolute Granulocytes 8.9 H, Absolute Lymphocytes 1.0 L, Absolute Monocytes 0.6, Absolute Eosinophils 0.3, Absolute Basophils 0 01/19/182029: Urine Color YEL, Urine Clarity CLEAR, Urine pH 5.5, Ur Specific [place] 1.025, Urine Protein NEG, Urine Ketones TRACE H, Urine Nitrite NEG, Urine Bilirubin NEG, Urine Urobilinogen 0.2, Ur Leukocyte Esterase NEG, Ur Microscopic SEDIMENT EXAMINED, Urine RBC RARE, Urine WBC RARE, Ur Epithelial Cells FEW, Urine Bacteria RARE H, Urine Hemoglobin NEG, Urine Glucose NEG 01/19/182029: Ur Random Creatinine 159.6, Ur Random Sodium < 5 L, Ur Random Potassium 58.5, Fraction Sodium Excret 01/19/18 184: Creatine Kinase Cancelled 01/19/18 182: Anion Gap 10, Estimated GFR 19 L, BUN/Creatinine Ratio 24.8, Phosphorus 3.5, Magnesium 1.6, Creatine Kinase 138 H, Haa-C-Ixujrbfyout Pept 6820 H, CBC w Diff NO MAN DIFF REQ, RBC 3.15 L, MCV 93.1, MCH 31.1 H, MCHC 33.5, RDW 14.5, MPV 8.8, Gran % 84.5 H, Lymphocytes % 8.5 L, Monocytes % 4.8, Eosinophils % 2.2, Basophils % 0, Absolute Granulocytes 9.8 H, Absolute Lymphocytes 1.0 L, Absolute Monocytes 0.6, Absolute Eosinophils 0.2, Absolute Basophils 0 Assessment/Plan Assessment/Plan Assessment: 1. Hypertension 2. Likely obstructive sleep apnea 3. Possible diastolic heart failure 4. Acute kidney injury 5. Acute cholecystitis, status post cholecystectomy Plan: * Lasix and MICHAEL inhibitor are on hold for acute kidney injury. Would consider restarting Lasix at a reduced dose on discharge * The patient is currently stable from cardiac standpoint * Agree with cautious hydration as per nephrology. Recheck BMP tomorrow Continue telemetry? Not applicable
[2018-01-21 14:07] VITALS: BP 153/100
[2018-01-21 15:27] VITALS: BP 130/90
--- NOTE | 2018-01-21 17:45 | PN- Nephrology ---
Assessment/Plan Nephrology Assessment: 1. Acute kidney injury secondary to volume contraction -had been improving with IV fluids but serum creatinine now appears to have plateaued despite significantly positive fluid balance suggesting that there may be an element of acute tubular necrosis despite low fractional excretion of sodium 2. Status post laparoscopic cholecystectomy 01/18/18 3. Diabetes mellitus, hypertension, morbid obesity, obstructive sleep apnea Suggestion: 1. Decrease IV fluids to 75 cc/h today and consider discontinuing IV fluids tomorrow if she is taking p.o. well 2. Continue to hold Lasix and MICHAEL inhibitor 3. Monitor intake and output, chemistries daily Subjective Subjective: Denies any nausea or vomiting this morning. Seems to be taking p.o. reasonably well. Serum creatinine down only slightly despite very positive fluid balance. Objective Vital Signs and I&Os Vital Signs Date Time Temp Pulse Resp B/P B/P Pulse O2 O2 Flow FiO2 Mean Ox Delivery Rate 01/21 1527 130/90 01/21 1523 96 Room Air 01/21 1407 98.5 100 20 153/100 96 Room Air 01/21 1341 118 96 Room Air 01/21 1113 93 Nasal 2.0L Cannula 01/21 0800 95 Nasal 2.0L Cannula 01/21 0624 98.3 88 20 100/52 95 01/21 0000 Nasal 2.0L Cannula 01/20 2104 98.3 88 20 110/50 99 Nasal 2.0L Cannula Intake & Output 01/21 1600 01/21 0400 01/20 1600 01/20 0400 01/19 1600 01/19 0400 Intake Total 2830 1355 2670 240 2140 540 Output Total 1999 0269 392 2725 240 Balance 830 1355 1240 -390 940 300 Int[place] [address] 1999 1100 300 Intake, Oral 820 480 771 097 0970 240 Number 0 0 Bowel Movements Output, 30 30 100 40 Drainage Output, Urine 1999 5676 751 6752 200 Patient 400 lb 381 lb Weight Weight Bed scale Measurement Method Physical Exam: General: Well-developed, morbidly obese white female in NAD Skin: No rash or jaundice HEENT: Conjunctivae pink, sclerae anicteric, mucous membranes moist Neck: Without masses or thyromegaly, no supraclavicular or cervical adenopathy Chest: Clear to P&A Heart: Regular rate and rhythm without S3 or rub Abdomen: Markedly obese, soft and nontender without palpable masses or organomegaly, dressing intact, drain in place. Extremities: Without cyanosis or edema Neuro: Cognitively intact, no focal findings, no asterixis or myoclonus Results Pertinent Lab Results: Laboratory Tests 01/21 01/20 0620 0606 Chemistry Sodium (137 - 145 mmol/L) 136 L 133 L Potassium (3.5 - 5.1 mmol/L) 4.9 4.6 Chloride (98 - 107 mmol/L) 101 100 Carbon Dioxide (22 - 30 mmol/L) 27 24 Anion Gap (5 - 16) 8 9 BUN (7 - 17 mg/dL) 65 H 66 H Creatinine (0.5 - 1.0 mg/dL) 2.1 H 2.2 H Estimated GFR (>60 ml/min) 23 L 22 L BUN/Creatinine Ratio (7 - 25 %) 31.0 H 30.0 H Hematology CBC w Diff NO MAN DIFF REQ WBC (4.8 - 10.8 /CUMM) 10.8 RBC (4.20 - 5.40 /CUMM) 2.99 L Hgb (12.0 - 16.0 G/DL) 9.3 L Hct (37 - 47 %) 28.2 L MCV (81.0 - 99.0 FL) 94.3 MCH (27.0 - 31.0 PG) 31.0 MCHC (33.0 - 37.0 G/DL) 32.9 L RDW (11.5 - 14.5 %) 14.8 H Plt Count (130 - 400 /CUMM) 202 MPV (7.4 - 10.4 FL) 8.9 Gran % (42.2 - 75.2 %) 82.1 H Lymphocytes % (20.5 - 51.1 %) 9.0 L Monocytes % (1.7 - 9.3 %) 5.6 Eosinophils % (0 - 5 %) 3.2 Basophils % (0.0 - 2.0 %) 0.1 Absolute Granulocytes (1.4 - 6.5 /CUMM) 8.9 H Absolute Lymphocytes (1.2 - 3.4 /CUMM) 1.0 L Absolute Monocytes (0.10 - 0.60 /CUMM) 0.6 Absolute Eosinophils (0.0 - 0.7 /CUMM) 0.3 Absolute Basophils (0.0 - 0.2 /CUMM) 0 01/19 184 Chemistry Creatine Kinase Cancelled Urines Urine Color (YEL,AMB,STR) YEL Urine Clarity (CLEAR) CLEAR Urine pH (5.0 - 8.0) 5.5 Ur Specific [place] (1.001 - 1.035) 1.025 Urine Protein (NEG,<30 MG/DL) NEG Urine Ketones (NEG) TRACE H Urine Nitrite (NEG) NEG Urine Bilirubin (NEG) NEG Urine Urobilinogen (0.1 - 1.0 EU/dl) 0.2 Ur Leukocyte Esterase (NEG) NEG Ur Microscopic SEDIMENT EXAMINED Urine RBC (0 - 5 /HPF) RARE Urine WBC (0 - 2 /HPF) RARE Ur Epithelial Cells (NONE,FEW) FEW Urine Bacteria (NEG/NONE) RARE H Urine Hemoglobin (NEG) NEG Ur Random Creatinine (mg/dL) 159.6 Ur Random Sodium (30 - 90 mmol/L) < 5 L Ur Random Potassium (mmol/L) 58.5 Fraction Sodium Excret (<1% %) Urine Glucose (N MG/DL) NEG 01/19 01/19 1825 1322 Chemistry Sodium (137 - 145 mmol/L) 135 L 136 L Potassium (3.5 - 5.1 mmol/L) 4.8 4.7 Chloride (98 - 107 mmol/L) 99 105 Carbon Dioxide (22 - 30 mmol/L) 27 26 Anion Gap (5 - 16) 10 5 BUN (7 - 17 mg/dL) 62 H 59 H Creatinine (0.5 - 1.0 mg/dL) 2.5 H 1.9 H Estimated GFR (>60 ml/min) 19 L 26 L BUN/Creatinine Ratio (7 - 25 %) 24.8 31.1 H Serum Osmolality (285 - 295 MOSM/KG) 308 H Phosphorus (2.5 - 4.5 mg/dL) 3.5 Magnesium (1.6 - 2.3 mg/dL) 1.6 Total Bilirubin (0.2 - 1.3 mg/dL) 0.2 Direct Bilirubin (< 0.4 mg/dL) 0.1 AST (14 - 36 U/L) 34 ALT (9 - 52 U/L) 45 Alkaline Phosphatase (<127 U/L) 66 Creatine Kinase (30 - 135 U/L) 138 H [id number]-Lhcohpxbgdn Pept (<125 pg/mL) 6820 H Total Protein (6.3 - 8.2 g/dL) 4.7 L Albumin (3.5 - 5.0 g/dL) 2.6 L Hematology CBC w Diff NO MAN DIFF REQ MAN DIFF ORDERED WBC (4.8 - 10.8 /CUMM) 11.5 H 11.8 H RBC (4.20 - 5.40 /CUMM) 3.15 L 3.15 L Hgb (12.0 - 16.0 G/DL) 9.8 L 9.8 L Hct (37 - 47 %) 29.3 L 29.6 L MCV (81.0 - 99.0 FL) 93.1 94.0 MCH (27.0 - 31.0 PG) 31.1 H 31.2 H MCHC (33.0 - 37.0 G/DL) 33.5 33.2 RDW (11.5 - 14.5 %) 14.5 14.8 H Plt Count (130 - 400 /CUMM) 225 219 MPV (7.4 - 10.4 FL) 8.8 8.6 Gran % (42.2 - 75.2 %) 84.5 H 91.2 H Lymphocytes % (20.5 - 51.1 %) 8.5 L 4.3 L Monocytes % (1.7 - 9.3 %) 4.8 3.7 Eosinophils % (0 - 5 %) 2.2 0.7 Basophils % (0.0 - 2.0 %) 0 0.1 Absolute Granulocytes (1.4 - 6.5 /CUMM) 9.8 H 10.8 H Segmented Neutrophils (42.2 - 75.2 %) 75 Band Neutrophils (0.0 - 5.0 %) 15 H Absolute Lymphocytes (1.2 - 3.4 /CUMM) 1.0 L 0.5 L Lymphocytes (20.5 - 51.1 %) 3 L Monocytes (1.7 - 9.3 %) 6 Absolute Monocytes (0.10 - 0.60 /CUMM) 0.6 0.4 Absolute Eosinophils (0.0 - 0.7 /CUMM) 0.2 0.1 Basophils (0.0 - 2.0 %) 1 Absolute Basophils (0.0 - 0.2 /CUMM) 0 0 Platelet Estimate (ADEQUATE) VERIFIED BY SMEAR Polychromasia 1+ Basophilic Stippling 1+ Anisocytosis 1+
[2018-01-21 22:17] VITALS: BP 162/81
[2018-01-22 06:45] VITALS: BP 110/60
--- NOTE | 2018-01-22 07:16 | PN- Student ---
Candice Holbrook 01/22/18 0651: Subjective Subjective: Pt has no acute complaints. Pt has intermittent abdominal pain, says is managed well, denies to characterize pain. Pt tolerating normal diet, no nausea or vomiting. Pt had BM yesterday after suppository, denies blood in stool. Voiding on own. Pt ambulating independently. Pt also states SOB has worsened since admission, but denies any exacerbating factors. Denies all other ROS. Objective Objective: Vitals: normal and stable I/O: normal Exam: Gen: Pt sleeping comfortably when entering room. Pt gives brief answers, does not give consent to exam. Labs: Glucose: 238 Chemistry pending. No other new labs. Imaging: No new imaging. Assessment/Plan Assessment: Pt is a 67 y/o F w/ PMH of morbid obesity, T2DM, HTN, obstructive sleep apnea, orthopnea, depression, and CKD currently on POD#4 s/p lap fariba secondary to acute calculous cholecystitis. Pt is stable. Neuro: pain well controlled w/ Hycet 15mL PO Q4-6 PRN Cardiac: NS 1L IV Q20H 50mL/hr Respiratory: on room air, encourage incentive spirometry GI: normal diet : urinating on own Heme: could not determine if AICDs in place; assess at later timepoint Endocrine: elevated glucose; implement sliding scale in addition to novolog TIDAC Wound: assess at later timepoint Dispo/other: -Continue routine post-op care -Encourage ambulation -F/u on BMP (consider renal US if Cr is still elevated >2) Bria Andino 01/22/18 1010: Resident Review Statement Other Findings: PATIENT SEE, COMPLAINS OF MILD SOB CHEST WITH FINE CRACKLES AT BASES BILATERALY -HAS HAD 20LB WEIGHT GAIN SINCE BEING ADMITTED [facility] AFEBRILE ABDOMEN SORT, NT PLAN - CREAT DOWN -2.5 TO 1.3, ALMOST BACK TO BASELINE PER NEPHRO -START 1/2 DOSE LASIX PLAN -OOB AMBULATION AND DISCHARGE TO REHAB TODAY Jett Perez MD 01/22/18 1237: Attending MD Review Statement Attending Sign Off Other Findings: as above. restart lasix half dose. d/c to rehab. close cards f/u re: lasix management.
[2018-01-22] MEDS ORDERED: HYCET 7.5 MG-3473 ML PO (09:53)
[2018-01-22] MEDS ORDERED: SENNA8.6 M3 PO (09:53)
[2018-01-22] MEDS ORDERED: COLACE100 M1 PO (09:54)
[2018-01-22 14:05] VITALS: BP 132/80
--- NOTE | 2018-01-22 15:35 | PN- Nephrology ---
Assessment/Plan Nephrology Assessment: 1. Acute kidney injury secondary to volume contraction -resolved 2. Status post laparoscopic cholecystectomy 01/18/18 3. Diabetes mellitus, hypertension, morbid obesity, obstructive sleep apnea Suggestion: 1. Can discontinue IV fluids 2. Mobilize We will sign off. Please call if needed again. Thank you for asking me to see this patient. Subjective Subjective: No new or specific complaints. Renal function markedly improved with creatinine down to 1.3. Her recent baseline level range from 0.9-1.2. Electrolytes acceptable. Objective Vital Signs and I&Os Vital Signs Date Time Temp Pulse Resp B/P B/P Pulse O2 O2 Flow FiO2 Mean Ox Delivery Rate 01/22 1405 98.1 70 19 132/80 95 Room Air 01/22 1154 96 Room Air 01/22 0800 93 Room Air 01/22 0645 98.2 100 20 110/60 93 Room Air 01/22 0000 Room Air 01/21 2217 98.3 78 20 162/81 97 Room Air 01/21 1949 92 Room Air 01/21 1809 68 Intake & Output 01/22 1600 01/22 0400 01/21 1600 01/21 0400 01/20 1600 01/20 0400 Intake Total 1398 095 6360 1355 2670 240 Output Total 7670 880 4914 1430 630 Balance -300 449 557 6685 1240 -390 Intake, IV 4110 944 9400 875 2000 Intake, Oral 500 240 820 480 670 240 Number 1 0 Bowel Movements Output, 30 30 Drainage Output, Urine 5491 811 2295 1400 600 Patient 395 lb 400 lb 381 lb Weight Weight Bed scale Bed scale Measurement Method Physical Exam: General: Well-developed, morbidly obese white female in NAD Skin: No rash or jaundice HEENT: Conjunctivae pink, sclerae anicteric, mucous membranes moist Neck: Without masses or thyromegaly, no supraclavicular or cervical adenopathy Chest: Clear to P&A Heart: Regular rate and rhythm without S3 or rub Abdomen: Markedly obese, soft and nontender without palpable masses or organomegaly Extremities: Without cyanosis or edema Neuro: Cognitively intact, no focal findings, no asterixis or myoclonus Current Medications: Current Medications Sig/Gely Start time Last Medication Dose Route Stop Time Status Admin Albuterol Sulfate 3 ML BIDPRN 01/19 2045 AC 01/21 INH 1112 Albuterol Sulfate 2 PUF Q4-6 PRN PRN 01/18 0815 AC 01/18 INH 0905 Bisacodyl 0 .STK-MED ONE 01/21 1933 DC CO Bisacodyl 10 MG ONCE ONE 01/21 1730 DC 01/21 CO 01/21 173 1931 Diphenhydramine HCl 25 MG AT BEDTIME PRN 01/17 2000 AC 01/21 PO 2342 Docusate Sodium 100 MG BID 01/21 2100 AC 01/22 PO 1012 Furosemide 20 MG DAILY 01/22 0948 AC 01/22 IV 1118 Gabapentin 300 MG BID 01/17 2100 AC 01/22 PO 1012 Guaifenesin 1,200 MG BID 01/20 900 AC 01/22 PO 1012 Heparin Sodium 5,000 UNIT Q8 01/17 2200 AC 01/22 (Porcine) SC 1452 Hydrocodone Bitart/ 15 ML Q4-6 PRN PRN 01/19 1115 AC 01/20 Acetaminophen PO 2114 Hydrocodone Bitart/ 30 ML Q4-6 PRN PRN 01/19 111 AC 01/22 Acetaminophen PO 0710 Insulin Aspart 0 TIDAC 01/19 08 AC 01/22 SC 1237 Insulin Aspart 0 AT BEDTIME 01/18 2100 SC Melatonin 5 MG AT BEDTIME PRN 01/18 1921 AC 01/21 PO 0037 Morphine Sulfate 2 MG Q3P PRN 01/18 1921 AC 01/21 IV 0041 Ondansetron HCl 4 MG Q6P PRN 01/17 1700 AC 01/20 IV 0728 Polyethylene Glycol 17 GM DAILY 01/20 09 AC 01/22 PO 1012 Ramelteon 8 MG AT BEDTIME NEED.. 01/17 1600 AC 01/21 PO 2342 Senna/Docusate Sodium 2 TAB DAILY 01/18 09 AC 01/22 PO 1012 Simethicone 40 MG Q6P PRN 01/20 0945 AC 01/21 PO 0918 Sodium Chloride 1,000 ML Q20H 01/22 0700 AC 01/22 IV 0711 Sodium Chloride 1,000 ML Q8H 01/19 191 DC 01/22 IV 0629 Results Pertinent Lab Results: Laboratory Tests 01/22 01/21 01/20 0654 0620 0606 Chemistry Sodium (137 - 145 mmol/L) 136 L 136 L 133 L Potassium (3.5 - 5.1 mmol/L) 4.8 4.9 4.6 Chloride (98 - 107 mmol/L) 107 101 100 Carbon Dioxide (22 - 30 mmol/L) 24 27 24 Anion Gap (5 - 16) 4 L 8 9 BUN (7 - 17 mg/dL) 54 H 65 H 66 H Creatinine (0.5 - 1.0 mg/dL) 1.3 H 2.1 H 2.2 H Estimated GFR (>60 ml/min) 41 L 23 L 22 L BUN/Creatinine Ratio (7 - 25 %) 41.5 H 31.0 H 30.0 H Hematology CBC w Diff NO MAN DIFF REQ WBC (4.8 - 10.8 /CUMM) 10.8 RBC (4.20 - 5.40 /CUMM) 2.99 L Hgb (12.0 - 16.0 G/DL) 9.3 L Hct (37 - 47 %) 28.2 L MCV (81.0 - 99.0 FL) 94.3 MCH (27.0 - 31.0 PG) 31.0 MCHC (33.0 - 37.0 G/DL) 32.9 L RDW (11.5 - 14.5 %) 14.8 H Plt Count (130 - 400 /CUMM) 202 MPV (7.4 - 10.4 FL) 8.9 Gran % (42.2 - 75.2 %) 82.1 H Lymphocytes % (20.5 - 51.1 %) 9.0 L Monocytes % (1.7 - 9.3 %) 5.6 Eosinophils % (0 - 5 %) 3.2 Basophils % (0.0 - 2.0 %) 0.1 Absolute Granulocytes (1.4 - 6.5 /CUMM) 8.9 H Absolute Lymphocytes (1.2 - 3.4 /CUMM) 1.0 L Absolute Monocytes (0.10 - 0.60 /CUMM) 0.6 Absolute Eosinophils (0.0 - 0.7 /CUMM) 0.3 Absolute Basophils (0.0 - 0.2 /CUMM) 0 01/19 184 Chemistry Creatine Kinase Cancelled Urines Urine Color (YEL,AMB,STR) YEL Urine Clarity (CLEAR) CLEAR Urine pH (5.0 - 8.0) 5.5 Ur Specific Vici (1.001 - 1.035) 1.025 Urine Protein (NEG,<30 MG/DL) NEG Urine Ketones (NEG) TRACE H Urine Nitrite (NEG) NEG Urine Bilirubin (NEG) NEG Urine Urobilinogen (0.1 - 1.0 EU/dl) 0.2 Ur Leukocyte Esterase (NEG) NEG Ur Microscopic SEDIMENT EXAMINED Urine RBC (0 - 5 /HPF) RARE Urine WBC (0 - 2 /HPF) RARE Ur Epithelial Cells (NONE,FEW) FEW Urine Bacteria (NEG/NONE) RARE H Urine Hemoglobin (NEG) NEG Ur Random Creatinine (mg/dL) 159.6 Ur Random Sodium (30 - 90 mmol/L) < 5 L Ur Random Potassium (mmol/L) 58.5 Fraction Sodium Excret (<1% %) Urine Glucose (N MG/DL) NEG 01/19 1825 Chemistry Sodium (137 - 145 mmol/L) 135 L Potassium (3.5 - 5.1 mmol/L) 4.8 Chloride (98 - 107 mmol/L) 99 Carbon Dioxide (22 - 30 mmol/L) 27 Anion Gap (5 - 16) 10 BUN (7 - 17 mg/dL) 62 H Creatinine (0.5 - 1.0 mg/dL) 2.5 H Estimated GFR (>60 ml/min) 19 L BUN/Creatinine Ratio (7 - 25 %) 24.8 Phosphorus (2.5 - 4.5 mg/dL) 3.5 Magnesium (1.6 - 2.3 mg/dL) 1.6 Creatine Kinase (30 - 135 U/L) 138 H [id number] Pept (<125 pg/mL) 6820 H Hematology CBC w Diff NO MAN DIFF REQ WBC (4.8 - 10.8 /CUMM) 11.5 H RBC (4.20 - 5.40 /CUMM) 3.15 L Hgb (12.0 - 16.0 G/DL) 9.8 L Hct (37 - 47 %) 29.3 L MCV (81.0 - 99.0 FL) 93.1 MCH (27.0 - 31.0 PG) 31.1 H MCHC (33.0 - 37.0 G/DL) 33.5 RDW (11.5 - 14.5 %) 14.5 Plt Count (130 - 400 /CUMM) 225 MPV (7.4 - 10.4 FL) 8.8 Gran % (42.2 - 75.2 %) 84.5 H Lymphocytes % (20.5 - 51.1 %) 8.5 L Monocytes % (1.7 - 9.3 %) 4.8 Eosinophils % (0 - 5 %) 2.2 Basophils % (0.0 - 2.0 %) 0 Absolute Granulocytes (1.4 - 6.5 /CUMM) 9.8 H Absolute Lymphocytes (1.2 - 3.4 /CUMM) 1.0 L Absolute Monocytes (0.10 - 0.60 /CUMM) 0.6 Absolute Eosinophils (0.0 - 0.7 /CUMM) 0.2 Absolute Basophils (0.0 - 0.2 /CUMM) 0
--- NOTE | 2018-01-22 16:12 | Surgical Discharge Summary ---
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 FH: diabetes mellitus FHx: gallbladder disease FHx: pneumonia Relation not specified for: Meningococcal meningitis Psychosocial History Where Do You Live? Home Who Do You Live With? Patient/Self Services at Home: Home Health Aide What is Your Primary Language? Japanese ETOH Use: occasional use (previous "heavy" use) Other Addictive Behavior: , with 3 children (her son a year ago d/t drug overdose) Review of Systems: See H&P Hospital Course Course Attending Physician: Jett Perez MD Primary Care Physician: Consuelo SOLIZ,Leah Hanson Hospital Course: Stephanie was admitted on 01/17/2018 for an acute onset of calculus cholecystits. She underwent a laparoscopic cholecystectomy on 01/18/2018. Post operative course was significant for an acute kidney injury. Nephrology was consulted, fluid administered, nephrotoxic medications withheld. A resolution was noted with creatinine returning to baseline. She was closely followed by cardiology and was deemed stable from cardiac standpoint. Prior to discharge she was placed back on lasix, half dose per cardiology recommendations, and noted was moderated urine output with resolution of any respiratory symptoms. She was evaluated and treated by physical therapy. At the time of hospital discharge, her vital signs were stable and within normal limits, her neurovascular status was intact, she was tolerating po intake, her pain was controlled with the use of oral pain medications, and she was deemed appropriate for discharge to short term rehab. Allergies: Coded Allergies: cephalexin (Severe, COULDN'T BREATHE 01/11/16) cyclobenzaprine (UNKNOWN PER PT CANT REMEMBER 01/08/17) tramadol (UNKNOWN PER PT CANT REMEMBER 01/08/17) trazodone (NIGHTMARES 01/08/17) Disposition Summary Disposition Principal Diagnosis: Acute Calculus cholecystitis Additional Diagnosis: Acute kidney injury Discharge Disposition: SNF Discharge Instructions General Discharge Information Code Status: Full Code Patient's Diet: Diabetic Patient's Activity: As tolerated Follow-Up Instructions/Appts: Follow up with Dr. Perez in 2 weeks from date of surgery. Please call office to arrange/confirm this appointment Medications at Discharge Discharge Medications: Continue taking these medications: Linagliptin (Tradjenta) 5 MG TABLET 1 Tablet ORAL DAILY Albuterol Sulfate (Proair Hfa) 90 MCG HFA.AER.AD 2 Puff Inhale through mouth EVERY 4-6 HOURS NEEDED as needed for SOB Comments: NOT GIVEN IN HOSPITAL Aspirin (Aspirin*) 81 MG TAB.CHEW 1 Tablet ORAL DAILY Comments: Last Taken: 06/03/16 Time: 9:00 AM Cyanocobalamin (Vitamin B-12) (Unknown Strength) TABLET 1,000 Microgram ORAL DAILY Days = 30 Comments: NOT GIVEN IN HOSPITAL Ramelteon (Rozerem) 8 MG TABLET 1 Tablet ORAL Every night as needed for INSOMNIA Qty = 30 Comments: Last Taken: 06/02/16 Time: 10:00 PM Atorvastatin Calcium (Atorvastatin Calcium) 40 MG TABLET 1 Tablet ORAL DAILY Qty = 90 Furosemide (Furosemide) (Unknown Strength) TABLET Unknown Dose ORAL DAILY Qty = 90 Glimepiride (Glimepiride) 4 MG TABLET 1 Tablet ORAL DAILY Qty = 90 Lisinopril (Lisinopril) 10 MG TABLET 1 Tablet ORAL DAILY Qty = 90 Sennosides (Senna) 8.6 MG TABLET 2 Tablet ORAL as needed for CONSTIPATION Metformin HCl (Metformin HCl) (Unknown Strength) TABLET Unknown Dose ORAL TWICE DAILY Qty = 60 Gabapentin (Gabapentin) (Unknown Strength) CAPSULE Unknown Dose ORAL As Directed Qty = 60 Chlorpromazine HCl (Chlorpromazine HCl) (Unknown Strength) TABLET Unknown Dose ORAL As Directed Qty = 60 Hydrocodone/Acetaminophen (Hycet 7.5 MG-325 MG/15 Ml Soln) 7.5 MG-325 MG/15 ML SOLUTION 15 Milliliters ORAL EVERY 4 HOURS NEEDED as needed for PAIN Sennosides (Senna) 8.6 MG TABLET 2 Tablet ORAL TWICE DAILY Docusate Sodium (Colace) 100 MG CAPSULE 1 Capsule ORAL TWICE DAILY
[2018-01-22 16:57] VITALS: BP 132/80
[2018-01-22 16:58] VITALS: BP 132/80
== END 2018-01-22 18:00 | DRG 418 ==
LOC: ERH 08:33 → 2NB 15:47 → ERHI 15:47 → ENRESERV 16:13 → ENTRNSPT 16:54 → EDTRNSPTSTS 17:03 → 2NB 17:08 → CMPTRNSPT 17:25 → ENTRNSPT 01-18 20:16 → EDTRNSPTSTS 01-18 20:16 → EDTRNSPT 01-18 20:16 → CMPTRNSPT 01-18 21:01 → ENPENDDIS 01-22 15:58 → 2NB 01-22 18:00
PROVIDERS: Emergency Medicine; Nurse Practitioner; Physician Assistant; Physician Assistant Surgical
PROC: 0FT44ZZ Resection of Gallbladder, Percutaneous Endoscopic Approach (ICD-10-PCS; principal; 2018-01-18)
PROC: 3E0T3BZ Introduction of Anesthetic Agent into Peripheral Nerves and Plexi, Percutaneous Approach (ICD-10-PCS; 2018-01-18)
DX: K80.10 Calculus of gallbladder with chronic cholecystitis without obstruction (principal); Z68.43 Body mass index [BMI] 50.0-59.9, adult; N17.9 Acute kidney failure, unspecified; I50.32 Chronic diastolic (congestive) heart failure; I11.0 Hypertensive heart disease with heart failure; E11.40 Type 2 diabetes mellitus with diabetic neuropathy, unspecified; E66.01 Morbid (severe) obesity due to excess calories; G47.00 Insomnia, unspecified; F41.9 Anxiety disorder, unspecified; F32.9 Major depressive disorder, single episode, unspecified; K80.00 Calculus of gallbladder with acute cholecystitis without obstruction; G89.29 Other chronic pain; M25.562 Pain in left knee; M25.561 Pain in right knee; G47.33 Obstructive sleep apnea (adult) (pediatric); K59.09 Other constipation; Z79.84 Long term (current) use of oral hypoglycemic drugs; Z88.8 Allergy status to other drugs, medicaments and biological substances; Z86.14 Personal history of Methicillin resistant Staphylococcus aureus infection
CPT/HCPCS: 84133; 84300; 36415; 36592; 71045; 81001; 81003; 82436; 82570; 88304; 88307; 93005; 93010; 96361; 96374; 96375; 97110-GO; 97112-GO; 97116-GO; 97162-GP; 97530-GO; J0131; J1200; J1644; J1815; J1885; J1940; J2405; J3490; J7040; J7042; Q2036